=== PATIENT | female | born 1965 | race Caucasian/White ===

== ENCOUNTER 2021-10-29 18:00 | Emergency (ER) | payer MEDICARE, MEDICAID, SELFPAY ==
--- NOTE | ~2021-10-29 | US_ITS ---
EXAMINATION: US VENOUS ULTRASOUND WITH DOPPLER LOWER EXTREMITY, RIGHT CLINICAL INFORMATION: Right leg swelling and pain COMPARISON: None TECHNIQUE: Ultrasound of the deep veins is performed from the hip to the calf with compression sonography and color and pulse Doppler assessment. Spectral analysis with color-flow imaging is performed. FINDINGS: There is normal venous compression and respiratory variation and augmented flow. The visualized common femoral vein, superficial femoral vein, profunda femoral vein, popliteal vein, and the trifurcation region shows no evidence of deep venous thrombosis. There is no significant popliteal fossa cyst. If the patient's symptoms persist, followup ultrasound in 5 days 7 days might be of value to exclude proximal propagation from a non-visualized calf vein. US/US venous duplex LE RT IMPRESSION: No DVT demonstrated in the right lower extremity.
--- NOTE | ~2021-10-29 | XR_ITS ---
EXAMINATION: RIGHT FOOT AND RIGHT ANKLE. CLINICAL INFORMATION: Pain. COMPARISON: None TECHNIQUE: 3 views right foot and 2 views right ankle. FINDINGS: RIGHT ANKLE: The ankle mortise and subtalar joints are normal. The soft tissues are normal. RIGHT FOOT: There is no visible acute fracture, dislocation or subluxation seen. The soft tissues are normal. XR/XR ankle RT 2V IMPRESSION: Unremarkable right ankle exam. Unremarkable right foot exam.
--- NOTE | ~2021-10-29 | XR_ITS ---
EXAMINATION: RIGHT FOOT AND RIGHT ANKLE. CLINICAL INFORMATION: Pain. COMPARISON: None TECHNIQUE: 3 views right foot and 2 views right ankle. FINDINGS: RIGHT ANKLE: The ankle mortise and subtalar joints are normal. The soft tissues are normal. RIGHT FOOT: There is no visible acute fracture, dislocation or subluxation seen. The soft tissues are normal. XR/XR foot RT 2V IMPRESSION: Unremarkable right ankle exam. Unremarkable right foot exam.
[2021-10-29 19:24] VITALS: BP 141/76; PULSE 92; RESP 15; TEMP 37.1; O2SAT 97; BMI 25.6
[2021-10-29] MEDS: Acetaminophen 325 MG TABLET 975 MG PO (20:22)
--- NOTE | 2021-10-29 22:19 | ED.LOWEXIN ---
HPI - Extremity Injury (Lower) General Chief Complaint: Extremity Injury, Lower Stated Complaint: ladder fell on foot Time Seen by Provider: 10/29/21 20:30 History of Present Illness HPI Narrative: Patient complains of right foot pain when a ladder fell onto her right foot a few hours ago, no other injury She also mentioned that she has had some pain in the back of her right leg for the last week not related to this injury or any other injury, no shortness of breath no chest pain Related Data Previous Rx's Medication Instructions Recorded oxycodone 5 mg tablet 5 mg PO Q6H PRN pain #7 tabs 10/29/21 Allergies Allergy/AdvReac Type Severity Reaction Status Date / Time tramadol [Tramadol] Allergy Mild HEADACHE Unverified 01/19/20 16:16 bee pollen [BEE STINGS] Allergy Unknown UNKNOWN Unverified 01/19/20 16:16 tapentadol [TAPENTADOL] Allergy Unknown UNKNOWN Unverified 01/19/20 16:16 adhesive tape [ADHESIVE TAPE] AdvReac Unknown MY SKIN Unverified 01/19/20 16:16 RIPS OFF ADHESIVE BANDAGE AdvReac Unknown MY SKIN Uncoded 01/19/20 16:16 RIPS OFF Review of Systems Review of Systems: Positive for right foot pain and right posterior leg pain Negatives are no fever no chills no dizziness no weakness no headache no neck pain no chest pain no back pain no numbness weakness or tingling no chest pain no shortness of breath Yes all other systems are reviewed and are negative PMFSH Past Medical History Source: nursing notes reviewed Social History Social History Advance Directives: No Advance Directives Information Provided: Yes Physical Exam Vital Signs: Vital Signs: Last Vital Signs Temp 98.7 F 10/29/21 19:24 Pulse 92 10/29/21 19:24 Resp 15 10/29/21 19:24 BP 141/76 H 10/29/21 19:24 Pulse Ox 97 10/29/21 19:24 O2 Del Method 10/29/21 19:24 BMI result Body Mass Index 25.6 General appearance no acute distress Head is normocephalic atraumatic Neck is supple nontender Chest is clear to auscultation bilateral, no pleuritic pain with deep breath, no chest wall tenderness Heart no murmur Abdomen soft nontender Extremities the right dorsal medial foot is tender with some mild ecchymosis and very mild swelling, skin is intact and neurovascular intact distal The right calf had some tenderness, no obvious swelling, there is mild edema in both left and right legs, no redness or warmth no evidence of skin infection no wounds, neurovascular intact distal Skin no rashes Neuro no gross focal deficits Course Course Course Narrative: X-ray of right foot and ankle was negative, skin was intact, so injury to foot is likely a contusion Because she has had some calf pain in the back of her right leg for over a week not related to any injury up ultrasound was done and was negative for DVT or any other acute finding Discharge Plan Discharge Clinical Impression: Contusion of foot, right, Leg pain, right Patient Disposition: Home, Self-Care Additional Instructions: X-ray did not show any broken bones in her right foot or ankle Ultrasound did not show any blood clot in the right leg, there was no sign of infection in the right leg Follow with orthopedist if needed for the foot, and if right leg pain continues or swelling develops and worsens follow with your doctor as you may need a repeat ultrasound Return to the ER any time any worse condition or any concerns Prescriptions: New oxycodone 5 mg tablet 5 mg PO Q6H PRN (Reason: pain) Qty: 7 0RF Rx Instructions: Partial Fill upon patient request. Referrals: Benjy Desai MD [Physician] - (Right foot injury) Interventions: ED Discharge Assessment Last Done: 10/29/21 22:55 Discharge Date/Time: 10/29/21 22:57
[2021-10-29] MEDS: oxyCODONE HCl Immed Release 5 MG TABLET PO (22:22)
== END 2021-10-29 22:57 | disposition home or self-care (01) ==
PROVIDERS: Emergency Provider Emergency Medicine; PCP Internal Medicine
DX: S90.31XA Contusion of right foot, initial encounter (principal); R60.0 Localized edema; M79.604 Pain in right leg; M54.50 Low back pain, unspecified; W11.XXXA Fall on and from ladder, initial encounter; Y93.9 Activity, unspecified; Y92.9 Unspecified place or not applicable; Y99.9 Unspecified external cause status; Z79.899 Other long term (current) drug therapy
CPT/HCPCS: 73600; 73620; 93971; 99283; 99284

== ENCOUNTER 2022-01-09 11:07 | Emergency (ER) | payer MEDICARE, MEDICAID, SELFPAY ==
--- NOTE | ~2022-01-09 | XR_ITS ---
EXAMINATION: XR LUMBOSACRAL SPINE CLINICAL INFORMATION: Acute on chronic pain post heavy lifting COMPARISON: CT abdomen and pelvis 12/20/2017 TECHNIQUE: Three views of the lumbosacral spine. FINDINGS: The vertebral bodies and posterior elements are intact. There is some degree of facet arthropathy at L5-S1. Mild endplate remodeling at several levels. There is possible mild disc space loss at L5-S1 which is similar to prior CT, otherwise the disc spaces are preserved and the vertebral alignment is normal. There are atherosclerotic calcifications of the aorta anterior to the lumbar spine. The paraspinal soft tissues are normal. XR/XR lumbar spine 2-3V IMPRESSION: Minimal degenerative changes of the lumbar spine without acute abnormality
[2022-01-09 11:10] VITALS: BP 145/95; PULSE 100; RESP 16; TEMP 37.1; O2SAT 97; BMI 23.3
[2022-01-09] MEDS: oxyCODONE HCl Immed Release 5 MG TABLET PO (13:29)
[2022-01-09] MEDS: Cyclobenzaprine HCl 10 MG TABLET PO (13:29)
[2022-01-09] MEDS: Ibuprofen 800 MG TABLET PO (13:29)
--- NOTE | 2022-01-09 13:57 | ED.BACK ---
HPI - Back Pain/Injury General Chief Complaint: Back Pain/Injury Stated Complaint: back pain Time Seen by Provider: 01/09/22 12:05 Source: patient Mode of arrival: ambulatory Limitations: no limitations History of Present Illness HPI Narrative: 56-year-old female with a past medical history of ulcers and intestines, gastritis, migraine headaches, chronic back pain, fibromyalgia, anxiety disorder and depression presenting to the ER with complaints of acute on chronic back pain since Thursday worse today. She reports that she tried to help her friend move a picnic table and she started having pain right after. Then her dog has been sick so she has been having to carry him around up and down the stairs and he is very heavy per the patient. She reports she has been taking Motrin and Tylenol without any symptomatic relief. She was followed by pain management and usually gets steroid injections although has not had an injection over 3-4 months. She reports it feels similar to her prior back pains. Although she heard a pop yesterday when she was caring her dog up the stairs. Otherwise she denies any fevers, dizziness, neck pain/ stiffness, trouble swallowing breathing, chest pain or shortness of breath, dyspnea on exertion, orthopnea, palpitations, paresthesias, abdominal pain, flank pain, dysuria, hematuria, abnormal vaginal discharge, rashes, recent falls or trauma, urinary bowel incontinence, saddle anesthesia, IV drug use or any other symptoms complaints or concerns at this time. MD elicited complaint: back pain and back injury Pertinent past history: prior back pain Onset (ago): day(s) ( Worse since Thursday) Timing: constant and progressively worsening Severity: similar to previous episodes Similar Symptoms Previously: Yes Quality: aching, spasming and throbbing Location: lumbar spine Radiation: none Exacerbating factors: immobilization, movement, sitting upright and lifting Relieving factors: none Context: while lifting, turning/twisting and bending Associated symptoms: denies other symptoms Treatments prior to arrival: cold therapy, heat therapy, NSAIDS and acetaminophen Work related injury: No Related Data Previous Rx's Medication Instructions Recorded oxycodone 5 mg tablet 5 mg PO Q6H PRN pain #7 tabs 10/29/21 cyclobenzaprine 10 mg tablet 10 mg PO Q8H #14 tabs 01/09/22 ibuprofen 600 mg tablet 600 mg PO Q6H PRN fever #14 tabs 01/09/22 oxycodone 5 mg tablet 5 mg PO Q6H PRN pain #10 tabs 01/09/22 Allergies Allergy/AdvReac Type Severity Reaction Status Date / Time tramadol [Tramadol] Allergy Mild HEADACHE Unverified 01/19/20 16:16 bee pollen [BEE STINGS] Allergy Unknown UNKNOWN Unverified 01/19/20 16:16 tapentadol [TAPENTADOL] Allergy Unknown UNKNOWN Unverified 01/19/20 16:16 adhesive tape [ADHESIVE TAPE] AdvReac Unknown MY SKIN Unverified 01/19/20 16:16 RIPS OFF ADHESIVE BANDAGE AdvReac Unknown MY SKIN Uncoded 01/19/20 16:16 RIPS OFF Review of Systems Review of Systems: Constitutional : No trauma, No Weight loss, No Fever, No Chills, ENT/Mouth : No Hearing loss, No Ear Pain, No Nasal Congestion, No Sinus Pain, No Hoarseness, No sore throat, No Rhinorrhea, No Swallowing Difficulty Cardiovascular : No Chest Pain, No SOB Respiratory : No Cough, No Dyspnea Gastrointestinal : No Nausea, No Vomiting, No Diarrhea, No abdominal Pain, No Hematochezia, No Melena Genitourinary : No Dysuria, No Urinary Frequency, No Hematuria, No Urinary or Bowel Incontinence/retention Musculoskeletal : + Back pain, No neck pain, No joint stiffness, No joint swelling Skin : No Skin Lesions, No rash or signs of infection Neuro : No Weakness, No radiation, No Numbness, No Paresthesias, No headache, no loss of bowel or bladder incontinence, no saddle anesthesia, Focal weakness, No radiation Denies history of IV drug usage. Yes all other systems are reviewed and are negative [facility] Past Medical History Attestation statement: The following information was validated with the patient. Source: old records reviewed and nursing notes reviewed Social History Social History Advance Directives: No Advance Directives Information Provided: No Physical Exam Vital Signs: Vital Signs: Last Vital Signs Temp 98.8 F 01/09/22 11:10 Pulse 100 01/09/22 11:10 Resp 16 01/09/22 11:10 BP 145/95 H 01/09/22 11:10 Pulse Ox 97 01/09/22 11:10 O2 Del Method 01/09/22 11:10 BMI result Body Mass Index 23.3 vital signs have been reviewed as normal and appeared to be correct. Blood pressure normal. Heart rate normal. Respiration rate normal. Temperature normal. Oxygen saturation normal. Appearance: Alert. Oriented X3. No acute distress. Head: Normal external exam. Normocephalic. Atraumatic. No Lamar signs noted. No raccoon eyes noted Eyes: PERRLA. EOMI. Conjunctiva and sclera normal. Eyelids normal. ENT: EAC normal. TM's Normal. Pharynx normal. Uvula midline. Moist mucous membranes. No trismus noted. No drooling noted. No muffled voice noted. Neck: Normal inspection. Neck supple. FROM. No adenopathy. Thyroid Normal. No meningeal signs. No neck mass noted. CVS: Normal heart rate and rhythm. Heart sound normal. No murmurs noted. Pulses normal throughout. Respiratory: No respiratory distress. Painless inspiration. Breath sounds normal. No wheezes/rales/rhonchi noted. Chest nontender. No accessory muscle usage noted or decreased air movement noted. Abdomen: Soft and nontender. Bowel sounds normal in all 4 quadrants. No distention noted. No organomegaly noted. No visible injury noted. Back: No CVA tenderness. Full range of motion noted. No obvious deformities, or edema. Mild para-spinal muscular tenderness from lumbar region to coccyx. Full ROM in back and lower extremities. 5/5 strength hip extension/flexion, abduction, adduction. Mild Lumbar pain with hip flexion against resistance. Straight leg raise test negative on right; Straight leg raise test negative on left; Reflexes normal ankle and knee bilaterally; EHL motor strength normal bilaterally. No rashes/lesion/induration/fluctuance or signs infection noted. Skin: Skin warm and dry. Normal skin color. Normal skin turgor. No rashes/lesions/lacerations noted. Extremities: No lower extremity edema. Extremities exhibit normal range of motion. Extremities nontender. Neuro: Oriented X 3. No motor deficit. No sensory deficit. Reflexes normal. Patient has a normal steady gait. Course Course Course Narrative: Pt c likely muscular pain, but could be herniated disc. Neuro exam shows no deficits. Not c/w AAA/epidural abscess/dissection.No high risk Hx (Incont, fever, immunosupp, recent surgery/LP, coag, signif trauma, wt loss, puls mass, hx/o Ca, TB, or IVDU) to warrant MRI/CT today. Not c/w Pyelo/UTI/kidney stone/spinal fx. Not cauda equina syndrome. X-ray revealed chronic changes no acute processes. Will DC home with symptomatic treatment instructions to call pain management to return if any new or worsening symptoms. Patient understands agrees with this plan. MDM - Back Pain/Injury Medical Records Attestation: I reviewed the patient's medical records. Imaging Data Lumbar spine x-ray: Attestation: I personally reviewed and interpreted this imaging study as follows: Radiologist's impression: FINDINGS: The vertebral bodies and posterior elements are intact. There is some degree of facet arthropathy at L5-S1. Mild endplate remodeling at several levels. There is possible mild disc space loss at L5-S1 which is similar to prior CT, otherwise the disc spaces are preserved and the vertebral alignment is normal. There are atherosclerotic calcifications of the aorta anterior to the lumbar spine. The paraspinal soft tissues are normal. XR/XR lumbar spine 2-3V IMPRESSION: Minimal degenerative changes of the lumbar spine without acute abnormality Discharge Plan Discharge Clinical Impression: Strain of lumbar region, Degenerative disc disease, lumbar Patient Disposition: Home, Self-Care Instructions: Low Back Strain (ED), Degenerative Disc Disease (ED) Prescriptions: New ibuprofen 600 mg tablet 600 mg PO Q6H PRN (Reason: fever) Qty: 14 0RF oxycodone 5 mg tablet 5 mg PO Q6H PRN (Reason: pain) Qty: 10 0RF Rx Instructions: Partial Fill upon patient request. cyclobenzaprine 10 mg tablet 10 mg PO Q8H Qty: 14 0RF No Action oxycodone 5 mg tablet 5 mg PO Q6H PRN (Reason: pain) Qty: 7 0RF Rx Instructions: Partial Fill upon patient request. Referrals: Demetris Cast III, MD [Primary Care Provider] - 2 days
== END 2022-01-09 15:02 | disposition home or self-care (01) ==
PROVIDERS: Emergency Provider Emergency Medicine Emergency Medical Services; PCP Internal Medicine
DX: M47.816 Spondylosis without myelopathy or radiculopathy, lumbar region (principal); M54.50 Low back pain, unspecified; Z79.899 Other long term (current) drug therapy
CPT/HCPCS: 72100; 99283

== ENCOUNTER 2022-03-30 14:47 | Emergency (ER) | payer MEDICARE, MEDICAID, SELFPAY ==
--- NOTE | ~2022-03-30 | CT_ITS ---
EXAMINATION: CT ABDOMEN AND PELVIS WITHOUT CONTRAST CLINICAL INFORMATION: Abdominal pain COMPARISON: Abdominal ultrasound 07/17/2021, CT chest 09/19/2021, CT abdomen pelvis 12/19/2017 TECHNIQUE: Multidetector volumetric imaging was performed from the superior aspect of the liver through the pubic symphysis. Sagittal and coronal reformatted images were obtained on the technologist's workstation. This CT examination was performed using dose optimization techniques as appropriate, variously including the following: *Automated exposure control *Adjustment of mA and/or kV according to patient size (this includes techniques or standardized protocols for targeted exams where dose is matched to indication/reason for exam; i.e. extremities or head) *Use of iterative reconstruction technique DLP: 460 mGy-cm FINDINGS: LUNG BASES: Bibasilar scarring/atelectasis is present minimal increased when compared with 09/19/2021. No infiltrates, effusions or suspicious lung masses are seen. Small lingular nodular density measuring 4 mm unchanged (4:44). LIVER, GALLBLADDER, AND BILIARY TREE: The liver is mildly enlarged measuring 18.5 cm in cephalocaudad dimension with normal shape and attenuation. No focal hepatic lesion or biliary ductal dilatation is present. The gallbladder is not seen. PANCREAS: Unremarkable. SPLEEN: Unremarkable aside from the presence of a calcified granuloma. ADRENAL GLANDS: Unremarkable. KIDNEYS AND URETERS: The kidneys are normal in size, shape, and attenuation. No hydronephrosis, hydroureter, or calculi seen. No perinephric stranding. BLADDER: Unremarkable. GASTROINTESTINAL TRACT: Again seen is a nonobstructing surgical anastomosis in the rectosigmoid The remainder of the large and small bowel are unremarkable. The appendix is none identified. ABDOMINAL WALL: No significant hernia is appreciated. LYMPH NODES: No retroperitoneal lymphadenopathy. VASCULAR: Calcific aorta iliofemoral plaque without aneurysm. PELVIC VISCERA: Surgically removed. An abnormal adnexal mass or free fluid is not seen. OSSEOUS STRUCTURES: Degenerative changes are again seen at L5-S1, slightly worse than 12/20/2017 with vacuum phenomena now present. No bony destructive lesions are present. CT/CT abdomen pelvis wo IV con IMPRESSION: 1. A cause for the patient's abdominal pain has not been found. 2. Incidental note made of mild hepatomegaly, cholecystectomy, hysterectomy, nonobstructing rectosigmoid surgical anastomosis and degenerative changes L5-S1. 3. Other incidental findings as described above including stable 4 mm lingular nodule. Fleischner guidelines were followed.
--- NOTE | ~2022-03-30 | XR_ITS ---
EXAMINATION: XR CHEST, 2 VIEWS CLINICAL INFORMATION: Cough COMPARISON: 09/15/2017 TECHNIQUE: PA and lateral views of the chest were obtained. FINDINGS: Lungs are clear. Architectural distortion is noted in the apices, consistent with pulmonary emphysema. No consolidation, pneumothorax, or pleural effusion. Cardiac and mediastinal contours are normal. Pulmonary vasculature is unremarkable. Trachea is midline. Mild degenerative disc disease is evident in the thoracic spine. Bilateral breast implants are noted. XR/XR chest 2V IMPRESSION: No acute pulmonary findings.
--- NOTE | 2022-03-30 16:07 | ED.GENADULT ---
HPI - General Adult General Chief complaint: Weakness <VIRGIL Mazariegos - Last Filed: 03/30/22 16:10> Stated complaint: ? bronchitis <VIRGIL Mazariegos - Last Filed: 03/30/22 16:10> Time Seen by Provider: 03/30/22 18:20 <VIRGIL Mazariegos - Last Filed: 03/30/22 16:10> Source: patient <VIRGIL Mazariegos - Last Filed: 03/30/22 16:10> Mode of arrival: ambulatory <VIRGIL Mazariegos - Last Filed: 03/30/22 16:10> Limitations: no limitations <VIRGIL Mazariegos - Last Filed: 03/30/22 16:10> History of Present Illness HPI narrative: 57-year-old female with past medical history of HIV, gastritis, migraines, chronic back pain, fibromyalgia, anxiety, depression, presenting to the ED complaining URI symptoms x2 weeks with productive cough, nasal congestion, generalized fatigue/weakness, mild SOB, chest discomfort when coughing, headaches, and abdominal pain. Also reports decreased p.o. intake. Denies fever, chills, recent travel, sick contacts, dysuria/hematuria <VIRGIL Frye - Last Filed: 03/30/22 19:14> Onset (ago): week(s) <VIRGIL Frye - Last Filed: 03/30/22 19:14> Related Data Home medications: Previous Rx's Medication Instructions Recorded oxycodone 5 mg tablet 5 mg PO Q6H PRN pain #7 tabs 10/29/21 cyclobenzaprine 10 mg tablet 10 mg PO Q8H #14 tabs 01/09/22 ibuprofen 600 mg tablet 600 mg PO Q6H PRN fever #14 tabs 01/09/22 oxycodone 5 mg tablet 5 mg PO Q6H PRN pain #10 tabs 01/09/22 cefuroxime axetil 500 mg tablet 500 mg PO BID 7 days #14 tabs 03/30/22 fluconazole 150 mg tablet 150 mg PO Q3D 2 doses #2 tabs 03/30/22 (Diflucan) fluticasone propionate 50 2 spray intranasal DAILY #16 grams 03/30/22 mcg/actuation nasal spray,suspension (Flonase Allergy Relief) <VIRGIL Mazariegos Last Filed: 03/30/22 16:10> Allergies/adverse reactions: Allergies Allergy/AdvReac Type Severity Reaction Status Date / Time tramadol [Tramadol] Allergy Mild HEADACHE Unverified 01/19/20 16:16 bee pollen [BEE STINGS] Allergy Unknown UNKNOWN Unverified 01/19/20 16:16 tapentadol [TAPENTADOL] Allergy Unknown UNKNOWN Unverified 01/19/20 16:16 adhesive tape [ADHESIVE TAPE] AdvReac Unknown MY SKIN Unverified 01/19/20 16:16 RIPS OFF ADHESIVE BANDAGE AdvReac Unknown MY SKIN Uncoded 01/19/20 16:16 RIPS OFF <VIRGIL Mazariegos Last Filed: 03/30/22 16:10> Review of Systems Review of Systems: Constitutional: No Fever, No Chills, +fatigue ENT/Mouth: No Ear Pain, + Nasal Congestion, No Sinus Pain, No Hoarseness, No sore throat, + Rhinorrhea, No Swallowing Difficulty Cardiovascular: + Chest Pain when coughing, + SOB Respiratory: + Cough, No Sputum, No Wheezing Gastrointestinal: No Nausea, No Vomiting, No Diarrhea, No Constipation, + Abdominal pain Genitourinary: No Dysuria, No Urinary Frequency, No Hematuria, No Urinary Incontinence/retention, No Urgency, No Flank Pain Musculoskeletal: No joint pain, + Myalgias, No Joint Swelling Skin: No Skin Lesions, No rash Neuro: No Weakness, No Numbness <VIRGIL Frye Last Filed: 03/30/22 19:14> Yes all other systems are reviewed and are negative <VIRGIL Frye Last Filed: 03/30/22 19:14> Constitutional: Constitutional: Reports as per HPI <VIRGIL Frye Last Filed: 03/30/22 19:14> [facility] Past Medical History Attestation statement: The following information was validated with the patient. <VIRGIL Frye Last Filed: 03/30/22 19:14> Social History Social History: Social History Advance Directives: No Advance Directives Information Provided: No <VIRGIL Mazariegos Last Filed: 03/30/22 16:10> Physical Exam ED Vital Signs: Vital Signs - 24 hr 03/30/22 16:08 Temperature 98.0 F Pulse Rate 86 Respiratory Rate 18 Blood Pressure 134/89 Pulse Oximetry 96 Oxygen Delivery Method Room Air BMI result Body Mass Index 27.4 <VIRGIL Mazariegos - Last Filed: 03/30/22 16:10> Vital Signs - 24 hr 03/30/22 16:08 Temperature 98.0 F Pulse Rate 86 Respiratory Rate 18 Blood Pressure 134/89 Pulse Oximetry 96 Oxygen Delivery Method Room Air BMI result Body Mass Index 27.4 <VIRGIL Frye - Last Filed: 03/30/22 19:14> Const General: cooperative, healthy appearing, comfortable and no acute distress <VIRGIL Frye - Last Filed: 03/30/22 19:14> Orientation/consciousness: patient oriented x3 <VIRGIL Frye - Last Filed: 03/30/22 19:14> Limitations: no limitations <VIRGIL Frye - Last Filed: 03/30/22 19:14> HENMT Head: Yes normal to inspection and Yes atraumatic <VIRGIL Frye - Last Filed: 03/30/22 19:14> Ears: hearing grossly normal bilaterally, external ears normal and mastoids normal <VIRGIL Frye - Last Filed: 03/30/22 19:14> General nose exam: Normal external nose present <VIRGIL Frye - Last Filed: 03/30/22 19:14> Face and sinus: Yes normal facial exam <VIRGIL Frye - Last Filed: 03/30/22 19:14> Mouth: Normal oral and palatal mucosa present <VIRGIL Frye - Last Filed: 03/30/22 19:14> Throat: Yes posterior oropharynx normal, Yes tonsils normal, Yes uvula midline, No uvula laterally displaced and No uvular edema <VIRGIL Frye - Last Filed: 03/30/22 19:14> Eyes General: appearance normal, both eyes and all related structures <VIRGIL Frye - Last Filed: 03/30/22 19:14> EOM: EOMs intact bilaterally <Beba Pouliot, PA - Last Filed: 03/30/22 19:14> Neck Neck: Yes normal visual inspection and Yes no meningeal signs <Beba Poullesleet PA - Last Filed: 03/30/22 19:14> Resp Effort & Inspection: normal respiratory effort and no respiratory distress <Beba Poullesleet, PA - Last Filed: 03/30/22 19:14> Auscultation: clear to auscultation bilaterally, no crackles, no rales, no rhonchi and no wheezes <Beba Poullesleet, PA - Last Filed: 03/30/22 19:14> Cardio Rate: regular rate <Beba Poullesleet, PA - Last Filed: 03/30/22 19:14> Heart sounds: S1 normal heart sound present and S2 normal heart sound present <Beba Pouldavy PA - Last Filed: 03/30/22 19:14> GI Inspection: Yes normal to inspection <Beba Nicole PA - Last Filed: 03/30/22 19:14> Palpation (GI): Soft to palpation, nontender, no guarding and not rigid <Beba Pouldavy, PA - Last Filed: 03/30/22 19:14> General: Yes no CVA tenderness <Beba Pouldavy PA - Last Filed: 03/30/22 19:14> Back/Spine/Pelvis Back: no CVA tenderness <Beba Poullesleet PA - Last Filed: 03/30/22 19:14> Skin Rashes: no rashes <Beba Nicole PA - Last Filed: 03/30/22 19:14> Wounds: no wounds <Beba Pouldavy, PA - Last Filed: 03/30/22 19:14> Neuro General: patient oriented x3, tone normal and no meningeal signs <Beba Nicole PA - Last Filed: 03/30/22 19:14> Gait exam (Neuro): Normal gait present <Beba Pouldavy PA - Last Filed: 03/30/22 19:14> Extrem General: Yes normal to inspection, Yes no pedal edema and Yes no calf tenderness <Beba Nicole PA - Last Filed: 03/30/22 19:14> Course Course Course Narrative: RME performed by Anna Emanuel PA-C. Patient is a 57 year old female with a history of HIV. Patient states that she has been sick over the last 2 weeks with a cough and has been having right sided lower abdominal pain with a recent weight gain of 10+ lbs. CBC, CMP, COVID/Influenza/RSV swab, and CT abd / pelvis. <VIRGIL Mazariegos - Last Filed: 03/30/22 16:10> RME performed by Anna Emanuel PA-C. Patient is a 57 year old female with a history of HIV. Patient states that she has been sick over the last 2 weeks with a cough and has been having right sided lower abdominal pain with a recent weight gain of 10+ lbs. CBC, CMP, COVID/Influenza/RSV swab, and CT abd / pelvis. -1837--no leukocytosis. Labs otherwise reassuring -UA infected with 21-50 wbc's, large leuk esterase and RBC/blood -COVID-19/influenza/RSV negative XR chest 2V IMPRESSION: No acute pulmonary findings. CT abdomen pelvis wo IV con IMPRESSION: 1.? A cause for the patient's abdominal pain has not been found. 2.? Incidental note made of mild hepatomegaly, cholecystectomy, hysterectomy, nonobstructing rectosigmoid surgical anastomosis and degenerative changes L5-S1. 3.? Other incidental findings as described above including stable 4 mm lingular nodule. ? Fleischner guidelines were followed. > Results discussed with patient including worrisome signs and symptoms and strict return precautions, and when to return to the emergency department. They verbalized understanding and feel safe for discharge at this time. <VIRGIL Frye - Last Filed: 03/30/22 19:14> Medical Decision Making MDM Narrative Medical decision making narrative: 57-year-old female with past medical history of HIV, gastritis, migraines, chronic back pain, fibromyalgia, anxiety, depression, presenting to the ED complaining URI symptoms x2 weeks with productive cough, nasal congestion, generalized fatigue/weakness, mild SOB, chest discomfort when coughing, headaches, and abdominal pain. On exam vital signs stable, NAD, nontoxic appearing, lungs CTA, abdomen soft/nontender. Concern for viral illness vs bronchitis vs pneumonia. Lower suspicion for ACS/PE, ICH or intra-abdominal pathology without tenderness on exam Labs, CXR, CT abdomen/pelvis ordered in triage <VIRGIL Frye - Last Filed: 03/30/22 19:14> Medical Records Medical records reviewed: Yes I reviewed the patient's medical records. <VIRGIL Frye - Last Filed: 03/30/22 19:14> Lab Data Lab results reviewed: Yes I reviewed the patient's lab results. <VIRGIL Frye - Last Filed: 03/30/22 19:14> Result diagrams: : 03/30/22 16:23 03/30/22 16:23 <VIRGIL Mazariegos - Last Filed: 03/30/22 16:10> Labs: Lab Results 03/30/22 03/30/22 03/30/22 Range/Units 16:23 16:23 16:23 WBC 7.7 (4.8-10.8) X10*3/uL RBC 4.39 (4.20-5.50) X10*6/uL Hgb 13.8 (12.0-16.0) g/dl Hct 41.6 (37.0-47.0) % MCV 94.8 (80.0-98.0) fL MCH 31.4 (27.0-33.0) pg MCHC 33.2 (31.0-35.0) g/dl RDW 12.6 (11.0-16.0) % Plt Count 277 (160-400) X10*3/uL MPV 9.6 (9.4-12.3) fL Immature Gran % (Auto) 0.5 H (0.0-0.4) % Neut % (Auto) 59.4 (45-73) % Lymph % (Auto) 30.8 (20-40) % [place] % (Auto) 7.2 (2-11) % Eos % (Auto) 1.4 (0-4) % Baso % (Auto) 0.7 (0-2) % Lymph # (Auto) 2.4 (1.2-4.9) X10*3/uL [place] # (Auto) 0.6 (0.1-1.2) X10*3/uL Eos # (Auto) 0.1 (0.0-0.4) X10*3/uL Baso # (Auto) 0.1 (0.0-0.2) X10*3/uL Abs Immat Gran (auto) 0.04 H (0.00-0.03) X10*3/uL Absolute Neuts (auto) 4.6 (2.0-8.3) x10*3/uL Absolute Nucleated RBC 0.000 (0.0-0.012) X10*3/uL Nucleated RBC % (auto) 0.0 (0.0-0.2) /100WBC Smear Tech's Comments VERIFIED Sodium 138 (135-145) mmol/L Potassium 4.3 (3.3-5.1) mmol/L Chloride 104 (96-108) mmol/L Carbon Dioxide 25 (22-29) mmol/L Anion Gap 13 (12-20) BUN 9 (9-16) mg/dL Creatinine 0.71 (0.5-1.4) mg/dL Estim Creat Clear Calc 79.0 Estimated GFR > 60 Random Glucose 91 (60-115) mg/dL Calcium 9.1 (8.4-10.2) mg/dL Total Bilirubin 0.3 (0.0-1.0) mg/dL AST 19 (5-31) U/L ALT 12 (0-31) U/L Alkaline Phosphatase 71 (39-117) U/L Total Protein 7.1 (6.5-8.0) g/dL Albumin 3.9 (3.5-5.0) g/dL Urine Color Urine Appearance Urine pH (5.0-9.0) Ur Specific [place] (1.005-1.025) Urine Protein (Neg-Trace) mg/dL Urine Glucose (UA) (Negative) mg/dL Urine Ketones (Negative) mg/dL Urine Blood (Negative) Urine Nitrite (Negative) Ur Leukocyte Esterase (Negative) Urine RBC (0-2) /HPF Urine WBC (0-5) /HPF Ur Squamous Epith Cells (0-2) /HPF Urine Bacteria (None Seen) Hyaline Casts (0-2) /LPF Influenza Type A (PCR) NEGATIVE (Negative) Influenza Type B (PCR) NEGATIVE (Negative) RSV RNA Qual (PCR) NEGATIVE (Negative) SARS-CoV-2 RNA (RT-PCR) NEGATIVE (Negative) 03/30/22 Range/Units 17:04 WBC (4.8-10.8) X10*3/uL RBC (4.20-5.50) X10*6/uL Hgb (12.0-16.0) g/dl Hct (37.0-47.0) % MCV (80.0-98.0) fL MCH (27.0-33.0) pg MCHC (31.0-35.0) g/dl RDW (11.0-16.0) % Plt Count (160-400) X10*3/uL MPV (9.4-12.3) fL Immature Gran % (Auto) (0.0-0.4) % Neut % (Auto) (45-73) % Lymph % (Auto) (20-40) % [place] % (Auto) (2-11) % Eos % (Auto) (0-4) % Baso % (Auto) (0-2) % Lymph # (Auto) (1.2-4.9) X10*3/uL [place] # (Auto) (0.1-1.2) X10*3/uL Eos # (Auto) (0.0-0.4) X10*3/uL Baso # (Auto) (0.0-0.2) X10*3/uL Abs Immat Gran (auto) (0.00-0.03) X10*3/uL Absolute Neuts (auto) (2.0-8.3) x10*3/uL Absolute Nucleated RBC (0.0-0.012) X10*3/uL Nucleated RBC % (auto) (0.0-0.2) /100WBC Smear Tech's Comments Sodium (135-145) mmol/L Potassium (3.3-5.1) mmol/L Chloride (96-108) mmol/L Carbon Dioxide (22-29) mmol/L Anion Gap (12-20) BUN (9-16) mg/dL Creatinine (0.5-1.4) mg/dL Estim Creat Clear Calc Estimated GFR Random Glucose (60-115) mg/dL Calcium (8.4-10.2) mg/dL Total Bilirubin (0.0-1.0) mg/dL AST (5-31) U/L ALT (0-31) U/L Alkaline Phosphatase (39-117) U/L Total Protein (6.5-8.0) g/dL Albumin (3.5-5.0) g/dL Urine Color Yellow Urine Appearance Cloudy Urine pH 7.5 (5.0-9.0) Ur Specific [place] 1.010 (1.005-1.025) Urine Protein Negative (Neg-Trace) mg/dL Urine Glucose (UA) Negative (Negative) mg/dL Urine Ketones Negative (Negative) mg/dL Urine Blood Trace H (Negative) Urine Nitrite Negative (Negative) Ur Leukocyte Esterase Large (3+) H (Negative) Urine RBC 3-5 H (0-2) /HPF Urine WBC 21-50 (0-5) /HPF Ur Squamous Epith Cells 0-2 (0-2) /HPF Urine Bacteria None Seen (None Seen) Hyaline Casts 0-2 (0-2) /LPF Influenza Type A (PCR) (Negative) Influenza Type B (PCR) (Negative) RSV RNA Qual (PCR) (Negative) SARS-CoV-2 RNA (RT-PCR) (Negative) <VIRGIL Mazariegos - Last Filed: 03/30/22 16:10> Lab Results 03/30/22 03/30/22 03/30/22 Range/Units 16:23 16:23 16:23 WBC 7.7 (4.8-10.8) X10*3/uL RBC 4.39 (4.20-5.50) X10*6/uL Hgb 13.8 (12.0-16.0) g/dl Hct 41.6 (37.0-47.0) % MCV 94.8 (80.0-98.0) fL MCH 31.4 (27.0-33.0) pg MCHC 33.2 (31.0-35.0) g/dl RDW 12.6 (11.0-16.0) % Plt Count 277 (160-400) X10*3/uL MPV 9.6 (9.4-12.3) fL Immature Gran % (Auto) 0.5 H (0.0-0.4) % Neut % (Auto) 59.4 (45-73) % Lymph % (Auto) 30.8 (20-40) % [place] % (Auto) 7.2 (2-11) % Eos % (Auto) 1.4 (0-4) % Baso % (Auto) 0.7 (0-2) % Lymph # (Auto) 2.4 (1.2-4.9) X10*3/uL [place] # (Auto) 0.6 (0.1-1.2) X10*3/uL Eos # (Auto) 0.1 (0.0-0.4) X10*3/uL Baso # (Auto) 0.1 (0.0-0.2) X10*3/uL Abs Immat Gran (auto) 0.04 H (0.00-0.03) X10*3/uL Absolute Neuts (auto) 4.6 (2.0-8.3) x10*3/uL Absolute Nucleated RBC 0.000 (0.0-0.012) X10*3/uL Nucleated RBC % (auto) 0.0 (0.0-0.2) /100WBC Smear Tech's Comments VERIFIED Sodium 138 (135-145) mmol/L Potassium 4.3 (3.3-5.1) mmol/L Chloride 104 (96-108) mmol/L Carbon Dioxide 25 (22-29) mmol/L Anion Gap 13 (12-20) BUN 9 (9-16) mg/dL Creatinine 0.71 (0.5-1.4) mg/dL Estim Creat Clear Calc 79.0 Estimated GFR > 60 Random Glucose 91 (60-115) mg/dL Calcium 9.1 (8.4-10.2) mg/dL Total Bilirubin 0.3 (0.0-1.0) mg/dL AST 19 (5-31) U/L ALT 12 (0-31) U/L Alkaline Phosphatase 71 (39-117) U/L Total Protein 7.1 (6.5-8.0) g/dL Albumin 3.9 (3.5-5.0) g/dL Urine Color Urine Appearance Urine pH (5.0-9.0) Ur Specific [place] (1.005-1.025) Urine Protein (Neg-Trace) mg/dL Urine Glucose (UA) (Negative) mg/dL Urine Ketones (Negative) mg/dL Urine Blood (Negative) Urine Nitrite (Negative) Ur Leukocyte Esterase (Negative) Urine RBC (0-2) /HPF Urine WBC (0-5) /HPF Ur Squamous Epith Cells (0-2) /HPF Urine Bacteria (None Seen) Hyaline Casts (0-2) /LPF Influenza Type A (PCR) NEGATIVE (Negative) Influenza Type B (PCR) NEGATIVE (Negative) RSV RNA Qual (PCR) NEGATIVE (Negative) SARS-CoV-2 RNA (RT-PCR) NEGATIVE (Negative) 03/30/22 Range/Units 17:04 WBC (4.8-10.8) X10*3/uL RBC (4.20-5.50) X10*6/uL Hgb (12.0-16.0) g/dl Hct (37.0-47.0) % MCV (80.0-98.0) fL MCH (27.0-33.0) pg MCHC (31.0-35.0) g/dl RDW (11.0-16.0) % Plt Count (160-400) X10*3/uL MPV (9.4-12.3) fL Immature Gran % (Auto) (0.0-0.4) % Neut % (Auto) (45-73) % Lymph % (Auto) (20-40) % [place] % (Auto) (2-11) % Eos % (Auto) (0-4) % Baso % (Auto) (0-2) % Lymph # (Auto) (1.2-4.9) X10*3/uL [place] # (Auto) (0.1-1.2) X10*3/uL Eos # (Auto) (0.0-0.4) X10*3/uL Baso # (Auto) (0.0-0.2) X10*3/uL Abs Immat Gran (auto) (0.00-0.03) X10*3/uL Absolute Neuts (auto) (2.0-8.3) x10*3/uL Absolute Nucleated RBC (0.0-0.012) X10*3/uL Nucleated RBC % (auto) (0.0-0.2) /100WBC Smear Tech's Comments Sodium (135-145) mmol/L Potassium (3.3-5.1) mmol/L Chloride (96-108) mmol/L Carbon Dioxide (22-29) mmol/L Anion Gap (12-20) BUN (9-16) mg/dL Creatinine (0.5-1.4) mg/dL Estim Creat Clear Calc Estimated GFR Random Glucose (60-115) mg/dL Calcium (8.4-10.2) mg/dL Total Bilirubin (0.0-1.0) mg/dL AST (5-31) U/L ALT (0-31) U/L Alkaline Phosphatase (39-117) U/L Total Protein (6.5-8.0) g/dL Albumin (3.5-5.0) g/dL Urine Color Yellow Urine Appearance Cloudy Urine pH 7.5 (5.0-9.0) Ur Specific [place] 1.010 (1.005-1.025) Urine Protein Negative (Neg-Trace) mg/dL Urine Glucose (UA) Negative (Negative) mg/dL Urine Ketones Negative (Negative) mg/dL Urine Blood Trace H (Negative) Urine Nitrite Negative (Negative) Ur Leukocyte Esterase Large (3+) H (Negative) Urine RBC 3-5 H (0-2) /HPF Urine WBC 21-50 (0-5) /HPF Ur Squamous Epith Cells 0-2 (0-2) /HPF Urine Bacteria None Seen (None Seen) Hyaline Casts 0-2 (0-2) /LPF Influenza Type A (PCR) (Negative) Influenza Type B (PCR) (Negative) RSV RNA Qual (PCR) (Negative) SARS-CoV-2 RNA (RT-PCR) (Negative) <VIRGIL Frye - Last Filed: 03/30/22 19:14> Discharge Plan Discharge Clinical Impression: Bronchitis, UTI (urinary tract infection) <VIRGIL Mazariegos - Last Filed: 03/30/22 16:10> Patient Disposition: Home, Self-Care <VIRGIL Mazariegos - Last Filed: 03/30/22 16:10> Instructions: Urinary Tract Infection in Women (ED), Acute Bronchitis (ED) <VIRGIL Mazariegos - Last Filed: 03/30/22 16:10> Additional Instructions: Your blood work and imaging studies did not show any acute findings today. You do have a urinary tract infection, we are treating with antibiotics for bronchitis Ceftin is antibiotic please take as prescribed Flonase as an angled E congestion Please have close follow-up with her doctor If symptoms persist or worsen, you have fever, persistent worsening chest pain/shortness of breath return to the emergency department <VIRGIL Mazariegos - Last Filed: 03/30/22 16:10> Prescriptions: New cefuroxime axetil 500 mg tablet 500 mg PO BID 7 Days Qty: 14 0RF fluticasone propionate [Flonase Allergy Relief] 50 mcg/actuation spray,suspension 2 spray intranasal DAILY Qty: 16 0RF Rx Instructions: administer into each nostril fluconazole [Diflucan] 150 mg tablet 150 mg PO Q3D Qty: 2 0RF No Action ibuprofen 600 mg tablet 600 mg PO Q6H PRN (Reason: fever) Qty: 14 0RF oxycodone 5 mg tablet 5 mg PO Q6H PRN (Reason: pain) Qty: 10 0RF Rx Instructions: Partial Fill upon patient request. cyclobenzaprine 10 mg tablet 10 mg PO Q8H Qty: 14 0RF oxycodone 5 mg tablet 5 mg PO Q6H PRN (Reason: pain) Qty: 7 0RF Rx Instructions: Partial Fill upon patient request. <VIRGIL Mazariegos - Last Filed: 03/30/22 16:10> Referrals: Demetris Cast III, MD [Primary Care Provider] - 3 days <VIRGIL Mazariegos - Last Filed: 03/30/22 16:10>
[2022-03-30 16:08] VITALS: BP 134/89; PULSE 86; RESP 18; TEMP 36.7; O2SAT 96; BMI 27.4
[2022-03-30 16:42] LABS: Basophils Absolute Auto 0.1 X10*3/uL (0.0-0.2); Basophils Percent Auto 0.7 % (0-2); Eosinophils Absolute Auto 0.1 X10*3/uL (0.0-0.4); Eosinophils Percent Auto 1.4 % (0-4); Hematocrit 41.6 % (37.0-47.0); Hemoglobin 13.8 g/dl (12.0-16.0); Imm Gran Abs Auto 0.04 X10*3/uL (0.00-0.03); Imm Gran Pct Auto 0.5 % (0.0-0.4); Lymphocytes Absolute Auto 2.4 X10*3/uL (1.2-4.9); Lymphocytes Percent Auto 30.8 % (20-40); MANUAL DIFF FLAG SCAN; Mean Corpuscular HGB Conc 33.2 g/dl (31.0-35.0); Mean Corpuscular Hemoglobin 31.4 pg (27.0-33.0); Mean Corpuscular Volume 94.8 fL (80.0-98.0); Mean Platelet Volume 9.6 fL (9.4-12.3); Monocytes Absolute Auto 0.6 X10*3/uL (0.1-1.2); Monocytes Percent Auto 7.2 % (2-11); Neutrophils Absolute Auto 4.6 x10*3/uL (2.0-8.3); Neutrophils Percent Auto 59.4 % (45-73); Platelet Count 277 X10*3/uL (160-400); Red Blood Count 4.39 X10*6/uL (4.20-5.50); Red Cell Distribution Width 12.6 % (11.0-16.0); SCAN SMEAR FLAG 1; White Blood Count 7.7 X10*3/uL (4.8-10.8)
[2022-03-30 16:45] LABS: Alanine Aminotransferase 12 U/L (0-31); Albumin Level 3.9 g/dL (3.5-5.0); Alkaline Phosphatase 71 U/L (39-117); Anion Gap 13 (12-20); Aspartate Amino Transferase 19 U/L (5-31); Bilirubin Total 0.3 mg/dL (0.0-1.0); Blood Urea Nitrogen 9 mg/dL (9-16); Calcium 9.1 mg/dL (8.4-10.2); Carbon Dioxide 25 mmol/L (22-29); Chloride 104 mmol/L (96-108); Estimated Glomerular Filt Rate > 60; Glucose Random 91 mg/dL (60-115); Potassium 4.3 mmol/L (3.3-5.1); SLIDE REVIEW VERIFIED; Sodium 138 mmol/L (135-145); Total Protein 7.1 g/dL (6.5-8.0)
[2022-03-30 17:06] LABS: Influenza A PCR NEGATIVE (Negative); Influenza B PCR NEGATIVE (Negative); Resp Syncy Virus RNA Qual PCR NEGATIVE (Negative); SARS COV2 PCR INHOUSE NEGATIVE (Negative)
[2022-03-30 17:20] LABS: Appearance Urine Cloudy; Color Urine Yellow; Glucose Urine UA Negative (Negative); Leukocyte Esterase Urine Large (3+) (Negative); Nitrite Urine Negative (Negative); PH 7.5 (5.0-9.0); UMIC TRIGGER UACC YES; Urine Blood Trace (Negative); Urine Ketones Negative (Negative); Urine Protein Negative (Neg-Trace)
[2022-03-30 17:28] LABS: Bacteria Urine None Seen (None Seen); Hyaline Casts Urine 0-2 /LPF (0-2); Squamous Epithelial Cell Urine 0-2 /HPF (0-2); UACC Culture Trigger YES; WBC Urine 21-50 /HPF (0-5)
--- OUTSIDE RECORDS SUMMARY | 2022-03-30 18:40 | XMS_ITS | Continuity of Care Document ---
:1965 Author Organization [facility] Address [address] [place] [address]- Care Team Providers Name Role Phone Demetris Cast III, MD Primary Care Physician Encounter [facility] Date(s): 06/04/21 - 07/04/21 [facility] [address] [place] [id number] Attending Physician: Huseyin Sellers Admitting Physician: AdmHuseyin heredia Referring Physician: AdmtrHuseyin Allergies, Adverse Reactions, Alerts Substance Reaction Severity Status Bee Stings Anaphylaxis Active Tape skin peels Active TraMADol Hydrochloride ER Active Duragesic skin peels from adhesive Active Immunizations Given and Recorded Vaccine Date Status Refusal Reason pneumococcal 13-valent vaccine 03/19/21 Recorded influenza virus vaccine, inactivated 02/26/21 Recorded influenza virus vaccine, inactivated 05/14/19 Given influenza virus vaccine, inactivated 01/15/16 Recorded influenza virus vaccine, inactivated 04/10/15 Given influenza virus vaccine, inactivated 01/14/12 Given influenza virus vaccine, inactivated 02/04/10 Given tetanus-diphtheria toxoids (Td) 12/27/20 Recorded tetanus-diphtheria toxoids (Td)1 10/11/08 Given tetanus-diphtheria toxoids (Td) 05/04/98 Given pneumococcal 23-valent vaccine 09/18/17 Recorded pneumococcal 23-valent vaccine 09/20/11 Given tetanus/diphtheria/pertussis, acel(Tdap)2 04/08/15 Given Influenza Virus Vaccine (oldterm)3 04/08/07 Given Pneumococcal Vaccine (oldterm) 05/04/04 Given Not Given Vaccine Date Status Refusal Reason influenza virus vaccine, inactivated 06/08/14 Not Given Patient Refuses 1Admin Note: [facility]2Early/Late Reason: Other : NOT GIVEN IN ER OR OR, PT TO PACU AT 1902, med up from pharmacy at 1940, given adfa2Dijwz Note: given in clinic Medications Biktarvy oral tablet 1 tablet, By Mouth, Daily, # 30 tablet, 5 Refills, Maintenance, 04/24/21 14:35:00 EST, Tablet, [facility] #[id number], Partial fill upon patient request if the prescription is for a schedule II opioid drug., 1 tablet By Mouth Daily,x30 days, 158, cm, 02/01... Start Date: 04/24/21 Stop Date: 10/21/21 Status: Orderedcetirizine 10 mg oral tablet 1 tablet = 10 mg, By Mouth, Daily, # 90 tablet, 0 Refills, Maintenance, 06/05/17 16:11:10, Tablet Start Date: 06/05/17 Status: OrderedcloNIDine 0.1 mg oral tablet 0.1 mg, 1, tablet, By Mouth, 2 times a day, Refills 0, Maintenance, 05/13/19 14:32:00 EST Start Date: 05/13/19 Status: OrderedCVS ANTI-DIARRHEAL 2 MG CAPLET TAKE 2 TABLETS BY MOUTH 4 TIMES A DAY 30 MINUTES BEFORE MEALS AND AT BEDTIME Start Date: 05/13/19 Status: Orderedepinephrine 0.3 mg injectable solution = 0.3 mg, Intramuscular, Once Start Date: 05/13/19 Status: OrderedFLUoxetine 20 mg oral capsule 40 mg, 2, capsule, By Mouth, Daily, # 60 capsule, Refills 0, Maintenance, 05/13/19 8:35:00 EST Start Date: 05/13/19 Status: Orderedfolic acid 1 mg oral tablet 1 mg, 1, tablet, By Mouth, Daily, Refills 0, Maintenance, 10/13/19 9:20:00 EDT Start Date: 10/13/19 Status: OrderedLidocaine 5% Topical 1 applicator, Topically, 3 times a day, 0 Refills, Maintenance, Ointment Start Date: 10/13/19 Status: Orderedloperamide 2 mg oral capsule See Instructions, TAKE 1 CAPSULE BY MOUTH 4 TIMES A DAY 30 MINUTES PRIOR TO MEALS AND BEDTIME, # 120capsule, Refills 5, Instructions Replace Required Details, Route to Pharmacy Electronically, [id number], 158, cm, 02/19/21 14:55:00 EDT, Height,... Start Date: 06/11/21 Status: Orderedmeclizine 12.5 mg oral tablet 2 tablet = 25 mg, By Mouth, 3 times a day, PRN as needed for dizziness, 0 Refills, Maintenance, 05/16/19 11:53:00 EST, Tablet Start Date: 05/16/19 Status: Orderedomeprazole 20 mg oral enteric coated capsule 2 capsule = 40 mg, By Mouth, Daily, # 30 capsule, 0 Refills, Maintenance, 01/05/13 1:39:16, EC Capsule Start Date: 01/05/13 Status: Orderedoxybutynin 10 mg/24 hr oral tablet, extended release 1 tablet = 10 mg, By Mouth, Daily, # 30 tablet, 0 Refills, Maintenance, 05/13/19 8:35:00 EST, ER Tablet Start Date: 05/13/19 Status: OrderedPyridoxine Tablet 50 mg, By Mouth, Daily, Refills 0, Maintenance, 10/13/19 9:20:00 EDT Start Date: 10/13/19 Status: OrderedtraZODone 50 mg oral tablet 100 mg, 2, tablet, By Mouth, Daily at bedtime, Refills 0, Maintenance, 05/13/19 14:33:00 EST Start Date: 05/13/19 Status: OrderedVentolin HFA 108 mcg/inh inhalation aerosol with adapter 2 puffs, Inhalation, Every 4 hours, PRN Wheezing/Shortness of Breath Start Date: 05/13/19 Status: OrderedWellbutrin XL 300 mg/24 hours oral tablet, extended release 1 tablet = 300 mg, By Mouth, Daily, # 30 tablet, 0 Refills, Maintenance, 06/05/17 16:09:19, ER Tablet Start Date: 06/05/17 Status: Orderedzolpidem 5 mg oral tablet 1 tablet = 5 mg, By Mouth, Daily at bedtime, PRN for sleep, 0 Refills, Maintenance, 06/05/17 16:10:14, Tablet Start Date: 06/05/17 Status: Ordered Problem List Condition Effective Dates Status Health Status Informant Constipation(Confirmed) Active Low back pain(Confirmed) Active Neck pain(Confirmed) Active LARA - Obstructive sleep Active apnea(Confirmed) Post traumatic stress disorder Active (PTSD)(Confirmed) Rhinitis(Confirmed) Active Major depressive disorder, single Active episode, severe with anxious distress(Confirmed) Social History Social History Type Response Smoking Status Current every day smoker entered on: 09/05/14 Sex
--- OUTSIDE RECORDS SUMMARY | 2022-03-30 18:40 | XMS_ITS | Continuity of Care Document ---
:1965 Author Organization [facility] Address [address] [place] [address]- Care Team Providers Name Role Phone Demetris Cast III, MD Primary Care Physician Encounter [facility] [place] Date(s): 02/21/21 - 04/17/21 [facility] [address] [place] [id number] Attending Physician: Erendira Marrufo DO Admitting Physician: Erendira Marrufo DO Referring Physician: Demetris Cast III, MD Allergies, Adverse Reactions, Alerts Substance Reaction Severity Status Duragesic skin peels from adhesive Active Bee Stings Anaphylaxis Active Tape skin peels Active TraMADol Hydrochloride ER Active Immunizations Given and Recorded Vaccine Date [...] 06/08/14 Not Given Patient Refuses 1Admin Note: [facility]2Early/Late Reason: Other : NOT GIVEN IN ER OR OR, PT TO PACU AT 1902, med up from pharmacy at 1940, given [id number] Note: given in clinic Medications cetirizine 10 mg oral tablet 1 tablet = [...] MEALS AND BEDTIME, # 120capsule, Refills 5, Acute, Instructions Replace Required Details, Route to Pharmacy Electronically, [id number], 158, cm, 08/09/20 2:35:00 EDT, He... Start Date: 11/06/20 Status: Orderedmeclizine 12.5 mg oral tablet 2 [...]
--- OUTSIDE RECORDS SUMMARY | 2022-03-30 18:40 | XMS_ITS | Continuity of Care Document ---
:1965 Author Organization [facility] Address [address] [place] [address]- Care Team Providers Name Role Phone Demetris Cast III, MD Primary Care Physician Encounter [facility] [place] Date(s): 04/23/21 - 05/23/21 [facility] [address] [place] [address] Allergies, Adverse Reactions, Alerts Substance Reaction Severity Status TraMADol Hydrochloride ER Active Duragesic skin peels from adhesive Active Bee Stings Anaphylaxis Active Tape skin peels Active Immunizations Given and Recorded Vaccine Date [...] 06/08/14 Not Given Patient Refuses 1Admin Note: [facility]2Early/Late Reason: Other : NOT GIVEN IN ER OR OR, PT TO PACU AT 1902, med up from pharmacy at 1940, given [id number] Note: given in clinic Medications Biktarvy oral tablet 1 tablet, By Mouth, Daily, # 30 tablet, 5 Refills, Maintenance, 04/24/21 14:35:00 EST, Tablet, [facility]/pharmacy #[id number], Partial fill upon patient request if [...] Replace Required Details, Route to Pharmacy Electronically, [facility] [id number], 158, cm, 08/09/20 2:35:00 EDT, He... Start [...]
--- OUTSIDE RECORDS SUMMARY | 2022-03-30 18:40 | XMS_ITS | Continuity of Care Document ---
:1965 Author Organization [facility] Address [address] [place] [address]- Care Team Providers Name Role Phone Segun HARRIS MD, Demetris Pierre Primary Care Physician Encounter [facility] [place] Date(s): 02/18/21 - 05/04/21 [facility] [address] [place] [id number] Attending Physician: Shahrzad Allen MD Admitting Physician: Shahrzad Allen MD Referring Physician: Demetris Cast III, MD Allergies, [...] 06/08/14 Not Given Patient Refuses 1Admin Note: [facility]2Early/Late Reason: Other : NOT GIVEN IN ER OR OR, PT TO PACU AT 1902, med up from pharmacy at 1940, given [id number] Note: given in clinic Medications Biktarvy oral tablet 1 tablet, By Mouth, Daily, # 30 tablet, 5 Refills, Maintenance, 04/24/21 14:35:00 EST, Tablet, [facility]/pharmacy #[id number], Partial fill upon patient request if [...] Replace Required Details, Route to Pharmacy Electronically, [facility] [id number], 158, cm, 08/09/20 2:35:00 EDT, He... Start [...]
--- OUTSIDE RECORDS SUMMARY | 2022-03-30 18:40 | XMS_ITS | Continuity of Care Document ---
:1965 Author Organization [facility] Address [address] [place] [address]- Care Team Providers Name Role Phone Demetris Cast III, MD Primary Care Physician Encounter [facility] [place] Date(s): 02/19/21 - 03/29/21 [facility] [address] [place] [id number] Attending Physician: Miki Yañez MD Admitting Physician: Miki Yañez MD Referring Physician: Demetris Cast III, MD [...] 06/08/14 Not Given Patient Refuses 1Admin Note: [facility]2Early/Late Reason: Other : NOT GIVEN IN ER OR OR, PT TO PACU AT 1902, med up from pharmacy at 1940, given [id number] Note: given in clinic Medications cetirizine 10 [...] Replace Required Details, Route to Pharmacy Electronically, [facility] [id number], 158, cm, 08/09/20 2:35:00 EDT, He... Start [...]
--- OUTSIDE RECORDS SUMMARY | 2022-03-30 18:40 | XMS_ITS | Continuity of Care Document ---
:1965 Author Organization [facility] Address [address] [place] [address]- Care Team Providers Name Role Phone Marsha MYERS, Ryan Primary Care Physician [place] [facility] [place] 09/20/19 - 10/20/[address] [address] [facility] Attending Physician: Not on Staff, Attending MD Admitting Physician: Not on Staff, Admitting MD Referring Physician: Not on Staff, Referring MD Allergies, Adverse Reactions, Alerts Substance Reaction Severity Status Duragesic skin peels from adhesive Active Bee Stings Anaphylaxis Active Tape skin peels Active TraMADol Hydrochloride ER Active Immunizations Given and Recorded Vaccine Date Status Refusal Reason influenza virus vaccine, inactivated 05/14/19 Given influenza virus vaccine, inactivated 04/10/15 Given influenza virus vaccine, inactivated 01/14/12 Given influenza virus vaccine, inactivated 02/04/10 Given tetanus/diphtheria/pertussis, acel(Tdap)1 04/08/15 Given pneumococcal 23-valent vaccine 09/20/11 Given tetanus-diphtheria toxoids (Td)2 10/11/08 Given tetanus-diphtheria toxoids (Td) 05/04/98 Given Influenza Virus Vaccine (oldterm)3 04/08/07 Given Pneumococcal Vaccine (oldterm) 05/04/04 Given Not Given Vaccine Date Status Refusal Reason influenza virus vaccine, inactivated 06/08/14 Not Given Patient Refuses 1Early/Late Reason: Other : NOT GIVEN IN ER OR OR, PT TO PACU AT 1902, med up from pharmacy at 1940, given [id number] Note: [facility]3Admin Note: given in clinic Medications cetirizine 10 [...] AND AT BEDTIME Start Date: 05/13/19 Status: Ordereddiazepam 5 mg oral tablet 5 mg, 1, tablet, By Mouth, 3 times a day, PRN, # 5 tablet, Refills 0, Tot. Refills 0, Acute 01/31/2023:00:00 EDT, as needed for anxiety, 10/13/19 9:18:00 EDT, Print Requisition Start Date: 10/13/19 Stop Date: 02/01/20 Status: Orderedepinephrine 0.3 mg injectable solution = [...] 10/13/19 Status: Orderedloperamide 2 mg oral capsule 2 mg, 1, capsule, By Mouth, Every 3 hours, PRN, Refills 0, Maintenance, Loose Stool, 05/16/19 11:52:00 EST Start Date: 05/16/19 Status: Orderedmeclizine 12.5 mg oral tablet 2 [...]
--- OUTSIDE RECORDS SUMMARY | 2022-03-30 18:40 | XMS_ITS | Continuity of Care Document ---
:1965 Author Organization [facility] Address [address] [place] [address]- Care Team Providers Name Role Phone Segun HARRIS MD, Demetris Pierre Primary Care Physician [place] [facility] [place] Date(s): 04/04/21 - 05/04/21 [facility] [address] [place] [address]- Attending Physician: Huseyin Sellers Admitting Physician: AdmHuseyin heredia Referring Physician: Admtr, Ar8 Allergies, Adverse Reactions, Alerts Substance Reaction Severity [...] 06/08/14 Not Given Patient Refuses 1Admin Note: [facility]2Early/Late Reason: Other : NOT GIVEN IN ER OR OR, PT TO PACU AT 1902, med up from pharmacy at 1940, given [id number] Note: given in clinic Medications Biktarvy oral tablet 1 tablet, By Mouth, Daily, # 30 tablet, 5 Refills, Maintenance, 04/24/21 14:35:00 EST, Tablet, [facility]/pharmacy #[id number], Partial fill upon patient request if [...] Replace Required Details, Route to Pharmacy Electronically, [facility] [id number], 158, cm, 08/09/20 2:35:00 EDT, He... Start [...]
--- OUTSIDE RECORDS SUMMARY | 2022-03-30 18:40 | XMS_ITS | Continuity of Care Document ---
:1965 Author Organization [facility] Address [address] [place] [address]- Care Team Providers Name Role Phone Ryan Larson MD Primary Care Physician Encounter [facility] [place] Date(s): 05/16/19 - 05/16/[address] [address]- [facility] Encounter Diagnosis Chest pain (Final) - 05/13/19 Discharge Disposition: A-D/C Home Attending Physician: Heather Whiteside MD Admitting Physician: Dejuan Lock MD Referring Physician: Not on Staff, Referring [...] med up from pharmacy at 1940, given [id number] Note: [facility]3Admin Note: given in clinic Medications cetirizine [...] tablet, By Mouth, 3 times a day, Refills 0, Maintenance, 05/13/19 8:35:00 EST Start Date: 05/13/19 Status: Orderedepinephrine 0.3 mg injectable solution = 0.3 mg, Intramuscular, Once Start Date: 05/13/19 Status: OrderedFLUoxetine 20 mg oral capsule 40 mg, 2, capsule, By Mouth, Daily, # 60 capsule, Refills 0, Maintenance, 05/13/19 8:35:00 EST Start Date: 05/13/19 Status: Orderedloperamide 2 mg oral capsule 2 [...] EST, ER Tablet Start Date: 05/13/19 Status: OrderedtraZODone 50 mg oral tablet 100 [...] single Active episode, severe with anxious distress(Confirmed) Results Radiology Reports Exam Date Time Procedure Performing Provider Status 05/12/19 11:50 PM Chest 2 Views Frontal and Lat Humaira Hernandez; Auth (Verified) Notes:(Chest 2 Views Frontal and Lat) Reason For Exam: Shortness of Breath RESULT: Chest 2 Views Frontal and Lat Chest 2 Views Frontal and Lat Reason: Shortness of Breath; Clinical Question(s): CHF; Hx of Present Illness: CP COMPARISON: 06/05/2017. FINDINGS: LINES AND TUBES: None. LUNGS AND PLEURA: Clear lungs. Normal pulmonary vascularity. No pleural effusion. No pneumothorax. HEART, MEDIASTINUM AND SOFIA: Heart is normal in size. Normal mediastinal and hilar contour. BONES AND SOFT TISSUES: No acute abnormality. IMPRESSION: No acute abnormality. WSN: [id number] Dictated By: Bhanu Olivarez MD Dictated Date/Time: 05/12/19 11:53 p Reviewed By: Bhanu Olivarez MD Signed By: Bhanu Olivarez MD Signed Date/Time: 05/12/19 11:53 pm Transcribed By: CECILLE Transcribed Date/Time: 05/12/19 11:51 pm Vital Signs Most recent to oldest 1 2 3 [Reference Range]: Height 158 cm 158 cm 158 cm (05/16/19 11:28 AM) (05/16/19 7:46 AM) (05/16/19 7: 38 AM) Weight 60 kg (05/13/19 3:58 PM) Oxygen Saturation [94-100 97 % 98 % 98 % %] (05/16/19 11:28 AM) (05/16/19 7:38 AM) (05/16/19 4: 30 AM) Pulse Rate [55-90 bpm] 52 bpm 48 bpm 52 bpm *L* *L* *L* (05/16/19 11:28 AM) (05/16/19 7:46 AM) (05/16/19 7: 38 AM) Body Mass Index 24.03 [18.5-24.99] (05/13/19 3:58 PM) Blood Pressure 144/74 mm Hg 142/74 mm Hg 146/78 mm Hg [90-138/55-84 mm Hg] *H* *H* *H* (05/16/19 11:28 AM) (05/16/19 7:46 AM) (05/16/19 7: 38 AM) Respiratory Rate [16-30 20 br/min 20 br/min 20 br/mi n br/min] (05/16/19 11:28 AM) (05/16/19 7:55 AM) (05/16/19 7: 38 AM) Temperature [96.8-100.4 97.6 DegF 97.5 DegF 98.4 Deg F DegF] (05/16/19 11:28 AM) (05/16/19 7:38 AM) (05/16/19 4: 30 AM) Liters per Minute 3 L/min (05/12/19 9:21 PM) Mode of Delivery (Oxygen) Room air Room air Room a ir (05/16/19 11:28 AM) (05/16/19 7:38 AM) (05/16/19 4: 30 AM) Blood pressure sites Arm, right Arm, right Arm, right (05/16/19 11:28 AM) (05/16/19 7:46 AM) (05/16/19 7: 38 AM) Temperature Route Oral Oral Oral (05/16/19 11:28 AM) (05/16/19 7:38 AM) (05/16/19 4: 30 AM) Dry Weight 60 kg (05/13/19 3:58 PM) Weight Obtained Via Patient/family stated (05/13/19 3:58 PM) Dry Weight Obtained Via Patient/family stated (05/13/19 3:58 PM) Social History Social History Type Response Smoking Status Current every day smoker entered on: 09/05/14 Sex
--- OUTSIDE RECORDS SUMMARY | 2022-03-30 18:40 | XMS_ITS | Continuity of Care Document ---
:1965 Author Organization [facility] Address [address] [place] [address]- Care Team Providers Name Role Phone Demetris Cast III, MD Primary Care Physician Encounter [facility] [place] Date(s): 04/29/21 - 07/04/21 [facility] [address] [place] [address] Attending Physician: Nael Bronson MD Admitting Physician: Nael Bronson MD Referring Physician: Demetris Cast III, MD Allergies, Adverse Reactions, Alerts Substance Reaction Severity Status Tape skin peels Active TraMADol Hydrochloride ER Active Duragesic skin peels from adhesive Active Bee Stings Anaphylaxis Active Immunizations Given and Recorded Vaccine Date [...] 06/08/14 Not Given Patient Refuses 1Admin Note: [facility]2Early/Late Reason: Other : NOT GIVEN IN ER OR OR, PT TO PACU AT 1902, med up from pharmacy at 1940, given [id number] Note: given in clinic Medications Biktarvy oral tablet 1 tablet, By Mouth, Daily, # 30 tablet, 5 Refills, Maintenance, 04/24/21 14:35:00 EST, Tablet, [facility]/pharmacy #[id number], Partial fill upon patient request [...] Replace Required Details, Route to Pharmacy Electronically, [facility] [id number], 158, cm, 02/19/21 14:55:00 EDT, Height,... Start [...]
--- OUTSIDE RECORDS SUMMARY | 2022-03-30 18:40 | XMS_ITS | Continuity of Care Document ---
:1965 Author Organization [facility] Address [address] [place] [address]- Care Team Providers Name Role Phone Ryan Larson MD Primary Care Physician Encounter 10/15/19 - 11/29/19 [facility] [place] [facility] [address] [place] [address]- [facility] Discharge Disposition: GOALS MET Allergies, Adverse Reactions, Alerts Substance Reaction Severity [...] med up from pharmacy at 1940, given [id number] Note: [facility]3Admin Note: given in clinic Medications cetirizine 10 [...]
--- OUTSIDE RECORDS SUMMARY | 2022-03-30 18:40 | XMS_ITS | Continuity of Care Document ---
:1965 Author Organization [facility] Address [address] [place] [address]- Care Team Providers Name Role Phone Segun HARRIS MD, Demetris Pierre Primary Care Physician Encounter [facility] [place] Date(s): 09/09/21 - 09/10/[address] [address] Encounter Diagnosis Altered behavior (Final) - 09/10/21 Discharge Disposition: A-D/C Home Attending Physician: Hannah Lopez DO Admitting Physician: Sangeeta Schilling MD Referring Physician: Not on Staff, Referring MD Allergies, Adverse Reactions, Alerts Substance Reaction Severity Status gabapentin Active Lyrica Active TraMADol Hydrochloride ER1 Activ e Duragesic skin peels from adhesive Active Bee Stings Anaphylaxis Active Tape skin peels Active 1tolerated morphine Immunizations Given and Recorded Vaccine Date Status [...] 06/08/14 Not Given Patient Refuses 1Admin Note: [facility]2Early/Late Reason: Other : NOT GIVEN IN ER OR OR, PT TO PACU AT 1902, med up from pharmacy at 1940, given [id number] Note: given in clinic Medications Anoro Ellipta 62.5 mcg-25 mcg/inh inhalation powder 1 puffs, Inhalation, Daily, # 30 each, 0 Refills, Maintenance, 08/31/21 14:34:00 EDT, Powder, Partial fill upon patient request if the prescription is for a schedule II opioid drug. Start Date: 08/31/21 Status: OrderedBiktarvy oral tablet 1 tablet, By Mouth, Daily, # 30 tablet, 5 Refills, Maintenance, 04/24/21 14:35:00 EST, Tablet, [facility]/pharmacy #[id number], Partial fill upon patient request if the prescription is for a schedule II opioid drug., 1 tablet By Mouth Daily,x30 days, 158, cm, 02/01... Start Date: 04/24/21 Stop Date: 10/21/21 Status: OrderedcloNIDine 0.1 mg oral tablet 0.1 mg, 1, tablet, By Mouth, Daily at bedtime, # 30 tablet, Refills 0, Maintenance, 08/31/21 14:33:00 EDT, Partial fill upon patient request if the prescription is for a schedule II opioid drug. Start Date: 08/31/21 Status: Ordereddiazepam 5 mg oral tablet 5 mg, 1, tablet, By Mouth, 3 times a day, PRN, Refills 0, Maintenance, as needed for anxiety, 08/31/21 14:34:00 EDT, Partial fill upon patient request if the prescription is for a schedule II opioid drug. Start Date: 08/31/21 Status: Orderedduloxetine 30 mg oral enteric coated capsule = 90 mg, By Mouth, Daily, 0 Refills, Maintenance, 08/31/21 14:32:00 EDT, Partial fill upon patient request if the prescription is for a schedule II opioid drug. Start Date: 08/31/21 Status: Orderedepinephrine 0.3 mg injectable solution = 0.3 mg, Intramuscular, Once Start Date: 05/13/19 Status: Orderedloperamide 2 mg oral capsule See Instructions, TAKE 1 CAPSULE BY MOUTH 4 TIMES A DAY 30 MINUTES PRIOR TO MEALS AND BEDTIME, # 120capsule, Refills 5, Instructions Replace Required Details, Route to Pharmacy Electronically, [facility] STORE [id number], 158, cm, 02/19/21 14:55:00 EDT, Height,... Start Date: 06/11/21 Status: Orderedmeclizine 12.5 mg oral tablet 2 tablet = 25 mg, By Mouth, 3 times a day, PRN as needed for dizziness, 0 Refills, Maintenance, 05/16/19 11:53:00 EST, Tablet Start Date: 05/16/19 Status: Orderedmetoclopramide 5 mg oral tablet 1 tablet = 5 mg, By Mouth, Daily, PRN Nausea, 0 Refills, Maintenance, 08/31/21 15:03:00 EDT, Partialfill upon patient request if the prescription is for a schedule II opioid drug. Start Date: 08/31/21 Status: OrderedNicoderm C-Q Clear 14 mg/24 hr transdermal film, extended release 1 patch, Topically, Daily, for 14 days, # 14 patch, 0 Refills, Acute 09/17/21 12:14:00 EDT, 09/04/2211:14:00 EDT, Patch, [facility]/pharmacy #[id number], Partial fill upon patient request if the prescription is for a schedule II opioid drug., 159, cm, 09/02/21 19... Start Date: 09/03/21 Stop Date: 09/17/21 Status: Orderednystatin 966240 u/ml oral suspension 5 mL = 500,000 units, Swish and Swallow, 2 times a day, 0 Refills, Maintenance, 09/02/21 12:02:00 EDT, Partial fill upon patient request if the prescription is for a schedule II opioid drug. Start Date: 09/02/21 Status: Orderedomeprazole 20 mg oral enteric coated capsule 1 capsule = 20 mg, By Mouth, Daily, # 30 capsule, 0 Refills, Maintenance, 01/05/13 1:39:16 EDT, EC Capsule Start Date: 01/05/13 Status: Orderedrizatriptan 10 mg oral tablet 1 tablet = 10 mg, By Mouth, Daily, PRN for migraine headache, may repeat dose every 2 hours up to a maximum of 3, # 6 tablet, 0 Refills, Maintenance, 08/31/21 14:34:00 EDT, Tablet, Partial fill upon patient request if the prescription is for a schedul... Start Date: 08/31/21 Status: OrderedtraZODone 100 mg oral tablet 200 mg, 2, tablet, By Mouth, Daily at bedtime, # 60 tablet, Refills 0, Maintenance, 08/31/21 14:31:00 EDT, Partial fill upon patient request if the prescription is for a schedule II opioid drug. Start Date: 08/31/21 Status: Orderedvalacyclovir 1 gm oral tablet TAKE 1 TABLET BY MOUTH EVERY DAY. Start Date: 08/31/21 Status: OrderedVentolin HFA 108 mcg/inh inhalation aerosol with adapter 2 puffs, Inhalation, Every 4 hours, PRN Wheezing/Shortness of Breath Start Date: 05/13/19 Status: Orderedvitamin E 1000 iu oral capsule 1 capsule = 1,000 International_Units, By Mouth, Daily, # 30 capsule, 0 Refills, Maintenance, 08/31/21 14:45:00 EDT, Capsule, Partial fill upon patient request if the prescription is for a schedule II opioid drug. Start Date: 08/31/21 Status: Orderedzolpidem 5 mg oral tablet 1 [...] single Active episode, severe with anxious distress(Confirmed) Vital Signs Most recent to oldest 1 2 3 [Reference Range]: Oxygen Saturation [94-100 %] 97 % 95 % 100 % (09/10/21 12:31 PM) (09/10/21 9:57 AM) (09/10/21 5: 59 AM) Pulse Rate [55-90 bpm] 91 bpm 75 bpm 65 bpm *H* (09/10/21 9:57 AM) (09/10/21 5:59 AM) (09/10/21 12:31 PM) Blood Pressure [90-138/55-84 112/97 mm Hg 115/70 mm Hg 141 /66 mm Hg mm Hg] (09/10/21 12:31 PM) (09/10/21 9:57 AM) *H* (09/10/21 5:59 AM ) Respiratory Rate [16-30 18 br/min 16 br/min 18 br/mi n br/min] (09/10/21 12:31 PM) (09/10/21 11:47 AM) (09/10/21 9 :57 AM) Temperature [96.8-100.4 DegF] 99.1 DegF 98.1 DegF 98 .3 DegF (09/10/21 12:31 PM) (09/10/21 9:57 AM) (09/09/21 5:2 0 PM) Mode of Delivery (Oxygen) Room air Room air Room a ir (09/10/21 12:31 PM) (09/10/21 9:57 AM) (09/10/21 5: 59 AM) Blood pressure sites Arm, right Arm, left Arm, right (09/10/21 12:31 PM) (09/10/21 9:57 AM) (09/10/21 5: 59 AM) Temperature Route Oral Oral Oral (09/10/21 12:31 PM) (09/10/21 9:57 AM) (09/09/21 5:2 0 PM) Social History Social History Type Response Smoking Status Cigars or pipes daily within last 30 days; Other: Has not smoked cigarettes since April smokes 1/2 cigar daily; entered on: 09/10/21 Sex
--- OUTSIDE RECORDS SUMMARY | 2022-03-30 18:40 | XMS_ITS | Continuity of Care Document ---
:1965 Author Organization [facility] Address [address] [place] [address]- Care Team Providers Name Role Phone Not on Staff, PCP Primary Care Physician Unavailable Encounter [facility] Date(s): 08/08/20 - 08/09/[address] [address]- Discharge Disposition: A-D/C Home Attending Physician: Christina Rodríguez MD Admitting Physician: Christina Rodríguez MD Referring Physician: Not on Staff, Referring [...] med up from pharmacy at 1940, given [id number] Note: [facility]3Admin Note: given in clinic Medications cetirizine 10 mg oral tablet 1 tablet = 10 mg, By Mouth, Daily, # 90 tablet, 0 Refills, Maintenance, 06/05/17 16:11:10, Tablet Start Date: 06/05/17 Status: OrderedcloNIDine 0.1 mg oral tablet 0.1 mg, 1, tablet, By Mouth, 2 times a day, Refills 0, Maintenance, 05/13/19 14:32:00 EST Start Date: 05/13/19 Status: Orderedclotrimazole 1% topical cream 1 application, Topically, 2 times a day, for 7 days, apply to corner of lips, # 12 Gm, 0 Refills, Acute 08/16/20 7:30:00 EDT, 08/09/20 7:30:00 EDT, Cream, [facility]/pharmacy #[id number], Partial fill upon patient request if the prescription is for a schedule II o... Start Date: 08/09/20 Stop Date: 08/16/20 Status: OrderedCVS ANTI-DIARRHEAL 2 MG CAPLET TAKE [...] 10/13/19 9:20:00 EDT Start Date: 10/13/19 Status: OrderedlevoFLOXacin 750 mg oral tablet 1 tablet = 750 mg, By Mouth, Every 24 hours, for 5 days, # 5 tablet, 0 Refills, Acute 08/14/20 6:50:00 EDT, 08/09/20 6:50:00 EDT, Tablet, [facility]/pharmacy #[id number], Partial fill upon patient request if the prescription is for a schedule II opioid drug., 158,... Start Date: 08/09/20 Stop Date: 08/14/20 Status: OrderedLidocaine 5% Topical 1 applicator, Topically, 3 times a day, 0 Refills, Maintenance, Ointment Start Date: 10/13/19 Status: Orderedloperamide 2 mg oral capsule 2 mg, 1, capsule, By Mouth, Every 3 hours, PRN, Refills 0, Maintenance, Loose Stool, 05/16/19 11:52:00 EST Start Date: 05/16/19 Status: Orderedloperamide 2 mg oral capsule 2 mg, 1, capsule, By Mouth, 4 times a day, for 30 days, take 1/2 hour before meals and at bed time, # 120 capsule, Refills 5, Tot. Refills 5, Acute 10/17/20 15:11:00 EDT, 04/20/20 15:11:00 EST, Route to Pharmacy Electronically, [facility]/pharmacy #[id number], Par... Start Date: 04/20/20 Stop Date: 10/17/20 Status: Orderedmeclizine 12.5 mg oral tablet 2 tablet = 25 mg, By Mouth, 3 times a day, PRN as needed for dizziness, 0 Refills, Maintenance, 05/16/19 11:53:00 EST, Tablet Start Date: 05/16/19 Status: OrderedMorPHINE Inj 4 mg, Injection, IV Push Slowly, Every 5 minutes for 3 doses/times, PRN for Pain , Moderate, and SBPgreater than 100, Routine, 08/09/20 2:10:00 EDT, Stop date Limited # of times Start Date: 08/09/20 Stop Date: 08/09/20 Status: Discontinuedomeprazole 20 mg oral enteric coated capsule 2 [...] distress(Confirmed) Vital Signs Most recent to oldest [Reference 1 2 3 Range]: Height 158 cm 158 cm 158 cm (08/09/20 2:35 AM) (08/09/20 2:32 AM) (08/09/20 1:24 A M) Weight 70.5 kg 70.5 kg 70.5 kg (08/09/20 2:35 AM) (08/09/20 2:32 AM) (08/09/20 1:24 A M) Oxygen Saturation [94-100 %] 95 % 96 % 96 % (08/09/20 7:28 AM) (08/09/20 4:00 AM) (08/09/20 2:32 A M) Pulse Rate [55-90 bpm] 81 bpm 76 bpm 73 bpm (08/09/20 7:28 AM) (08/09/20 4:00 AM) (08/09/20 2:32 A M) Body Mass Index [18.5-24.99] 28.24 28.24 *H* *H* (08/09/20 2:35 AM) (08/09/20 2:32 AM) Blood Pressure [90-138/55-84 mm 136/79 mm Hg 138/88 mm Hg 153/68 mm Hg Hg] (08/09/20 7:28 AM) (08/09/20 4:00 AM) *H* (08/09/20 2:35 AM) Respiratory Rate [16-30 br/min] 15 br/min 15 br/min 16 br/min *L* *L* (08/09/20 2:55 AM) (08/09/20 7:28 AM) (08/09/20 4:00 AM) Temperature [96.8-100.4 DegF] 98.3 DegF 98.9 DegF 97 .8 DegF (08/09/20 7:28 AM) (08/09/20 2:32 AM) (08/09/20 1:24 A M) Mode of Delivery (Oxygen) Room air Room air Room a ir (08/09/20 7:28 AM) (08/09/20 4:00 AM) (08/09/20 2:32 A M) Blood pressure sites Arm, right Arm, right Arm, right (08/09/20 7:28 AM) (08/09/20 4:00 AM) (08/09/20 2:35 A M) Temperature Route Oral Oral Oral (08/09/20 7:28 AM) (08/09/20 2:32 AM) (08/09/20 1:24 A M) Dry Weight 70.5 kg 70.5 kg 70.5 kg (08/09/20 2:35 AM) (08/09/20 2:32 AM) (08/09/20 1:24 A M) Social History Social History Type Response Smoking Status Current every day smoker entered on: 09/05/14 Sex
--- OUTSIDE RECORDS SUMMARY | 2022-03-30 18:40 | XMS_ITS | Continuity of Care Document ---
:1965 Author Organization [facility] Address [address] [place] [address]- Care Team Providers Name Role Phone Segun HARRIS MD, Demetris Pierre Primary Care Physician Encounter [facility] Date(s): 03/26/21 - 04/25/21 [facility] [address] [place] [id number] Attending Physician: Huseyin Sellers Admitting Physician: Huseyin Sellers Referring Physician: AdmtrHuseyin Allergies, Adverse Reactions, Alerts Substance Reaction Severity Status Bee Stings Anaphylaxis Active Duragesic skin peels from adhesive Active TraMADol Hydrochloride ER Active Tape skin peels Active Immunizations Given [...] Not Given Patient Refuses 1Admin Note: [facility]2Early/Late Reason: Other : NOT GIVEN IN ER OR OR, PT TO PACU AT 1902, med up from pharmacy at 1940, given [id number] Note: given in clinic Medications Biktarvy oral tablet 1 tablet, By Mouth, Daily, # 30 tablet, 5 Refills, Maintenance, 04/24/21 14:35:00 EST, Tablet, [facility]/pharmacy #[id number], Partial fill upon patient request if the [...] Replace Required Details, Route to Pharmacy Electronically, [facility] STORE [id number], 158, cm, 08/09/20 2:35:00 EDT, He... Start [...]
--- OUTSIDE RECORDS SUMMARY | 2022-03-30 18:40 | XMS_ITS | Continuity of Care Document ---
:1965 Author Organization [facility] Address [address] [place] [address]- Care Team Providers Name Role Phone Segun HARRIS MD, Demetris Pierre Primary Care Physician [place] [facility] [place]s): 02/21/21 - 04/25/21 [facility] [address] [place] [id number] Attending Physician: Nael Bronson MD Admitting [...] 06/08/14 Not Given Patient Refuses 1Admin Note: [facility]2Early/Late Reason: Other : NOT GIVEN IN ER OR OR, PT TO PACU AT 1902, med up from pharmacy at 1940, given [id number] Note: given in clinic Medications Biktarvy oral tablet 1 tablet, By Mouth, Daily, # 30 tablet, 5 Refills, Maintenance, 04/24/21 14:35:00 EST, Tablet, [facility]/pharmacy #[id number], Partial fill upon patient request if [...] Replace Required Details, Route to Pharmacy Electronically, [facility] STORE [id number], 158, cm, 08/09/20 2:35:00 EDT, He... Start [...]
--- OUTSIDE RECORDS SUMMARY | 2022-03-30 18:40 | XMS_ITS | Continuity of Care Document ---
:1965 Author Organization [facility] Address [address] [place] [address]- Care Team Providers Name Role Phone Ryan Larson MD Primary Care Physician [place] [facility] Date(s): 06/10/19 - 06/20/19 [facility] [address] [place] [address] [facility] Attending Physician: Huseyin Sellers Admitting Physician: AdmtrHuseyin Referring Physician: Admtr, Ar8 Allergies, Adverse Reactions, [...] med up from pharmacy at 1940, given [id number] Note: [facility]3Admin Note: given in clinic Medications cetirizine 10 mg oral tablet 1 tablet = 10 mg, By Mouth, Daily, # 90 tablet, 0 Refills, Maintenance, 02/02/18 16:11:10, Tablet Start Date: 06/05/17 Status: OrderedcloNIDine [...]
--- OUTSIDE RECORDS SUMMARY | 2022-03-30 18:40 | XMS_ITS | Continuity of Care Document ---
:1965 Author Organization [facility] Address [address] [place] [address]- Care Team Providers Name Role Phone Not on Staff, PCP Primary Care Physician Unavailable Encounter [facility] Date(s): 12/08/20 - 12/08/[address] [address]- Discharge Disposition: A-D/C Home Attending Physician: Rajendra oCnte DO Admitting Physician: Rajendra Conte DO Referring Physician: Not on Staff, Referring MD [...] med up from pharmacy at 1940, given [id number] Note: [facility]3Admin Note: given in clinic Medications cephalexin monohydrate 500 mg oral capsule 1 capsule = 500 mg, By Mouth, 4 times a day, for 5 days, # 20 capsule, 0 Refills, Acute 12/13/20 22:09:00 EDT, 12/08/20 22:09:00 EDT, Capsule, [facility]/pharmacy #[id number], Partial fill upon patient request if the prescription is for a schedule II opioid drug.,... Start Date: 12/08/20 Stop Date: 12/13/20 Status: Orderedcetirizine 10 mg oral tablet 1 [...] Required Details, Route to Pharmacy Electronically, [facility] STORE [id number], 158, cm, 08/09/20 2:35:00 EDT, He... Start [...] to oldest [Reference 1 2 3 Range]: Oxygen Saturation [94-100 %] 98 % 97 % 99 % (12/08/20 10:08 PM) (12/08/20 7:03 PM) (12/08/20 5:00 PM) Pulse Rate [55-90 bpm] 73 bpm 77 bpm 88 bpm (12/08/20 10:08 PM) (12/08/20 7:03 PM) (12/08/20 5:00 PM) Blood Pressure [90-138/55-84 mm 126/65 mm Hg 134/67 mm Hg 142/72 mm Hg Hg] (12/08/20 10:08 PM) (12/08/20 7:03 PM) *H* (12/08/20 5:00 PM) Respiratory Rate [16-30 br/min] 16 br/min 19 br/min 16 br/min (12/08/20 10:08 PM) (12/08/20 7:03 PM) (12/08/20 5:00 PM) Temperature [96.8-100.4 DegF] 98 DegF 99 DegF (12/08/20 10:08 PM) (12/08/20 3:47 PM) Mode of Delivery (Oxygen) Room air Room air Room a ir (12/08/20 10:08 PM) (12/08/20 7:03 PM) (12/08/20 5:00 PM) Temperature Route Oral Oral (12/08/20 10:08 PM) (12/08/20 3:47 PM) Social History Social History Type Response Smoking Status Current every day smoker entered on: 09/05/14 Sex
--- OUTSIDE RECORDS SUMMARY | 2022-03-30 18:40 | XMS_ITS | Continuity of Care Document ---
:1965 Author Organization [facility] Address [address] [place] [address]- Care Team Providers Name Role Phone Ryan Larson MD Primary Care Physician [place] [facility] [place] 07/27[place] - 07/27/[address] [address]- [facility] Encounter Diagnosis COPD exacerbation (Final) - 07/27/19 Discharge Disposition: A-D/C Home Attending Physician: Cyndy Aguilar MD Admitting Physician: Cyndy Aguilar MD Referring Physician: Not on Staff, Referring [...] med up from pharmacy at 1940, given [id number] Note: [facility]3Admin Note: given in clinic Medications Augmentin 500 mg-125 mg oral tablet 1 tablet, By Mouth, Every 12 hours, for 10 days, # 20 tablet, 0 Refills, Acute 08/06/19 20:54:00 EDT, 07/27/19 20:54:00 EDT, Tablet, [facility]/pharmacy #[id number], 165, cm, 07/27/19 18:18:00 EDT, Height, 70, kg, 07/27/19 18:18:00 EDT, Dry Weight Start Date: 07/27/19 Stop Date: 08/06/19 Status: Orderedcetirizine 10 mg oral tablet 1 [...] EST, ER Tablet Start Date: 05/13/19 Status: OrderedpredniSONE 20 mg oral tablet 2 tablet = 40 mg, By Mouth, Daily, for 4 days, # 8 tablet, 0 Refills, Acute 07/31/19 20:51:00 EDT, 07/27/19 20:51:00 EDT, Tablet, [facility]/pharmacy #[id number], 165, cm, 07/27/19 18:18:00 EDT, Height, 70, kg, 07/27/19 18:18:00 EDT, Dry Weight Start Date: 07/27/19 Stop Date: 07/31/19 Status: OrderedtraZODone 50 mg oral tablet 100 [...] Exam Date Time Procedure Performing Provider Status 07/27/19 8:00 PM Chest Single Frontal View More Fonseca; Edmar (Verified) Notes:(Chest Single Frontal View) Reason For Exam: COPDRESULT: Chest Single Frontal View Chest Single Frontal View Refer to EMR; cough, productive yellow phlegm, SOB, chills, hx COPD. Reports upper back pain, diffuse anterior chest discomfort with coughing. Reports generalized fatigue; Other Objective Findings: CA Ox4. speech clear and appropriate, resps reg even non labored, no increased WOB, in no apparent respir atory distress. LSCTA. COMPARISON: 05/12/2019. FINDINGS: LINES AND TUBES: None. LUNGS AND PLEURA: Clear lungs. Normal pulmonary vascularity. No pleural effusion. No pneumothorax. HEART, MEDIASTINUM AND SOFIA: Heart is normal in size. Normal mediastinal and hilar contour. BONES AND SOFT TISSUES: No acute abnormality. IMPRESSION: No acute cardiopulmonary pathology. WSN: [id number] Ordering Physician: Cyndy Aguilar Dictated By: Darryn Panchal MD Dictated Date/Time: 07/27/19 8:06 pm Reviewed By: Darryn Panchal MD Signed By: Darryn Panchal MD Signed Date/Time: 07/27/19 8:06 pm Transcribed By: CECILLE Transcribed Date/Time: 07/27/19 8:06 pm Vital Signs Most recent to oldest [Reference Range]: 1 2 Height 165 cm (07/27/19 6:18 PM) Weight 70 kg (07/27/19 6:18 PM) Oxygen Saturation [94-100 %] 98 % 98 % (07/27/19 6:18 PM) (07/27/19 5:50 PM) Pulse Rate [55-90 bpm] 88 bpm 114 bpm (07/27/19 6:18 PM) *H* (07/27/19 5:50 PM) Blood Pressure [90-138/55-84 mm Hg] 100/80 mm Hg (07/27/19 6:18 PM) Respiratory Rate [16-30 br/min] 19 br/min (07/27/19 6:18 PM) Temperature [96.8-100.4 DegF] 98.2 DegF (07/27/19 6:18 PM) Mode of Delivery (Oxygen) Room air Room air (07/27/19 6:18 PM) (07/27/19 5:50 PM) Blood pressure sites Arm, right (07/27/19 6:18 PM) Temperature Route Oral (07/27/19 6:18 PM) Dry Weight 70 kg (07/27/19 6:18 PM) Social History Social History Type Response Smoking Status Current every day smoker entered on: 09/05/14 Sex
--- OUTSIDE RECORDS SUMMARY | 2022-03-30 18:40 | XMS_ITS | Continuity of Care Document ---
:1965 Author Organization [facility] Address [address] [place] [address]- Care Team Providers Name Role Phone Segun HARRIS MD, Demetris Pierre Primary Care Physician [place] [facility] - 06[place]12/21 [facility] [address] [place] [id number] Allergies, Adverse Reactions, Alerts Substance Reaction Severity [...] 06/08/14 Not Given Patient Refuses 1Admin Note: [facility]2Early/Late Reason: Other : NOT GIVEN IN ER OR OR, PT TO PACU AT 1902, med up from pharmacy at 1940, given [id number] Note: given in clinic Medications Biktarvy oral tablet 1 tablet, By Mouth, Daily, # 30 tablet, 5 Refills, Maintenance, 04/24/21 14:35:00 EST, Tablet, [facility]/pharmacy #[id number], Partial fill upon patient request if [...] Replace Required Details, Route to Pharmacy Electronically, [facility] STORE [id number], 158, cm, 02/19/21 14:55:00 EDT, Height,... Start [...]
--- OUTSIDE RECORDS SUMMARY | 2022-03-30 18:41 | XMS_ITS | Continuity of Care Document ---
:1965 Author Organization [facility] Address [address] [place] [address]- Care Team Providers Name Role Phone Ryan Larson MD Primary Care Physician [place] [facility] [place] 10/09/19 - 10/10/[address] [address]- [facility] Encounter Diagnosis Closed head injury (Final) - 10/09/19 Discharge Disposition: A-D/C Home Attending Physician: Cole Hartmann MD Admitting Physician: Cole Hartmann MD Referring Physician: Not on Staff, Referring MD Allergies, Adverse Reactions, Alerts No Known Medication Allergies Medications acetaminophen 325 mg oral tablet 650 mg, By Mouth, Every 4 hours, for 5 days, # 60 tablet, Refills 0, Tot. Refills 0, Acute 10/15/19 12:23:00 EDT, 10/10/19 12:23:00 EDT, Route to Pharmacy Electronically, [facility] 3 Start Date: 10/10/19 Stop Date: 10/15/19 Status: Orderedibuprofen 600 mg oral tablet 600 mg, 1, tablet, By Mouth, 3 times a day, PRN, for 5 days, # 15 tablet, Refills 0, Tot. Refills 0,Acute 10/15/19 12:23:00 EDT, Pain , Mild, 10/10/19 12:23:00 EDT, Route to Pharmacy Electronically, [facility] 3 Start Date: 10/10/19 Stop Date: 10/15/19 Status: OrderedoxyCODONE 5 mg oral tablet 5 mg, 1, tablet, By Mouth, Every 6 hours, PRN, for 3 days, # 15 tablet, Refills 0, Tot. Refills 0, Acute 10/13/19 12:26:00 EDT, Pain , Severe, 10/10/19 12:26:00 EDT, Route to Pharmacy Electronically, [facility], Partial fill upon patient... Start Date: 10/10/19 Stop Date: 10/13/19 Status: Ordered Results Radiology Reports Exam Date Time Procedure Performing Provider Status 10/10/19 10:41 AM Cervical Spine 3 Views or Less Candice Carr; [place] (Verified) Notes:(Cervical Spine 3 Views or Less) Reason For Exam: eval alignment;Pain RESULT: Cervical Spine 3 Views or Less Cervical Spine 3 Views or Less INDICATION: Pain and stiffness status post fall. COMPARISON: CT cervical spine 10/09/2019. FINDINGS: Neutral flexion and extension lateral views. Anatomic alignment is preserved limited range of motion. No evidence of fractures. Postsurgical changes C3/4 again noted. IMPRESSION: Decreased range of motion, no evidence of an acute osseous injury. WSN: [id number] Ordering Physician: Evan Dill Dictated By: Johny Rangel MD Dictated Date/Time: 10/10/19 10:55 a Reviewed By: Johny Rangel MD Signed By: Johny Rangel MD Signed Date/Time: 10/10/19 10:55 am Transcribed By: CECILLE Transcribed Date/Time: 10/10/19 10:50 am Exam Date Time Procedure Performing Provider Status 10/09/19 8:19 PM Elbow Min 3 Views Right Isamar Murray; [place] (Ve rified) Notes:(Elbow Min 3 Views Right) Reason For Exam: with Pain;TraumaRESULT: Elbow Min 3 Views Right Elbow Min 3 Views Right, 3 views Reason: Trauma; with Pain; Clinical Question(s): Fracture; Hx of Present Illness: please see trauma sheet for further details COMPARISON: None. FINDINGS: No fracture or dislocation. No arthritic changes. No joint effusion. IMPRESSION: No acute osseous injury identified. WSN: [id number] Ordering Physician: Abby Walker Dictated By: Shubham Davis MD Dictated Date/Time: 10/09/19 8:27 pm Reviewed By: Shubham Davis MD Signed By: Shubham Davis MD Signed Date/Time: 10/09/19 8:27 pm Transcribed By: CECILLE Transcribed Date/Time: 10/09/19 8:26 pm Exam Date Time Procedure Performing Provider Status 10/09/19 6:21 PM Chest Portable EstevezBairon; Auth (Verified) Notes:(Chest Portable) Reason For Exam: Pain;Other:RESULT: Chest Portable Chest Portable Reason: Other:; Pain; Clinical Question(s): Other:; Fracture, pneumothorax, pulmonary contusion COMPARISON: None. FINDINGS: LINES AND TUBES: None. LUNGS AND PLEURA: Clear lungs. Normal pulmonary vascularity. No pleural effusion. No pneumothorax. HEART, MEDIASTINUM AND SOFIA: Heart is normal in size. Normal mediastinal and hilar contour. BONES AND SOFT TISSUES: No acute abnormality. IMPRESSION: No acute abnormality. WSN: [id number] Ordering Physician: Sarbjit Enciso Dictated By: Duy Valladares MD Dictated Date/Time: 10/09/19 6:24 pm Reviewed By: Duy Valladares MD Signed By: Duy Valladares MD Signed Date/Time: 10/09/19 6:24 pm Transcribed By: CECILLE Transcribed Date/Time: 10/09/19 6:23 pm Vital Signs Most recent to oldest [Reference 1 2 3 Range]: Oxygen Saturation [94-100 %] 95 % 100 % 100 % (10/10/19 8:09 AM) (10/10/19 3:24 AM) (10/09/19 11:09 PM) Pulse Rate [55-90 bpm] 70 bpm 77 bpm 87 bpm (10/10/19 8:09 AM) (10/10/19 3:24 AM) (10/10/19 1:30 A M) Blood Pressure [90-138/55-84 mm 134/72 mm Hg 105/68 mm Hg 106/59 mm Hg Hg] (10/10/19 8:09 AM) (10/10/19 3:24 AM) (10/10/19 1:30 A M) Respiratory Rate [16-30 br/min] 18 br/min 18 br/min 18 br/min (10/10/19 12:09 PM) (10/10/19 8:13 AM) (10/10/19 8:09 AM) Temperature [96.8-100.4 DegF] 98.0 DegF 98 DegF (10/10/19 8:09 AM) (10/10/19 3:24 AM) Liters per Minute 2 L/min (10/09/19 6:41 PM) Mode of Delivery (Oxygen) Room air Room air Room a ir (10/10/19 8:09 AM) (10/10/19 3:24 AM) (10/09/19 11:09 PM) Blood pressure sites Arm, right Arm, right (10/10/19 8:09 AM) (10/09/19 6:41 PM) Temperature Route Oral Oral (10/10/19 8:09 AM) (10/10/19 3:24 AM)
--- OUTSIDE RECORDS SUMMARY | 2022-03-30 18:41 | XMS_ITS | Continuity of Care Document ---
:1965 Author Organization [facility] Address [address] [place] [address] Drive [address] [place] [address]- Care Team Providers Name Role Phone Ryan Larson MD Primary Care Physician Unavailable Encounter [facility] Date(s): 04/18/20 - 05/18/[address] [place], [place] [address] Attending Physician: Huseyin Sellers Admitting Physician: Admtr, Abelino8 Referring Physician: Admtr, Ar8 Allergies, Adverse Reactions, [...] med up from pharmacy at 1940, given [id number] Note: [facility]3Admin Note: given in clinic Medications cetirizine [...] 04/20/20 15:11:00 EST, Route to Pharmacy Electronically, [facility]/pharmacy #[id number], Par... Start Date: 04/20/20 Stop Date: 10/17/20 [...]
--- OUTSIDE RECORDS SUMMARY | 2022-03-30 18:41 | XMS_ITS | Continuity of Care Document ---
:1965 Author Organization [address] [place] [address]- Care Team Providers Name Role Phone Ryan Larson MD Primary Care Physician [place] [facility] [place] 04/19/19 - 04/26/[address] [place] [address]- [facility] Attending Physician: Isamar Condon MD Referring Physician: Ryan Larson MD Allergies, Adverse Reactions, Alerts Substance Reaction Severity Status Duragesic skin peels from adhesive Active Bee Stings Anaphylaxis Active Tape skin peels Active Immunizations Given and Recorded Vaccine Date Status Refusal Reason influenza virus vaccine, inactivated 04/10/15 Given influenza [...] med up from pharmacy at 1940, given [id number] Note: [facility]3Admin Note: given in clinic Medications cetirizine 10 mg oral tablet 1 tablet = 10 mg, By Mouth, Daily, # 90 tablet, 0 Refills, Maintenance, 06/05/17 16:11:10, Tablet Start Date: 06/05/17 Status: OrderedcloNIDine 0.2 mg oral tablet 0.2 mg, 1, tablet, By Mouth, Daily at bedtime, Refills 0, Maintenance, 06/05/17 16:09:44 Start Date: 06/05/17 Status: OrderedImodium A-D 2 mg oral tablet 4 mg, 2, tablet, By Mouth, 4 times a day, 30 minutes before meals and at bedtime, # 240 tablet, Refills 3, Tot. Refills 3, Maintenance, 04/19/19 11:44:51 EST, Route to Pharmacy Electronically, [facility]/pharmacy #[id number], 160.02, cm, 01/13/19 13:59:05 EDT, Hei... Start Date: 04/19/19 Status: Orderedomeprazole 20 mg oral enteric coated capsule 2 capsule = 40 mg, By Mouth, Daily, # 30 capsule, 0 Refills, Maintenance, 01/05/13 1:39:16, EC Capsule Start Date: 01/05/13 Status: OrderedWellbutrin XL 300 mg/24 hours oral [...]
--- OUTSIDE RECORDS SUMMARY | 2022-03-30 18:41 | XMS_ITS | Continuity of Care Document ---
:1965 Author Organization [facility] [employer] [facility] Address [address] [place] [id number]- Care Team Providers Name Role Phone Segun HARRIS MD, Demetris Pierre Primary Care Physician Encounter [facility] Date(s): 08/31/21 - 09/03/[address] [address]- Encounter Diagnosis Bronchitis (Final) - 08/31/21 Encephalitis (Final) - 08/31/21 Discharge Disposition: A-D/C Home Attending Physician: Darcy Mas MD Admitting Physician: Bill MYERS, Richard Dodge Referring Physician: Not on Staff, Referring MD Allergies, Adverse Reactions, Alerts Substance Reaction Severity Status gabapentin Active Bee Stings Anaphylaxis Active Lyrica Active TraMADol Hydrochloride ER1 Activ e Duragesic skin peels from adhesive Active Tape skin peels Active 1tolerated morphine [...] 06/08/14 Not Given Patient Refuses 1Admin Note: [facility]2Early/Late Reason: Other : NOT GIVEN IN ER OR OR, PT TO PACU AT 1902, med up from pharmacy at 1940, given [id number] Note: given in clinic Medications Anoro Ellipta [...] OrderedcloNIDine 0.1 mg oral tablet 0.1 mg, Tablet, By Mouth, 09/02/21 21:00:00 EDT Start Date: 09/02/21 Stop Date: 09/02/21 Status: CompletedcloNIDine 0.1 mg oral tablet 0.1 mg, 1, [...] mg, Intramuscular, Once Start Date: 05/13/19 Status: OrderedFioricet Tablet 2 tablet, Tablet, By Mouth, Every 4 hours, PRN for Headache, Routine, 09/03/21 15:46:00 EDT Notes: Butalbital 50mg, Not to exceed 4000mg of Acetaminophen per 24 hours. 325mg, Caffeine 40mg pertablet Start Date: 09/03/21 Stop Date: 10/03/21 Status: Orderedloperamide 2 mg oral capsule See Instructions, TAKE 1 CAPSULE BY MOUTH 4 TIMES A DAY 30 MINUTES PRIOR TO MEALS AND BEDTIME, # 120capsule, Refills 5, Instructions Replace Required Details, Route to Pharmacy Electronically, [id number], 158, cm, 02/19/21 14:55:00 EDT, Height,... Start [...] Acute 09/17/21 12:14:00 EDT, 09/04/2211:14:00 EDT, Patch, [facility]/pharmacy #[id number], Partial fill upon patient request if the prescription is for a schedule II opioid drug., 159, cm, 09/02/21 19... Start Date: 09/03/21 Stop Date: 09/17/21 Status: Orderednystatin 376643 u/ml oral suspension 5 mL = 500,000 [...] for a schedul... Start Date: 08/31/21 Status: OrderedToradol Inj 15 mg, Injection, IV Push Slowly, Every 6 hours, PRN for Pain , Moderate, Routine, 09/03/21 8:35:00 EDT Start Date: 09/03/21 Stop Date: 09/08/21 Status: OrderedtraZODone 100 mg oral tablet 200 [...] single Active episode, severe with anxious distress(Confirmed) Procedures Procedure Date Related Diagnosis Body Site Status Appendectomy Completed Cholecystectomy Completed Colectomy Completed Total hysterectomy Completed Results Orders for Microbiology Reports Name Date CSF Culture w/ Gram Smear (SPINAL FLUID CULTURE) Blood Culture 08/31/21 Blood Culture #2 08/31/21 Microbiology Reports TEST:Spinal Fluid Culture STATUS:Auth (Verified) BODY SITE: SOURCE:CEREBR COLLECTED DATE/TIME:08/31/21 11:01 AMSpinal Fluid Culture SPECIMEN DESCRIPTION : CEREBROSPINAL FLUID SPECIAL REQUESTS : NONE GRAM STAIN : NO CELLS OR ORGANISMS SEEN CULTURE : NO GROWTH 3 DAYS REPORT STATUS : FINAL 09/03/2021TEST:Blood Culture STATUS:Unauthenticated BODY SITE: SOURCE:Blood COLLECTED DATE/TIME:08/31/21 6:19 AMBlood Culture SPECIMEN DESCRIPTION : BLOOD RT SPECIAL REQUESTS : NONE CULTURE : NO GROWTH 3 DAYS REPORT STATUS : PRELIMINARY REPORT TEST:Blood Culture, Second Order STATUS:Unauthenticated BODY SITE: SOURCE:Blood COLLECTED DATE/TIME:08/31/21 6:19 AMBlood Culture, Second Order SPECIMEN DESCRIPTION : BLOOD LTAC SPECIAL REQUESTS : NONE CULTURE : NO GROWTH 3 DAYS REPORT STATUS : PRELIMINARY REPORT Radiology Reports Exam Date Time Procedure Performing Provider Status 08/30/21 7:11 PM Chest 2 Views Frontal and Lat Do , Pollo; Au th (Verified) Notes:(Chest 2 Views Frontal and Lat) Reason For Exam: COPDRESULT: Chest 2 Views Frontal and Lat Chest 2 Views Frontal and Lat Hx of Present Illness: Shortness of breath x 3 weeks, just finished prednisone, having pain in chestand into back worse with breathing; Reason: COPD; Clinical Question(s): Pneumonia COMPARISON: 10/09/2019 FINDINGS: LINES AND TUBES: None. LUNGS AND PLEURA: Clear lungs. Normal pulmonary vascularity. No pleural effusion. No pneumothorax. HEART, MEDIASTINUM AND SOFIA: Heart is normal in size. Normal upper mediastinal and hilar contour. BONES AND SOFT TISSUES: No acute abnormality. IMPRESSION: No acute abnormality. WSN: [id number] Ordering Physician: Tony Shafer Dictated By: Duy Valladares MD Dictated Date/Time: 08/30/21 7:23 pm Reviewed By: Duy Valladares MD Signed By: Duy Valladares MD Signed Date/Time: 08/30/21 7:23 pm Transcribed By: CECILLE Transcribed Date/Time: 08/30/21 7:16 pm Vital Signs Most recent to oldest [Reference 1 2 3 Range]: Height 159 cm 159 cm 159 cm (09/02/21 7:28 PM) (09/02/21 4:36 AM) (09/01/21 7:48 A M) Weight 68.4 kg (08/31/21 3:15 PM) Oxygen Saturation [94-100 %] 100 % 99 % 98 % (09/03/21 7:00 AM) (09/02/21 7:28 PM) (09/02/21 8:00 A M) Pulse Rate [55-90 bpm] 44 bpm 66 bpm 50 bpm *L* (09/02/21 7:28 PM) *L* (09/03/21 7:00 AM) (09/02/21 8:00 AM ) Body Mass Index [18.5-24.99] 27.06 *H* (08/31/21 3:15 PM) Blood Pressure [90-138/55-84 mm 101/52 mm Hg 106/56 mm Hg 109/70 mm Hg Hg] (09/03/21 7:00 AM) (09/02/21 8:53 PM) (09/02/21 7:28 P M) Respiratory Rate [16-30 br/min] 18 br/min 18 br/min 16 br/min (09/03/21 6:27 PM) (09/03/21 6:26 PM) (09/03/21 5:53 P M) Temperature [96.8-100.4 DegF] 98.0 DegF 97.9 DegF 98 .3 DegF (09/03/21 7:00 AM) (09/02/21 7:28 PM) (09/02/21 8:00 A M) Liters per Minute 2 L/min 2 L/min (09/01/21 7:48 AM) (08/31/21 3:15 PM) Mode of Delivery (Oxygen) Room air Room air Room a ir (09/03/21 7:00 AM) (09/02/21 7:28 PM) (09/02/21 8:00 A M) Blood pressure sites Arm, left Arm, right Arm, right (09/03/21 7:00 AM) (09/02/21 7:28 PM) (09/02/21 8:00 A M) Temperature Route Oral Oral Oral (09/03/21 7:00 AM) (09/02/21 7:28 PM) (09/02/21 8:00 A M) Dry Weight 68.4 kg 65.5 kg (08/31/21 3:15 PM) (08/30/21 5:37 PM) Weight Obtained Via Bed scale (08/31/21 3:15 PM) Dry Weight Obtained Via Bed scale (08/31/21 3:15 PM) Social History Social History Type Response Smoking Status Cigars or pipes daily within last 30 days; Interested in cessation: Yes; Other: 2 cigars a day about.; entered on: 08/31/21 Sex
--- OUTSIDE RECORDS SUMMARY | 2022-03-30 18:41 | XMS_ITS | Continuity of Care Document ---
:1965 Author Organization [facility] Address [address] [place] [address] Drive [address] [place] [address]- Care Team Providers Name Role Phone Ryan Larson MD Primary Care Physician Unavailable Encounter [facility] Date(s): 04/18/20 - 04/25/[address] [place] [address]- Attending Physician: Reese VÁZQUEZ, Kristie Pierre Referring Physician: Ryan Larson MD Allergies, Adverse Reactions, Alerts Substance Reaction Severity Status Duragesic skin peels from adhesive Active TraMADol Hydrochloride ER Active Bee Stings Anaphylaxis Active Tape skin [...] med up from pharmacy at 1940, given [id number] Note: [facility]3Admin Note: given in clinic Medications cetirizine [...] 04/20/20 15:11:00 EST, Route to Pharmacy Electronically, [facility]/pharmacy #[id number], Par... Start Date: 04/20/20 Stop Date: 10/17/20 [...]
--- OUTSIDE RECORDS SUMMARY | 2022-03-30 18:41 | XMS_ITS | Continuity of Care Document ---
:1965 Author Organization [facility] Address [address] [place] [address] Drive [address] [place] [address]- Care Team Providers Name Role Phone Marsha MYERS, Ryan Primary Care Physician Unavailable Encounter [facility] Date(s): 04/20/20 - 05/20/[address] [place], [place] [address] Allergies, Adverse Reactions, Alerts Substance Reaction [...] med up from pharmacy at 1940, given [id number] Note: [facility]3Admin Note: given in clinic Medications [...] 04/20/20 15:11:00 EST, Route to Pharmacy Electronically, [facility]/pharmacy #[id number], Par... Start Date: 04/20/20 Stop Date: 10/17/20 [...]
--- OUTSIDE RECORDS SUMMARY | 2022-03-30 18:41 | XMS_ITS | Continuity of Care Document ---
:1965 Author Organization [facility] Address [address] [place] [id number]- Care Team Providers Name Role Phone Ryan Larson MD Primary Care Physician Encounter [facility] Date(s): 10/12/19 - 10/13/[address] [address]- [facility] Encounter Diagnosis Cervical strain, acute (Final) - 10/11/19 Alcohol use disorder, moderate, dependence (Final) - 10/11/19 Discharge Disposition: A-D/C Home Attending Physician: Lesley Ambrocio MD Admitting Physician: Dileep MYERS, Tash Referring Physician: Not on Staff, Referring MD [...] med up from pharmacy at 1940, given [id number] Note: [id number] Note: given in clinic Medications acetaminophen 325 mg oral tablet 650 mg, By Mouth, Every 4 hours, for 5 days, # 60 tablet, Refills 0, Tot. Refills 0, Acute 10/15/19 12:23:00 EDT, 10/10/19 12:23:00 EDT, Route to Pharmacy Electronically, [facility] 3 Start Date: 10/10/19 Stop Date: 10/15/19 Status: Orderedcetirizine 10 mg oral tablet 1 [...] 10/13/19 9:20:00 EDT Start Date: 10/13/19 Status: Orderedibuprofen 600 mg oral tablet 600 mg, 1, tablet, By Mouth, 3 times a day, PRN, for 5 days, # 15 tablet, Refills 0, Tot. Refills 0,Acute 10/15/19 12:23:00 EDT, Pain , Mild, 10/10/19 12:23:00 EDT, Route to Pharmacy Electronically, [facility] 3 Start Date: 10/10/19 Stop Date: 10/15/19 Status: OrderedLidocaine 5% Topical 1 applicator, Topically, [...] EST, ER Tablet Start Date: 05/13/19 Status: OrderedoxyCODONE 5 mg oral tablet 5 mg, 1, tablet, By Mouth, Every 6 hours, PRN, for 3 days, # 15 tablet, Refills 0, Tot. Refills 0, Acute 10/16/19 9:20:00 EDT, Pain , Severe, 10/13/19 9:20:00 EDT, Print Requisition, Partial fill upon patient request Start Date: 10/13/19 Stop Date: 10/16/19 Status: OrderedPyridoxine Tablet 50 mg, By Mouth, [...] Height 158 cm 158 cm 158 cm (10/13/19 11:21 AM) (10/13/19 8:41 AM) (10/12/19 2: 54 PM) Weight 64 kg (10/12/19 9:25 AM) Oxygen Saturation [94-100 %] 95 % 95 % 96 % (10/13/19 11:21 AM) (10/13/19 8:41 AM) (10/13/19 4: 00 AM) Pulse Rate [55-90 bpm] 76 bpm 73 bpm 73 bpm (10/13/19 11:21 AM) (10/13/19 10:00 AM) (10/13/19 8 :41 AM) Body Mass Index [18.5-24.99] 25.64 *H* (10/12/19 9:25 AM) Blood Pressure [90-138/55-84 113/57 mm Hg 136/63 mm Hg 136 /63 mm Hg mm Hg] (10/13/19 11:21 AM) (10/13/19 10:00 AM) (10/13/19 8 :41 AM) Respiratory Rate [16-30 16 br/min 18 br/min 18 br/mi n br/min] (10/13/19 11:37 AM) (10/13/19 11:21 AM) (10/13/19 1 0:00 AM) Temperature [96.8-100.4 99.3 DegF 98.3 DegF 98.3 Deg F DegF] (10/13/19 11:21 AM) (10/13/19 10:00 AM) (10/13/19 8 :41 AM) Mode of Delivery (Oxygen) Room air Room air Room a ir (10/13/19 11:21 AM) (10/13/19 8:41 AM) (10/13/19 4: 00 AM) Blood pressure sites Arm, right Arm, right Arm, right (10/13/19 11:21 AM) (10/13/19 8:41 AM) (10/13/19 4: 00 AM) Temperature Route Oral Oral Oral (10/13/19 11:21 AM) (10/13/19 10:00 AM) (10/13/19 8 :41 AM) Dry Weight 64 kg (10/12/19 9:25 AM) Social History Social History Type Response Smoking Status Current every day smoker entered on: 09/05/14 Sex
--- NOTE | 2022-03-30 19:07 | PC.NURSE ---
Assumed care of pt at discharge.
== END 2022-03-30 19:25 | disposition home or self-care (01) ==
PROVIDERS: Physician Assistant Medical; Emergency Provider Internal Medicine; PCP Internal Medicine
DX: J40 Bronchitis, not specified as acute or chronic (principal); N39.0 Urinary tract infection, site not specified; R10.9 Unspecified abdominal pain; Z20.822 Contact with and (suspected) exposure to COVID-19; Z79.899 Other long term (current) drug therapy
CPT/HCPCS: 0241U; 36415; 71046; 74176; 80053; 81001; 85025; 87086; 87147; 99282; 99284

== ENCOUNTER 2022-04-18 14:29 | Emergency (ER) | payer MEDICARE, MEDICAID, SELFPAY ==
--- NOTE | ~2022-04-18 | CT_ITS ---
EXAMINATION: CT ABDOMEN AND PELVIS WITHOUT CONTRAST CLINICAL INFORMATION: Urinary symptoms and flank pain COMPARISON: CT abdomen and pelvis 03/30/2022 TECHNIQUE: Multidetector volumetric imaging was performed from the superior aspect of the liver through the pubic symphysis. Sagittal and coronal reformatted images were obtained on the technologist's workstation. This CT examination was performed using dose optimization techniques as appropriate, variously including the following: *Automated exposure control *Adjustment of mA and/or kV according to patient size (this includes techniques or standardized protocols for targeted exams where dose is matched to indication/reason for exam; i.e. extremities or head) *Use of iterative reconstruction technique DLP: 471 mGy-cm FINDINGS: LUNG BASES: Mild bibasilar subsegmental atelectasis or scarring in mild right basilar pleural thickening. LIVER, GALLBLADDER, AND BILIARY TREE: Liver is mildly enlarged with the right lobe measuring 17.4 cm in craniocaudal extent. Normal hepatic attenuation. No liver lesion. No biliary ductal dilation. Status post cholecystectomy. PANCREAS: Unremarkable. SPLEEN: Normal size. Small calcified splenic granuloma noted. ADRENAL GLANDS: Unremarkable. KIDNEYS AND URETERS: The kidneys are normal in size, shape, and attenuation. No hydronephrosis, hydroureter, or calculi seen. No perinephric stranding. BLADDER: Limited distention. Slightly thick-walled appearance, at least partially secondary to incomplete distention. No focal bladder wall thickening or bladder calculi. GASTROINTESTINAL TRACT: Status post subtotal colectomy. Moderate amount of formed stool in the rectum/distal colon. No dilated bowel loops. No bowel wall thickening. No ascites or free air. ABDOMINAL WALL: No significant hernia is appreciated. LYMPH NODES: No lymphadenopathy. VASCULAR: Normal caliber abdominal aorta. Mild to moderate vascular calcifications. PELVIC VISCERA: Status post hysterectomy. No free pelvic fluid. OSSEOUS STRUCTURES: No acute fracture or suspicious osseous lesion. Mild degenerative disc disease at L5-S1. CT/CT abdomen pelvis wo IV con IMPRESSION: 1. No acute intra-abdominal process identified. 2. No evidence of urolithiasis or hydronephrosis. If clinical concern for urinary tract infection, suggest correlation with urinalysis. 3. Status post subtotal colectomy. 4. Mild hepatomegaly. 5. Additional findings, as described.
[2022-04-18 14:42] VITALS: BP 134/90; PULSE 74; RESP 18; TEMP 36.7; O2SAT 97; BMI 26.6
--- NOTE | 2022-04-18 14:43 | ED_ITS ---
HPI - Female Genitourinary General Chief complaint: Urogenital-Female Stated complaint: UTI Pain Time Seen by Provider: 04/18/22 16:39 Source: patient Mode of arrival: ambulatory Limitations: no limitations History of Present Illness HPI Narrative: 57yoF presenting to the ER with complaints of suprapubic abdominal pain, dysuria, hematuria, urinary frequency/urgency and not having back pain. Reports that she was seen here on 03/30/2022 and sent home with antibiotics for UTI/bronchitis and took as prescribed although no symptomatic relief now her symptoms are worsened. Now she has bilateral flank pain. Denies any fevers. MD elicited complaint: dysuria, UTI , back pain and flank pain Pertinent past history: recurrent UTIs Onset (ago): day(s) (For the past few weeks worse today) Location of symptoms: suprapubic and low back Severity: moderate Female Urogenital Radiation: Suprapubic, L Flank and R Flank Quality of pain: cramping and aching Consistency: constant Vaginal discharge: none Vaginal bleeding: none Urinary symptoms: Dysuria, Urgency, Frequency and Flank Pain Exacerbating factors: urination Relieving factors: none Associated symptoms: abdominal pain and back pain Treatment prior to arrival: other (See above) Sexual activity: No Patient : No Related Data Previous Rx's Medication Instructions Recorded oxycodone 5 mg tablet 5 mg PO Q6H PRN pain #7 tabs 10/29/21 cyclobenzaprine 10 mg tablet 10 mg PO Q8H #14 tabs 01/09/22 ibuprofen 600 mg tablet 600 mg PO Q6H PRN fever #14 tabs 01/09/22 oxycodone 5 mg tablet 5 mg PO Q6H PRN pain #10 tabs 01/09/22 cefuroxime axetil 500 mg tablet 500 mg PO BID 7 days #14 tabs 03/30/22 fluconazole 150 mg tablet 150 mg PO Q3D 2 doses #2 tabs 03/30/22 (Diflucan) fluticasone propionate 50 2 spray intranasal DAILY #16 grams 03/30/22 mcg/actuation nasal spray,suspension (Flonase Allergy Relief) levofloxacin 750 mg tablet 750 mg PO DAILY uti 5 days #5 tabs 04/18/22 phenazopyridine 100 mg tablet 100 mg PO TID PRN pain 6 doses #6 04/18/22 (Pyridium) tabs Allergies Allergy/AdvReac Type Severity Reaction Status Date / Time tramadol [Tramadol] Allergy Mild HEADACHE Unverified 01/19/20 16:16 bee pollen [BEE STINGS] Allergy Unknown UNKNOWN Unverified 01/19/20 16:16 tapentadol [TAPENTADOL] Allergy Unknown UNKNOWN Unverified 01/19/20 16:16 adhesive tape [ADHESIVE TAPE] AdvReac Unknown MY SKIN Unverified 01/19/20 16:16 RIPS OFF ADHESIVE BANDAGE AdvReac Unknown MY SKIN Uncoded 01/19/20 16:16 RIPS OFF Review of Systems Review of Systems: Constitutional : No Fever, No Chills, No Night Sweats, No Fatigue, No Malaise Cardiovascular : No Chest Pain, No SOB Respiratory : No Cough, No Sputum, No Wheezing, No Dyspnea Gastrointestinal : No Nausea, No Vomiting, No Diarrhea, + abdominal Pain, No Hematochezia, No Melena Genitourinary : No irregular bleeding, + Dysuria, + Urinary Frequency, No Hematuria,No Urinary Incontinence, + Urgency, + Flank Pain Musculoskeletal : No joint pain, No Myalgias, No Joint Swelling Skin : No Skin Lesions, No rash Neuro : No Weakness, No Numbness, No Paresthesias, No Loss of Consciousness, No Dizziness, No Headache Heme/Lymph: No Lymphadenopathy Endocrine : No Temperature Intolerance Yes all other systems are reviewed and are negative [facility] Past Medical History Attestation statement: The following information was validated with the patient. Source: old records reviewed and nursing notes reviewed Social History Social History Advance Directives: No Advance Directives Information Provided: No Physical Exam Vital Signs: Vital Signs: Last Vital Signs Temp 98.1 F 04/18/22 14:42 Pulse 74 04/18/22 14:42 Resp 18 04/18/22 14:42 BP 134/90 H 04/18/22 14:42 Pulse Ox 97 04/18/22 14:42 O2 Del Method 04/18/22 14:42 BMI result Body Mass Index 26.6 vital signs have been reviewed as normal and appeared to be correct. Blood pressure normal. Heart rate normal. Respiration rate normal. Temperature normal. Oxygen saturation normal. Appearance: Alert. Oriented X3. No acute distress. Head: Normal external exam. Normocephalic. Eyes: PERRLA. EOMI. Conjunctiva and sclera normal. Eyelids normal. ENT: Pharynx normal. Uvula midline. Moist mucous membranes. No trismus noted. No drooling noted. No muffled voice noted. Neck: Normal inspection. Neck supple. FROM. No adenopathy. No meningeal signs. CVS: Normal heart rate and rhythm. Heart sound normal. No murmurs noted. Pulses normal throughout. Respiratory: No respiratory distress. Painless inspiration. Breath sounds normal. No wheezes/rales/rhonchi noted. Chest nontender. No accessory muscle usage noted or decreased air movement noted. Abdomen: Soft and mild tenderness to suprapubic area. Nondistended. No guarding. No rigidity. Bowel sounds normal in all 4 quadrants. No distention noted. No organomegaly noted. No visible injury noted. No rebound tenderness. Negative Rovsing sign. Negative obturator's sign. Negative psoas sign. Negative Wagner sign. Back: + CVA tenderness. Full range of motion noted. Skin: Skin warm and dry. Normal skin color. Normal skin turgor. No rashes/lesions/lacerations noted. Extremities: Extremities exhibit normal range of motion. Extremities nontender. Neuro: Oriented X 3. No motor deficit. No sensory deficit. Reflexes normal. Normal steady gait. CN's II-XII intact bilaterally? Course Course Course Narrative: LUIS CARLOSE-14:45PM - 57yoF presenting to the ER with complaints of suprapubic abdominal pain, dysuria, hematuria, urinary frequency/urgency and not having back pain. Reports that she was seen here on 03/30/2022 and sent home with antibiotics for UTI/bronchitis and took as prescribed although no symptomatic relief now her symptoms are worsened. Now she has bilateral flank pain. Denies any fevers. Plan: Labs, UA, CT scan abdomen pelvis without IV contrast. Patient is stable she will be sent back to the waiting room to be evaluated in the ED. Reevaluation(s) Reevaluation #1: Labs obtained and all labs within normal limits. UA positive for UTI. CT scan abdomen pelvis negative for any acute processes. Patient most likely UTI/pyelonephritis. Therefore at this time due to patient already trying azithromycin, Augmentin and cephalosporin will place on Levaquin. And instructed follow-up with primary care provider and to return if any new or worsening symptoms. Patient understands agrees with this plan. Time: 16:43 Medical Decision Making Lab Data MDM Lab Attestation statement: I reviewed the patient's lab results. Result Diagrams: 04/18/22 14:53 04/18/22 14:53 Labs: Lab Results 04/18/22 04/18/22 04/18/22 Range/Units 14:53 14:53 14:53 WBC 7.4 (4.8-10.8) X10*3/uL RBC 4.34 (4.20-5.50) X10*6/uL Hgb 13.7 (12.0-16.0) g/dl Hct 40.3 (37.0-47.0) % MCV 92.9 (80.0-98.0) fL MCH 31.6 (27.0-33.0) pg MCHC 34.0 (31.0-35.0) g/dl RDW 12.8 (11.0-16.0) % Plt Count 228 (160-400) X10*3/uL MPV 9.5 (9.4-12.3) fL Immature Gran % (Auto) 0.1 (0.0-0.4) % Neut % (Auto) 62.9 (45-73) % Lymph % (Auto) 27.2 (20-40) % Cole % (Auto) 6.5 (2-11) % Eos % (Auto) 2.6 (0-4) % Baso % (Auto) 0.7 (0-2) % Lymph # (Auto) 2.0 (1.2-4.9) X10*3/uL Cole # (Auto) 0.5 (0.1-1.2) X10*3/uL Eos # (Auto) 0.2 (0.0-0.4) X10*3/uL Baso # (Auto) 0.1 (0.0-0.2) X10*3/uL Abs Immat Gran (auto) 0.01 (0.00-0.03) X10*3/uL Absolute Neuts (auto) 4.6 (2.0-8.3) x10*3/uL Absolute Nucleated RBC 0.000 (0.0-0.012) X10*3/uL Nucleated RBC % (auto) 0.0 (0.0-0.2) /100WBC PT 11.3 (10.0-13.1) SEC INR 1.0 (0.9-1.1) Sodium 138 (135-145) mmol/L Potassium 4.3 (3.3-5.1) mmol/L Chloride 108 (96-108) mmol/L Carbon Dioxide 21 L (22-29) mmol/L Anion Gap 13 (12-20) BUN 14 (9-16) mg/dL Creatinine 0.74 (0.5-1.4) mg/dL Estim Creat Clear Calc 74.8 Estimated GFR > 60 Random Glucose 88 (60-115) mg/dL Calcium 8.9 (8.4-10.2) mg/dL Magnesium 2.0 (1.6-2.6) mg/dL Total Bilirubin 0.3 (0.0-1.0) mg/dL AST 15 (5-31) U/L ALT 14 (0-31) U/L Alkaline Phosphatase 68 (39-117) U/L Total Protein 6.6 (6.5-8.0) g/dL Albumin 3.9 (3.5-5.0) g/dL Urine Color Urine Appearance Urine pH (5.0-9.0) Ur Specific Maxwell (1.005-1.025) Urine Protein (Neg-Trace) mg/dL Urine Glucose (UA) (Negative) mg/dL Urine Ketones (Negative) mg/dL Urine Blood (Negative) Urine Nitrite (Negative) Ur Leukocyte Esterase (Negative) Urine RBC (0-2) /HPF Urine WBC (0-5) /HPF Ur Squamous Epith Cells (0-2) /HPF Urine Bacteria (None Seen) Hyaline Casts (0-2) /LPF 04/18/22 Range/Units 14:57 WBC (4.8-10.8) X10*3/uL RBC (4.20-5.50) X10*6/uL Hgb (12.0-16.0) g/dl Hct (37.0-47.0) % MCV (80.0-98.0) fL MCH (27.0-33.0) pg MCHC (31.0-35.0) g/dl RDW (11.0-16.0) % Plt Count (160-400) X10*3/uL MPV (9.4-12.3) fL Immature Gran % (Auto) (0.0-0.4) % Neut % (Auto) (45-73) % Lymph % (Auto) (20-40) % Cole % (Auto) (2-11) % Eos % (Auto) (0-4) % Baso % (Auto) (0-2) % Lymph # (Auto) (1.2-4.9) X10*3/uL Cole # (Auto) (0.1-1.2) X10*3/uL Eos # (Auto) (0.0-0.4) X10*3/uL Baso # (Auto) (0.0-0.2) X10*3/uL Abs Immat Gran (auto) (0.00-0.03) X10*3/uL Absolute Neuts (auto) (2.0-8.3) x10*3/uL Absolute Nucleated RBC (0.0-0.012) X10*3/uL Nucleated RBC % (auto) (0.0-0.2) /100WBC PT (10.0-13.1) SEC INR (0.9-1.1) Sodium (135-145) mmol/L Potassium (3.3-5.1) mmol/L Chloride (96-108) mmol/L Carbon Dioxide (22-29) mmol/L Anion Gap (12-20) BUN (9-16) mg/dL Creatinine (0.5-1.4) mg/dL Estim Creat Clear Calc Estimated GFR Random Glucose (60-115) mg/dL Calcium (8.4-10.2) mg/dL Magnesium (1.6-2.6) mg/dL Total Bilirubin (0.0-1.0) mg/dL AST (5-31) U/L ALT (0-31) U/L Alkaline Phosphatase (39-117) U/L Total Protein (6.5-8.0) g/dL Albumin (3.5-5.0) g/dL Urine Color Yellow Urine Appearance Cloudy Urine pH 5.5 (5.0-9.0) Ur Specific Maxwell 1.020 (1.005-1.025) Urine Protein Trace (Neg-Trace) mg/dL Urine Glucose (UA) Negative (Negative) mg/dL Urine Ketones Negative (Negative) mg/dL Urine Blood Small (1+) H (Negative) Urine Nitrite Negative (Negative) Ur Leukocyte Esterase Large (3+) H (Negative) Urine RBC 6-10 H (0-2) /HPF Urine WBC >50 H (0-5) /HPF Ur Squamous Epith Cells 0-2 (0-2) /HPF Urine Bacteria 2+ (None Seen) Hyaline Casts 0-2 (0-2) /LPF Radiology Impression Discussion of test interpretation with radiology: I have reviewed the radiologist's reading. Radiologist Impression: CT scan abdomen pelvis without IV contrast FINDINGS: LUNG BASES: Mild bibasilar subsegmental atelectasis or scarring in mild right basilar pleural thickening.? LIVER, GALLBLADDER, AND BILIARY TREE: Liver is mildly enlarged with the right lobe measuring 17.4 cm in craniocaudal extent. Normal hepatic attenuation. No liver lesion. No biliary ductal dilation. Status post cholecystectomy.? PANCREAS: Unremarkable.? SPLEEN: Normal size. Small calcified splenic granuloma noted.? ADRENAL GLANDS: Unremarkable.? KIDNEYS AND URETERS: The kidneys are normal in size, shape, and attenuation. No hydronephrosis, hydroureter, or calculi seen. No perinephric stranding. ? BLADDER: Limited distention. Slightly thick-walled appearance, at least partially secondary to incomplete distention. No focal bladder wall thickening or bladder calculi.? GASTROINTESTINAL TRACT: Status post subtotal colectomy. Moderate amount of formed stool in the rectum/distal colon. No dilated bowel loops. No bowel wall thickening. No ascites or free air. ABDOMINAL WALL: No significant hernia is appreciated.? LYMPH NODES: No lymphadenopathy. VASCULAR: Normal caliber abdominal aorta. Mild to moderate vascular calcifications. PELVIC VISCERA: Status post hysterectomy. No free pelvic fluid.? OSSEOUS STRUCTURES: No acute fracture or suspicious osseous lesion. Mild degenerative disc disease at L5-S1.? CT/CT abdomen pelvis wo IV con IMPRESSION: 1.? No acute intra-abdominal process identified. 2.? No evidence of urolithiasis or hydronephrosis. If clinical concern for urinary tract infection, suggest correlation with urinalysis. 3.? Status post subtotal colectomy. 4.? Mild hepatomegaly. 5.? Additional findings, as described. ? ? Discharge Plan Discharge Clinical Impression: Pyelonephritis Patient Disposition: Home, Self-Care Instructions: Kidney Infection (ED) Prescriptions: New levofloxacin 750 mg tablet 750 mg PO DAILY 5 Days Qty: 5 0RF phenazopyridine [Pyridium] 100 mg tablet 100 mg PO TID PRN (Reason: pain) Qty: 6 0RF No Action ibuprofen 600 mg tablet 600 mg PO Q6H PRN (Reason: fever) Qty: 14 0RF oxycodone 5 mg tablet 5 mg PO Q6H PRN (Reason: pain) Qty: 10 0RF Rx Instructions: Partial Fill upon patient request. cyclobenzaprine 10 mg tablet 10 mg PO Q8H Qty: 14 0RF oxycodone 5 mg tablet 5 mg PO Q6H PRN (Reason: pain) Qty: 7 0RF Rx Instructions: Partial Fill upon patient request. cefuroxime axetil 500 mg tablet 500 mg PO BID 7 Days Qty: 14 0RF fluticasone propionate [Flonase Allergy Relief] 50 mcg/actuation spray,suspension 2 spray intranasal DAILY Qty: 16 0RF Rx Instructions: administer into each nostril fluconazole [Diflucan] 150 mg tablet 150 mg PO Q3D Qty: 2 0RF Referrals: Demetris Cast III, MD [Primary Care Provider] - 2 days Print Language: Telugu
[2022-04-18 15:02] LABS: MANUAL DIFF FLAG NO
[2022-04-18 15:06] LABS: Appearance Urine Cloudy; Color Urine Yellow; Glucose Urine UA Negative (Negative); Leukocyte Esterase Urine Large (3+) (Negative); Nitrite Urine Negative (Negative); PH 5.5 (5.0-9.0); UMIC TRIGGER UACC YES; Urine Blood Small (1+) (Negative); Urine Ketones Negative (Negative); Urine Protein Trace mg/dL (Neg-Trace)
[2022-04-18 15:10] LABS: Basophils Absolute Auto 0.1 X10*3/uL (0.0-0.2); Basophils Percent Auto 0.7 % (0-2); Eosinophils Absolute Auto 0.2 X10*3/uL (0.0-0.4); Eosinophils Percent Auto 2.6 % (0-4); Hematocrit 40.3 % (37.0-47.0); Hemoglobin 13.7 g/dl (12.0-16.0); Imm Gran Abs Auto 0.01 X10*3/uL (0.00-0.03); Imm Gran Pct Auto 0.1 % (0.0-0.4); Lymphocytes Percent Auto 27.2 % (20-40); Mean Corpuscular Hemoglobin 31.6 pg (27.0-33.0); Mean Corpuscular Volume 92.9 fL (80.0-98.0); Mean Platelet Volume 9.5 fL (9.4-12.3); Monocytes Absolute Auto 0.5 X10*3/uL (0.1-1.2); Monocytes Percent Auto 6.5 % (2-11); Neutrophils Absolute Auto 4.6 x10*3/uL (2.0-8.3); Neutrophils Percent Auto 62.9 % (45-73); Platelet Count 228 X10*3/uL (160-400); Red Blood Count 4.34 X10*6/uL (4.20-5.50); Red Cell Distribution Width 12.8 % (11.0-16.0); White Blood Count 7.4 X10*3/uL (4.8-10.8)
[2022-04-18 15:11] LABS: Bacteria Urine 2+ (None Seen); Hyaline Casts Urine 0-2 /LPF (0-2); Squamous Epithelial Cell Urine 0-2 /HPF (0-2); UACC Culture Trigger YES; WBC Urine >50 /HPF (0-5)
[2022-04-18 15:23] LABS: Prothrombin Time 11.3 SEC (10.0-13.1)
[2022-04-18 15:52] LABS: Alanine Aminotransferase 14 U/L (0-31); Albumin Level 3.9 g/dL (3.5-5.0); Alkaline Phosphatase 68 U/L (39-117); Anion Gap 13 (12-20); Aspartate Amino Transferase 15 U/L (5-31); Bilirubin Total 0.3 mg/dL (0.0-1.0); Blood Urea Nitrogen 14 mg/dL (9-16); Calcium 8.9 mg/dL (8.4-10.2); Carbon Dioxide 21 mmol/L (22-29); Chloride 108 mmol/L (96-108); Creatinine Clr Calc Pharmacy 74.8; Estimated Glomerular Filt Rate > 60; Glucose Random 88 mg/dL (60-115); Potassium 4.3 mmol/L (3.3-5.1); Sodium 138 mmol/L (135-145); Total Protein 6.6 g/dL (6.5-8.0)
--- OUTSIDE RECORDS SUMMARY | 2022-04-18 16:07 | XMS_ITS | Continuity of Care Document ---
:1965 Author Organization [facility] Address [address] [place] [address]- Care Team Providers Name Role Phone Segun HARRIS MD, Demetris Pierre Primary Care Physician Encounter [facility] Date(s): 03/07/22 - 04/06/22 [facility] [address] [place] [id number] Allergies, Adverse Reactions, Alerts Substance Reaction Severity Status gabapentin Active Duragesic skin peels from adhesive Active Bee Stings Anaphylaxis Active Tape skin peels Active Lyrica Active TraMADol Hydrochloride ER1 Activ e 1tolerated morphine Immunizations Given and Recorded Vaccine [...] 06/08/14 Not Given Patient Refuses 1Admin Note: [facility]2Early/Late Reason: Other : NOT GIVEN IN ER OR OR, PT TO PACU AT 1902, med up from pharmacy at 1940, given [id number] Note: given in clinic Medications Anoro Ellipta 62.5 mcg-25 mcg/inh inhalation powder 1 puffs, Inhalation, Daily, # 30 each, 0 Refills, Maintenance, 08/31/21 14:34:00 EDT, Powder, Partial fill upon patient request if the prescription is for a schedule II opioid drug. Start Date: 08/31/21 Status: OrderedcloNIDine 0.1 mg oral tablet 0.1 [...] MEALS AND BEDTIME, # 120capsule, Refills 5, Tot. Refills 5, Maintenance, 01/02/22 11:46:00 EDT, Instructions Replace Required Details, Route to [facility]acy Electronically[facility] Start Date: 01/02/22 Status: Orderedmeclizine 12.5 mg oral tablet 2 [...] II opioid drug. Start Date: 08/31/21 Status: Orderednystatin 576529 u/ml oral suspension 5 mL = 500,000 [...] Date: 06/05/17 Status: Ordered Problem List Condition Confirmation Course Effective Dates Status Health Stat us Informant Constipation Confirmed Active Low back pain Confirmed Active Neck pain Confirmed Active LARA - Obstructive Confirmed Active sleep apnea Post traumatic Confirmed Active stress disorder (PTSD) Rhinitis Confirmed Active Major depressive Confirmed Active disorder, single episode, severe with anxious distress Social History Social History Type Response Smoking Status Cigars or pipes daily within last 30 days; Other: Has not smoked cigarettes since April smokes 1/2 cigar daily; entered on: 09/10/21 Sex Patient Care team information Care Team PersonnelName: Gabbie Sepulveda RN Position: [facility] RN Member Role: Primary Care Nurse Name: Jenifer Truong RN Position: [facility] RN Member Role: Primary Care Nurse Name: Demetris Cast III, MD Position: [facility] Ambulatory (view) Member Role: PCP Address: Address: [address] [place] [address] Name: Indu Canela Position: [facility] Outreach Member Role: [employer] Consulting Physician Name: Kathleen Zaidi RN Position: [facility] RN Member Role: Primary Care Nurse Name: Kathleen Ochoa RN Position: [facility] RN Member Role: Primary Care Nurse Name: Min Garzon RN Position: [facility] RN Member Role: Primary Care Nurse Name: Gisela Osorio RN Position: [facility] Hospital Care Navigator Member Role: Primary Care Nurse Name: Rosalinda Mitchell RN Position: [facility] RN Member Role: Primary Care Nurse Name: Lucrecia Celeste RN Position: [facility] AMB Nurse Member Role: Primary Care Nurse Name: Jojo Rouse RN Position: [facility] RN Member Role: Primary Care Nurse Name: Sandy Witt RN Position: [facility] Care Navigator Member Role: Primary Care Nurse Name: Bry Arita RN Position: [facility] Care Navigator Member Role: Primary Care Nurse Care Team Related PersonsName: DREW NICHOLS Address: [address] [place] [address] Name: DIANA HENDERSON Address: home [address] [place], [place] Name: EVELINA TADEO Address: [address] [place] [address] Name: SURJIT TRAN Address: [place] [address]
== END 2022-04-18 16:50 | disposition home or self-care (01) ==
PROVIDERS: Physician Assistant Medical; Emergency Provider Student in an Organized Health Care Education/Training Program; PCP Internal Medicine
DX: N39.0 Urinary tract infection, site not specified (principal); B96.1 Klebsiella pneumoniae [K. pneumoniae] as the cause of diseases classified elsewhere; Z16.12 Extended spectrum beta lactamase (ESBL) resistance
CPT/HCPCS: 36415; 74176; 80053; 81001; 83735; 85025; 85610; 87086; 87088; 87186; 99282; 99284

== ENCOUNTER 2022-04-23 15:49 | Inpatient (IN) | payer MEDICARE, MEDICAID, SELFPAY ==
--- NOTE | ~2022-04-23 | CT_ITS ---
EXAMINATION: CT abdomen pelvis w IV con CLINICAL INFORMATION: Reason for Exam diffuse abd pain COMPARISON: No prior CT available for comparison. TECHNIQUE: Multidetector volumetric imaging was performed from the superior aspect of the liver through the pubic symphysis approximately 85 mL Omnipaque 350 injected Sagittal and coronal reformatted images were obtained on the technologist's workstation. This CT examination was performed using dose optimization techniques as appropriate, variously including the following: *Automated exposure control *Adjustment of mA and/or kV according to patient size (this includes techniques or standardized protocols for targeted exams where dose is matched to indication/reason for exam; i.e. extremities or head) *Use of iterative reconstruction technique DLP: 448 mGy-cm FINDINGS: LOWER THORAX: There is triangular opacity with adjacent platelike atelectasis right lower lobe unchanged from prior exam. HEPATOBILIARY: There are borderline enlarged. No focal hepatic lesions. No biliary ductal dilatation. GALLBLADDER: Gallbladder unremarkable. SPLEEN: Spleen is normal in size. PANCREAS: No focal mass or ductal dilatation. STOMACH AND GASTROINTESTINAL TRACT: Stomach is grossly unremarkable. There is no bowel distention or thickening. Postsurgical changes from prior colonic resection, ileorectal anastomosis. No CT evidence of tumor recurrence at anastomosis site, no dehiscence., ADRENALS: No adrenal nodules. KIDNEYS/URETERS: No hydronephrosis, stones or solid mass lesions. URINARY BLADDER: Partially decompressed. PELVIC VISCERA: Unremarkable PERITONEUM: No free air or fluid. LYMPH NODES: No lymphadenopathy. VASCULAR:Abdominal aorta normal in size, no aneurysm found. BONES, ABDOMINAL WALL AND SOFT TISSUES: Age-appropriate changes of the spine and skeletal system, no destructive osteolytic or osteosclerotic bone lesion found CT/CT abdomen pelvis w IV con IMPRESSION: * No CT evidence of acute intra-abdominal process to explain patient's pain symptoms. * Postsurgical changes from prior colonic resection, ileorectal anastomosis. No CT evidence of tumor recurrence at anastomosis site, no dehiscence. * No adenopathy. No free air or fluid. * Triangular opacity with adjacent platelike atelectasis right lower lobe unchanged. * Borderline hepatomegaly.
--- NOTE | ~2022-04-23 | US_ITS ---
EXAMINATION: US ABDOMEN LIMITED CLINICAL INFORMATION: Right upper quadrant pain. COMPARISON: CT 04/23/2022 TECHNIQUE: Real-time imaging of the right upper quadrant abdominal viscera. FINDINGS: PANCREAS: Normal. LIVER: The liver is normal in size. The liver contour is normal. There is diffuse increased liver parenchymal echogenicity, consistent with hepatic steatosis. No focal hepatic lesion. There is no intrahepatic biliary duct dilatation seen. GALLBLADDER: Surgically absent. COMMON BILE DUCT: Normal in caliber measuring 0.3 cm in diameter. RIGHT KIDNEY: Normal. No hydronephrosis. No renal calculi or focal parenchymal lesions. The kidney measures 10.6 cm in maximum dimension. FREE FLUID: None. US/US abdomen limited IMPRESSION: Hepatic steatosis. Otherwise unremarkable right upper quadrant ultrasound. Cholecystectomy.
--- NOTE | ~2022-04-23 | XR_ITS ---
EXAMINATION: XR CHEST CLINICAL INFORMATION: Shortness of breath. COMPARISON: 03/30/2022 chest radiographs. TECHNIQUE: Frontal view of the chest was obtained. FINDINGS: No significant abnormality is noted involving the heart, lungs, mediastinum, bony thorax or soft tissues. XR/XR chest 1V IMPRESSION: No acute cardiopulmonary process.
[2022-04-23 15:52] VITALS: BP 147/72; PULSE 80; RESP 18; TEMP 36.7; O2SAT 96; BMI 26.8
--- NOTE | 2022-04-23 16:01 | ED.FEMALEGU ---
HPI - Female Genitourinary General Chief complaint: Urogenital-Female Stated complaint: needs an IV? Time Seen by Provider: 04/23/22 16:09 Related Data Home Medications Medication Instructions Recorded Confirmed albuterol sulfate 90 mcg/actuation 2 puff inhalation Q4-6H PRN 04/23/22 04/23/22 aerosol inhaler (Ventolin HFA) Wheezing bictegravir 50 mg-emtricitabine 1 tab PO DAILY 04/23/22 04/23/22 200 mg-tenofovir alafenam 25 mg tablet (Biktarvy) clonidine HCl 0.1 mg tablet 1 tab PO BEDTIME 04/23/22 04/23/22 diazepam 5 mg tablet 1 tab PO TID PRN Anxiety 04/23/22 04/23/22 fluoxetine 20 mg capsule 2 cap PO DAILY 04/23/22 04/23/22 fluticasone propionate 50 2 spray intranasal DAILY PRN 04/23/22 04/23/22 mcg/actuation nasal Allergic Symptoms spray,suspension (Flonase Allergy Relief) galcanezumab-gnlm 120 mg/mL 120 mg subcut Q28D 04/23/22 04/23/22 subcutaneous syringe (Emgality) hydroxyzine HCl 50 mg tablet 1 tab PO BID 04/23/22 04/23/22 mirabegron 50 mg tablet,extended 1 tab PO DAILY 04/23/22 04/23/22 release 24 hr (Myrbetriq) multivitamin 1 tab PO DAILY 04/23/22 04/23/22 omeprazole 20 mg capsule,delayed 1 cap PO DAILY@0630 04/23/22 04/23/22 release tiotropium 2.5 mcg-olodaterol 2.5 1 puff inhalation DAILY 04/23/22 04/23/22 mcg/actuation mist for inhalation (Stiolto Respimat) trazodone 100 mg tablet 2 tab PO BEDTIME PRN Sleep 04/23/22 04/23/22 valacyclovir 1 gram tablet 1 tab PO DAILY 04/23/22 04/23/22 vitamin E 268 mg (400 unit) capsule 268 mg PO DAILY 04/23/22 04/23/22 zolpidem 5 mg tablet 1 tab PO BEDTIME PRN Sleep 04/23/22 04/23/22 Previous Rx's Medication Instructions Recorded ibuprofen 600 mg tablet 600 mg PO Q6H PRN fever #14 tabs 01/09/22 Allergies Allergy/AdvReac Type Severity Reaction Status Date / Time tramadol [Tramadol] Allergy Mild HEADACHE Verified 04/23/22 19:26 bee pollen [BEE STINGS] Allergy Unknown UNKNOWN Verified 04/23/22 19:26 tapentadol [TAPENTADOL] Allergy Unknown UNKNOWN Verified 04/23/22 19:26 gabapentin Allergy Hallucinati Verified 04/23/22 19:26 ons adhesive tape [ADHESIVE TAPE] AdvReac Unknown MY SKIN Verified 04/23/22 19:26 RIPS OFF ADHESIVE BANDAGE AdvReac Unknown MY SKIN Uncoded 01/19/20 16:16 RIPS OFF PMFSH Past Medical History Medical History (Updated 04/23/22 @ 20:08 by Phil Montiel MD) Anxiety Asthma HIV (human immunodeficiency virus infection) Social History Social History Advance Directives: No Advance Directives Information Provided: Yes service: No Current occupational status: disabled Physical Exam Vital Signs: Vital Signs: Last Vital Signs Temp 98.0 F 04/23/22 15:52 Pulse 80 04/23/22 15:52 Resp 18 04/23/22 15:52 BP 147/72 H 04/23/22 15:52 Pulse Ox 96 04/23/22 15:52 O2 Del Method 04/23/22 15:52 BMI result Body Mass Index 26.8 Course Course Course Narrative: 57-year-old female who was asked to come back to the emergency department for a positive urine culture on 04/18/2022 where she grew ESBL Klebsiella pneumonia sensitive to gentamicin and her in a pattern and only. The patient states that she has had a urinary tract infection for approximately 4 weeks. She complains of bilateral flank pain and suprapubic pain. She states she has had frequency, urgency, dysuria, fever and chills. On 04/18/2022 she was diagnosed with pyelonephritis, she had negative CT scan, she was treated with levofloxacin. I ordered CBC, BMP, lactic acid, lipase, liver panel, lipase, urinalysis, blood cultures, COVID-19, flu, RSV. The patient will be brought back to a room in the emergency department for further management. Medications Administered Generic Name Dose Route Start Last Admin Trade Name Freq PRN Reason Stop Dose Admin Enoxaparin Sodium 40 mg 04/23/22 18:00 04/23/22 19:30 Enoxaparin Sodium 40 Mg/0.4 Ml Syringe SUBCUT 40 mg Q24H JODIE Administration Ketorolac Tromethamine 15 mg 04/23/22 18:44 04/23/22 19:30 Ketorolac Tromethamine 15 Mg/Ml Vial IVPUSH 15 mg Q6H PRN Administration Pain, Mild (Pain Scale 1-3) Ondansetron HCl 4 mg 04/23/22 17:55 04/23/22 19:31 Ondansetron Hcl 4 Mg/2 Ml Vial IVPUSH 4 mg Q8H PRN Administration Nausea and Vomiting Discontinued Medications Generic Name Dose Route Start Last Admin Trade Name Riccardo PRN Reason Stop Dose Admin Ertapenem 1 gm/ Sodium 50 mls @ 100 mls/hr 04/23/22 16:12 04/23/22 17:49 Chloride IV 04/23/22 16:41 100 mls/hr ONCE ONE Administration Sodium Chloride 1,000 mls @ 999 mls/hr 04/23/22 16:15 04/23/22 17:49 Ns IV 04/23/22 17:15 999 mls/hr .Q1H1M JODIE Administration Medical Decision Making Lab Data Result Diagrams: 04/23/22 16:37 04/23/22 16:37 Labs: Lab Results 04/23/22 04/23/22 04/23/22 Range/Units 16:37 16:37 16:37 WBC 8.0 (4.8-10.8) X10*3/uL RBC 4.22 (4.20-5.50) X10*6/uL Hgb 13.4 (12.0-16.0) g/dl Hct 39.4 (37.0-47.0) % MCV 93.4 (80.0-98.0) fL MCH 31.8 (27.0-33.0) pg MCHC 34.0 (31.0-35.0) g/dl RDW 12.9 (11.0-16.0) % Plt Count 208 (160-400) X10*3/uL MPV 9.5 (9.4-12.3) fL Immature Gran % (Auto) 0.4 (0.0-0.4) % Neut % (Auto) 69.2 (45-73) % Lymph % (Auto) 18.8 L (20-40) % [place] % (Auto) 8.3 (2-11) % Eos % (Auto) 2.9 (0-4) % Baso % (Auto) 0.4 (0-2) % Lymph # (Auto) 1.5 (1.2-4.9) X10*3/uL [place] # (Auto) 0.7 (0.1-1.2) X10*3/uL Eos # (Auto) 0.2 (0.0-0.4) X10*3/uL Baso # (Auto) 0.0 (0.0-0.2) X10*3/uL Abs Immat Gran (auto) 0.03 (0.00-0.03) X10*3/uL Absolute Neuts (auto) 5.5 (2.0-8.3) x10*3/uL Absolute Nucleated RBC 0.000 (0.0-0.012) X10*3/uL Nucleated RBC % (auto) 0.0 (0.0-0.2) /100WBC Sodium 142 (135-145) mmol/L Potassium 4.2 (3.3-5.1) mmol/L Chloride 107 (96-108) mmol/L Carbon Dioxide 28 (22-29) mmol/L Anion Gap 11 L (12-20) BUN 16 (9-16) mg/dL Creatinine 0.74 (0.5-1.4) mg/dL Estim Creat Clear Calc 75.0 Estimated GFR > 60 Random Glucose 89 (60-115) mg/dL Calcium 9.0 (8.4-10.2) mg/dL Total Bilirubin 0.3 (0.0-1.0) mg/dL Direct Bilirubin < 0.2 (0.0-0.5) mg/dL AST 14 (5-31) U/L ALT 11 (0-31) U/L Alkaline Phosphatase 65 (39-117) U/L Total Protein 6.4 L (6.5-8.0) g/dL Albumin 3.9 (3.5-5.0) g/dL Lipase 7 L (8-78) U/L Urine Color Urine Appearance Urine pH (5.0-9.0) Ur Specific [place] (1.005-1.025) Urine Protein (Neg-Trace) mg/dL Urine Glucose (UA) (Negative) mg/dL Urine Ketones (Negative) mg/dL Urine Blood (Negative) Urine Nitrite (Negative) Ur Leukocyte Esterase (Negative) Urine RBC (0-2) /HPF Urine WBC (0-5) /HPF Ur Squamous Epith Cells (0-2) /HPF Urine Bacteria (None Seen) Hyaline Casts (0-2) /LPF Influenza Type A (PCR) NEGATIVE (Negative) Influenza Type B (PCR) NEGATIVE (Negative) RSV RNA Qual (PCR) NEGATIVE (Negative) SARS-CoV-2 RNA (RT-PCR) NEGATIVE (Negative) 04/23/22 Range/Units 16:37 WBC (4.8-10.8) X10*3/uL RBC (4.20-5.50) X10*6/uL Hgb (12.0-16.0) g/dl Hct (37.0-47.0) % MCV (80.0-98.0) fL MCH (27.0-33.0) pg MCHC (31.0-35.0) g/dl RDW (11.0-16.0) % Plt Count (160-400) X10*3/uL MPV (9.4-12.3) fL Immature Gran % (Auto) (0.0-0.4) % Neut % (Auto) (45-73) % Lymph % (Auto) (20-40) % [place] % (Auto) (2-11) % Eos % (Auto) (0-4) % Baso % (Auto) (0-2) % Lymph # (Auto) (1.2-4.9) X10*3/uL [place] # (Auto) (0.1-1.2) X10*3/uL Eos # (Auto) (0.0-0.4) X10*3/uL Baso # (Auto) (0.0-0.2) X10*3/uL Abs Immat Gran (auto) (0.00-0.03) X10*3/uL Absolute Neuts (auto) (2.0-8.3) x10*3/uL Absolute Nucleated RBC (0.0-0.012) X10*3/uL Nucleated RBC % (auto) (0.0-0.2) /100WBC Sodium (135-145) mmol/L Potassium (3.3-5.1) mmol/L Chloride (96-108) mmol/L Carbon Dioxide (22-29) mmol/L Anion Gap (12-20) BUN (9-16) mg/dL Creatinine (0.5-1.4) mg/dL Estim Creat Clear Calc Estimated GFR Random Glucose (60-115) mg/dL Calcium (8.4-10.2) mg/dL Total Bilirubin (0.0-1.0) mg/dL Direct Bilirubin (0.0-0.5) mg/dL AST (5-31) U/L ALT (0-31) U/L Alkaline Phosphatase (39-117) U/L Total Protein (6.5-8.0) g/dL Albumin (3.5-5.0) g/dL Lipase (8-78) U/L Urine Color Dark Yellow Urine Appearance Clear Urine pH 5.5 (5.0-9.0) Ur Specific [place] 1.025 (1.005-1.025) Urine Protein Trace (Neg-Trace) mg/dL Urine Glucose (UA) Negative (Negative) mg/dL Urine Ketones Trace (Negative) mg/dL Urine Blood Trace H (Negative) Urine Nitrite Negative (Negative) Ur Leukocyte Esterase Small (1+) H (Negative) Urine RBC 3-5 H (0-2) /HPF Urine WBC 6-10 H (0-5) /HPF Ur Squamous Epith Cells 3-5 (0-2) /HPF Urine Bacteria None Seen (None Seen) Hyaline Casts 0-2 (0-2) /LPF Influenza Type A (PCR) (Negative) Influenza Type B (PCR) (Negative) RSV RNA Qual (PCR) (Negative) SARS-CoV-2 RNA (RT-PCR) (Negative) Discharge Plan Discharge Clinical Impression: Complicated UTI (urinary tract infection), Left flank pain, ESBL (extended spectrum beta-lactamase) producing bacteria infection, Klebsiella pneumoniae Patient Disposition: Admitted As Inpatient
--- NOTE | 2022-04-23 16:12 | ED.FEMALEGU ---
HPI - Female Genitourinary General Chief complaint: Urogenital-Female Stated complaint: needs an IV? Time Seen by Provider: 04/23/22 16:09 Source: patient Mode of arrival: ambulatory Limitations: no limitations History of Present Illness HPI Narrative: 57-year-old past medical history significant for HIV with an unknown since last CD4 count presenting to the emergency department with complaints urinary frequency, urgency, dysuria, left flank pain, abdominal pain x1 month not resolving. Patient reports that she got a phone call stating she needed to come in because she needed IV antibiotics. Patient reports she has had multiple antibiotics and symptoms still present. She tells me she has been on 4 of them. Patient denies fevers, chills, chest pain, shortness of breath, nausea, vomiting, headache, vision changes, dizziness and weakness. Related Data Home Medications Medication Instructions Recorded Confirmed albuterol sulfate 90 mcg/actuation 2 puff inhalation Q4-6H PRN 04/23/22 04/23/22 aerosol inhaler (Ventolin HFA) Wheezing bictegravir 50 mg-emtricitabine 1 tab PO DAILY 04/23/22 04/23/22 200 mg-tenofovir alafenam 25 mg tablet (Biktarvy) clonidine HCl 0.1 mg tablet 1 tab PO BEDTIME 04/23/22 04/23/22 diazepam 5 mg tablet 1 tab PO TID PRN Anxiety 04/23/22 04/23/22 fluoxetine 20 mg capsule 2 cap PO DAILY 04/23/22 04/23/22 fluticasone propionate 50 2 spray intranasal DAILY PRN 04/23/22 04/23/22 mcg/actuation nasal Allergic Symptoms spray,suspension (Flonase Allergy Relief) galcanezumab-gnlm 120 mg/mL 120 mg subcut Q28D 04/23/22 04/23/22 subcutaneous syringe (Emgality) hydroxyzine HCl 50 mg tablet 1 tab PO BID 04/23/22 04/23/22 mirabegron 50 mg tablet,extended 1 tab PO DAILY 04/23/22 04/23/22 release 24 hr (Myrbetriq) multivitamin 1 tab PO DAILY 04/23/22 04/23/22 omeprazole 20 mg capsule,delayed 1 cap PO DAILY@0630 04/23/22 04/23/22 release tiotropium 2.5 mcg-olodaterol 2.5 1 puff inhalation DAILY 04/23/22 04/23/22 mcg/actuation mist for inhalation (Stiolto Respimat) trazodone 100 mg tablet 2 tab PO BEDTIME PRN Sleep 04/23/22 04/23/22 valacyclovir 1 gram tablet 1 tab PO DAILY 04/23/22 04/23/22 vitamin E 268 mg (400 unit) capsule 268 mg PO DAILY 04/23/22 04/23/22 zolpidem 5 mg tablet 1 tab PO BEDTIME PRN Sleep 04/23/22 04/23/22 Previous Rx's Medication Instructions Recorded ibuprofen 600 mg tablet 600 mg PO Q6H PRN fever #14 tabs 01/09/22 Allergies Allergy/AdvReac Type Severity Reaction Status Date / Time tramadol [Tramadol] Allergy Mild HEADACHE Verified 04/23/22 19:26 bee pollen [BEE STINGS] Allergy Unknown UNKNOWN Verified 04/23/22 19:26 tapentadol [TAPENTADOL] Allergy Unknown UNKNOWN Verified 04/23/22 19:26 gabapentin Allergy Hallucinati Verified 04/23/22 19:26 ons adhesive tape [ADHESIVE TAPE] AdvReac Unknown MY SKIN Verified 04/23/22 19:26 RIPS OFF ADHESIVE BANDAGE AdvReac Unknown MY SKIN Uncoded 01/19/20 16:16 RIPS OFF Review of Systems Review of Systems: Constitutional : No Weight loss, No Fever, No Chills, No Fatigue, No Malaise ENT/Mouth : No sore throat, No Rhinorrhea Eyes: No Eye Pain, No Swelling, No Redness Cardiovascular : No Chest Pain, No SOB, No Dyspnea on Exertion, No Orthopnea, No Edema, No Palpitations Respiratory : No Cough, No Sputum, No Wheezing Gastrointestinal : No Nausea, No Vomiting, No Diarrhea, No Constipation, No abdominal Pain, No Hematochezia, No Melena Genitourinary : + Dysuria, + Urinary Frequency, + Urinary Urgency, No Hematuria, Musculoskeletal : No joint pain, No Myalgias, No Joint Swelling Skin : No Skin Lesions, No rash Neuro : No Weakness, No Numbness, No Dizziness, No Headache Psych : No Anxiety/Panic, No Depression All other systems reviewed and are negative Yes all other systems are reviewed and are negative PMFSH Past Medical History Attestation statement: The following information was validated with the patient. Source: old records reviewed and nursing notes reviewed Medical History (Updated 04/23/22 @ 18:26 by Tessa Carl NP) Anxiety Asthma HIV (human immunodeficiency virus infection) Social History Social History Advance Directives: No Advance Directives Information Provided: Yes service: No Current occupational status: disabled Physical Exam Vital Signs: Vital Signs: Last Vital Signs Temp 98.0 F 04/23/22 15:52 Pulse 80 04/23/22 15:52 Resp 18 04/23/22 15:52 BP 147/72 H 04/23/22 15:52 Pulse Ox 96 04/23/22 15:52 O2 Del Method 04/23/22 15:52 BMI result Body Mass Index 26.8 vss Appearance: Alert.? Oriented X3.? No acute distress.? Head: Normocephalic, atraumatic, no step-offs or deformities Eyes: Pupils equal, round and reactive to light.? Neck: Normal inspection.? Neck supple.? CVS: Normal heart rate and rhythm.? Pulses normal.? Respiratory: No respiratory distress.? Breath sounds normal.? Abdomen: Soft and diffusely tender .? Skin: Skin warm and dry.? Normal skin color.? Normal skin turgor.? Extremities: No lower extremity edema.? No calf ttp. 5/5 strength to bilateral upper and lower extremities Back: left sided CVA tenderness Neuro: Oriented X 3.? No motor deficit.? No sensory deficit. CN 2-12 intact Course Reevaluation(s) Reevaluation #1: CBC appears to be within normal limits. Chemistry no acute findings. UA with white blood cells, patient is still symptomatic with UTI symptoms will treat with ertapenem. Flu/COVID/RSV negative. CT of the abdomen pelvis pending. Time: 17:55 Reevaluation #2: Patient will be admitted to further intervention and treatment . CT of the abdomen and pelvis with no acute findings. Time: 19:41 Medications Administered Generic Name Dose Route Start Last Admin Trade Name Freq PRN Reason Stop Dose Admin Enoxaparin Sodium 40 mg 04/23/22 18:00 04/23/22 19:30 Enoxaparin Sodium 40 Mg/0.4 Ml Syringe SUBCUT 40 mg Q24H JODIE Administration Ketorolac Tromethamine 15 mg 04/23/22 18:44 04/23/22 19:30 Ketorolac Tromethamine 15 Mg/Ml Vial IVPUSH 15 mg Q6H PRN Administration Pain, Mild (Pain Scale 1-3) Ondansetron HCl 4 mg 04/23/22 17:55 04/23/22 19:31 Ondansetron Hcl 4 Mg/2 Ml Vial IVPUSH 4 mg Q8H PRN Administration Nausea and Vomiting Discontinued Medications Generic Name Dose Route Start Last Admin Trade Name Freq PRN Reason Stop Dose Admin Ertapenem 1 gm/ Sodium 50 mls @ 100 mls/hr 04/23/22 16:12 04/23/22 17:49 Chloride IV 04/23/22 16:41 100 mls/hr ONCE ONE Administration Sodium Chloride 1,000 mls @ 999 mls/hr 04/23/22 16:15 04/23/22 17:49 Ns IV 04/23/22 17:15 999 mls/hr .Q1H1M JODIE Administration Medical Decision Making Medical Decision Making [facility] Narrative: 1633 57-year-old female presents with urinary frequency, urgency, dysuria, abdominal pain and left-sided flank pain x1 month on resolving. Was called with positive blood cultures and advised to come in to be re-evaluated today. Physical exam a diffusely tender abdomen and left-sided CVA tenderness. Vital signs stable. Regular rate and rhythm. Lungs clear. Neuro nonfocal Concerns for complicated UTI versus pyelo. Will obtain blood cultures, lactic acid, basic labs. Will also obtain CT of the abdomen and pelvis to reassess intra-abdominal etiologies and look at the kidneys for potential pyelo or obstructing uropathy. Based off culture and sensitivity patient susceptible to her to [place] and gentamicin, will give a g of ertapenem. Will also put in infectious disease consult with Dr. Page. Plan at this time labs, imaging, urine. Differential Diagnosis Differential Diagnoses: The differential diagnosis associated with the presentation includes Admission/Observation Consideration of admission/observation: Escalation of care including admission/observation considered Lab Data Result Diagrams: 04/23/22 16:37 04/23/22 16:37 Labs: Lab Results 04/23/22 04/23/22 04/23/22 Range/Units 16:37 16:37 16:37 WBC 8.0 (4.8-10.8) X10*3/uL RBC 4.22 (4.20-5.50) X10*6/uL Hgb 13.4 (12.0-16.0) g/dl Hct 39.4 (37.0-47.0) % MCV 93.4 (80.0-98.0) fL MCH 31.8 (27.0-33.0) pg MCHC 34.0 (31.0-35.0) g/dl RDW 12.9 (11.0-16.0) % Plt Count 208 (160-400) X10*3/uL MPV 9.5 (9.4-12.3) fL Immature Gran % (Auto) 0.4 (0.0-0.4) % Neut % (Auto) 69.2 (45-73) % Lymph % (Auto) 18.8 L (20-40) % [place] % (Auto) 8.3 (2-11) % Eos % (Auto) 2.9 (0-4) % Baso % (Auto) 0.4 (0-2) % Lymph # (Auto) 1.5 (1.2-4.9) X10*3/uL [place] # (Auto) 0.7 (0.1-1.2) X10*3/uL Eos # (Auto) 0.2 (0.0-0.4) X10*3/uL Baso # (Auto) 0.0 (0.0-0.2) X10*3/uL Abs Immat Gran (auto) 0.03 (0.00-0.03) X10*3/uL Absolute Neuts (auto) 5.5 (2.0-8.3) x10*3/uL Absolute Nucleated RBC 0.000 (0.0-0.012) X10*3/uL Nucleated RBC % (auto) 0.0 (0.0-0.2) /100WBC Sodium 142 (135-145) mmol/L Potassium 4.2 (3.3-5.1) mmol/L Chloride 107 (96-108) mmol/L Carbon Dioxide 28 (22-29) mmol/L Anion Gap 11 L (12-20) BUN 16 (9-16) mg/dL Creatinine 0.74 (0.5-1.4) mg/dL Estim Creat Clear Calc 75.0 Estimated GFR > 60 Random Glucose 89 (60-115) mg/dL Calcium 9.0 (8.4-10.2) mg/dL Total Bilirubin 0.3 (0.0-1.0) mg/dL Direct Bilirubin < 0.2 (0.0-0.5) mg/dL AST 14 (5-31) U/L ALT 11 (0-31) U/L Alkaline Phosphatase 65 (39-117) U/L Total Protein 6.4 L (6.5-8.0) g/dL Albumin 3.9 (3.5-5.0) g/dL Lipase 7 L (8-78) U/L Urine Color Urine Appearance Urine pH (5.0-9.0) Ur Specific [place] (1.005-1.025) Urine Protein (Neg-Trace) mg/dL Urine Glucose (UA) (Negative) mg/dL Urine Ketones (Negative) mg/dL Urine Blood (Negative) Urine Nitrite (Negative) Ur Leukocyte Esterase (Negative) Urine RBC (0-2) /HPF Urine WBC (0-5) /HPF Ur Squamous Epith Cells (0-2) /HPF Urine Bacteria (None Seen) Hyaline Casts (0-2) /LPF Influenza Type A (PCR) NEGATIVE (Negative) Influenza Type B (PCR) NEGATIVE (Negative) RSV RNA Qual (PCR) NEGATIVE (Negative) SARS-CoV-2 RNA (RT-PCR) NEGATIVE (Negative) 04/23/22 Range/Units 16:37 WBC (4.8-10.8) X10*3/uL RBC (4.20-5.50) X10*6/uL Hgb (12.0-16.0) g/dl Hct (37.0-47.0) % MCV (80.0-98.0) fL MCH (27.0-33.0) pg MCHC (31.0-35.0) g/dl RDW (11.0-16.0) % Plt Count (160-400) X10*3/uL MPV (9.4-12.3) fL Immature Gran % (Auto) (0.0-0.4) % Neut % (Auto) (45-73) % Lymph % (Auto) (20-40) % [place] % (Auto) (2-11) % Eos % (Auto) (0-4) % Baso % (Auto) (0-2) % Lymph # (Auto) (1.2-4.9) X10*3/uL [place] # (Auto) (0.1-1.2) X10*3/uL Eos # (Auto) (0.0-0.4) X10*3/uL Baso # (Auto) (0.0-0.2) X10*3/uL Abs Immat Gran (auto) (0.00-0.03) X10*3/uL Absolute Neuts (auto) (2.0-8.3) x10*3/uL Absolute Nucleated RBC (0.0-0.012) X10*3/uL Nucleated RBC % (auto) (0.0-0.2) /100WBC Sodium (135-145) mmol/L Potassium (3.3-5.1) mmol/L Chloride (96-108) mmol/L Carbon Dioxide (22-29) mmol/L Anion Gap (12-20) BUN (9-16) mg/dL Creatinine (0.5-1.4) mg/dL Estim Creat Clear Calc Estimated GFR Random Glucose (60-115) mg/dL Calcium (8.4-10.2) mg/dL Total Bilirubin (0.0-1.0) mg/dL Direct Bilirubin (0.0-0.5) mg/dL AST (5-31) U/L ALT (0-31) U/L Alkaline Phosphatase (39-117) U/L Total Protein (6.5-8.0) g/dL Albumin (3.5-5.0) g/dL Lipase (8-78) U/L Urine Color Dark Yellow Urine Appearance Clear Urine pH 5.5 (5.0-9.0) Ur Specific [place] 1.025 (1.005-1.025) Urine Protein Trace (Neg-Trace) mg/dL Urine Glucose (UA) Negative (Negative) mg/dL Urine Ketones Trace (Negative) mg/dL Urine Blood Trace H (Negative) Urine Nitrite Negative (Negative) Ur Leukocyte Esterase Small (1+) H (Negative) Urine RBC 3-5 H (0-2) /HPF Urine WBC 6-10 H (0-5) /HPF Ur Squamous Epith Cells 3-5 (0-2) /HPF Urine Bacteria None Seen (None Seen) Hyaline Casts 0-2 (0-2) /LPF Influenza Type A (PCR) (Negative) Influenza Type B (PCR) (Negative) RSV RNA Qual (PCR) (Negative) SARS-CoV-2 RNA (RT-PCR) (Negative) Critical Care Time Critical Care Time Critical Care Time: No Discharge Plan Discharge Clinical Impression: Complicated UTI (urinary tract infection), Left flank pain Patient Disposition: Admitted As Inpatient
[2022-04-23 16:54] LABS: MANUAL DIFF FLAG NO
[2022-04-23 16:56] LABS: Appearance Urine Clear; Basophils Percent Auto 0.4 % (0-2); Color Urine Dark Yellow; Eosinophils Absolute Auto 0.2 X10*3/uL (0.0-0.4); Eosinophils Percent Auto 2.9 % (0-4); Glucose Urine UA Negative (Negative); Hematocrit 39.4 % (37.0-47.0); Hemoglobin 13.4 g/dl (12.0-16.0); Imm Gran Abs Auto 0.03 X10*3/uL (0.00-0.03); Imm Gran Pct Auto 0.4 % (0.0-0.4); Leukocyte Esterase Urine Small (1+) (Negative); Lymphocytes Absolute Auto 1.5 X10*3/uL (1.2-4.9); Lymphocytes Percent Auto 18.8 % (20-40); Mean Corpuscular Hemoglobin 31.8 pg (27.0-33.0); Mean Corpuscular Volume 93.4 fL (80.0-98.0); Mean Platelet Volume 9.5 fL (9.4-12.3); Monocytes Absolute Auto 0.7 X10*3/uL (0.1-1.2); Monocytes Percent Auto 8.3 % (2-11); Neutrophils Absolute Auto 5.5 x10*3/uL (2.0-8.3); Neutrophils Percent Auto 69.2 % (45-73); Nitrite Urine Negative (Negative); PH 5.5 (5.0-9.0); Platelet Count 208 X10*3/uL (160-400); Red Blood Count 4.22 X10*6/uL (4.20-5.50); Red Cell Distribution Width 12.9 % (11.0-16.0); Specific Gravity - Urine 1.025 (1.005-1.025); UMIC TRIGGER UACC YES; Urine Blood Trace (Negative); Urine Ketones Trace mg/dL (Negative); Urine Protein Trace mg/dL (Neg-Trace)
[2022-04-23 17:01] LABS: Bacteria Urine None Seen (None Seen); Hyaline Casts Urine 0-2 /LPF (0-2); UACC Culture Trigger YES
[2022-04-23 17:12] LABS: Alanine Aminotransferase 11 U/L (0-31); Albumin Level 3.9 g/dL (3.5-5.0); Alkaline Phosphatase 65 U/L (39-117); Anion Gap 11 (12-20); Aspartate Amino Transferase 14 U/L (5-31); Bilirubin Direct < 0.2 mg/dL (0.0-0.5); Bilirubin Total 0.3 mg/dL (0.0-1.0); Blood Urea Nitrogen 16 mg/dL (9-16); Carbon Dioxide 28 mmol/L (22-29); Chloride 107 mmol/L (96-108); Estimated Glomerular Filt Rate > 60; Glucose Random 89 mg/dL (60-115); Lipase 7 U/L (8-78); Potassium 4.2 mmol/L (3.3-5.1); Sodium 142 mmol/L (135-145); Total Protein 6.4 g/dL (6.5-8.0)
--- NOTE | 2022-04-23 17:31 | PHA.MEDREC ---
Pharmacy Consult ? Medication Reconciliation Pharmacy has completed the medication reconciliation. Pt with list at bedside
[2022-04-23 17:32] LABS: Influenza A PCR NEGATIVE (Negative); Influenza B PCR NEGATIVE (Negative); Resp Syncy Virus RNA Qual PCR NEGATIVE (Negative); SARS COV2 PCR INHOUSE NEGATIVE (Negative)
[2022-04-23] MEDS: 0.9 % Sodium Chloride 1,000 ML 999 ML IV (17:49)
[2022-04-23] MEDS: Ertapenem Sodium 1 GM in 0.9 % Sodium Chloride 50 ML IV (17:49)
--- NOTE | 2022-04-23 18:09 | PM.IMHP ---
History of Present Illness Date of Service: 04/23/22 Chief Complaint: UTI, failed outpatient treatment 57-year-old woman presenting with continued symptoms of UTI. She presented to the ER and had a urinalysis and urine culture drawn on 04/18/2022. She was treated with Levaquin as well as 3 other antibiotics at home and was called and told that she had an ESBL UTI, Klebsiella. At that time she reported that she was going to return and subsequently she did today. She denied chest pain, shortness breath, nausea, vomiting, diarrhea. No fever leukocytosis, stable vitals, labs all within acceptable limits. In the ER she was given a dose of ertapenem, 1 L of IV fluid. She will be admitted for further management and treatment of ESBL UTI. Review of Systems Review of Systems: Denies any recent fever chills or decrease in appetite respiratory denies any shortness of breath coverage production cardiovascular Denies chest pain gastrointestinal denies any dysphagia abdominal pain nausea vomiting or diarrhea genitourinary denies any dysuria frequency or hematuria musculoskeletal denies any joint pain or swelling neuropsych denies any weakness or seizures all other systems reviewed are negative [facility] Medical History (Updated 04/23/22 @ 18:26 by Tessa Carl NP) Anxiety Asthma HIV (human immunodeficiency virus infection) Pertinent family history: Denies cardiac disease Social History Advance Directives: No Advance Directives Information Provided: Yes Meds Allergies Allergy/AdvReac Type Severity Reaction Status Date / Time tramadol [Tramadol] Allergy Mild HEADACHE Unverified 01/19/20 16:16 bee pollen [BEE STINGS] Allergy Unknown UNKNOWN Unverified 01/19/20 16:16 tapentadol [TAPENTADOL] Allergy Unknown UNKNOWN Unverified 01/19/20 16:16 adhesive tape [ADHESIVE TAPE] AdvReac Unknown MY SKIN Unverified 01/19/20 16:16 RIPS OFF ADHESIVE BANDAGE AdvReac Unknown MY SKIN Uncoded 01/19/20 16:16 RIPS OFF Active Medications: Current Medications Acetaminophen (Acetaminophen 325 Mg Tablet) 650 mg PO Q6H PRN PRN Reason: Pain, Mild (Pain Scale 1-3) Enoxaparin Sodium (Enoxaparin Sodium 40 Mg/0.4 Ml Syringe) 40 mg SUBCUT Q24H JODIE Meropenem 1 gm/ Sodium (Chloride) 100 mls @ 200 mls/hr IV Q8H JODIE Ondansetron HCl (Ondansetron Hcl 4 Mg/2 Ml Vial) 4 mg IVPUSH Q8H PRN PRN Reason: Nausea and Vomiting Pharmacy Consult (Consult Rx Perform Med Rec) 1 each MISCELLANE ONCE PRN PRN Reason: Consult order Sodium Chloride (0.9 % Sodium Chloride Flush 3 Ml Syringe) 3 ml IVFLUSH QSHIFT [facility] Home Medications Medication Instructions Recorded Confirmed Last Taken Type albuterol sulfate 90 mcg/actuation 2 puff inhalation Q4-6H PRN 04/23/22 04/23/22 Unknown History aerosol inhaler (Ventolin HFA) Wheezing bictegravir 50 mg-emtricitabine 1 tab PO DAILY 04/23/22 04/23/22 04/22/22 History 200 mg-tenofovir alafenam 25 mg tablet (Biktarvy) clonidine HCl 0.1 mg tablet 1 tab PO BEDTIME 04/23/22 04/23/22 04/22/22 History diazepam 5 mg tablet 1 tab PO TID PRN Anxiety 04/23/22 04/23/22 04/22/22 History fluoxetine 20 mg capsule 2 cap PO DAILY 04/23/22 04/23/22 04/22/22 History fluticasone propionate 50 2 spray intranasal DAILY PRN 04/23/22 04/23/22 Unknown History mcg/actuation nasal Allergic Symptoms spray,suspension (Flonase Allergy Relief) galcanezumab-gnlm 120 mg/mL 120 mg subcut Q28D 04/23/22 04/23/22 03/20/22 History subcutaneous syringe (Emgality) hydroxyzine HCl 50 mg tablet 1 tab PO BID 04/23/22 04/23/22 04/22/22 History mirabegron 50 mg tablet,extended 1 tab PO DAILY 04/23/22 04/23/22 04/22/22 History release 24 hr (Myrbetriq) multivitamin 1 tab PO DAILY 04/23/22 04/23/22 04/22/22 History omeprazole 20 mg capsule,delayed 1 cap PO DAILY@0630 04/23/22 04/23/22 04/22/22 History release tiotropium 2.5 mcg-olodaterol 2.5 1 puff inhalation DAILY 04/23/22 04/23/22 04/22/22 History mcg/actuation mist for inhalation (Stiolto Respimat) trazodone 100 mg tablet 2 tab PO BEDTIME PRN Sleep 04/23/22 04/22/22 History valacyclovir 1 gram tablet 1 tab PO DAILY 04/23/22 04/23/22 04/22/22 History vitamin E 268 mg (400 unit) capsule 268 mg PO DAILY 04/23/22 04/23/22 04/22/22 History zolpidem 5 mg tablet 1 tab PO BEDTIME PRN Sleep 04/23/22 04/23/22 04/22/22 History Physical Exam Vital Signs and Narrative: Vital Signs: Last Vital Signs Temp 98.0 F 04/23/22 15:52 Pulse 80 04/23/22 15:52 Resp 18 04/23/22 15:52 BP 147/72 H 04/23/22 15:52 Pulse Ox 96 04/23/22 15:52 O2 Del Method 04/23/22 15:52 BMI result Body Mass Index 26.8 Results Labs CBC and Chem 7: 04/23/22 16:37 04/23/22 16:37 Labs: Laboratory Results - last 24 hr 04/23/22 04/23/22 04/23/22 16:37 16:37 16:37 MCV 93.4 MCH 31.8 MCHC 34.0 RDW 12.9 Plt Count 208 MPV 9.5 Immature Gran % (Auto) 0.4 Neut % (Auto) 69.2 Lymph % (Auto) 18.8 L [place] % (Auto) 8.3 Eos % (Auto) 2.9 Baso % (Auto) 0.4 Lymph # (Auto) 1.5 [place] # (Auto) 0.7 Eos # (Auto) 0.2 Baso # (Auto) 0.0 Abs Immat Gran (auto) 0.03 Absolute Neuts (auto) 5.5 Absolute Nucleated RBC 0.000 Nucleated RBC % (auto) 0.0 Anion Gap 11 L Estim Creat Clear Calc 75.0 Estimated GFR > 60 Random Glucose 89 Calcium 9.0 Total Bilirubin 0.3 Direct Bilirubin < 0.2 AST 14 ALT 11 Alkaline Phosphatase 65 Total Protein 6.4 L Albumin 3.9 Lipase 7 L Urine Color Urine Appearance Urine pH Ur Specific [place] Urine Protein Urine Glucose (UA) Urine Ketones Urine Blood Urine Nitrite Ur Leukocyte Esterase Urine RBC Urine WBC Ur Squamous Epith Cells Urine Bacteria Hyaline Casts Influenza Type A (PCR) NEGATIVE Influenza Type B (PCR) NEGATIVE RSV RNA Qual (PCR) NEGATIVE SARS-CoV-2 RNA (RT-PCR) NEGATIVE 04/23/22 16:37 MCV MCH MCHC RDW Plt Count MPV Immature Gran % (Auto) Neut % (Auto) Lymph % (Auto) [place] % (Auto) Eos % (Auto) Baso % (Auto) Lymph # (Auto) [place] # (Auto) Eos # (Auto) Baso # (Auto) Abs Immat Gran (auto) Absolute Neuts (auto) Absolute Nucleated RBC Nucleated RBC % (auto) Anion Gap Estim Creat Clear Calc Estimated GFR Random Glucose Calcium Total Bilirubin Direct Bilirubin AST ALT Alkaline Phosphatase Total Protein Albumin Lipase Urine Color Dark Yellow Urine Appearance Clear Urine pH 5.5 Ur Specific [place] 1.025 Urine Protein Trace Urine Glucose (UA) Negative Urine Ketones Trace Urine Blood Trace H Urine Nitrite Negative Ur Leukocyte Esterase Small (1+) H Urine RBC 3-5 H Urine WBC 6-10 H Ur Squamous Epith Cells 3-5 Urine Bacteria None Seen Hyaline Casts 0-2 Influenza Type A (PCR) Influenza Type B (PCR) RSV RNA Qual (PCR) SARS-CoV-2 RNA (RT-PCR) Assessment and Plan (1) Complicated UTI (urinary tract infection): Status: Acute (2) ESBL (extended spectrum beta-lactamase) producing bacteria infection: Status: Acute (3) Klebsiella cystitis: Status: Acute Plan 57-year-old woman admitted to the ER with ESBL UTI, failed outpatient treatment ESBL UTI, Klebsiella pneumoniae Urine culture from 04/18/2022 Had been on Levaquin at home but continued to have symptoms Meropenem 1 g every 8 hours Id consult Asthma. No exacerbation Continue medications Mental health Continue home medications HIV Continue Biktarvy GERD Continue PPI DVT prophylaxis with Lovenox Attending Dr. Singh Full code Patient requires 2 inpatient midnights for treatment of ESBL UTI requiring IV antibiotics Time Spent With Patient Time: Total time managing care of this patient today ____ minutes. Quality Stroke Does the patient have a stroke diagnosis?: No VTE Prior VTE?: No VTE Risk Level:: Medical - moderate - high VTE Device Contraindication: Treatment Not Indicated VTE Drug Contraindication: N/A - Med Ordered
[2022-04-23] MEDS: Enoxaparin Sodium 40 MG/0.4 ML SYRINGE SUBCUT (19:30)
[2022-04-23] MEDS: Ketorolac Tromethamine 15 MG/ML VIAL IVPUSH (19:30)
[2022-04-23 19:31] LABS: Lactic Acid 0.7 mmol/L (0.5-2.0)
[2022-04-23] MEDS: ondansetron HCL 4 MG/2 ML VIAL IVPUSH (19:31)
--- NOTE | 2022-04-23 19:42 | MHC.CM.PN ---
IMM 04/23. Lives w S.O./HCP#2 Baljeet Valenzuela([phone]). HCP on file. HCP#1/father Tha Chawla ([phone]). Pt uses no DME/services. Pt is unvaccinated for Covid 19. D/C plan: Home without services. Pt to arrange transport home. CM to follow for discharge needs.
[2022-04-23 21:10] VITALS: BP 109/60; PULSE 64; RESP 17; TEMP 36.6; O2SAT 94
[2022-04-23] MEDS: hydrOXYzine HCL 50 MG TABLET PO (21:27)
[2022-04-23] MEDS: Acetaminophen 325 MG TABLET 650 MG PO (21:27)
[2022-04-23] MEDS: cloNIDine HCL 0.1 MG TABLET PO (21:27)
[2022-04-23] MEDS: Zolpidem Tartrate 5 MG TABLET PO (21:27)
[2022-04-23] MEDS: diazePAM 5 MG TABLET 1 MG PO (21:27)
[2022-04-23] MEDS: traZODone HCL 100 MG TABLET 200 MG PO (22:19)
[2022-04-23] MEDS: iohexoL 350 MG/ML 100 ML INFUS..BTL IV (22:49)
--- NOTE | 2022-04-24 | ECG_ITS ---
Test Reason : CHEST PAIN Blood Pressure : / mmHG Vent. Rate : 060 BPM Atrial Rate : 060 BPM P-R Int : 156 ms QRS Dur : 082 ms QT Int : 440 ms P-R-T Axes : 067 049 041 degrees QTc Int : 440 ms Normal sinus rhythm Normal ECG When compared with ECG of 19-SEP-2017 10:22, No significant change was found Referred By: Kathleen Dye Electronically Signed By:Rafa Olivo
[2022-04-24 05:29] VITALS: BP 75/41; PULSE 64; RESP 16; TEMP 36.4; O2SAT 92
[2022-04-24] MEDS: SODIUM CHLORIDE 1995 ML IV (05:53)
[2022-04-24] MEDS: Omeprazole 20 MG CAPSULE.DR PO (05:54)
[2022-04-24 06:11] LABS: MANUAL DIFF FLAG NO
[2022-04-24 06:15] LABS: Basophils Absolute Auto 0.1 X10*3/uL (0.0-0.2); Basophils Percent Auto 1.2 % (0-2); Eosinophils Absolute Auto 0.3 X10*3/uL (0.0-0.4); Eosinophils Percent Auto 5.8 % (0-4); Hematocrit 36.7 % (37.0-47.0); Hemoglobin 12.4 g/dl (12.0-16.0); Imm Gran Abs Auto 0.02 X10*3/uL (0.00-0.03); Imm Gran Pct Auto 0.4 % (0.0-0.4); Lymphocytes Absolute Auto 1.7 X10*3/uL (1.2-4.9); Lymphocytes Percent Auto 33.5 % (20-40); Mean Corpuscular HGB Conc 33.8 g/dl (31.0-35.0); Mean Corpuscular Hemoglobin 31.7 pg (27.0-33.0); Mean Corpuscular Volume 93.9 fL (80.0-98.0); Mean Platelet Volume 9.5 fL (9.4-12.3); Monocytes Absolute Auto 0.6 X10*3/uL (0.1-1.2); Monocytes Percent Auto 10.8 % (2-11); Neutrophils Absolute Auto 2.5 x10*3/uL (2.0-8.3); Neutrophils Percent Auto 48.3 % (45-73); Platelet Count 183 X10*3/uL (160-400); Red Blood Count 3.91 X10*6/uL (4.20-5.50); White Blood Count 5.2 X10*3/uL (4.8-10.8)
--- NOTE | 2022-04-24 06:19 | PM.EVENT ---
Event Note Date of Service: 04/24/22 Event Note: pt hypotensive. Will give spesis fluids and LA obtianed Time Spent With Patient Time: Total time managing care of this patient today ____ minutes.
[2022-04-24 06:27] LABS: Lactic Acid 0.6 mmol/L (0.5-2.0)
[2022-04-24 06:30] LABS: Anion Gap 9 (12-20); Blood Urea Nitrogen 19 mg/dL (9-16); Calcium 8.2 mg/dL (8.4-10.2); Carbon Dioxide 26 mmol/L (22-29); Chloride 113 mmol/L (96-108); Estimated Glomerular Filt Rate > 60; Glucose Random 85 mg/dL (60-115); Potassium 3.9 mmol/L (3.3-5.1); Sodium 144 mmol/L (135-145)
[2022-04-24] MEDS: Ketorolac Tromethamine 15 MG/ML VIAL IVPUSH (08:47)
[2022-04-24] MEDS: Acetaminophen 325 MG TABLET 650 MG PO (08:48)
[2022-04-24] MEDS: FLUoxetine HCl 20 MG CAPSULE 40 MG PO (08:49)
[2022-04-24] MEDS: diazePAM 5 MG TABLET 1 MG PO ×2 (08:49→21:24)
[2022-04-24] MEDS: Multivitamin TABLET 1 TAB PO (08:59)
[2022-04-24] MEDS: 0.9 % Sodium Chloride Flush 3 ML SYRINGE IVFLUSH ×3 (09:02→21:25)
[2022-04-24] MEDS: valACYclovir HCL 1,000 MG TABLET 1000 MG PO (09:19)
[2022-04-24] MEDS: hydrOXYzine HCL 50 MG TABLET PO ×2 (09:19→21:25)
[2022-04-24] MEDS: Mirabegron 50 MG TAB.ER.24H PO (09:19)
[2022-04-24] MEDS: Bictegrav/Emtricit/Tenofov Ala TABLET 1 TAB PO (09:20)
[2022-04-24] MEDS: Vitamin E (Dl,Tocopheryl Acet) 180 MG (400 UNIT) CAPSULE PO (09:20)
--- NOTE | 2022-04-24 09:40 | PM.GYNCN ---
STAFFING MANAGER - CN: HPI Data of Consult Consult date: 04/24/22 Requesting Physician: VIRGIL Koch Primary Care Provider: Demetris Cast III, MD Consult Narrative Narrative: I was consulted on Deena Calle , 57 year old female complaining of vulvar and periclitoral pain. The patient gives a history of ? Severe cervical dysplasia status post hysterectomy few years ago cc:: CC: VIRGIL Koch PET CARE ASSISTANT - Review of Systems Review of Systems ROS Unobtainable: All systems reviewed & are unremarkable except as noted in HPI and below Cardiovascular: Denies Palpatations, Loss of consciousness or Chest pain Respiratory: Denies Cough, Wheezing or Shortness of breath Musculoskeletal: Denies Low back pain Gastrointestinal: Denies Heartburn, Constipation, Diarrhea, Nausea or Vomiting Genitourinary: Denies Pain with urination, Burning with urination or Urinary frequency Neurological: Denies Migranes Psychological: Denies Depression OB PMFSH Past Medical History Medical History (Updated 04/24/22 @ 09:44 by Bay Goodman MD) Anxiety Asthma HIV (human immunodeficiency virus infection) Social History Social History Advance Directives: No Advance Directives Information Provided: Yes service: No Current occupational status: disabled Meds Allergies Allergy/AdvReac Type Severity Reaction Status Date / Time tramadol [Tramadol] Allergy Mild HEADACHE Verified 04/23/22 19:26 bee pollen [BEE STINGS] Allergy Unknown UNKNOWN Verified 04/23/22 19:26 tapentadol [TAPENTADOL] Allergy Unknown UNKNOWN Verified 04/23/22 19:26 gabapentin Allergy Hallucinati Verified 04/23/22 19:26 ons adhesive tape [ADHESIVE TAPE] AdvReac Unknown MY SKIN Verified 04/23/22 19:26 RIPS OFF ADHESIVE BANDAGE AdvReac Unknown MY SKIN Uncoded 01/19/20 16:16 RIPS OFF Active Medications: Current Medications Acetaminophen (Acetaminophen 325 Mg Tablet) 650 mg PO Q6H PRN PRN Reason: Pain, Mild (Pain Scale 1-3) Last Admin: 04/24/22 08:48 Dose: 650 mg Albuterol Sulfate (Albuterol Sulfate 90 Mcg 8 Gm Inhaler) 2 puff INHALE Q4H PRN PRN Reason: Wheezing Bictegravir/Emtricitabine/Tenofovir (Bictegrav/Emtricit/Tenofov Ala Tablet) 1 tab PO DAILY [facility] Last Admin: 04/24/22 09:20 Dose: 1 tab Clonidine HCl (Clonidine Hcl 0.1 Mg Tablet) 0.1 mg PO BEDTIME [facility]; Protocol Last Admin: 04/23/22 21:27 Dose: 0.1 mg Diazepam (Diazepam 5 Mg Tablet) 1 mg PO TID PRN PRN Reason: Anxiety Last Admin: 04/24/22 08:49 Dose: 1 mg Enoxaparin Sodium (Enoxaparin Sodium 40 Mg/0.4 Ml Syringe) 40 mg SUBCUT Q24H [facility] Last Admin: 04/23/22 19:30 Dose: 40 mg Fluoxetine HCl (Fluoxetine Hcl 20 Mg Capsule) 40 mg PO DAILY [facility] Last Admin: 04/24/22 08:49 Dose: 40 mg Fluticasone Propionate (Fluticasone Propionate Nasal 16 Gm [place]) 2 spray NOSTRIL-B DAILY PRN PRN Reason: Allergic Symptoms Hydroxyzine HCl (Hydroxyzine Hcl 50 Mg Tablet) 50 mg PO BID [facility] Last Admin: 04/24/22 09:19 Dose: 50 mg Meropenem 1 gm/ Sodium (Chloride) 100 mls @ 200 mls/hr IV Q8H [facility] Last Infusion: 04/24/22 03:27 Dose: Infused Ketorolac Tromethamine (Ketorolac Tromethamine 15 Mg/Ml Vial) 15 mg IVPUSH Q6H PRN PRN Reason: Pain, Mild (Pain Scale 1-3) Last Admin: 04/24/22 08:47 Dose: 15 mg Mirabegron (Mirabegron 50 Mg Tab.Er.24h) 50 mg PO DAILY [facility] Last Admin: 04/24/22 09:19 Dose: 50 mg Multivitamins/Vitamin C (Multivitamin Tablet) 1 tab PO DAILY [facility] Last Admin: 04/24/22 08:59 Dose: 1 tab Non-Formulary Medication (Galcanezumab-Gnlm [Emgality Syringe]) 120 mg SUBCUT Q28D [facility] Non-Formulary Medication (Tiotropium-Olodaterol [Stiolto Respimat]) 1 puff INHALE DAILY [facility] Omeprazole (Omeprazole 20 Mg Capsule.Dr) 20 mg PO DAILY@0630 [facility] Last Admin: 04/24/22 05:54 Dose: 20 mg Ondansetron HCl (Ondansetron Hcl 4 Mg/2 Ml Vial) 4 mg IVPUSH Q8H PRN PRN Reason: Nausea and Vomiting Last Admin: 04/23/22 19:31 Dose: 4 mg Pharmacy Consult (Consult Rx Perform Med Rec) 1 each MISCELLANE ONCE PRN PRN Reason: Consult order Sodium Chloride (0.9 % Sodium Chloride Flush 3 Ml Syringe) 3 ml IVFLUSH QSHIFT [facility] Last Admin: 04/24/22 09:02 Dose: 3 ml Trazodone HCl (Trazodone Hcl 100 Mg Tablet) 200 mg PO BEDTIME PRN PRN Reason: Sleep Last Admin: 04/23/22 22:19 Dose: 200 mg Valacyclovir HCl (Valacyclovir Hcl 1,000 Mg Tablet) 1,000 mg PO DAILY [facility] Last Admin: 04/24/22 09:19 Dose: 1,000 mg Vitamin E (Vitamin E (Dl,Tocopheryl Acet) 180 Mg (400 Unit) Capsule) 180 mg PO DAILY [facility] Last Admin: 04/24/22 09:20 Dose: 180 mg Zolpidem Tartrate (Zolpidem Tartrate 5 Mg Tablet) 5 mg PO BEDTIME PRN PRN Reason: Sleep Last Admin: 04/23/22 21:27 Dose: 5 mg Home Medications Medication Instructions Recorded Confirmed Last Taken Type albuterol sulfate 90 mcg/actuation 2 puff inhalation Q4-6H PRN 04/23/22 04/23/22 Unknown History aerosol inhaler (Ventolin HFA) Wheezing bictegravir 50 mg-emtricitabine 1 tab PO DAILY 04/23/22 04/23/22 04/22/22 History 200 mg-tenofovir alafenam 25 mg tablet (Biktarvy) clonidine HCl 0.1 mg tablet 1 tab PO BEDTIME 04/23/22 04/23/22 04/22/22 History diazepam 5 mg tablet 1 tab PO TID PRN Anxiety 04/23/22 04/23/22 04/22/22 History fluoxetine 20 mg capsule 2 cap PO DAILY 04/23/22 04/23/22 04/22/22 History fluticasone propionate 50 2 spray intranasal DAILY PRN 04/23/22 04/23/22 Unknown History mcg/actuation nasal Allergic Symptoms spray,suspension (Flonase Allergy Relief) galcanezumab-gnlm 120 mg/mL 120 mg subcut Q28D 04/23/22 04/23/22 03/20/22 History subcutaneous syringe (Emgality) hydroxyzine HCl 50 mg tablet 1 tab PO BID 04/23/22 04/23/22 04/22/22 History mirabegron 50 mg tablet,extended 1 tab PO DAILY 04/23/22 04/23/22 04/22/22 History release 24 hr (Myrbetriq) multivitamin 1 tab PO DAILY 04/23/22 04/23/22 04/22/22 History omeprazole 20 mg capsule,delayed 1 cap PO DAILY@0630 04/23/22 04/23/22 04/22/22 History release tiotropium 2.5 mcg-olodaterol 2.5 1 puff inhalation DAILY 04/23/22 04/23/22 04/22/22 History mcg/actuation mist for inhalation (Stiolto Respimat) trazodone 100 mg tablet 2 tab PO BEDTIME PRN Sleep 04/23/22 04/23/22 1 Day Ago History ~04/22/22 2 tab valacyclovir 1 gram tablet 1 tab PO DAILY 04/23/22 04/23/22 04/22/22 History vitamin E 268 mg (400 unit) capsule 268 mg PO DAILY 04/23/22 04/23/22 04/22/22 History zolpidem 5 mg tablet 1 tab PO BEDTIME PRN Sleep 04/23/22 04/23/22 04/22/22 History STAFFING MANAGER Physical Exam Vitals Vital signs: Temp Pulse Resp BP Pulse Ox O2 Del Method 97.6 F 64 16 75/41 L 92 04/24/22 05:29 04/24/22 05:29 04/24/22 05:29 04/24/22 05:29 04/24/22 05:29 04/24/22 05:29 BMI result Body Mass Index 26.8 Constitutional General Appearance: Healthy appearing, Well-nourished and Well-developed Psychiatric Mood and Affect: active and alert, normal mood and normal affect Skin Appearance: No rashes and No lesions Lungs Respiratory Effort: No intercostal retractions Auscultation: Clear to auscultation Cardiovascular Auscultation: RRR Abdomen Auscultation/Inspection/Palpation: Normal bowel sounds, Soft, Non-distended and No tenderness Female Genitalia (Pelvic) Bladder/Urethra: Normal meatus Vagina: Nontender and No lesions Cervix: Cervix Surgically Absent Uterus: Uterus surgically absent Additional Comments: Left periclitoral ir and posterior fourchette areas with raised leukoplakias STAFFING MANAGER - Results Labs CBC & Chem 7: 04/24/22 05:43 04/24/22 05:43 Labs: Short CBC 04/23/22 04/24/22 Range/Units 16:37 05:43 WBC 8.0 5.2 (4.8-10.8) X10*3/uL Hgb 13.4 12.4 (12.0-16.0) g/dl Hct 39.4 36.7 L (37.0-47.0) % Plt Count 208 183 (160-400) X10*3/uL BMP 04/23/22 04/24/22 16:37 05:43 Sodium 142 144 Potassium 4.2 3.9 Chloride 107 113 H Carbon Dioxide 28 26 BUN 16 19 H Creatinine 0.74 0.74 Calcium 9.0 8.2 L D Liver Function 04/23/22 Range/Units 16:37 Total Bilirubin 0.3 (0.0-1.0) mg/dL Direct Bilirubin < 0.2 (0.0-0.5) mg/dL AST 14 (5-31) U/L ALT 11 (0-31) U/L Alkaline Phosphatase 65 (39-117) U/L Albumin 3.9 (3.5-5.0) g/dL Urine 04/23/22 Range/Units 16:37 Urine Color Dark Yellow Urine Appearance Clear Urine pH 5.5 (5.0-9.0) Ur Specific [place] 1.025 (1.005-1.025) Urine Protein Trace (Neg-Trace) mg/dL Urine Glucose (UA) Negative (Negative) mg/dL Assessment and Plan (1) Vulvar leukoplakia: Status: Acute Plan BV panel taken. Explained to the patient the finding on physical exam leukoplakia in the left periclitoral and posterior fourchette area, recommended vulvar biopsies to rule out SARAH given her history of cervical dysplasia . Instructed the patient to call the office schedule an appointment after her hospital discharge for a vulvar biopsy. All questions answered, the patient verbalized understanding and agreed with the plan. Time Spent With Patient Time: Total time managing care of this patient today ____ minutes.
[2022-04-24 11:30] VITALS: BP 125/54; PULSE 59; RESP 16; TEMP 36.1; O2SAT 96
[2022-04-24] MEDS: Morphine Sulfate 2 MG/ML CARTRIDGE IVPUSH ×3 (12:01→21:25)
--- NOTE | 2022-04-24 13:08 | HO.PM.IMPN ---
Subjective Subjective Date of Service: 04/24/22 Interval History: seen and examined this morning Follow-up for UTI Patient reporting right upper quadrant abdominal pain radiating to right shoulder as well as dysuria and nausea. No vomiting. Denies fever, chills Review of Systems Review of Systems: Yes all other systems are reviewed and are negative Constitutional Constitutional: Denies chills and Denies fever(s) Cardiovascular Cardiovascular: Denies chest pain, Denies palpitations and Denies dyspnea Respiratory Respiratory: Denies cough and Denies dyspnea Gastrointestinal Gastrointestinal: Reports abdominal pain, Reports nausea and Denies vomiting Endocrine Endocrine: Denies palpitations Physical Exam Vital Signs: Vital Signs: Last Vital Signs Temp 97.0 F 04/24/22 11:30 Pulse 59 04/24/22 11:30 Resp 16 04/24/22 11:30 BP 125/54 L 04/24/22 11:30 Pulse Ox 96 04/24/22 11:30 O2 Del Method 04/24/22 11:30 BMI result Body Mass Index 26.8 Const: General: alert and awake Nutritional Appearance: average body habitus Orientation/consciousness: patient oriented x3 Resp: Effort & Inspection: normal respiratory effort and able to speak in complete sentences Cardio: Rate: regular rate Heart sounds: S1 normal heart sound present and S2 normal heart sound present GI: Other: tender to palpation, RUQ, suprapubic area Inspection: No distended Palpation (GI): Soft to palpation : General: Yes CVA tenderness Back/Spine/Pelvis: Back: CVA tenderness Neuro: General: patient oriented x3 and CN's II-XI intact bilaterally Extrem: Other: able to move all 4 extremities spontaneously General: Yes no pedal edema Objective Data Active Medications Acetaminophen (Acetaminophen 325 Mg Tablet) 650 mg PO Q6H PRN PRN Reason: Pain, Mild (Pain Scale 1-3) Last Admin: 04/24/22 08:48 Dose: 650 mg Documented By: JOSÉ Albuterol Sulfate (Albuterol Sulfate 90 Mcg 8 Gm Inhaler) 2 puff INHALE Q4H PRN PRN Reason: Wheezing Bictegravir/Emtricitabine/Tenofovir (Bictegrav/Emtricit/Tenofov Ala Tablet) 1 tab PO DAILY [facility] Last Admin: 04/24/22 09:20 Dose: 1 tab Documented By: JOSÉ Clonidine HCl (Clonidine Hcl 0.1 Mg Tablet) 0.1 mg PO BEDTIME [facility]; Protocol Last Admin: 04/23/22 21:27 Dose: 0.1 mg Documented By: MELQUIADES Diazepam (Diazepam 5 Mg Tablet) 1 mg PO TID PRN PRN Reason: Anxiety Last Admin: 04/24/22 08:49 Dose: 1 mg Documented By: JOSÉ Enoxaparin Sodium (Enoxaparin Sodium 40 Mg/0.4 Ml Syringe) 40 mg SUBCUT Q24H [facility] Last Admin: 04/23/22 19:30 Dose: 40 mg Documented By: MELQUIADES Fluoxetine HCl (Fluoxetine Hcl 20 Mg Capsule) 40 mg PO DAILY [facility] Last Admin: 04/24/22 08:49 Dose: 40 mg Documented By: JOSÉ Fluticasone Propionate (Fluticasone Propionate Nasal 16 Gm [place]) 2 spray NOSTRIL-B DAILY PRN PRN Reason: Allergic Symptoms Hydroxyzine HCl (Hydroxyzine Hcl 50 Mg Tablet) 50 mg PO BID [facility] Last Admin: 04/24/22 09:19 Dose: 50 mg Documented By: JOSÉ Meropenem 1 gm/ Sodium (Chloride) 100 mls @ 200 mls/hr IV Q8H [facility] Last Infusion: 04/24/22 11:35 Dose: 0 mls/hr Documented By: JOSÉ Ketorolac Tromethamine (Ketorolac Tromethamine 15 Mg/Ml Vial) 15 mg IVPUSH Q6H PRN PRN Reason: Pain, Mild (Pain Scale 1-3) Last Admin: 04/24/22 08:47 Dose: 15 mg Documented By: JOSÉ Mirabegron (Mirabegron 50 Mg Tab.Er.24h) 50 mg PO DAILY [facility] Last Admin: 04/24/22 09:19 Dose: 50 mg Documented By: JOSÉ Morphine Sulfate (Morphine Sulfate 2 Mg/Ml Cartridge) 2 mg IVPUSH Q4H PRN; Protocol PRN Reason: Pain, Severe (Pain Scale 7-10) Last Admin: 04/24/22 12:01 Dose: 2 mg Documented By: JOSÉ Multivitamins/Vitamin C (Multivitamin Tablet) 1 tab PO DAILY [facility] Last Admin: 04/24/22 08:59 Dose: 1 tab Documented By: JOSÉ Non-Formulary Medication (Galcanezumab-Gnlm [Emgality Syringe]) 120 mg SUBCUT Q28D [facility] Non-Formulary Medication (Tiotropium-Olodaterol [Stiolto Respimat]) 1 puff INHALE DAILY [facility] Omeprazole (Omeprazole 20 Mg Capsule.) 20 mg PO DAILY@0630 [facility] Last Admin: 04/24/22 05:54 Dose: 20 mg Documented By: MELQUIADES Ondansetron HCl (Ondansetron Hcl 4 Mg/2 Ml Vial) 4 mg IVPUSH Q8H PRN PRN Reason: Nausea and Vomiting Last Admin: 04/23/22 19:31 Dose: 4 mg Documented By: MELQUIADES Pharmacy Consult (Consult Rx Perform Med Rec) 1 each MISCELLANE ONCE PRN PRN Reason: Consult order Sodium Chloride (0.9 % Sodium Chloride Flush 3 Ml Syringe) 3 ml IVFLUSH QSHIFT [facility] Last Admin: 04/24/22 09:02 Dose: 3 ml Documented By: JOSÉ Trazodone HCl (Trazodone Hcl 100 Mg Tablet) 200 mg PO BEDTIME PRN PRN Reason: Sleep Last Admin: 04/23/22 22:19 Dose: 200 mg Documented By: MELQUIADES Valacyclovir HCl (Valacyclovir Hcl 1,000 Mg Tablet) 1,000 mg PO DAILY [facility] Last Admin: 04/24/22 09:19 Dose: 1,000 mg Documented By: JOSÉ Vitamin E (Vitamin E (Dl,Tocopheryl Acet) 180 Mg (400 Unit) Capsule) 180 mg PO DAILY [facility] Last Admin: 04/24/22 09:20 Dose: 180 mg Documented By: JOSÉ Zolpidem Tartrate (Zolpidem Tartrate 5 Mg Tablet) 5 mg PO BEDTIME PRN PRN Reason: Sleep Last Admin: 04/23/22 21:27 Dose: 5 mg Documented By: MELQUIADES Labs CBC & Chem 7: 04/24/22 05:43 04/24/22 05:43 Labs: Laboratory Results - last 24 hr 04/23/22 04/23/22 04/23/22 16:37 16:37 16:37 MCV 93.4 MCH 31.8 MCHC 34.0 RDW 12.9 Plt Count 208 MPV 9.5 Immature Gran % (Auto) 0.4 Neut % (Auto) 69.2 Lymph % (Auto) 18.8 L [place] % (Auto) 8.3 Eos % (Auto) 2.9 Baso % (Auto) 0.4 Lymph # (Auto) 1.5 [place] # (Auto) 0.7 Eos # (Auto) 0.2 Baso # (Auto) 0.0 Abs Immat Gran (auto) 0.03 Absolute Neuts (auto) 5.5 Absolute Nucleated RBC 0.000 Nucleated RBC % (auto) 0.0 Anion Gap 11 L Estim Creat Clear Calc 75.0 Estimated GFR > 60 Random Glucose 89 Lactic Acid Calcium 9.0 Total Bilirubin 0.3 Direct Bilirubin < 0.2 AST 14 ALT 11 Alkaline Phosphatase 65 Total Protein 6.4 L Albumin 3.9 Lipase 7 L Urine Color Urine Appearance Urine pH Ur Specific Mica Urine Protein Urine Glucose (UA) Urine Ketones Urine Blood Urine Nitrite Ur Leukocyte Esterase Urine RBC Urine WBC Ur Squamous Epith Cells Urine Bacteria Hyaline Casts Influenza Type A (PCR) NEGATIVE Influenza Type B (PCR) NEGATIVE RSV RNA Qual (PCR) NEGATIVE SARS-CoV-2 RNA (RT-PCR) NEGATIVE 04/23/22 04/23/22 04/24/22 16:37 19:08 05:43 MCV 93.9 MCH 31.7 MCHC 33.8 RDW 13.0 Plt Count 183 MPV 9.5 Immature Gran % (Auto) 0.4 Neut % (Auto) 48.3 Lymph % (Auto) 33.5 [place] % (Auto) 10.8 Eos % (Auto) 5.8 H Baso % (Auto) 1.2 Lymph # (Auto) 1.7 [place] # (Auto) 0.6 Eos # (Auto) 0.3 Baso # (Auto) 0.1 Abs Immat Gran (auto) 0.02 Absolute Neuts (auto) 2.5 Absolute Nucleated RBC 0.000 Nucleated RBC % (auto) 0.0 Anion Gap Estim Creat Clear Calc Estimated GFR Random Glucose Lactic Acid 0.7 Calcium Total Bilirubin Direct Bilirubin AST ALT Alkaline Phosphatase Total Protein Albumin Lipase Urine Color Dark Yellow Urine Appearance Clear Urine pH 5.5 Ur Specific Mica 1.025 Urine Protein Trace Urine Glucose (UA) Negative Urine Ketones Trace Urine Blood Trace H Urine Nitrite Negative Ur Leukocyte Esterase Small (1+) H Urine RBC 3-5 H Urine WBC 6-10 H Ur Squamous Epith Cells 3-5 Urine Bacteria None Seen Hyaline Casts 0-2 Influenza Type A (PCR) Influenza Type B (PCR) RSV RNA Qual (PCR) SARS-CoV-2 RNA (RT-PCR) 04/24/22 04/24/22 05:43 05:54 MCV MCH MCHC RDW Plt Count MPV Immature Gran % (Auto) Neut % (Auto) Lymph % (Auto) [place] % (Auto) Eos % (Auto) Baso % (Auto) Lymph # (Auto) [place] # (Auto) Eos # (Auto) Baso # (Auto) Abs Immat Gran (auto) Absolute Neuts (auto) Absolute Nucleated RBC Nucleated RBC % (auto) Anion Gap 9 L Estim Creat Clear Calc 75.0 Estimated GFR > 60 Random Glucose 85 Lactic Acid 0.6 Calcium 8.2 L D Total Bilirubin Direct Bilirubin AST ALT Alkaline Phosphatase Total Protein Albumin Lipase Urine Color Urine Appearance Urine pH Ur Specific Mica Urine Protein Urine Glucose (UA) Urine Ketones Urine Blood Urine Nitrite Ur Leukocyte Esterase Urine RBC Urine WBC Ur Squamous Epith Cells Urine Bacteria Hyaline Casts Influenza Type A (PCR) Influenza Type B (PCR) RSV RNA Qual (PCR) SARS-CoV-2 RNA (RT-PCR) Microbiology Microbiology Results: Microbiology 04/23/22 17:06 Urine Culture - Preliminary Urine clean catch - Urine haider top No growth to date. Assessment and Plan (1) ESBL (extended spectrum beta-lactamase) producing bacteria infection: Status: Acute Plan 57-year-old woman admitted to the ER with ESBL UTI, failed outpatient treatment ESBL UTI, Klebsiella pneumoniae bp low overnight, but does not meet sirs criteria, no sepsis Urine culture from 04/18/2022, repeat culture from 04/23 negative likely due to previous tx with abx Had been on Levaquin at home but continued to have symptoms continue Meropenem ID consult pending blood cultures pending hypotension ?r/t dehydration not sepsis resolved with IVF vulvar pain seen by [employer] - 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 No exacerbation Continue medications Mental health Continue home medications HIV Continue Biktarvy GERD Continue PPI DVT prophylaxis with Lovenox Attending Dr. Wright Full code Patient ongoing inpatient hospitalization for treatment of ESBL UTI requiring IV antibiotics Time Spent With Patient Time: Total time managing care of this patient today ____ minutes. Quality Stroke Does the patient have a stroke diagnosis?: No VTE Prior VTE?: No VTE Risk Level:: Medical - moderate - high VTE Device Contraindication: Treatment Not Indicated VTE Drug Contraindication: N/A - Med Ordered
--- NOTE | 2022-04-24 14:57 | PC.NURSE ---
Report to Yanira Farley.
[2022-04-24 16:00] VITALS: BP 112/59; PULSE 74; RESP 16; TEMP 36.5; O2SAT 98
[2022-04-24 16:15] VITALS: BP 116/63; PULSE 80; RESP 16; TEMP 36.8; O2SAT 97
[2022-04-24 16:38] VITALS: BP 122/61; PULSE 67; RESP 16; TEMP 36.9; O2SAT 95
[2022-04-24] MEDS: Enoxaparin Sodium 40 MG/0.4 ML SYRINGE SUBCUT (17:17)
[2022-04-24] MEDS: ondansetron HCL 4 MG/2 ML VIAL IVPUSH (17:18)
[2022-04-24 19:32] VITALS: BP 121/56; PULSE 64; RESP 17; TEMP 36.6; O2SAT 95
[2022-04-24] MEDS: traZODone HCL 100 MG TABLET 200 MG PO (21:25)
[2022-04-24] MEDS: Zolpidem Tartrate 5 MG TABLET PO (21:25)
[2022-04-24] MEDS: cloNIDine HCL 0.1 MG TABLET PO (21:25)
[2022-04-25] MEDS: Morphine Sulfate 2 MG/ML CARTRIDGE IVPUSH ×5 (02:12→19:57)
[2022-04-25 03:45] VITALS: BP 106/51; PULSE 59; RESP 18; TEMP 36.2; O2SAT 92
[2022-04-25] MEDS: Omeprazole 20 MG CAPSULE.DR PO (06:25)
[2022-04-25 08:00] VITALS: BP 107/66; PULSE 62; RESP 18; TEMP 36.3; O2SAT 91
[2022-04-25] MEDS: valACYclovir HCL 1,000 MG TABLET 1000 MG PO (08:25)
[2022-04-25] MEDS: Vitamin E (Dl,Tocopheryl Acet) 180 MG (400 UNIT) CAPSULE PO (08:25)
[2022-04-25] MEDS: Multivitamin TABLET 1 TAB PO (08:27)
[2022-04-25] MEDS: FLUoxetine HCl 20 MG CAPSULE 40 MG PO (08:27)
[2022-04-25] MEDS: Bictegrav/Emtricit/Tenofov Ala TABLET 1 TAB PO (08:27)
[2022-04-25] MEDS: hydrOXYzine HCL 50 MG TABLET PO ×2 (08:28→19:56)
[2022-04-25] MEDS: Mirabegron 50 MG TAB.ER.24H PO (08:28)
[2022-04-25 12:36] LABS: BV Int Neg Control Negative (Negative); BV Int Pos Control Positive (Positive)
--- NOTE | 2022-04-25 14:40 | W.PM.IDCN ---
History of Present Illness Data of Consult Service Date: 04/25/22 Requesting physician: Kathleen Dye Primary Care Provider: Demetris Cast III, MD HPI Reason for consult: resistant UTI,HIV She presents to hospital with dysuria and bilateral flank pain. She has had dysuria since March. She had bronchitis and dysuria in March and 03/30 Zithromax,Augmentin,cephalosporin and Levaquin from 03/30 to 04/18. She has last used Levaquin before coming in and not improved. She has ESBL Klebsiella found on 04/18 and sensitive to Merem also. She has HIV and has been followed by Dr Verona Valadez [facility] for HIV care. She has most recent labs show 01/10/2022 show CD4 count of 830 and viral load undetectable. She takes Biktarvy and has stopped it over last month she says because didnt feel like taking it. Review of Systems Review of Systems: Yes all other systems are reviewed and are negative PMFSH Past Medical History Medical History (Updated 04/25/22 @ 14:53 by Lissette Page MD) Anxiety Asthma HIV (human immunodeficiency virus infection) Family History Family history: reviewed and not pertinent Social History Social History Household Members: Other Housing: House Do you presently have visiting nurse or other home services: No Patient Tobacco Use Status: Never used Tobacco Second Hand Smoke Exposure: No Advance Directives Date on File: 04/24/22 service: No Current occupational status: disabled Meds Allergies Allergy/AdvReac Type Severity Reaction Status Date / Time tramadol [Tramadol] Allergy Mild HEADACHE Verified 04/23/22 19:26 bee pollen [BEE STINGS] Allergy Unknown UNKNOWN Verified 04/23/22 19:26 tapentadol [TAPENTADOL] Allergy Unknown UNKNOWN Verified 04/23/22 19:26 gabapentin Allergy Hallucinati Verified 04/23/22 19:26 ons adhesive tape [ADHESIVE TAPE] AdvReac Unknown MY SKIN Verified 04/23/22 19:26 RIPS OFF ADHESIVE BANDAGE AdvReac Unknown MY SKIN Uncoded 01/19/20 16:16 RIPS OFF Active Medications: Current Medications Acetaminophen (Acetaminophen 325 Mg Tablet) 650 mg PO Q6H PRN PRN Reason: Pain, Mild (Pain Scale 1-3) Last Admin: 04/24/22 08:48 Dose: 650 mg Albuterol Sulfate (Albuterol Sulfate 90 Mcg 8 Gm Inhaler) 2 puff INHALE Q4H PRN PRN Reason: Wheezing Bictegravir/Emtricitabine/Tenofovir (Bictegrav/Emtricit/Tenofov Ala Tablet) 1 tab PO DAILY [facility] Last Admin: 04/25/22 08:27 Dose: 1 tab Clonidine HCl (Clonidine Hcl 0.1 Mg Tablet) 0.1 mg PO BEDTIME [facility]; Protocol Last Admin: 04/24/22 21:25 Dose: 0.1 mg Diazepam (Diazepam 5 Mg Tablet) 1 mg PO TID PRN PRN Reason: Anxiety Last Admin: 04/24/22 21:24 Dose: 1 mg Enoxaparin Sodium (Enoxaparin Sodium 40 Mg/0.4 Ml Syringe) 40 mg SUBCUT Q24H [facility] Last Admin: 04/24/22 17:17 Dose: 40 mg Fluoxetine HCl (Fluoxetine Hcl 20 Mg Capsule) 40 mg PO DAILY [facility] Last Admin: 04/25/22 08:27 Dose: 40 mg Fluticasone Propionate (Fluticasone Propionate Nasal 16 Gm [place]) 2 spray NOSTRIL-B DAILY PRN PRN Reason: Allergic Symptoms Hydroxyzine HCl (Hydroxyzine Hcl 50 Mg Tablet) 50 mg PO BID [facility] Last Admin: 04/25/22 08:28 Dose: 50 mg Meropenem 1 gm/ Sodium (Chloride) 100 mls @ 200 mls/hr IV Q8H [facility] Last Infusion: 04/25/22 11:33 Dose: Infused Mirabegron (Mirabegron 50 Mg Tab.Er.24h) 50 mg PO DAILY [facility] Last Admin: 04/25/22 08:28 Dose: 50 mg Morphine Sulfate (Morphine Sulfate 2 Mg/Ml Cartridge) 2 mg IVPUSH Q4H PRN; Protocol PRN Reason: Pain, Severe (Pain Scale 7-10) Last Admin: 04/25/22 10:33 Dose: 2 mg Multivitamins/Vitamin C (Multivitamin Tablet) 1 tab PO DAILY [facility] Last Admin: 04/25/22 08:27 Dose: 1 tab Non-Formulary Medication (Galcanezumab-Gnlm [Emgality Syringe]) 120 mg SUBCUT Q28D [facility] Non-Formulary Medication (Tiotropium-Olodaterol [Stiolto Respimat]) 1 puff INHALE DAILY [facility] Omeprazole (Omeprazole 20 Mg Capsule.Dr) 20 mg PO DAILY@0630 [facility] Last Admin: 04/25/22 06:25 Dose: 20 mg Ondansetron HCl (Ondansetron Hcl 4 Mg/2 Ml Vial) 4 mg IVPUSH Q8H PRN PRN Reason: Nausea and Vomiting Last Admin: 04/24/22 17:18 Dose: 4 mg Pharmacy Consult (Consult Rx Perform Med Rec) 1 each MISCELLANE ONCE PRN PRN Reason: Consult order Sodium Chloride (0.9 % Sodium Chloride Flush 3 Ml Syringe) 3 ml IVFLUSH QSHIFT [facility] Last Admin: 04/25/22 07:32 Dose: Not Given Trazodone HCl (Trazodone Hcl 100 Mg Tablet) 200 mg PO BEDTIME PRN PRN Reason: Sleep Last Admin: 04/24/22 21:25 Dose: 200 mg Valacyclovir HCl (Valacyclovir Hcl 1,000 Mg Tablet) 1,000 mg PO DAILY [facility] Last Admin: 04/25/22 08:25 Dose: 1,000 mg Vitamin E (Vitamin E (Dl,Tocopheryl Acet) 180 Mg (400 Unit) Capsule) 180 mg PO DAILY [facility] Last Admin: 04/25/22 08:25 Dose: 180 mg Zolpidem Tartrate (Zolpidem Tartrate 5 Mg Tablet) 5 mg PO BEDTIME PRN PRN Reason: Sleep Last Admin: 04/24/22 21:25 Dose: 5 mg Home Medications Medication Instructions Recorded Confirmed Last Taken Type albuterol sulfate 90 mcg/actuation 2 puff inhalation Q4-6H PRN 04/23/22 04/23/22 Unknown History aerosol inhaler (Ventolin HFA) Wheezing bictegravir 50 mg-emtricitabine 1 tab PO DAILY 04/23/22 04/23/22 04/22/22 History 200 mg-tenofovir alafenam 25 mg tablet (Biktarvy) clonidine HCl 0.1 mg tablet 1 tab PO BEDTIME 04/23/22 04/23/22 04/22/22 History diazepam 5 mg tablet 1 tab PO TID PRN Anxiety 04/23/22 04/23/22 04/22/22 History fluoxetine 20 mg capsule 2 cap PO DAILY 04/23/22 04/23/22 04/22/22 History fluticasone propionate 50 2 spray intranasal DAILY PRN 04/23/22 04/23/22 Unknown History mcg/actuation nasal Allergic Symptoms spray,suspension (Flonase Allergy Relief) galcanezumab-gnlm 120 mg/mL 120 mg subcut Q28D 04/23/22 04/23/22 03/20/22 History subcutaneous syringe (Emgality) hydroxyzine HCl 50 mg tablet 1 tab PO BID 04/23/22 04/23/22 04/22/22 History mirabegron 50 mg tablet,extended 1 tab PO DAILY 04/23/22 04/23/22 04/22/22 History release 24 hr (Myrbetriq) multivitamin 1 tab PO DAILY 04/23/22 04/23/22 04/22/22 History omeprazole 20 mg capsule,delayed 1 cap PO DAILY@0630 04/23/22 04/23/22 04/22/22 History release tiotropium 2.5 mcg-olodaterol 2.5 1 puff inhalation DAILY 04/23/22 04/23/22 04/22/22 History mcg/actuation mist for inhalation (Stiolto Respimat) trazodone 100 mg tablet 2 tab PO BEDTIME PRN Sleep 04/23/22 04/23/22 1 Day Ago History ~04/22/22 2 tab valacyclovir 1 gram tablet 1 tab PO DAILY 04/23/22 04/23/22 04/22/22 History vitamin E 268 mg (400 unit) capsule 268 mg PO DAILY 04/23/22 04/23/22 04/22/22 History zolpidem 5 mg tablet 1 tab PO BEDTIME PRN Sleep 04/23/22 04/23/22 04/22/22 History Physical Exam Vital Signs: Vital Signs: Last Vital Signs Temp 97.4 F 04/25/22 08:00 Pulse 62 04/25/22 08:00 Resp 18 04/25/22 08:00 BP 107/66 04/25/22 08:00 Pulse Ox 91 L 04/25/22 08:00 O2 Del Method 04/25/22 08:00 BMI result Body Mass Index 26.8 Const: General: cooperative HEENT: Head: Yes normal to inspection Face and sinus: Yes normal facial exam Mouth: Normal oral and palatal mucosa present Teeth and gingiva: dentition normal Eyes: General: appearance normal, both eyes and all related structures Pupils: Equal, round and reactive pupils present Resp: Effort & Inspection: normal respiratory effort Cardio: Rate: regular rate Rhythm: regular rhythm GI: Palpation (GI): Soft to palpation and nontender : General: Yes CVA tenderness bilateral and Yes no CVA tenderness Back/Spine/Pelvis: Back: no CVA tenderness and CVA tenderness Skin: General skin exam: no rashes or lesions noted Neuro: General: moves all extremities Cranial nerves: Yes Equal, round and reactive pupils present Extrem: General: Yes normal to inspection Psych: Appearance: grossly normal Results Labs CBC & Chem 7: 04/24/22 05:43 04/24/22 05:43 Microbiology Microbiology Results: Microbiology 04/23/22 17:06 Urine clean catch - Urine haider top Urine Culture - Final No growth. 04/23/22 16:37 Blood - Venous Blood Culture - Preliminary No growth after 24 hours. 04/23/22 16:35 Blood - Venous Blood Culture - Preliminary No growth after 24 hours. Assessment and Plan (1) ESBL (extended spectrum beta-lactamase) producing bacteria infection: Status: Acute She has positive ESBL and possible early pyelonephritis although not show on CT Other antibiotics resistant (2) HIV (human immunodeficiency virus infection): Status: Acute [facility] labs show well controlled virus Patient says she stopped taking medication recently. Plan 10 days IV antibiotic total (will give Ertapenem to finish at home) Continue Biktarvy Would check CD4 count and viralload again outpatient. Time Spent With Patient Time: Total time managing care of this patient today ____ minutes.
--- NOTE | 2022-04-25 15:05 | HO.PM.IMPN ---
Subjective Subjective Date of Service: 04/25/22 Interval History: seen and examined this morning Follow-up for resistant UTI Still complaining of generalized abdominal pain. No nausea, vomiting, diarrhea. Ate 100% of breakfast Review of Systems Review of Systems: Yes all other systems are reviewed and are negative Constitutional Constitutional: Denies chills and Denies fever(s) Cardiovascular Cardiovascular: Denies chest pain, Denies palpitations and Denies dyspnea Respiratory Respiratory: Denies cough and Denies dyspnea Gastrointestinal Gastrointestinal: Reports abdominal pain, Denies diarrhea, Denies nausea and Denies vomiting Endocrine Endocrine: Denies palpitations Physical Exam Vital Signs: Vital Signs: Last Vital Signs Temp 97.4 F 04/25/22 08:00 Pulse 62 04/25/22 08:00 Resp 18 04/25/22 08:00 BP 107/66 04/25/22 08:00 Pulse Ox 91 L 04/25/22 08:00 O2 Del Method 04/25/22 08:00 BMI result Body Mass Index 26.8 Const: General: alert and awake Nutritional Appearance: average body habitus Orientation/consciousness: patient oriented x3 Resp: Effort & Inspection: normal respiratory effort and able to speak in complete sentences Cardio: Rate: regular rate Heart sounds: S1 normal heart sound present and S2 normal heart sound present GI: Other: generalized tenderness to palpation, no guarding, no rebound Inspection: No distended Palpation (GI): Soft to palpation : General: Yes CVA tenderness Back/Spine/Pelvis: Back: CVA tenderness Neuro: General: patient oriented x3 and CN's II-XI intact bilaterally Extrem: Other: able to move all 4 extremities spontaneously General: Yes no pedal edema Objective Data Active Medications Acetaminophen (Acetaminophen 325 Mg Tablet) 650 mg PO Q6H PRN PRN Reason: Pain, Mild (Pain Scale 1-3) Last Admin: 04/24/22 08:48 Dose: 650 mg Documented By: JOSÉ Albuterol Sulfate (Albuterol Sulfate 90 Mcg 8 Gm Inhaler) 2 puff INHALE Q4H PRN PRN Reason: Wheezing Bictegravir/Emtricitabine/Tenofovir (Bictegrav/Emtricit/Tenofov Ala Tablet) 1 tab PO DAILY JODIE Last Admin: 04/25/22 08:27 Dose: 1 tab Documented By: CONNIE-SOFFA Clonidine HCl (Clonidine Hcl 0.1 Mg Tablet) 0.1 mg PO BEDTIME [facility]; Protocol Last Admin: 04/24/22 21:25 Dose: 0.1 mg Documented By: BENJAMIN Diazepam (Diazepam 5 Mg Tablet) 1 mg PO TID PRN PRN Reason: Anxiety Last Admin: 04/24/22 21:24 Dose: 1 mg Documented By: BENJAMIN Enoxaparin Sodium (Enoxaparin Sodium 40 Mg/0.4 Ml Syringe) 40 mg SUBCUT Q24H [facility] Last Admin: 04/24/22 17:17 Dose: 40 mg Documented By: JOSÉ Fluoxetine HCl (Fluoxetine Hcl 20 Mg Capsule) 40 mg PO DAILY [facility] Last Admin: 04/25/22 08:27 Dose: 40 mg Documented By: CONNIE-LUPE Fluticasone Propionate (Fluticasone Propionate Nasal 16 Gm [place]) 2 spray NOSTRIL-B DAILY PRN PRN Reason: Allergic Symptoms Hydroxyzine HCl (Hydroxyzine Hcl 50 Mg Tablet) 50 mg PO BID [facility] Last Admin: 04/25/22 08:28 Dose: 50 mg Documented By: CHINO Meropenem 1 gm/ Sodium (Chloride) 100 mls @ 200 mls/hr IV Q8H [facility] Last Infusion: 04/25/22 11:33 Dose: 0 mls/hr Documented By: CONNIE-LUPE Mirabegron (Mirabegron 50 Mg Tab.Er.24h) 50 mg PO DAILY [facility] Last Admin: 04/25/22 08:28 Dose: 50 mg Documented By: CONNIE-LUPE Morphine Sulfate (Morphine Sulfate 2 Mg/Ml Cartridge) 2 mg IVPUSH Q4H PRN; Protocol PRN Reason: Pain, Severe (Pain Scale 7-10) Last Admin: 04/25/22 14:57 Dose: 2 mg Documented By: CHINO Multivitamins/Vitamin C (Multivitamin Tablet) 1 tab PO DAILY [facility] Last Admin: 04/25/22 08:27 Dose: 1 tab Documented By: CONNIE-LUPE Non-Formulary Medication (Galcanezumab-Gnlm [Emgality Syringe]) 120 mg SUBCUT Q28D [facility] Non-Formulary Medication (Tiotropium-Olodaterol [Stiolto Respimat]) 1 puff INHALE DAILY [facility] Omeprazole (Omeprazole 20 Mg Capsule.) 20 mg PO DAILY@0630 [facility] Last Admin: 04/25/22 06:25 Dose: 20 mg Documented By: BENJAMIN Ondansetron HCl (Ondansetron Hcl 4 Mg/2 Ml Vial) 4 mg IVPUSH Q8H PRN PRN Reason: Nausea and Vomiting Last Admin: 04/24/22 17:18 Dose: 4 mg Documented By: JOSÉ Pharmacy Consult (Consult Rx Perform Med Rec) 1 each MISCELLANE ONCE PRN PRN Reason: Consult order Sodium Chloride (0.9 % Sodium Chloride Flush 3 Ml Syringe) 3 ml IVFLUSH QSHIFT [facility] Last Admin: 04/25/22 07:32 Dose: Not Given Documented By: CONNIE-LUPE Non-Admin Reason: See Note Trazodone HCl (Trazodone Hcl 100 Mg Tablet) 200 mg PO BEDTIME PRN PRN Reason: Sleep Last Admin: 04/24/22 21:25 Dose: 200 mg Documented By: BENJAMIN Valacyclovir HCl (Valacyclovir Hcl 1,000 Mg Tablet) 1,000 mg PO DAILY [facility] Last Admin: 04/25/22 08:25 Dose: 1,000 mg Documented By: CONNIE-LUPE Vitamin E (Vitamin E (Dl,Tocopheryl Acet) 180 Mg (400 Unit) Capsule) 180 mg PO DAILY [facility] Last Admin: 04/25/22 08:25 Dose: 180 mg Documented By: CONNIE-LUPE Zolpidem Tartrate (Zolpidem Tartrate 5 Mg Tablet) 5 mg PO BEDTIME PRN PRN Reason: Sleep Last Admin: 04/24/22 21:25 Dose: 5 mg Documented By: BENJAMIN Labs CBC & Chem 7: 04/24/22 05:43 04/24/22 05:43 Labs: Laboratory Results - last 24 hr 04/24/22 09:00 Althea species DNA Negative Gardnerella DNA Probe Negative Trichomonas DNA Probe Negative Microbiology Microbiology Results: Microbiology 04/23/22 17:06 Urine Culture - Final Urine clean catch - Urine haider top No growth. 04/23/22 16:37 Blood Culture - Preliminary Blood - Venous No growth after 24 hours. 04/23/22 16:35 Blood Culture - Preliminary Blood - Venous No growth after 24 hours. Assessment and Plan (1) HIV (human immunodeficiency virus infection): Status: Acute (2) ESBL (extended spectrum beta-lactamase) producing bacteria infection: Status: Acute Plan 57-year-old woman admitted to the ER with ESBL UTI, failed outpatient treatment ESBL UTI, Klebsiella pneumoniae no sepsis Urine culture from 04/18/2022, repeat culture from 04/23 negative likely due to previous tx with abx Had been on Levaquin at home but continued to have symptoms continue Meropenem, plan for total 10 days of abx, will be d/c with ertapenem 1 gram daily to complete course midline ordered blood cultures negative hypotension ?r/t dehydration not sepsis resolved with IVF BP stable vulvar pain 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 No exacerbation Continue medications Mental health Continue home medications HIV Continue Biktarvy GERD Continue PPI DVT prophylaxis with Lovenox Attending Dr. Wright Full code Patient ongoing inpatient hospitalization for treatment of ESBL UTI requiring IV antibiotics dispo - likely home tomorrow with vna Time Spent With Patient Time: Total time managing care of this patient today ____ minutes. Quality Stroke Does the patient have a stroke diagnosis?: No VTE Prior VTE?: No VTE Risk Level:: Medical - moderate - high VTE Device Contraindication: Treatment Not Indicated VTE Drug Contraindication: N/A - Med Ordered
[2022-04-25 16:00] VITALS: BP 144/74; PULSE 66; RESP 16; TEMP 36.2; O2SAT 92
--- NOTE | 2022-04-25 16:29 | HO.MIDLINE ---
Midline Insertion MIDLINE INSERTION Diagnosis: UTI with resistant strain Indication: regional intermodal truck driver antibiotics Pertinent Labs: reviewed Technique: Using sterile technique including cap and mask, glove and drape, the right arm was prepped and draped in the usual sterile fashion of full barrier technique with CHG. Using ultrasound guidance, right basilic vein access was obtained in a single attempt by this RN after 2 attempts by Jennifer Herring RN. A 20 guage 10 cm midline was positioned. The procedure was performed in S272. Ultrasound was used to document vein patency and for needle entry. A formal ultrasound picture was recorded. Vascular [employer] has released the line for use and it is currently dressed with a StatLock, Tegaderm, and CHG disc. Verification has been performed for blood return and line patency. Arm Circumference: 28.5 cm Equipment: Bard PowerGlide ST Midline Non PASV Catheter Catheter Type: 20 guage 10 cm Non PASV Lot #: [id number]
[2022-04-25] MEDS: Enoxaparin Sodium 40 MG/0.4 ML SYRINGE SUBCUT (17:38)
[2022-04-25] MEDS: 0.9 % Sodium Chloride Flush 3 ML SYRINGE IVFLUSH ×2 (17:38→21:22)
[2022-04-25 19:39] VITALS: BP 144/76; PULSE 78; RESP 16; TEMP 36.3; O2SAT 92
[2022-04-25] MEDS: Heparin Sodium,Porcine Flush 50 UNITS, 0.9 % Sodium Chloride Flush 5 ML IVFLUSH (19:54)
[2022-04-25] MEDS: cloNIDine HCL 0.1 MG TABLET PO (19:56)
[2022-04-25] MEDS: traZODone HCL 100 MG TABLET 200 MG PO (20:06)
[2022-04-25] MEDS: Zolpidem Tartrate 5 MG TABLET PO (20:07)
[2022-04-26] MEDS: Morphine Sulfate 2 MG/ML CARTRIDGE IVPUSH ×3 (01:24→10:53)
[2022-04-26 04:00] VITALS: BP 113/68; PULSE 76; RESP 16; TEMP 36.6; O2SAT 90
[2022-04-26] MEDS: Omeprazole 20 MG CAPSULE.DR PO (05:09)
[2022-04-26] MEDS: Acetaminophen 325 MG TABLET 650 MG PO (05:13)
[2022-04-26 08:00] VITALS: BP 135/72; PULSE 57; RESP 16; TEMP 37; O2SAT 91
[2022-04-26] MEDS: hydrOXYzine HCL 50 MG TABLET PO (09:28)
[2022-04-26] MEDS: Multivitamin TABLET 1 TAB PO (09:28)
[2022-04-26] MEDS: FLUoxetine HCl 20 MG CAPSULE 40 MG PO (09:29)
[2022-04-26] MEDS: Mirabegron 50 MG TAB.ER.24H PO (09:29)
[2022-04-26] MEDS: Vitamin E (Dl,Tocopheryl Acet) 180 MG (400 UNIT) CAPSULE PO (09:29)
[2022-04-26] MEDS: Heparin Sodium,Porcine Flush 50 UNITS, 0.9 % Sodium Chloride Flush 5 ML IVFLUSH (09:30)
[2022-04-26] MEDS: Bictegrav/Emtricit/Tenofov Ala TABLET 1 TAB PO (09:30)
[2022-04-26] MEDS: valACYclovir HCL 1,000 MG TABLET 1000 MG PO (09:30)
[2022-04-26] MEDS: 0.9 % Sodium Chloride Flush 3 ML SYRINGE IVFLUSH (09:31)
--- NOTE | 2022-04-26 10:22 | PM.DS ---
DS: Providers Provider Date of Service: 04/26/22 Date of admission: 04/23/22 17:55 Primary care physician: Demetris Cast III, MD Consults: 04/23/22 16:13 Consult to Infectious Diseases Routine Consulting Provider: Lissette Page Reason for consultation: uti esbl klebsiela 04/23/22 17:55 Consult to Infectious Diseases Routine Consulting Provider: Lissette Page Reason for consultation: ESBL UTI Has provider been notified: No 04/23/22 18:45 Consult to Obstetrics / Gynecology Routine Consulting Provider: Bay Goodman Reason for consultation: clitoral/vulva pain Has provider been notified: No Attending physician on discharge: Francisco Osborn Discharging clinician: Tessa Carl DS: Diagnosis Discharge Diagnosis (1) HIV (human immunodeficiency virus infection): Status: Acute (2) ESBL (extended spectrum beta-lactamase) producing bacteria infection: Status: Acute DS: Summary Hospital Course Hospital Course: 57-year-old woman presenting with continued symptoms of UTI.? She presented to the ER and had a urinalysis and urine culture drawn on 04/18/2022.? She was treated with Levaquin as well as 3 other antibiotics at home and was called and told that she had an ESBL UTI, Klebsiella.? At that time she reported that she was going to return and subsequently she did today.? She denied chest pain, shortness breath, nausea, vomiting, diarrhea.? No fever leukocytosis, stable vitals, labs all within acceptable limits.? In the ER she was given a dose of ertapenem, 1 L of IV fluid.? She will be admitted for further management and treatment of ESBL UTI. 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 No exacerbation Continue medications Mental health Continue home medications HIV Continue Biktarvy GERD Continue PPI Time Spent with Patient Time attestation: Total time managing care of this patient today ____ minutes. Discharge coordination time: Greater than 30 minutes Quality: Safe Use of Opioids Does Pt have an Active Cancer Diagnosis on the Problem List?: No Quality: Stroke Does the patient have a stroke diagnosis?: No Physical Exam Vital Signs: Vital Signs: Last Vital Signs Temp 98.6 F 04/26/22 08:00 Pulse 57 04/26/22 08:00 Resp 16 04/26/22 08:00 BP 135/72 04/26/22 08:00 Pulse Ox 91 L 04/26/22 08:00 O2 Del Method 04/26/22 08:00 BMI result Body Mass Index 26.8 Appearing in no acute distress head is normocephalic atraumatic eyes pupils are PERRLA sclera is anicteric mouth throat mucous membranes are intact and moist neck is supple no lymphadenopathy, no JVD noted lung sounds are clear to auscultation heart regular rate rhythm, clear S1, S2 positive bowel sounds, abdomen is soft, nontender neuro patient is alert x3, no focal deficits DS: Data Data Completed and Pending Labs on day of discharge: Laboratory Results - last 24 hr 04/24/22 09:00 Althea species DNA Negative Gardnerella DNA Probe Negative Trichomonas DNA Probe Negative Preliminary micro results at discharge 04/23/22 16:35 Blood Culture - Preliminary Blood - Venous No growth after 48 hours. 04/23/22 16:37 Blood Culture - Preliminary Blood - Venous No growth after 48 hours. Discharge Plan Discharge Anticipated Discharge Date/Time: 04/26/22 10:05 Patient Disposition: Home Health Service Discharge Diagnosis: ESBL UTI Leukoplakia Vulvar abdominal pain Referrals: [facility] [Other] - 1 Week [facility] [Outside] - 1 Week Demetris Cast III, MD [Primary Care Provider] - 1 Week Bay Goodman MD [Physician] - 1 Week (For outpatient biopsy ) Discharge Medications: New ertapenem 1 gram recon soln 1 g IM DAILY Qty: 10 0RF oxycodone 5 mg tablet 5 mg PO Q8H PRN (Reason: pain) Qty: 9 0RF Rx Instructions: Partial Fill upon patient request. Continued ibuprofen 600 mg tablet 600 mg PO Q6H PRN (Reason: fever) Qty: 14 0RF clonidine HCl 0.1 mg tablet 1 tab PO BEDTIME valacyclovir 1 gram tablet 1 tab PO DAILY hydroxyzine HCl 50 mg tablet 1 tab PO BID trazodone 100 mg tablet 2 tab PO BEDTIME PRN (Reason: Sleep) omeprazole 20 mg capsule,delayed release(DR/EC) 1 cap PO DAILY@0630 zolpidem 5 mg tablet 1 tab PO BEDTIME PRN (Reason: Sleep) albuterol sulfate [Ventolin HFA] 90 mcg/actuation HFA aerosol inhaler 2 puff INHALATION Q4-6H PRN (Reason: Wheezing) fluoxetine 20 mg capsule 2 cap PO DAILY diazepam 5 mg tablet 1 tab PO TID PRN (Reason: Anxiety) Myrbetriq 50 mg tablet extended release 24 hr 1 tab PO DAILY Stiolto Respimat 2.5-2.5 mcg/actuation mist 1 puff inhalation DAILY Biktarvy 50-200-25 mg tablet 1 tab PO DAILY Emgality Syringe 120 mg/mL syringe 120 mg subcut Q28D multivitamin Tablet 1 tab PO DAILY vitamin E 268 mg (400 unit) Capsule 268 mg PO DAILY fluticasone propionate [Flonase Allergy Relief] 50 mcg/actuation spray,suspension 2 spray intranasal DAILY PRN (Reason: Allergic Symptoms) Rx Instructions: administer into each nostril Discharge Orders: Discharge Order (Routine); Ordered 04/26/22 Ordered By: Tessa Carl Diet: Advance to usual diet Activity on Discharge: As tolerated Stand Alone Forms: Patient Portal Discharge page Care Plan Goals: Follow up with OBGYN for vulvar biopsy Health Concerns: ESBL UTI Leukoplakia Vulvar abdominal pain Plan of Treatment: Follow up with primary care provider as needed Received dose of Ertapenem prior to discharge Take all medications as prescribed RN ro remove PICC line adter last dose of ertapenem Assessment: See discharge summary Discharge Date/Time: 04/26/22 14:25
[2022-04-26 10:43] VITALS: PULSE 78; PULSE 88; PULSE 89; O2SAT 90; O2SAT 93
--- NOTE | 2022-04-26 13:45 | MHC.CM.PN ---
IVANNA SPOKE TO E[facility] AT [facility] [phone] SHE INDICATED THEY WOULD BE ABLE TO DELIVER MEDS TODAY IF THEY RECEIVED A NEW ORDER FORM AND THE MIDLINE REPORT DOCUMENTS WERE FAXED TO HER AT [phone] CM CALLED TO CONFIRM RECEIPT OF FAX [facility] REPORTS PT IS ALL SET FOR MED DELIVERY TODAY CM INFORMED COMFORT PLUS OF PLAN TO DC TODAY DC SUMMARY AND F2F SENT VIA [facility] PT WILL ARRANGE TRANSPORT
--- NOTE | 2022-04-26 13:48 | W.MHC.F2F ---
Service Date Service Date: 04/26/22 Encounter Date of encounter: 04/26/22 Reasons for Services Signs and symptoms assessed: Abd gillian, pyleonephritis, ESBL UTI Reason for residential: administration of IV, SQ, or IM injection Homebound: Leaving the home is medically contraindicated at this time without the asist of a device and/or another person due th the listed conditions above and below. Reason homebound: other (abdominal pain ) Certification: Based on the above findings, I certify that this patient is confined to the home and needs intermittent residential care, physical therapy and/or speech therapy, or continues to need occupational therapy. The patient is under my care, and I have initiated the establishment of the plan of care. The patient will be followed by a physician who will periodically review the plan of care. Time Spent With Patient Time: Total time managing care of this patient today ____ minutes.
== END 2022-04-26 14:25 | disposition home health service (06) | DRG 690 ==
LOC: HO.ED 16:39 → HO.EDOVER 18:00 → HO.S3 04-24 11:14
PROVIDERS: Emergency Medicine Emergency Medical Services; Internal Medicine; Obstetrics & Gynecology; Admitting Provider Nurse Practitioner Acute Care; Emergency Provider Emergency Medicine; PCP Internal Medicine; Visit Provider Nurse Practitioner Acute Care
DX: N30.90 Cystitis, unspecified without hematuria (principal); Z16.12 Extended spectrum beta lactamase (ESBL) resistance; N90.4 Leukoplakia of vulva; F41.9 Anxiety disorder, unspecified; J45.909 Unspecified asthma, uncomplicated; I95.9 Hypotension, unspecified; E86.0 Dehydration; B96.1 Klebsiella pneumoniae [K. pneumoniae] as the cause of diseases classified elsewhere; K21.9 Gastro-esophageal reflux disease without esophagitis; Z20.822 Contact with and (suspected) exposure to COVID-19; Z88.5 Allergy status to narcotic agent; Z79.51 Long term (current) use of inhaled steroids; Z79.899 Other long term (current) drug therapy
CPT/HCPCS: 0241U; 36410; 36415; 71045; 74177; 76705; 80048; 80053; 81001; 82248; 83605; 83690; 85025; 87040; 87086; 87480; 87510; 87660; 93005; 99284; 99285; J1335; J1642; J1650; J1885; J2185; J2270; J2405; Q9967

== ENCOUNTER 2022-05-06 14:54 | Outpatient (REF) | payer MEDICARE, MEDICAID, SELFPAY ==
[2022-05-10 17:53] LABS: HPV 16 RNA DETECTED (NOT DETECTED); HPV mRNA E6/E7 rflx Detected (Not Detected)
== END 2022-05-06 14:55 | disposition home or self-care (01) ==
LOC: HO.LNP 14:54
PROVIDERS: PCP Internal Medicine; Visit Provider Obstetrics & Gynecology
DX: Z01.419 Encounter for gynecological examination (general) (routine) without abnormal findings (principal); N90.89 Other specified noninflammatory disorders of vulva and perineum
CPT/HCPCS: 56605; 56606; 87624; 87625; 88142; 88305; 88312; 88342; 88360; 99212

== ENCOUNTER → 2022-05-07 14:29 | Outpatient (BNVA) | payer MEDICARE, MEDICAID, SELFPAY | PROVIDERS: PCP Internal Medicine; Visit Provider Internal Medicine | DX: N12 Tubulo-interstitial nephritis, not specified as acute or chronic (principal); B96.89 Other specified bacterial agents as the cause of diseases classified elsewhere; B20 Human immunodeficiency virus [HIV] disease | CPT/HCPCS: 99212 ==

== ENCOUNTER 2022-05-16 12:44 | Outpatient (REF) | payer MEDICARE, MEDICAID, SELFPAY ==
--- NOTE | ~2022-05-16 | MM_ITS ---
EXAMINATION: MM SCREENING DIGITAL BREAST TOMOSYNTHESIS, BILATERAL CLINICAL INFORMATION: Screening. Asymptomatic. The lifetime risk of breast cancer based on the Tyrer-Cuzick Model is 18%. COMPARISON: Mammography: 11/24/2012 ([place]) TECHNIQUE: Digital mammography is performed in craniocaudal and mediolateral oblique views along with computer-aided detection (CAD). Digital breast tomosynthesis is performed in implant-displaced craniocaudal and implant-displaced mediolateral oblique views along with computer-aided detection (CAD). Synthesized 2D images are generated from the tomosynthesis. FINDINGS: There are scattered areas of fibroglandular density (ACR BI-RADS breast composition Category b). There are bilateral implants. The implant contours are smooth and similar to prior outside exam. There are incidental benign capsular calcifications. Parenchymal pattern is similar to the outside exam and there is no significant mass or architectural abnormality or abnormal calcifications. Skin contours are smooth. No significant changes. MM/MM tomosynthesis screen imp BI IMPRESSION: No mammographic evidence of malignancy. ASSESSMENT: BI-RADS 2: Benign RECOMMENDATION: Routine annual mammography screening. This patient's information was entered into a reminder system with a target due date for their next mammogram.
== END 2022-05-16 12:45 | disposition home or self-care (01) ==
LOC: HO.MAMMO 12:44
PROVIDERS: PCP Internal Medicine; Visit Provider Obstetrics & Gynecology
DX: Z12.31 Encounter for screening mammogram for malignant neoplasm of breast (principal)
CPT/HCPCS: 77063; 77067

== ENCOUNTER 2022-05-16 16:51 | Emergency (ER) | payer MEDICARE, MEDICAID, SELFPAY ==
--- NOTE | ~2022-05-16 | CT_ITS ---
EXAMINATION: CT ABDOMEN AND PELVIS WITHOUT CONTRAST CLINICAL INFORMATION: Lower abdominal pain. UTI symptoms. Question ureteral stone COMPARISON: None TECHNIQUE: Multidetector volumetric imaging was performed from the superior aspect of the liver through the pubic symphysis. Sagittal and coronal reformatted images were obtained on the technologist's workstation. This CT examination was performed using dose optimization techniques as appropriate, variously including the following: *Automated exposure control *Adjustment of mA and/or kV according to patient size (this includes techniques or standardized protocols for targeted exams where dose is matched to indication/reason for exam; i.e. extremities or head) *Use of iterative reconstruction technique DLP: 461 mGy-cm FINDINGS: LUNG BASES: The visualized lung bases are unremarkable. LIVER, GALLBLADDER, AND BILIARY TREE: The liver is prominent in size measuring 18 cm superior inferior., No focal liver lesion. No intrahepatic bile duct dilatation. Status post cholecystectomy. The PANCREAS: Unremarkable. SPLEEN: Small calcified granuloma in the spleen. ADRENAL GLANDS: Unremarkable. KIDNEYS AND URETERS: The kidneys are normal in size, shape, and attenuation. No hydronephrosis, hydroureter, or calculi seen. No perinephric stranding. BLADDER: Unremarkable. GASTROINTESTINAL TRACT: Status post subtotal colectomy. Surgical anastomosis in the pelvis intact. No acute change of bowel. No bowel wall thickening or edema. No bowel obstruction. ABDOMINAL WALL: No significant hernia is appreciated. LYMPH NODES: Normal. VASCULAR: Vascular calcifications of aorta and iliac arteries. There is no aneurysm. PELVIC VISCERA: Status post hysterectomy. OSSEOUS STRUCTURES: There are degenerative vacuum disc changes L5-S1 CT/CT abdomen pelvis wo IV con IMPRESSION: No acute abnormality CT scan abdomen pelvis. Normal kidneys, ureter and bladder. 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 Fleischner guidelines were followed.
--- NOTE | ~2022-05-16 | XR_ITS ---
EXAMINATION: XR CHEST CLINICAL INFORMATION: Weakness and chest pain. COMPARISON: Chest radiograph 04/26/2022. TECHNIQUE: 2 views of the chest were obtained. FINDINGS: No significant abnormality is noted involving the heart, lungs, mediastinum, bony thorax or soft tissues. XR/XR chest 2V IMPRESSION: Unremarkable examination.
[2022-05-16 17:25] VITALS: BP 114/80; PULSE 79; RESP 18; TEMP 36.9; O2SAT 96; BMI 25.6
--- NOTE | 2022-05-16 17:28 | ED.GENADULT ---
HPI - General Adult General Chief complaint: General Medical <Kimberli Tirado NP - Last Filed: 05/16/22 17:30> Stated complaint: UTI, previously here <Kimberli Tirado NP - Last Filed: 05/16/22 17:30> Time Seen by Provider: 05/16/22 19:26 <Kimberli Tirado NP - Last Filed: 05/16/22 17:30> Source: patient <VIRGIL Pinon - Last Filed: 05/16/22 21:34> Mode of arrival: ambulatory <VIRGIL Pinon - Last Filed: 05/16/22 21:34> Limitations: no limitations <VIRGIL Pinon - Last Filed: 05/16/22 21:34> History of Present Illness HPI narrative: 57-year-old female history of HIV, ESBL bacteria, presenting to the emergency depart with intermittent substernal nonradiating stabbing chest, abdominal cramping particularly to the lower abdomen, nausea, vomiting, poor p.o. intake, fatigue, malaise, weakness, urinary frequency and urgency times a few weeks progressively worsening. Tells me she thinks she has another UTI. Reports recent hospital admission at the end of April. NIH stroke scale negative. <VIRGIL Pinon - Last Filed: 05/16/22 21:34> Related Data Home medications: Home Medications Medication Instructions Recorded Confirmed albuterol sulfate 90 mcg/actuation 2 puff inhalation Q4-6H PRN 04/23/22 04/23/22 aerosol inhaler (Ventolin HFA) Wheezing bictegravir 50 mg-emtricitabine 1 tab PO DAILY 04/23/22 04/23/22 200 mg-tenofovir alafenam 25 mg tablet (Biktarvy) clonidine HCl 0.1 mg tablet 1 tab PO BEDTIME 04/23/22 04/23/22 diazepam 5 mg tablet 1 tab PO TID PRN Anxiety 04/23/22 04/23/22 fluoxetine 20 mg capsule 2 cap PO DAILY 04/23/22 04/23/22 fluticasone propionate 50 2 spray intranasal DAILY PRN 04/23/22 04/23/22 mcg/actuation nasal Allergic Symptoms spray,suspension (Flonase Allergy Relief) galcanezumab-gnlm 120 mg/mL 120 mg subcut Q28D 04/23/22 04/23/22 subcutaneous syringe (Emgality) hydroxyzine HCl 50 mg tablet 1 tab PO BID 04/23/22 04/23/22 mirabegron 50 mg tablet,extended 1 tab PO DAILY 04/23/22 04/23/22 release 24 hr (Myrbetriq) multivitamin 1 tab PO DAILY 04/23/22 04/23/22 omeprazole 20 mg capsule,delayed 1 cap PO DAILY@0630 04/23/22 04/23/22 release tiotropium 2.5 mcg-olodaterol 2.5 1 puff inhalation DAILY 04/23/22 04/23/22 mcg/actuation mist for inhalation (Stiolto Respimat) trazodone 100 mg tablet 2 tab PO BEDTIME PRN Sleep 04/23/22 04/23/22 valacyclovir 1 gram tablet 1 tab PO DAILY 04/23/22 04/23/22 vitamin E 268 mg (400 unit) capsule 268 mg PO DAILY 04/23/22 04/23/22 zolpidem 5 mg tablet 1 tab PO BEDTIME PRN Sleep 04/23/22 04/23/22 Previous Rx's Medication Instructions Recorded ibuprofen 600 mg tablet 600 mg PO Q6H PRN fever #14 tabs 01/09/22 methenamine hippurate 1 gram tablet 1 g PO BID 30 days #60 tabs 05/07/22 fosfomycin tromethamine 3 gram 1 packet PO Q OTHER DAY 3 doses #3 05/16/22 oral packet ea <Kimberli Tirado NP - Last Filed: 05/16/22 17:30> Allergies/adverse reactions: Allergies Allergy/AdvReac Type Severity Reaction Status Date / Time tramadol [Tramadol] Allergy Mild HEADACHE Verified 05/06/22 15:10 bee pollen [BEE STINGS] Allergy Unknown UNKNOWN Verified 05/06/22 15:10 tapentadol [TAPENTADOL] Allergy Unknown UNKNOWN Verified 05/06/22 15:10 gabapentin Allergy Hallucinati Verified 05/06/22 15:10 ons adhesive tape [ADHESIVE TAPE] AdvReac Unknown MY SKIN Verified 05/06/22 15:10 RIPS OFF ADHESIVE BANDAGE AdvReac Unknown MY SKIN Uncoded 01/19/20 16:16 RIPS OFF <Kimberli Tirado NP - Last Filed: 05/16/22 17:30> Review of Systems Review of Systems: Constitutional : No Weight loss, No Fever, No Chills, + Fatigue, + Malaise ENT/Mouth : No sore throat, No Rhinorrhea Eyes: No Eye Pain, No Swelling, No Redness Cardiovascular : + Chest Pain, No SOB, No Dyspnea on Exertion, No Orthopnea, No Edema, No Palpitations Respiratory : No Cough, No Sputum, No Wheezing Gastrointestinal : No Nausea, No Vomiting, No Diarrhea, No Constipation, + abdominal Pain, No Hematochezia, No Melena Genitourinary : + Dysuria, + Urinary Frequency, No Hematuria, Musculoskeletal : No joint pain, No Myalgias, No Joint Swelling Skin : No Skin Lesions, No rash Neuro : + Weakness, No Numbness, No Dizziness, No Headache Psych : No Anxiety/Panic, No Depression All other systems reviewed and are negative <VIRGIL Pinon - Last Filed: 05/16/22 21:34> Yes all other systems are reviewed and are negative <VIRGIL Pinon - Last Filed: 05/16/22 21:34> [facility] Past Medical History Attestation statement: The following information was validated with the patient. <VIRGIL Pinon - Last Filed: 05/16/22 21:34> Source: old records reviewed and nursing notes reviewed <VIRGIL Pinon - Last Filed: 05/16/22 21:34> Medical History: Medical History Anxiety Asthma HIV (human immunodeficiency virus infection) <Kimberli Tirado NP - Last Filed: 05/16/22 17:30> Surgical History: Surgical History H/O: hysterectomy <Kimberli Tirado NP - Last Filed: 05/16/22 17:30> Family History Family History: Family History Paternal Grandmother Breast CA <Kimberli Tirado NP - Last Filed: 05/16/22 17:30> Social History Social History: Social History Household Members: Other Housing: House Do you presently have visiting nurse or other home services: No Alcohol intake: current Alcohol intake frequency: holidays/special occasions only Alcohol type: wine Patient Tobacco Use Status: Never used Tobacco Smoked in Last 30 Days: Yes Second Hand Smoke Exposure: No Use of substances other than those prescribed or required for medical reasons: No Advance Directives: Yes Advance Directives on File: Yes Advance Directives Date on File: 04/24/22 service: No Current occupational status: disabled <Kimberli Tirado NP - Last Filed: 05/16/22 17:30> Physical Exam ED Vital Signs: Vital Signs - 24 hr 05/16/22 17:25 05/16/22 19:27 Temperature 98.4 F 98.2 F Pulse Rate 79 72 Respiratory Rate 18 16 Blood Pressure 114/80 147/78 H Pulse Oximetry 96 98 Oxygen Delivery Method Room Air Room Air BMI result Body Mass Index 25.6 <Kimberli Tirado NP - Last Filed: 05/16/22 17:30> Vital Signs - 24 hr 05/16/22 17:25 05/16/22 19:27 Temperature 98.4 F 98.2 F Pulse Rate 79 72 Respiratory Rate 18 16 Blood Pressure 114/80 147/78 H Pulse Oximetry 96 98 Oxygen Delivery Method Room Air Room Air BMI result Body Mass Index 25.6 vss <VIRGIL Pinon - Last Filed: 05/16/22 21:34> Appearance: Alert.? Oriented X3.? No acute distress.? Head: Normocephalic, atraumatic, no step-offs or deformities Eyes: Pupils equal, round and reactive to light.? ENT: Pharynx normal.? Neck: Normal inspection.? Neck supple.? CVS: Normal heart rate and rhythm.? Pulses normal.? Respiratory: No respiratory distress.? Breath sounds normal.? Abdomen: Soft and nontender.? Skin: Skin warm and dry.? Normal skin color.? Normal skin turgor.? Extremities: No lower extremity edema.? No calf ttp. Global weakness Neuro: Oriented X 3.? No motor deficit.? No sensory deficit. CN 2-12 intact <VIRGIL Pinon - Last Filed: 05/16/22 21:34> Course Course Course Narrative: This is a rapid medical exam. Deferred additional HPI, ROS, PE to primary provider. 57-year-old female with history of HIV presents with Weakness, abdominal pain, chest pain, urinary symptoms, nausea/vomiting. Will obtain labs, EKG, chest x-ray, COVID screen, UA. vSS <Kimberli Tirado NP - Last Filed: 05/16/22 17:30> Reevaluation(s) Reevaluation #1: CBC within normal limits. Chemistry with no acute findings. Troponin negative, EKG nonischemic unlikely ACS. History and physical examination not consistent with PE therefore CT not indicated. UA without infection. Pending CT of the abdomen and pelvis, lipase. <VIRGIL Pinon - Last Filed: 05/16/22 21:34> Time: 19:37 <VIRGIL Pinon - Last Filed: 05/16/22 21:34> Reevaluation #2: CT of the abdomen and pelvis with no acute abnormalities. Chest x-ray unremarkable. I did discuss this case, patient hx, labs, imaging with Infectious Disease due to patient's symptoms,& history recommends out patient follow up and to DC patient home on fosfomycin, doesnt see a reason for hospital admission. Based off of chart review it appears as though patient's symptoms have been ongoing for a while. Did offer her services for home however refusing. Educated patient on diagnosis and treatment plan, answered all question, patient verbalizes understanding. At this time patient will be discharged home, advised to return with new or worsening symptoms. Educated on worrisome signs and symptoms and when to return. At this time I feel comfortable discharge home. <VIRGIL Pinon - Last Filed: 05/16/22 21:34> Time: 21:15 <VIRGIL Pinon - Last Filed: 05/16/22 21:34> Medical Decision Making Medical Decision Making [facility] Narrative: 1927 57-year-old female presenting with abdominal cramping, chest pain, urinary frequency, urgency and dysuria times a few days worsening. Upon chart review it appears as though patient was seen here on 04/23/2021 where she presented with urinary frequency, urgency, dysuria and left flank pain as well as abdominal pain for a month. At that time she had gotten a call to come in as they told her she needed IV antibiotics. Patient was then hospitalized from 04/23/2022 to 04/26/2022, diagnosed with complicated UTI ESBL positive, she was treated with meropenem 1 g every 8 hours. PE benign Concerns for UTI versus cystitis, likely noncardiac related chest pain, abdominal pain likely viral in origin. Unlikely ACS, PE, pneumonia, acute abdomen, diverticulitis, cholecystitis, torsion. Will rule out obstructing uropathy. <VIRGIL Pinon - Last Filed: 05/16/22 21:34> Differential Diagnosis Differential Diagnoses: The differential diagnosis associated with the presentation includes <VIRGIL Pinon - Last Filed: 05/16/22 21:34> Concerns for UTI versus cystitis, likely noncardiac related chest pain, abdominal pain likely viral in origin. Unlikely ACS, PE, pneumonia, acute abdomen, diverticulitis, cholecystitis, torsion. Will rule out obstructing uropathy <VIRGIL Pinon - Last Filed: 05/16/22 21:34> Admission/Observation Consideration of admission/observation: Escalation of care including admission/observation considered <VIRGIL Pinon - Last Filed: 05/16/22 21:34> [place] <VIRGIL Pinon - Last Filed: 05/16/22 21:34> Lab Data MDM Lab Attestation statement: I reviewed the patient's lab results. <VIRGIL Pinon - Last Filed: 05/16/22 21:34> Result Diagrams: 05/16/22 17:46 05/16/22 17:46 <Kimberli Tirado NP - Last Filed: 05/16/22 17:30> Labs: Lab Results 05/16/22 05/16/22 05/16/22 Range/Units 17:46 17:46 17:46 WBC 6.3 (4.8-10.8) X10*3/uL RBC 4.35 (4.20-5.50) X10*6/uL Hgb 13.6 (12.0-16.0) g/dl Hct 40.5 (37.0-47.0) % MCV 93.1 (80.0-98.0) fL MCH 31.3 (27.0-33.0) pg MCHC 33.6 (31.0-35.0) g/dl RDW 12.6 (11.0-16.0) % Plt Count 223 (160-400) X10*3/uL MPV 9.4 (9.4-12.3) fL Immature Gran % (Auto) 0.2 (0.0-0.4) % Neut % (Auto) 58.6 (45-73) % Lymph % (Auto) 30.9 (20-40) % Meagher % (Auto) 6.2 (2-11) % Eos % (Auto) 3.2 (0-4) % Baso % (Auto) 0.9 (0-2) % Lymph # (Auto) 2.0 (1.2-4.9) X10*3/uL Meagher # (Auto) 0.4 (0.1-1.2) X10*3/uL Eos # (Auto) 0.2 (0.0-0.4) X10*3/uL Baso # (Auto) 0.1 (0.0-0.2) X10*3/uL Abs Immat Gran (auto) 0.01 (0.00-0.03) X10*3/uL Absolute Neuts (auto) 3.7 (2.0-8.3) x10*3/uL Absolute Nucleated RBC 0.000 (0.0-0.012) X10*3/uL Nucleated RBC % (auto) 0.0 (0.0-0.2) /100WBC Sodium 143 (135-145) mmol/L Potassium 3.7 (3.3-5.1) mmol/L Chloride 106 (96-108) mmol/L Carbon Dioxide 25 (22-29) mmol/L Anion Gap 16 (12-20) BUN 12 (9-16) mg/dL Creatinine 0.72 (0.5-1.4) mg/dL Estim Creat Clear Calc 75.4 Estimated GFR > 60 Random Glucose 86 (60-115) mg/dL Lactic Acid 0.6 (0.5-2.0) mmol/L Calcium 9.3 D (8.4-10.2) mg/dL Magnesium 1.8 (1.6-2.6) mg/dL Total Bilirubin 0.3 (0.0-1.0) mg/dL Direct Bilirubin < 0.2 (0.0-0.5) mg/dL AST 14 (5-31) U/L ALT 10 (0-31) U/L Alkaline Phosphatase 81 (39-117) U/L Troponin I High Sens (<3.5-17.0) ng/L Total Protein 7.3 (6.5-8.0) g/dL Albumin 4.1 (3.5-5.0) g/dL Lipase 12 (8-78) U/L Beta HCG, Quant < 2 mIU/mL Urine Color Urine Appearance Urine pH (5.0-9.0) Ur Specific [place] (1.005-1.025) Urine Protein (Neg-Trace) mg/dL Urine Glucose (UA) (Negative) mg/dL Urine Ketones (Negative) mg/dL Urine Blood (Negative) Urine Nitrite (Negative) Ur Leukocyte Esterase (Negative) Urine RBC (0-2) /HPF Urine WBC (0-5) /HPF Ur Squamous Epith Cells (0-2) /HPF Calcium Oxalate Crystal Urine Bacteria (None Seen) Hyaline Casts (0-2) /LPF COVID-19 (EIRC) (Negative) COVID-19 Clin Com 05/16/22 05/16/22 05/16/22 Range/Units 17:46 17:46 18:47 WBC (4.8-10.8) X10*3/uL RBC (4.20-5.50) X10*6/uL Hgb (12.0-16.0) g/dl Hct (37.0-47.0) % MCV (80.0-98.0) fL MCH (27.0-33.0) pg MCHC (31.0-35.0) g/dl RDW (11.0-16.0) % Plt Count (160-400) X10*3/uL MPV (9.4-12.3) fL Immature Gran % (Auto) (0.0-0.4) % Neut % (Auto) (45-73) % Lymph % (Auto) (20-40) % Meagher % (Auto) (2-11) % Eos % (Auto) (0-4) % Baso % (Auto) (0-2) % Lymph # (Auto) (1.2-4.9) X10*3/uL Meagher # (Auto) (0.1-1.2) X10*3/uL Eos # (Auto) (0.0-0.4) X10*3/uL Baso # (Auto) (0.0-0.2) X10*3/uL Abs Immat Gran (auto) (0.00-0.03) X10*3/uL Absolute Neuts (auto) (2.0-8.3) x10*3/uL Absolute Nucleated RBC (0.0-0.012) X10*3/uL Nucleated RBC % (auto) (0.0-0.2) /100WBC Sodium (135-145) mmol/L Potassium (3.3-5.1) mmol/L Chloride (96-108) mmol/L Carbon Dioxide (22-29) mmol/L Anion Gap (12-20) BUN (9-16) mg/dL Creatinine (0.5-1.4) mg/dL Estim Creat Clear Calc Estimated GFR Random Glucose (60-115) mg/dL Lactic Acid (0.5-2.0) mmol/L Calcium (8.4-10.2) mg/dL Magnesium (1.6-2.6) mg/dL Total Bilirubin (0.0-1.0) mg/dL Direct Bilirubin (0.0-0.5) mg/dL AST (5-31) U/L ALT (0-31) U/L Alkaline Phosphatase (39-117) U/L Troponin I High Sens < 3.5 (<3.5-17.0) ng/L Total Protein (6.5-8.0) g/dL Albumin (3.5-5.0) g/dL Lipase (8-78) U/L Beta HCG, Quant mIU/mL Urine Color Yellow Urine Appearance Clear Urine pH 5.5 (5.0-9.0) Ur Specific [place] 1.025 (1.005-1.025) Urine Protein Trace (Neg-Trace) mg/dL Urine Glucose (UA) Negative (Negative) mg/dL Urine Ketones Negative (Negative) mg/dL Urine Blood Small (1+) H (Negative) Urine Nitrite Negative (Negative) Ur Leukocyte Esterase Negative (Negative) Urine RBC 3-5 H (0-2) /HPF Urine WBC 0-5 (0-5) /HPF Ur Squamous Epith Cells 0-2 (0-2) /HPF Calcium Oxalate Crystal Present Urine Bacteria None Seen (None Seen) Hyaline Casts 0-2 (0-2) /LPF COVID-19 (ERIC) Negative (Negative) COVID-19 Clin Com See Note <Kimberli Tirado NP - Last Filed: 05/16/22 17:30> Lab Results 05/16/22 05/16/22 05/16/22 Range/Units 17:46 17:46 17:46 WBC 6.3 (4.8-10.8) X10*3/uL RBC 4.35 (4.20-5.50) X10*6/uL Hgb 13.6 (12.0-16.0) g/dl Hct 40.5 (37.0-47.0) % MCV 93.1 (80.0-98.0) fL MCH 31.3 (27.0-33.0) pg MCHC 33.6 (31.0-35.0) g/dl RDW 12.6 (11.0-16.0) % Plt Count 223 (160-400) X10*3/uL MPV 9.4 (9.4-12.3) fL Immature Gran % (Auto) 0.2 (0.0-0.4) % Neut % (Auto) 58.6 (45-73) % Lymph % (Auto) 30.9 (20-40) % Meagher % (Auto) 6.2 (2-11) % Eos % (Auto) 3.2 (0-4) % Baso % (Auto) 0.9 (0-2) % Lymph # (Auto) 2.0 (1.2-4.9) X10*3/uL Meagher # (Auto) 0.4 (0.1-1.2) X10*3/uL Eos # (Auto) 0.2 (0.0-0.4) X10*3/uL Baso # (Auto) 0.1 (0.0-0.2) X10*3/uL Abs Immat Gran (auto) 0.01 (0.00-0.03) X10*3/uL Absolute Neuts (auto) 3.7 (2.0-8.3) x10*3/uL Absolute Nucleated RBC 0.000 (0.0-0.012) X10*3/uL Nucleated RBC % (auto) 0.0 (0.0-0.2) /100WBC Sodium 143 (135-145) mmol/L Potassium 3.7 (3.3-5.1) mmol/L Chloride 106 (96-108) mmol/L Carbon Dioxide 25 (22-29) mmol/L Anion Gap 16 (12-20) BUN 12 (9-16) mg/dL Creatinine 0.72 (0.5-1.4) mg/dL Estim Creat Clear Calc 75.4 Estimated GFR > 60 Random Glucose 86 (60-115) mg/dL Lactic Acid 0.6 (0.5-2.0) mmol/L Calcium 9.3 D (8.4-10.2) mg/dL Magnesium 1.8 (1.6-2.6) mg/dL Total Bilirubin 0.3 (0.0-1.0) mg/dL Direct Bilirubin < 0.2 (0.0-0.5) mg/dL AST 14 (5-31) U/L ALT 10 (0-31) U/L Alkaline Phosphatase 81 (39-117) U/L Troponin I High Sens (<3.5-17.0) ng/L Total Protein 7.3 (6.5-8.0) g/dL Albumin 4.1 (3.5-5.0) g/dL Lipase 12 (8-78) U/L Beta HCG, Quant < 2 mIU/mL Urine Color Urine Appearance Urine pH (5.0-9.0) Ur Specific [place] (1.005-1.025) Urine Protein (Neg-Trace) mg/dL Urine Glucose (UA) (Negative) mg/dL Urine Ketones (Negative) mg/dL Urine Blood (Negative) Urine Nitrite (Negative) Ur Leukocyte Esterase (Negative) Urine RBC (0-2) /HPF Urine WBC (0-5) /HPF Ur Squamous Epith Cells (0-2) /HPF Calcium Oxalate Crystal Urine Bacteria (None Seen) Hyaline Casts (0-2) /LPF COVID-19 (ERIC) (Negative) COVID-19 Clin Com 05/16/22 05/16/22 05/16/22 Range/Units 17:46 17:46 18:47 WBC (4.8-10.8) X10*3/uL RBC (4.20-5.50) X10*6/uL Hgb (12.0-16.0) g/dl Hct (37.0-47.0) % MCV (80.0-98.0) fL MCH (27.0-33.0) pg MCHC (31.0-35.0) g/dl RDW (11.0-16.0) % Plt Count (160-400) X10*3/uL MPV (9.4-12.3) fL Immature Gran % (Auto) (0.0-0.4) % Neut % (Auto) (45-73) % Lymph % (Auto) (20-40) % Meagher % (Auto) (2-11) % Eos % (Auto) (0-4) % Baso % (Auto) (0-2) % Lymph # (Auto) (1.2-4.9) X10*3/uL Meagher # (Auto) (0.1-1.2) X10*3/uL Eos # (Auto) (0.0-0.4) X10*3/uL Baso # (Auto) (0.0-0.2) X10*3/uL Abs Immat Gran (auto) (0.00-0.03) X10*3/uL Absolute Neuts (auto) (2.0-8.3) x10*3/uL Absolute Nucleated RBC (0.0-0.012) X10*3/uL Nucleated RBC % (auto) (0.0-0.2) /100WBC Sodium (135-145) mmol/L Potassium (3.3-5.1) mmol/L Chloride (96-108) mmol/L Carbon Dioxide (22-29) mmol/L Anion Gap (12-20) BUN (9-16) mg/dL Creatinine (0.5-1.4) mg/dL Estim Creat Clear Calc Estimated GFR Random Glucose (60-115) mg/dL Lactic Acid (0.5-2.0) mmol/L Calcium (8.4-10.2) mg/dL Magnesium (1.6-2.6) mg/dL Total Bilirubin (0.0-1.0) mg/dL Direct Bilirubin (0.0-0.5) mg/dL AST (5-31) U/L ALT (0-31) U/L Alkaline Phosphatase (39-117) U/L Troponin I High Sens < 3.5 (<3.5-17.0) ng/L Total Protein (6.5-8.0) g/dL Albumin (3.5-5.0) g/dL Lipase (8-78) U/L Beta HCG, Quant mIU/mL Urine Color Yellow Urine Appearance Clear Urine pH 5.5 (5.0-9.0) Ur Specific [place] 1.025 (1.005-1.025) Urine Protein Trace (Neg-Trace) mg/dL Urine Glucose (UA) Negative (Negative) mg/dL Urine Ketones Negative (Negative) mg/dL Urine Blood Small (1+) H (Negative) Urine Nitrite Negative (Negative) Ur Leukocyte Esterase Negative (Negative) Urine RBC 3-5 H (0-2) /HPF Urine WBC 0-5 (0-5) /HPF Ur Squamous Epith Cells 0-2 (0-2) /HPF Calcium Oxalate Crystal Present Urine Bacteria None Seen (None Seen) Hyaline Casts 0-2 (0-2) /LPF COVID-19 (ERIC) Negative (Negative) COVID-19 Clin Com See Note <VIRGIL Pinon - Last Filed: 05/16/22 21:34> Independent Interpretation I performed an independent interpretation of an: CT Scan <VIRGIL Pinon - Last Filed: 05/16/22 21:34> Radiology Impression Discussion of test interpretation with radiology: I have reviewed the radiologist's reading. <VIRGIL Pinon - Last Filed: 05/16/22 21:34> External Record Review External record reviewed: Inpatient record, Office record, Outpatient record, Prior outpatient labs, Prior outpatient radiology, Primary care record and Outside ED record <VIRGIL Pinon - Last Filed: 05/16/22 21:34> Chronic Conditions Patient?s care impacted by: Other (HIV ) <VIRGIL Pinon - Last Filed: 05/16/22 21:34> Core Measures AMI core measures followed: Yes <VIRGIL Pinon - Last Filed: 05/16/22 21:34> Measure exclusions: not indicated <VIRGIL Pinon - Last Filed: 05/16/22 21:34> Critical Care Time Critical Care Time Critical Care Time: Yes <VIRGIL Pinon - Last Filed: 05/16/22 21:34> Total Critical Care Time: 35 <VIRGIL Pinon - Last Filed: 05/16/22 21:34> Attestation: Educated patient on diagnosis and treatment plan, answered all question, patient verbalizes understanding. At this time patient will be discharged home, advised to return with new or worsening symptoms. Educated on worrisome signs and symptoms and when to return. At this time I feel comfortable discharge home. <VIRGIL Pinon - Last Filed: 05/16/22 21:34> Discharge Plan Discharge Clinical Impression: Cystitis, Abdominal pain, Chest discomfort <Kimberli Tirado NP - Last Filed: 05/16/22 17:30> Patient Disposition: Home, Self-Care <Kimberli Tirado NP - Last Filed: 05/16/22 17:30> Instructions: Urinary Tract Infection in Women (ED), Abdominal Pain (ED) <Kimberli Tirado NP - Last Filed: 05/16/22 17:30> Additional Instructions: Take your medications as prescribed. If you were prescribed antibiotics today, it is important that you take your medication to their entirety, do not skip any doses, do not finish them early. Follow-up with your primary care provider this week. Follow-up with Infectious Disease and cardiology within a week Return to the emergency department with new or worsening symptoms. Such as fevers, chills, chest pain, shortness of breath, nausea, vomiting, dizziness, headache, vision changes, lethargy In case of emergency call 911 <Kimberli Tirado NP - Last Filed: 05/16/22 17:30> Prescriptions: New fosfomycin tromethamine 3 gram packet 1 packet PO Q OTHER DAY Qty: 3 0RF No Action ibuprofen 600 mg tablet 600 mg PO Q6H PRN (Reason: fever) Qty: 14 0RF clonidine HCl 0.1 mg tablet 1 tab PO BEDTIME valacyclovir 1 gram tablet 1 tab PO DAILY hydroxyzine HCl 50 mg tablet 1 tab PO BID trazodone 100 mg tablet 2 tab PO BEDTIME PRN (Reason: Sleep) omeprazole 20 mg capsule,delayed release(DR/EC) 1 cap PO DAILY@0630 zolpidem 5 mg tablet 1 tab PO BEDTIME PRN (Reason: Sleep) albuterol sulfate [Ventolin HFA] 90 mcg/actuation HFA aerosol inhaler 2 puff INHALATION Q4-6H PRN (Reason: Wheezing) fluoxetine 20 mg capsule 2 cap PO DAILY diazepam 5 mg tablet 1 tab PO TID PRN (Reason: Anxiety) Myrbetriq 50 mg tablet extended release 24 hr 1 tab PO DAILY Stiolto Respimat 2.5-2.5 mcg/actuation mist 1 puff inhalation DAILY Biktarvy 50-200-25 mg tablet 1 tab PO DAILY Emgality Syringe 120 mg/mL syringe 120 mg subcut Q28D multivitamin Tablet 1 tab PO DAILY vitamin E 268 mg (400 unit) Capsule 268 mg PO DAILY fluticasone propionate [Flonase Allergy Relief] 50 mcg/actuation spray,suspension 2 spray intranasal DAILY PRN (Reason: Allergic Symptoms) Rx Instructions: administer into each nostril methenamine hippurate 1 gram tablet 1 g PO BID 30 Days Qty: 60 0RF <Kimberli Tirado NP - Last Filed: 05/16/22 17:30> [place] [facility] [place] Group] - 1 day Demetris Cast III, MD [Primary Care Provider] - 2 days <Kimberli Tirado NP - Last Filed: 05/16/22 17:30> Stand Alone Forms: Work/School Release <Kimberli Tirado NP - Last Filed: 05/16/22 17:30> Interventions: ED Discharge Assessment Last Done: 05/16/22 21:32 <Kimberli Tirado NP - Last Filed: 05/16/22 17:30> Discharge Date/Time: 05/16/22 21:33 <Kimberli Tirado NP - Last Filed: 05/16/22 17:30>
--- NOTE | 2022-05-16 17:29 | ECG_ITS ---
Test Reason : CHEST PAIN Blood Pressure : / mmHG Vent. Rate : 076 BPM Atrial Rate : 076 BPM P-R Int : 138 ms QRS Dur : 074 ms QT Int : 378 ms P-R-T Axes : 053 046 027 degrees QTc Int : 425 ms Normal sinus rhythm Normal ECG When compared with ECG of 24-APR-2022 11:34, No significant change was found Referred By: Kimberli Tirado Electronically Signed By:Rafa Olivo
[2022-05-16 17:55] LABS: MANUAL DIFF FLAG NO
[2022-05-16 17:57] LABS: Basophils Absolute Auto 0.1 X10*3/uL (0.0-0.2); Basophils Percent Auto 0.9 % (0-2); Eosinophils Absolute Auto 0.2 X10*3/uL (0.0-0.4); Eosinophils Percent Auto 3.2 % (0-4); Hematocrit 40.5 % (37.0-47.0); Hemoglobin 13.6 g/dl (12.0-16.0); Imm Gran Abs Auto 0.01 X10*3/uL (0.00-0.03); Imm Gran Pct Auto 0.2 % (0.0-0.4); Lymphocytes Percent Auto 30.9 % (20-40); Mean Corpuscular HGB Conc 33.6 g/dl (31.0-35.0); Mean Corpuscular Hemoglobin 31.3 pg (27.0-33.0); Mean Corpuscular Volume 93.1 fL (80.0-98.0); Mean Platelet Volume 9.4 fL (9.4-12.3); Monocytes Absolute Auto 0.4 X10*3/uL (0.1-1.2); Monocytes Percent Auto 6.2 % (2-11); Neutrophils Absolute Auto 3.7 x10*3/uL (2.0-8.3); Neutrophils Percent Auto 58.6 % (45-73); Platelet Count 223 X10*3/uL (160-400); Red Blood Count 4.35 X10*6/uL (4.20-5.50); Red Cell Distribution Width 12.6 % (11.0-16.0); White Blood Count 6.3 X10*3/uL (4.8-10.8)
[2022-05-16 18:09] LABS: Lactic Acid 0.6 mmol/L (0.5-2.0)
[2022-05-16 18:13] LABS: Alanine Aminotransferase 10 U/L (0-31); Albumin Level 4.1 g/dL (3.5-5.0); Alkaline Phosphatase 81 U/L (39-117); Anion Gap 16 (12-20); Aspartate Amino Transferase 14 U/L (5-31); Bilirubin Direct < 0.2 mg/dL (0.0-0.5); Bilirubin Total 0.3 mg/dL (0.0-1.0); Blood Urea Nitrogen 12 mg/dL (9-16); Calcium 9.3 mg/dL (8.4-10.2); Carbon Dioxide 25 mmol/L (22-29); Chloride 106 mmol/L (96-108); Creatinine Clr Calc Pharmacy 75.4; Estimated Glomerular Filt Rate > 60; Glucose Random 86 mg/dL (60-115); Magnesium 1.8 mg/dL (1.6-2.6); Potassium 3.7 mmol/L (3.3-5.1); Sodium 143 mmol/L (135-145); Total Protein 7.3 g/dL (6.5-8.0)
[2022-05-16 18:15] LABS: COVID-19 Test Negative (Negative); IDNOW Serial# 6674DD1D
[2022-05-16 18:28] LABS: Troponin-I High Sensitivity < 3.5 ng/L (<3.5-17.0)
[2022-05-16 18:54] LABS: Appearance Urine Clear; Color Urine Yellow; Glucose Urine UA Negative (Negative); Leukocyte Esterase Urine Negative (Negative); Nitrite Urine Negative (Negative); PH 5.5 (5.0-9.0); Specific Gravity - Urine 1.025 (1.005-1.025); UMIC TRIGGER UACC YES; Urine Blood Small (1+) (Negative); Urine Ketones Negative (Negative); Urine Protein Trace mg/dL (Neg-Trace)
[2022-05-16 19:10] LABS: Bacteria Urine None Seen (None Seen); Calcium Oxalate Crystals Urine Present; Hyaline Casts Urine 0-2 /LPF (0-2); Squamous Epithelial Cell Urine 0-2 /HPF (0-2); WBC Urine 0-5 /HPF (0-5)
[2022-05-16 19:27] VITALS: BP 147/78; PULSE 72; RESP 16; TEMP 36.8; O2SAT 98
[2022-05-16 19:56] LABS: Lipase 12 U/L (8-78)
[2022-05-16 19:59] LABS: HCG Quantitative < 2 mIU/mL
== END 2022-05-16 21:33 | disposition home or self-care (01) ==
PROVIDERS: Nurse Practitioner Family; Physician Assistant; Emergency Provider Emergency Medicine; PCP Internal Medicine
DX: N39.0 Urinary tract infection, site not specified (principal); R07.89 Other chest pain; Z20.822 Contact with and (suspected) exposure to COVID-19; Z20.828 Contact with and (suspected) exposure to other viral communicable diseases; Z79.899 Other long term (current) drug therapy
CPT/HCPCS: 71046; 74176; 80048; 80076; 81001; 81003; 83605; 83690; 83735; 84484; 84702; 85025; 87040; 87635; 93005; 99284

== ENCOUNTER 2022-05-27 12:14 | Outpatient (REF) | payer MEDICARE, MEDICAID, SELFPAY | END 2022-05-27 12:15 | disposition home or self-care (01) | LOC: HO.LNP 12:14 | PROVIDERS: PCP Internal Medicine; Visit Provider Obstetrics & Gynecology | DX: D07.1 Carcinoma in situ of vulva (principal); N89.0 Mild vaginal dysplasia | CPT/HCPCS: 57421; 88305; 88312; 88342; 88360; 99212 ==

== ENCOUNTER 2022-05-29 15:40 | Inpatient (IN) | payer MEDICARE, MEDICAID, SELFPAY ==
--- NOTE | ~2022-05-29 | US_ITS ---
EXAMINATION: US ABDOMEN LIMITED CLINICAL INFORMATION: Right upper quadrant pain. Elevated LFTs. COMPARISON: CT abdomen pelvis 05/29/2022 TECHNIQUE: Real-time imaging of the right upper quadrant abdominal viscera. Color Doppler exam used. FINDINGS: PANCREAS: Normal. LIVER: There is slight prominence of the intrahepatic bile ducts left lobe. The liver is normal in size. The liver contour is normal. Parenchymal echogenicity is normal. No focal hepatic lesion. GALLBLADDER: Status post cholecystectomy COMMON BILE DUCT: Normal in caliber measuring 0.6 cm in diameter. RIGHT KIDNEY: Normal. No hydronephrosis. No renal calculi or focal parenchymal lesions. The kidney measures 10.3 cm in maximum dimension. FREE FLUID: None. US/US abdomen limited IMPRESSION: 1. No acute abnormality. Status post cholecystectomy.
--- NOTE | ~2022-05-29 | CT_ITS ---
EXAMINATION: CT ABDOMEN AND PELVIS WITH CONTRAST CLINICAL INFORMATION: Abdominal pain, prior surgery. Rule out obstruction. COMPARISON: CT abdomen pelvis 05/16/2022 TECHNIQUE: Multidetector volumetric images were obtained from the superior aspect of the liver through the pubic symphysis following administration 85 mL of Omnipaque 350 intravenous contrast. Sagittal and coronal reformatted images were obtained on the technologist's workstation. Oral contrast: No This CT examination was performed using dose optimization techniques as appropriate, variously including the following: *Automated exposure control *Adjustment of mA and/or kV according to patient size (this includes techniques or standardized protocols for targeted exams where dose is matched to indication/reason for exam; i.e. extremities or head) *Use of iterative reconstruction technique DLP: 432 mGy-cm FINDINGS: LUNG BASES: Trace bibasilar pleural fluid and mild dependent atelectasis. Bilateral breast implants noted. LIVER, GALLBLADDER, AND BILIARY TREE: The liver is mildly enlarged measuring 17.3 cm in craniocaudal dimension. No liver lesion. Normal hepatic attenuation. No focal hepatic lesion or biliary ductal dilatation is present. Gallbladder is absent. PANCREAS: Unremarkable. SPLEEN: Normal size. Small calcified splenic granuloma. ADRENAL GLANDS: Unremarkable. KIDNEYS AND URETERS: The kidneys are normal in size, shape, and attenuation. No hydronephrosis, hydroureter, or calculi seen. No perinephric stranding. BLADDER: Unremarkable. GASTROINTESTINAL TRACT: Probable small hiatal hernia. Status post subtotal colectomy with ileorectal anastomosis. A mildly patulous/distended air-filled loop of small bowel in the right lower quadrant series 3 image 45, nonspecific. No other dilated bowel loops to suggest obstruction. No bowel wall thickening. No free air or ascites. ABDOMINAL WALL: No hernia identified. Small bubbles of soft tissue gas in the ventral left lower abdominal wall consistent with injection site. Correlate clinically. LYMPH NODES: No lymphadenopathy. VASCULAR: Normal caliber abdominal aorta. Mild vascular calcifications. PELVIC VISCERA: Status post hysterectomy. OSSEOUS STRUCTURES: No fracture or suspicious osseous lesion. Mild disc degenerative change at L5-S1. CT/CT abdomen pelvis w IV con IMPRESSION: 1. Status post subtotal colectomy with ileorectal anastomosis. No evidence of bowel obstruction or other acute intra-abdominal process. 2. Mild hepatomegaly. 3. Trace bibasilar pleural fluid and mild bibasilar atelectasis.
--- NOTE | ~2022-05-29 | XR_ITS ---
EXAMINATION: XR chest 2V CLINICAL INFORMATION: Reason for Exam Cough COMPARISON: Chest radiograph 05/16/2019 TECHNIQUE: 2 views of the chest FINDINGS: Mild bronchial wall thickening. Trace bilateral pleural effusions. No pneumothorax. Normal cardiomediastinal silhouette. XR/XR chest 2V IMPRESSION: Bronchial wall thickening can be seen with a small airways process such as asthma or atypical/viral infection. Trace bilateral pleural effusions.
--- NOTE | ~2022-05-29 | CT_ITS ---
EXAMINATION: CT ABDOMEN AND PELVIS WITH CONTRAST CLINICAL INFORMATION: Abdominal pain. COMPARISON: None TECHNIQUE: Multidetector volumetric images were obtained from the superior aspect of the liver through the pubic symphysis following administration 85 mL of Omnipaque 350 intravenous contrast. Sagittal and coronal reformatted images were obtained on the technologist's workstation. Oral contrast: No This CT examination was performed using dose optimization techniques as appropriate, variously including the following: *Automated exposure control *Adjustment of mA and/or kV according to patient size (this includes techniques or standardized protocols for targeted exams where dose is matched to indication/reason for exam; i.e. extremities or head) *Use of iterative reconstruction technique DLP: 4.5 mGy-cm FINDINGS: LUNG BASES: There is mild to moderate bibasilar dependent atelectasis. LIVER, GALLBLADDER, AND BILIARY TREE: The liver is normal in size, shape, and attenuation. No focal hepatic lesion or biliary ductal dilatation is present. The gallbladder is surgically absent. PANCREAS: Unremarkable. SPLEEN: No splenomegaly. A small benign, calcified granuloma is incidentally noted. ADRENAL GLANDS: Unremarkable. KIDNEYS AND URETERS: The kidneys are normal in size, shape, and attenuation. No hydronephrosis, hydroureter, or calculi seen. No perinephric stranding. BLADDER: Unremarkable. GASTROINTESTINAL TRACT: There has been a prior subtotal colectomy, with patent ileorectal anastomosis. The post anastomotic rectal segment is somewhat patulous. No obstruction, free intraperitoneal air or abscess is seen. There is no focal bowel wall thickening. ABDOMINAL WALL: No significant hernia is appreciated. LYMPH NODES: Normal. VASCULAR: There is mild aortoiliac atherosclerotic calcification. No abdominal aortic aneurysm or dissection is seen. PELVIC VISCERA: Surgically absent. No pelvic mass, free fluid or lymphadenopathy is seen. OSSEOUS STRUCTURES: There is moderately severe degenerative disc disease at L5-S1, with vacuum disc phenomenon. No acute or aggressive osseous abnormality is seen. CT/CT abdomen pelvis w IV con IMPRESSION: 1. There are postoperative changes consistent with a prior subtotal colectomy. The ileorectal anastomosis is patent and somewhat patulous. No obstruction, free intraperitoneal air or abscess is seen. 2. No urinary calculus or obstructive uropathy is seen. 3. There is no abdominopelvic mass, free fluid or lymphadenopathy. 4. There is moderately severe degenerative disease at L5-S1. Fleischner guidelines were followed.
[2022-05-29 15:51] VITALS: BP 112/67; BP 126/72; PULSE 70; RESP 16; TEMP 37.4; O2SAT 96; O2SAT 97; BMI 28.1
--- NOTE | 2022-05-29 16:33 | ED.GENADULT ---
HPI - General Adult General Chief complaint: General Medical <VIRGIL Pederson - Last Filed: 05/29/22 19:21> Stated complaint: Tingling/Weakness for two weeks <VIRGIL Pederson - Last Filed: 05/29/22 19:21> Time Seen by Provider: 05/29/22 16:22 <VIRGIL Pederson - Last Filed: 05/29/22 19:21> History of Present Illness HPI narrative: Patient complains of abdominal and back pain starting today, pain is mostly in the right lower abdomen, no vomiting no diarrhea She also complains of of tingling in all extremities <VIRGIL Pederson - Last Filed: 05/29/22 19:21> Related Data Home medications: Home Medications Medication Instructions Recorded Confirmed albuterol sulfate 90 mcg/actuation 2 puff inhalation Q4-6H PRN 04/23/22 04/23/22 aerosol inhaler (Ventolin HFA) Wheezing bictegravir 50 mg-emtricitabine 1 tab PO DAILY 04/23/22 04/23/22 200 mg-tenofovir alafenam 25 mg tablet (Biktarvy) clonidine HCl 0.1 mg tablet 1 tab PO BEDTIME 04/23/22 04/23/22 diazepam 5 mg tablet 1 tab PO TID PRN Anxiety 04/23/22 04/23/22 fluoxetine 20 mg capsule 2 cap PO DAILY 04/23/22 04/23/22 fluticasone propionate 50 2 spray intranasal DAILY PRN 04/23/22 04/23/22 mcg/actuation nasal Allergic Symptoms spray,suspension (Flonase Allergy Relief) galcanezumab-gnlm 120 mg/mL 120 mg subcut Q28D 04/23/22 04/23/22 subcutaneous syringe (Emgality) hydroxyzine HCl 50 mg tablet 1 tab PO BID 04/23/22 04/23/22 mirabegron 50 mg tablet,extended 1 tab PO DAILY 04/23/22 04/23/22 release 24 hr (Myrbetriq) multivitamin 1 tab PO DAILY 04/23/22 04/23/22 omeprazole 20 mg capsule,delayed 1 cap PO DAILY@0630 04/23/22 04/23/22 release tiotropium 2.5 mcg-olodaterol 2.5 1 puff inhalation DAILY 04/23/22 04/23/22 mcg/actuation mist for inhalation (Stiolto Respimat) trazodone 100 mg tablet 2 tab PO BEDTIME PRN Sleep 04/23/22 04/23/22 valacyclovir 1 gram tablet 1 tab PO DAILY 04/23/22 04/23/22 vitamin E 268 mg (400 unit) capsule 268 mg PO DAILY 04/23/22 04/23/22 zolpidem 5 mg tablet 1 tab PO BEDTIME PRN Sleep 04/23/22 04/23/22 Previous Rx's Medication Instructions Recorded ibuprofen 600 mg tablet 600 mg PO Q6H PRN fever #14 tabs 01/09/22 methenamine hippurate 1 gram tablet 1 g PO BID 30 days #60 tabs 05/07/22 fosfomycin tromethamine 3 gram 1 packet PO Q OTHER DAY 3 doses #3 05/16/22 oral packet ea <VIRGIL Pederson - Last Filed: 05/29/22 19:21> Allergies/adverse reactions: Allergies Allergy/AdvReac Type Severity Reaction Status Date / Time tramadol [Tramadol] Allergy Mild HEADACHE Verified 05/27/22 12:28 bee pollen [BEE STINGS] Allergy Unknown UNKNOWN Verified 05/27/22 12:28 tapentadol [TAPENTADOL] Allergy Unknown UNKNOWN Verified 05/27/22 12:28 gabapentin Allergy Hallucinati Verified 05/27/22 12:28 ons adhesive tape [ADHESIVE TAPE] AdvReac Unknown MY SKIN Verified 05/27/22 12:28 RIPS OFF ADHESIVE BANDAGE AdvReac Unknown MY SKIN Uncoded 05/27/22 12:28 RIPS OFF <VIRGIL Pederson - Last Filed: 05/29/22 19:21> Review of Systems Review of Systems: Positive for abdominal pain back pain and tingling in extremities, as well as a new cough for 3 days Negatives no fever or chills, no headache no stiff neck no difficulty breathing or swallowing no chest pain no shortness of breath, no vomiting no diarrhea no dysuria no changes to bowel or bladder no skin rash no leg swelling no muscle weakness no loss of sensation <VIRGIL Pederson - Last Filed: 05/29/22 19:21> Yes all other systems are reviewed and are negative <VIRGIL Pederson - Last Filed: 05/29/22 19:21> PMFSH Past Medical History Source: nursing notes reviewed <VIRGIL Pederson - Last Filed: 05/29/22 19:21> Medical History: Medical History Anxiety Asthma HIV (human immunodeficiency virus infection) <VIRGIL Pederson - Last Filed: 05/29/22 19:21> Surgical History: Surgical History H/O: hysterectomy <VIRGIL Pederson - Last Filed: 05/29/22 19:21> Family History Family History: Family History Paternal Grandmother Breast CA <VIRGIL Pederson - Last Filed: 05/29/22 19:21> Social History Social History: Social History Household Members: Other Housing: House Do you presently have visiting nurse or other home services: No Alcohol intake: never Patient Tobacco Use Status: Never used Tobacco Smoked in Last 30 Days: No Second Hand Smoke Exposure: No Use of substances other than those prescribed or required for medical reasons: No Advance Directives: Yes Advance Directives on File: Yes Advance Directives Date on File: 04/24/22 Patient : No service: No Current occupational status: disabled <VIRGIL Pederson - Last Filed: 05/29/22 19:21> Physical Exam ED Vital Signs: Vital Signs - 24 hr 05/29/22 15:51 05/29/22 17:50 05/29/22 18:47 Temperature 99.4 F Pulse Rate 70 78 70 Respiratory Rate 16 18 13 Blood Pressure 126/72 117/81 125/76 Pulse Oximetry 97 96 94 Oxygen Delivery Method Room Air Room Air Room Air 05/29/22 19:11 Temperature 98.7 F Pulse Rate 70 Respiratory Rate 15 Blood Pressure 107/37 L Pulse Oximetry 92 Oxygen Delivery Method Room Air BMI result Body Mass Index 28.1 <VIRGIL Pederson - Last Filed: 05/29/22 19:21> Vital Signs - 24 hr 05/29/22 15:51 05/29/22 17:50 05/29/22 18:47 Temperature 99.4 F Pulse Rate 70 78 70 Respiratory Rate 16 18 13 Blood Pressure 126/72 117/81 125/76 Pulse Oximetry 97 96 94 Oxygen Delivery Method Room Air Room Air Room Air 05/29/22 19:11 Temperature 98.7 F Pulse Rate 70 Respiratory Rate 15 Blood Pressure 107/37 L Pulse Oximetry 92 Oxygen Delivery Method Room Air BMI result Body Mass Index 28.1 <VIRGIL Pinon - Last Filed: 05/29/22 21:54> General appearance is no acute distress The eyes anicteric no pallor The pharynx there is no redness swelling or exudate, mucous membranes are moist Neck is supple Chest clear to auscultation bilateral with full symmetric equal breath sounds Heart no murmur The abdomen did have diffuse mild tenderness, and worse tenderness was in the right lower abdomen, no rebound no guarding Extremities is full range of motion x4 Motor is 5/5 x4, sensation is intact and symmetrical in extremities, cranial nerves 2-12 intact as tested, no facial asymmetry no drooling, interaction comprehension and expression are normal, cerebellar exam is normal <VIRGIL Pederson - Last Filed: 05/29/22 19:21> Course Course Course Narrative: Platelets are 133, white count was 3.5, no other significant abnormality on CBC On chemistries AST was 1 await ALT was 132 ALP was 152, troponin was less than 3.5, normal EKG was a normal sinus rhythm with a rate of 71, there were inverted T-waves in V2 and V3, which are similar to prior previous 2 EKGs which did show flattening of T-waves in these leads Intervals were normal, no acute ST changes, no acute ischemic changes Chest x-ray showed bronchial wall thickening possible in viral infection and trace bilateral pleural effusions Patient was positive on serology for COVID, and her symptoms did start coincidence with the back pain and the abdominal pains Initially the patient was feeling lots of tingling in fingertips and was very anxious and experiencing moderate to severe pain in her abdomen and back After administration of morphine 4 mg her pain was relieved her tingling was relieved and her anxiety was relieved when she was given a mg of Ativan When I spoke to the patient again she made it clear she has no chest pain never had chest pain, she did have a new cough over past few days, no difficulty breathing and she was better able to localize the pain into the right side of her lower abdomen when I repeated an abdominal exam which showed tenderness only in the lower right to mid abdomen Her tingling seems to resolve with the Ativan, and may have been from anxiety when she was in pain, she had no associated neurologic deficit CT was pending when I left at 19:00 and case was signed out to physician medical office assistant instructor clem, to follow CT, to check urinalysis results and re-evaluate and dispo the patient <VIRGIL Pederson - Last Filed: 05/29/22 19:21> Reevaluation(s) Reevaluation #1: UA without infection. Chest x-ray with bronchial wall thickening however patient without upper respiratory complaints. CT of the abdomen and pelvis status post subtotal colectomy with ileorectal anastomosis. Trace bibasilar pleural fluid in mild bibasilar atelectasis. Patient without respiratory complaints. Patient ambulatory without difficulty normal coordination, no saddle paresthesias unlikely cauda equina. This abdominal pain appears to be chronic in nature patient has been seen multiple times for the same thing, last seen on 05/16/2022 complaining of lower abdominal cramping with nausea, vomiting, poor p.o. intake. Patient will be discharged home with Zofran. US pending. <VIRGIL Pinon - Last Filed: 05/29/22 21:54> Time: 21: <VIRGIL Pinon - Last Filed: 05/29/22 21:54> Reevaluation #2: Ultrasound of right upper quadrant unremarkable. I did speak to patient explained to her that her workup did not show any acute findings. Patient very anxious, nervous, tells me she does not think she can go home. She tells me she is in pain and she cannot take care herself she tells me that she cant even shower at home due to weakness. On my exam there is global weakness but no focal neuro deficits. <VIRGIL Pinon - Last Filed: 05/29/22 21:54> Time: 21:53 <VIRGIL Pinon - Last Filed: 05/29/22 21:54> Medications Administered Discontinued Medications Generic Name Dose Route Start Last Admin Trade Name Freq PRN Reason Stop Dose Admin Iohexol 100 ml 05/29/22 19:51 05/29/22 19:51 Iohexol 350 Mg/Ml 100 Ml Infus..Btl IV 05/29/22 19:52 85 ml ONCE ONE Administration Lorazepam 1 mg 05/29/22 17:34 05/29/22 17:43 Lorazepam 2 Mg/Ml Vial IVPUSH 05/29/22 17:35 1 mg ONCE ONE Administration Morphine Sulfate 4 mg 05/29/22 17:34 05/29/22 17:45 Morphine Sulfate 4 Mg/Ml Cartridge IVPUSH 05/29/22 17:35 4 mg ONCE ONE Administration Protocol Morphine Sulfate 2 mg 05/29/22 20:31 05/29/22 20:54 Morphine Sulfate 2 Mg/Ml Cartridge IVPUSH 05/29/22 20:32 2 mg ONCE ONE Administration Protocol <VIRGIL Pederson - Last Filed: 05/29/22 19:21> Medications Administered Discontinued Medications Generic Name Dose Route Start Last Admin Trade Name Freq PRN Reason Stop Dose Admin Iohexol 100 ml 05/29/22 19:51 05/29/22 19:51 Iohexol 350 Mg/Ml 100 Ml Infus..Btl IV 05/29/22 19:52 85 ml ONCE ONE Administration Lorazepam 1 mg 05/29/22 17:34 05/29/22 17:43 Lorazepam 2 Mg/Ml Vial IVPUSH 05/29/22 17:35 1 mg ONCE ONE Administration Morphine Sulfate 4 mg 05/29/22 17:34 05/29/22 17:45 Morphine Sulfate 4 Mg/Ml Cartridge IVPUSH 05/29/22 17:35 4 mg ONCE ONE Administration Protocol Morphine Sulfate 2 mg 05/29/22 20:31 05/29/22 20:54 Morphine Sulfate 2 Mg/Ml Cartridge IVPUSH 05/29/22 20:32 2 mg ONCE ONE Administration Protocol <VIRGIL Pinon - Last Filed: 05/29/22 21:54> Medical Decision Making Lab Data Result Diagrams: 05/29/22 17:06 05/29/22 17:06 <VIRGIL Pederson - Last Filed: 05/29/22 19:21> Labs: Lab Results 05/29/22 05/29/22 05/29/22 Range/Units 17:06 17:06 17:06 WBC 3.5 L (4.8-10.8) X10*3/uL RBC 4.25 (4.20-5.50) X10*6/uL Hgb 13.2 (12.0-16.0) g/dl Hct 38.2 (37.0-47.0) % MCV 89.9 (80.0-98.0) fL MCH 31.1 (27.0-33.0) pg MCHC 34.6 (31.0-35.0) g/dl RDW 12.7 (11.0-16.0) % Plt Count 133 L D (160-400) X10*3/uL MPV 9.7 (9.4-12.3) fL Immature Gran % (Auto) 0.3 (0.0-0.4) % Neut % (Auto) 54.5 (45-73) % Lymph % (Auto) 33.8 (20-40) % [place] % (Auto) 10.8 (2-11) % Eos % (Auto) 0.0 (0-4) % Baso % (Auto) 0.6 (0-2) % Lymph # (Auto) 1.2 (1.2-4.9) X10*3/uL [place] # (Auto) 0.4 (0.1-1.2) X10*3/uL Eos # (Auto) 0.0 (0.0-0.4) X10*3/uL Baso # (Auto) 0.0 (0.0-0.2) X10*3/uL Abs Immat Gran (auto) 0.01 (0.00-0.03) X10*3/uL Absolute Neuts (auto) 1.9 L (2.0-8.3) x10*3/uL Absolute Nucleated RBC 0.000 (0.0-0.012) X10*3/uL Nucleated RBC % (auto) 0.0 (0.0-0.2) /100WBC Sodium 138 (135-145) mmol/L Potassium 3.4 (3.3-5.1) mmol/L Chloride 104 (96-108) mmol/L Carbon Dioxide 24 (22-29) mmol/L Anion Gap 13 (12-20) BUN 9 (9-16) mg/dL Creatinine 0.73 (0.5-1.4) mg/dL Estim Creat Clear Calc 77.8 Estimated GFR > 60 Random Glucose 69 (60-115) mg/dL Calcium 8.3 L D (8.4-10.2) mg/dL Total Bilirubin 0.2 (0.0-1.0) mg/dL Direct Bilirubin < 0.2 (0.0-0.5) mg/dL AST 108 H (5-31) U/L ALT 132 H (0-31) U/L Alkaline Phosphatase 152 H (39-117) U/L Troponin I High Sens < 3.5 (<3.5-17.0) ng/L Total Protein 6.3 L (6.5-8.0) g/dL Albumin 3.7 (3.5-5.0) g/dL Lipase 12 (8-78) U/L Urine Color Urine Appearance Urine pH (5.0-9.0) Ur Specific [place] (1.005-1.025) Urine Protein (Neg-Trace) mg/dL Urine Glucose (UA) (Negative) mg/dL Urine Ketones (Negative) mg/dL Urine Blood (Negative) Urine Nitrite (Negative) Ur Leukocyte Esterase (Negative) Urine RBC (0-2) /HPF Urine WBC (0-5) /HPF Ur Squamous Epith Cells (0-2) /HPF Urine Bacteria (None Seen) Hyaline Casts (0-2) /LPF Urine Test (NEGATIVE) Influenza Type A (PCR) (Negative) Influenza Type B (PCR) (Negative) RSV RNA Qual (PCR) (Negative) SARS-CoV-2 RNA (RT-PCR) (Negative) 05/29/22 05/29/22 05/29/22 Range/Units 17:08 19:59 19:59 WBC (4.8-10.8) X10*3/uL RBC (4.20-5.50) X10*6/uL Hgb (12.0-16.0) g/dl Hct (37.0-47.0) % MCV (80.0-98.0) fL MCH (27.0-33.0) pg MCHC (31.0-35.0) g/dl RDW (11.0-16.0) % Plt Count (160-400) X10*3/uL MPV (9.4-12.3) fL Immature Gran % (Auto) (0.0-0.4) % Neut % (Auto) (45-73) % Lymph % (Auto) (20-40) % [place] % (Auto) (2-11) % Eos % (Auto) (0-4) % Baso % (Auto) (0-2) % Lymph # (Auto) (1.2-4.9) X10*3/uL [place] # (Auto) (0.1-1.2) X10*3/uL Eos # (Auto) (0.0-0.4) X10*3/uL Baso # (Auto) (0.0-0.2) X10*3/uL Abs Immat Gran (auto) (0.00-0.03) X10*3/uL Absolute Neuts (auto) (2.0-8.3) x10*3/uL Absolute Nucleated RBC (0.0-0.012) X10*3/uL Nucleated RBC % (auto) (0.0-0.2) /100WBC Sodium (135-145) mmol/L Potassium (3.3-5.1) mmol/L Chloride (96-108) mmol/L Carbon Dioxide (22-29) mmol/L Anion Gap (12-20) BUN (9-16) mg/dL Creatinine (0.5-1.4) mg/dL Estim Creat Clear Calc Estimated GFR Random Glucose (60-115) mg/dL Calcium (8.4-10.2) mg/dL Total Bilirubin (0.0-1.0) mg/dL Direct Bilirubin (0.0-0.5) mg/dL AST (5-31) U/L ALT (0-31) U/L Alkaline Phosphatase (39-117) U/L Troponin I High Sens (<3.5-17.0) ng/L Total Protein (6.5-8.0) g/dL Albumin (3.5-5.0) g/dL Lipase (8-78) U/L Urine Color Yellow Urine Appearance Clear Urine pH 6.0 (5.0-9.0) Ur Specific [place] 1.020 (1.005-1.025) Urine Protein 30 (1+) H (Neg-Trace) mg/dL Urine Glucose (UA) Negative (Negative) mg/dL Urine Ketones >=160 (Negative) mg/dL Urine Blood Small (1+) H (Negative) Urine Nitrite Negative (Negative) Ur Leukocyte Esterase Small (1+) H (Negative) Urine RBC 6-10 H (0-2) /HPF Urine WBC 21-50 H (0-5) /HPF Ur Squamous Epith Cells 3-5 (0-2) /HPF Urine Bacteria None Seen (None Seen) Hyaline Casts 0-2 (0-2) /LPF Urine Test NEGATIVE (NEGATIVE) Influenza Type A (PCR) NEGATIVE (Negative) Influenza Type B (PCR) NEGATIVE (Negative) RSV RNA Qual (PCR) NEGATIVE (Negative) SARS-CoV-2 RNA (RT-PCR) POSITIVE A (Negative) <VIRGIL Pederson - Last Filed: 05/29/22 19:21> Lab Results 05/29/22 05/29/22 05/29/22 Range/Units 17:06 17:06 17:06 WBC 3.5 L (4.8-10.8) X10*3/uL RBC 4.25 (4.20-5.50) X10*6/uL Hgb 13.2 (12.0-16.0) g/dl Hct 38.2 (37.0-47.0) % MCV 89.9 (80.0-98.0) fL MCH 31.1 (27.0-33.0) pg MCHC 34.6 (31.0-35.0) g/dl RDW 12.7 (11.0-16.0) % Plt Count 133 L D (160-400) X10*3/uL MPV 9.7 (9.4-12.3) fL Immature Gran % (Auto) 0.3 (0.0-0.4) % Neut % (Auto) 54.5 (45-73) % Lymph % (Auto) 33.8 (20-40) % [place] % (Auto) 10.8 (2-11) % Eos % (Auto) 0.0 (0-4) % Baso % (Auto) 0.6 (0-2) % Lymph # (Auto) 1.2 (1.2-4.9) X10*3/uL [place] # (Auto) 0.4 (0.1-1.2) X10*3/uL Eos # (Auto) 0.0 (0.0-0.4) X10*3/uL Baso # (Auto) 0.0 (0.0-0.2) X10*3/uL Abs Immat Gran (auto) 0.01 (0.00-0.03) X10*3/uL Absolute Neuts (auto) 1.9 L (2.0-8.3) x10*3/uL Absolute Nucleated RBC 0.000 (0.0-0.012) X10*3/uL Nucleated RBC % (auto) 0.0 (0.0-0.2) /100WBC Sodium 138 (135-145) mmol/L Potassium 3.4 (3.3-5.1) mmol/L Chloride 104 (96-108) mmol/L Carbon Dioxide 24 (22-29) mmol/L Anion Gap 13 (12-20) BUN 9 (9-16) mg/dL Creatinine 0.73 (0.5-1.4) mg/dL Estim Creat Clear Calc 77.8 Estimated GFR > 60 Random Glucose 69 (60-115) mg/dL Calcium 8.3 L D (8.4-10.2) mg/dL Total Bilirubin 0.2 (0.0-1.0) mg/dL Direct Bilirubin < 0.2 (0.0-0.5) mg/dL AST 108 H (5-31) U/L ALT 132 H (0-31) U/L Alkaline Phosphatase 152 H (39-117) U/L Troponin I High Sens < 3.5 (<3.5-17.0) ng/L Total Protein 6.3 L (6.5-8.0) g/dL Albumin 3.7 (3.5-5.0) g/dL Lipase 12 (8-78) U/L Urine Color Urine Appearance Urine pH (5.0-9.0) Ur Specific [place] (1.005-1.025) Urine Protein (Neg-Trace) mg/dL Urine Glucose (UA) (Negative) mg/dL Urine Ketones (Negative) mg/dL Urine Blood (Negative) Urine Nitrite (Negative) Ur Leukocyte Esterase (Negative) Urine RBC (0-2) /HPF Urine WBC (0-5) /HPF Ur Squamous Epith Cells (0-2) /HPF Urine Bacteria (None Seen) Hyaline Casts (0-2) /LPF Urine Test (NEGATIVE) Influenza Type A (PCR) (Negative) Influenza Type B (PCR) (Negative) RSV RNA Qual (PCR) (Negative) SARS-CoV-2 RNA (RT-PCR) (Negative) 05/29/22 05/29/22 05/29/22 Range/Units 17:08 19:59 19:59 WBC (4.8-10.8) X10*3/uL RBC (4.20-5.50) X10*6/uL Hgb (12.0-16.0) g/dl Hct (37.0-47.0) % MCV (80.0-98.0) fL MCH (27.0-33.0) pg MCHC (31.0-35.0) g/dl RDW (11.0-16.0) % Plt Count (160-400) X10*3/uL MPV (9.4-12.3) fL Immature Gran % (Auto) (0.0-0.4) % Neut % (Auto) (45-73) % Lymph % (Auto) (20-40) % [place] % (Auto) (2-11) % Eos % (Auto) (0-4) % Baso % (Auto) (0-2) % Lymph # (Auto) (1.2-4.9) X10*3/uL [place] # (Auto) (0.1-1.2) X10*3/uL Eos # (Auto) (0.0-0.4) X10*3/uL Baso # (Auto) (0.0-0.2) X10*3/uL Abs Immat Gran (auto) (0.00-0.03) X10*3/uL Absolute Neuts (auto) (2.0-8.3) x10*3/uL Absolute Nucleated RBC (0.0-0.012) X10*3/uL Nucleated RBC % (auto) (0.0-0.2) /100WBC Sodium (135-145) mmol/L Potassium (3.3-5.1) mmol/L Chloride (96-108) mmol/L Carbon Dioxide (22-29) mmol/L Anion Gap (12-20) BUN (9-16) mg/dL Creatinine (0.5-1.4) mg/dL Estim Creat Clear Calc Estimated GFR Random Glucose (60-115) mg/dL Calcium (8.4-10.2) mg/dL Total Bilirubin (0.0-1.0) mg/dL Direct Bilirubin (0.0-0.5) mg/dL AST (5-31) U/L ALT (0-31) U/L Alkaline Phosphatase (39-117) U/L Troponin I High Sens (<3.5-17.0) ng/L Total Protein (6.5-8.0) g/dL Albumin (3.5-5.0) g/dL Lipase (8-78) U/L Urine Color Yellow Urine Appearance Clear Urine pH 6.0 (5.0-9.0) Ur Specific [place] 1.020 (1.005-1.025) Urine Protein 30 (1+) H (Neg-Trace) mg/dL Urine Glucose (UA) Negative (Negative) mg/dL Urine Ketones >=160 (Negative) mg/dL Urine Blood Small (1+) H (Negative) Urine Nitrite Negative (Negative) Ur Leukocyte Esterase Small (1+) H (Negative) Urine RBC 6-10 H (0-2) /HPF Urine WBC 21-50 H (0-5) /HPF Ur Squamous Epith Cells 3-5 (0-2) /HPF Urine Bacteria None Seen (None Seen) Hyaline Casts 0-2 (0-2) /LPF Urine Test NEGATIVE (NEGATIVE) Influenza Type A (PCR) NEGATIVE (Negative) Influenza Type B (PCR) NEGATIVE (Negative) RSV RNA Qual (PCR) NEGATIVE (Negative) SARS-CoV-2 RNA (RT-PCR) POSITIVE A (Negative) <VIRGIL Pinon - Last Filed: 05/29/22 21:54> Critical Care Time Critical Care Time Critical Care Time: Yes <VIRGIL Pinon - Last Filed: 05/29/22 21:54> Total Critical Care Time: 35 <VIRGIL Pinon - Last Filed: 05/29/22 21:54> Attestation: I attest to this time spent taking care of the patient, obtaining history, physical, reviewing labs, imaging, speaking to my attending, speaking to specialist. <VIRGIL Pinon - Last Filed: 05/29/22 21:54> Discharge Plan Discharge Clinical Impression: Abdominal pain, COVID <VIRGIL Pederson - Last Filed: 05/29/22 19:21> Patient Disposition: Home, Self-Care <VIRGIL Pederson Last Filed: 05/29/22 19:21> Instructions: Abdominal Pain (ED) <VIRGIL Pederson Last Filed: 05/29/22 19:21> Additional Instructions: Take your medications as prescribed. If you were prescribed antibiotics today, it is important that you take your medication to their entirety, do not skip any doses, do not finish them early. Follow-up with your primary care provider this week. Return to the emergency department with new or worsening symptoms. Such as fevers, chills, chest pain, shortness of breath, nausea, vomiting, dizziness, headache, vision changes, lethargy In case of emergency call 911 <VIRGIL Pederson - Last Filed: 05/29/22 19:21> Prescriptions: No Action ibuprofen 600 mg tablet 600 mg PO Q6H PRN (Reason: fever) Qty: 14 0RF clonidine HCl 0.1 mg tablet 1 tab PO BEDTIME valacyclovir 1 gram tablet 1 tab PO DAILY hydroxyzine HCl 50 mg tablet 1 tab PO BID trazodone 100 mg tablet 2 tab PO BEDTIME PRN (Reason: Sleep) omeprazole 20 mg capsule,delayed release(DR/EC) 1 cap PO DAILY@0630 zolpidem 5 mg tablet 1 tab PO BEDTIME PRN (Reason: Sleep) albuterol sulfate [Ventolin HFA] 90 mcg/actuation HFA aerosol inhaler 2 puff INHALATION Q4-6H PRN (Reason: Wheezing) fluoxetine 20 mg capsule 2 cap PO DAILY diazepam 5 mg tablet 1 tab PO TID PRN (Reason: Anxiety) Myrbetriq 50 mg tablet extended release 24 hr 1 tab PO DAILY Stiolto Respimat 2.5-2.5 mcg/actuation mist 1 puff inhalation DAILY Biktarvy 50-200-25 mg tablet 1 tab PO DAILY Emgality Syringe 120 mg/mL syringe 120 mg subcut Q28D multivitamin Tablet 1 tab PO DAILY vitamin E 268 mg (400 unit) Capsule 268 mg PO DAILY fluticasone propionate [Flonase Allergy Relief] 50 mcg/actuation spray,suspension 2 spray intranasal DAILY PRN (Reason: Allergic Symptoms) Rx Instructions: administer into each nostril fosfomycin tromethamine 3 gram packet 1 packet PO Q OTHER DAY Qty: 3 0RF methenamine hippurate 1 gram tablet 1 g PO BID 30 Days Qty: 60 0RF <VIRGIL Pederson - Last Filed: 05/29/22 19:21> Referrals: Demetris Cast III, MD [Primary Care Provider] - 2 days <VIRGIL Pederson - Last Filed: 05/29/22 19:21>
--- NOTE | 2022-05-29 16:38 | ECG_ITS ---
Test Reason : WEAKNESS Blood Pressure : / mmHG Vent. Rate : 071 BPM Atrial Rate : 071 BPM P-R Int : 134 ms QRS Dur : 082 ms QT Int : 430 ms P-R-T Axes : 054 063 058 degrees QTc Int : 467 ms Normal sinus rhythm T wave abnormality, consider anterior ischemia Prolonged QT Abnormal ECG When compared with ECG of 16-MAY-2022 17:33, No significant change was found Referred By: Paco Chawla Electronically Signed By:ZAYNAB PRABHAKAR
[2022-05-29 17:15] LABS: MANUAL DIFF FLAG NO
[2022-05-29 17:17] LABS: Basophils Percent Auto 0.6 % (0-2); Hematocrit 38.2 % (37.0-47.0); Hemoglobin 13.2 g/dl (12.0-16.0); Imm Gran Abs Auto 0.01 X10*3/uL (0.00-0.03); Imm Gran Pct Auto 0.3 % (0.0-0.4); Lymphocytes Absolute Auto 1.2 X10*3/uL (1.2-4.9); Lymphocytes Percent Auto 33.8 % (20-40); Mean Corpuscular HGB Conc 34.6 g/dl (31.0-35.0); Mean Corpuscular Hemoglobin 31.1 pg (27.0-33.0); Mean Corpuscular Volume 89.9 fL (80.0-98.0); Mean Platelet Volume 9.7 fL (9.4-12.3); Monocytes Absolute Auto 0.4 X10*3/uL (0.1-1.2); Monocytes Percent Auto 10.8 % (2-11); Neutrophils Absolute Auto 1.9 x10*3/uL (2.0-8.3); Neutrophils Percent Auto 54.5 % (45-73); Platelet Count 133 X10*3/uL (160-400); Red Blood Count 4.25 X10*6/uL (4.20-5.50); Red Cell Distribution Width 12.7 % (11.0-16.0); White Blood Count 3.5 X10*3/uL (4.8-10.8)
[2022-05-29 17:33] LABS: Alanine Aminotransferase 132 U/L (0-31); Albumin Level 3.7 g/dL (3.5-5.0); Alkaline Phosphatase 152 U/L (39-117); Anion Gap 13 (12-20); Aspartate Amino Transferase 108 U/L (5-31); Bilirubin Direct < 0.2 mg/dL (0.0-0.5); Bilirubin Total 0.2 mg/dL (0.0-1.0); Blood Urea Nitrogen 9 mg/dL (9-16); Calcium 8.3 mg/dL (8.4-10.2); Carbon Dioxide 24 mmol/L (22-29); Chloride 104 mmol/L (96-108); Creatinine Clr Calc Pharmacy 77.8; Estimated Glomerular Filt Rate > 60; Glucose Random 69 mg/dL (60-115); Potassium 3.4 mmol/L (3.3-5.1); Sodium 138 mmol/L (135-145); Total Protein 6.3 g/dL (6.5-8.0)
[2022-05-29 17:40] LABS: Troponin-I High Sensitivity < 3.5 ng/L (<3.5-17.0)
[2022-05-29] MEDS: LORazepam 2 MG/ML VIAL 1 MG IVPUSH (17:43)
[2022-05-29] MEDS: Morphine Sulfate 4 MG/ML CARTRIDGE IVPUSH (17:45)
[2022-05-29 17:50] VITALS: BP 117/81; PULSE 78; RESP 18; O2SAT 96
[2022-05-29 17:52] LABS: Influenza A PCR NEGATIVE (Negative); Influenza B PCR NEGATIVE (Negative); Resp Syncy Virus RNA Qual PCR NEGATIVE (Negative); SARS COV2 PCR INHOUSE POSITIVE (Negative)
[2022-05-29 17:52] LABS: Lipase 12 U/L (8-78)
[2022-05-29 18:47] VITALS: BP 125/76; PULSE 70; RESP 13; O2SAT 94
[2022-05-29 19:11] VITALS: BP 107/37; PULSE 70; RESP 15; TEMP 37.1; O2SAT 92
[2022-05-29] MEDS: iohexoL 350 MG/ML 100 ML INFUS..BTL IV (19:51)
[2022-05-29 20:12] LABS: Appearance Urine Clear; Color Urine Yellow; Glucose Urine UA Negative (Negative); Leukocyte Esterase Urine Small (1+) (Negative); Nitrite Urine Negative (Negative); UMIC TRIGGER UACC YES; Urine Blood Small (1+) (Negative); Urine Ketones >=160 mg/dL (Negative); Urine Protein 30 (1+) mg/dL (Neg-Trace)
[2022-05-29 20:17] LABS: UPreg QC Valid YES; Urine Pregnancy NEGATIVE (NEGATIVE)
[2022-05-29 20:20] LABS: Bacteria Urine None Seen (None Seen); Hyaline Casts Urine 0-2 /LPF (0-2); UACC Culture Trigger YES; WBC Urine 21-50 /HPF (0-5)
[2022-05-29] MEDS: Morphine Sulfate 2 MG/ML CARTRIDGE IVPUSH (20:54)
[2022-05-29 22:35] VITALS: BP 128/61; PULSE 75; RESP 22; TEMP 36.8; O2SAT 93
--- NOTE | 2022-05-29 22:52 | MHC.CM.ED ---
CM received consult for this patient with weakness, body pain, back and stomach pain. States she cannot care for herself. Lives with S.O./HCP #2 Baljeet Valenzuela. HCP #1 Tha Chawla (father) [phone]. HCP on file. HIV + since 02/21. Covid + today. Unvaccinated. Ambulating to BR while in ED. Recent vulvar biopsy. ? SARAH III. States awaiting [employer] F/U. May need oncology. [facility] in April. Had 10 day home IV course for ESBL UTI Klebsiella -treatment completed. Plan for PT evaluation in the morning. Pt is agreeable to STR. Pt is aware that many facilities will not accept you until you are covid recovered day 11 ( 06/09/22). Agreeable to local referrals. CM will follow for d/c planning.
[2022-05-30] MEDS: Morphine Sulfate Immed Release 15 MG TABLET PO (01:33)
--- NOTE | 2022-05-30 01:42 | PC.NURSE ---
Assumed care of pt. at 1230. Pt. reporting pain at that time. Pt. also requesting nighttime medications. [facility] completed and obtained order for morphine for pt. Provided pt. with icepacks and heatpacks, which she reports is helping with the pain.
--- NOTE | 2022-05-30 02:57 | PC.NURSE ---
Pt. sleeping, respirations even and unlabored. No distress noted. Will continue to monitor.
[2022-05-30 05:33] VITALS: BP 132/74; PULSE 68; RESP 17; O2SAT 91
[2022-05-30] MEDS: Omeprazole 20 MG CAPSULE.DR PO ×2 (05:50→16:39)
[2022-05-30] MEDS: diazePAM 5 MG TABLET PO ×3 (05:50→22:01)
--- NOTE | 2022-05-30 06:08 | PC.NURSE ---
Pt. awake and needing to urinate. Assisted pt. to ambulate to the bathroom. Pt. is a heavy assist as the pain is hindering ambulation. Pt. back in room and into bed. Pt. reporting increasing amounts of anxiety and reports usually taking diazepam at bedtime, but didn't take any last night. Pt. medicated with PRN diazepam and with omeprazole per MAR. Pt. provided with additional ice packs and heat packs for non-pharmacological pain relief. Pt. reported some pain relief with the PO morphine as she was able to get some sleep.
[2022-05-30 09:08] VITALS: O2SAT 91
[2022-05-30] MEDS: Mirabegron 50 MG TAB.ER.24H PO (09:35)
[2022-05-30] MEDS: Vitamin E (Dl,Tocopheryl Acet) 180 MG (400 UNIT) CAPSULE PO (09:35)
[2022-05-30] MEDS: Bictegrav/Emtricit/Tenofov Ala TABLET 1 TAB PO (09:35)
[2022-05-30] MEDS: valACYclovir HCL 1,000 MG TABLET 1000 MG PO (09:36)
[2022-05-30] MEDS: FLUoxetine HCl 20 MG CAPSULE 40 MG PO (09:36)
[2022-05-30] MEDS: hydrOXYzine HCL 50 MG TABLET PO ×2 (09:36→22:01)
[2022-05-30] MEDS: Multivitamin TABLET 1 TAB PO (09:37)
--- NOTE | 2022-05-30 10:05 | PC.NURSE ---
per MD, oxygen dropped down to 1LNC.
--- NOTE | 2022-05-30 11:23 | PM.IMHP ---
History of Present Illness Date of Service: 05/30/22 <VIRGIL Powers - Last Filed: 05/30/22 13:15> Attending physician on admission: Francisco Osborn <VIRGIL Powers - Last Filed: 05/30/22 13:15> Chief Complaint: Abdominal pain <VIRGIL Powers - Last Filed: 05/30/22 13:15> Pt is a 57-year-old female with a PMH significant for COPD, HIV, GERD, anxiety, and hx of ESBL+ UTI who presents to the ED with?severe abdominal and lower back pain. Pt states she has been experiencing symptoms since Thursday. Pt complains of diffuse, constant abdominal pain that radiates to her lower back. Pt sates she feels like there's a large cinder block slowly crushing her lower back. During this time pt claims she has only eaten a couple of wings on Thursday and a very small salad on Thursday. Has had some nausea, but no vomiting or diarrhea. Subjective fever and chills. Pt has also noticed numbness and tingling in fingers, nose, and tongue which began sometime this week, though exact day unclear. Pt also noted 2-3 days ago worsening cough and SOB. No lightheadedness or dizziness. In the ED was noted be satting at 86% on ambulation without O2, 91% without O2 at rest. Patient not on O2 at home. Labs were significant for mild leukopenia of 3.5, transaminitis of AST of 108 and ALT of 132 and alk-phos of 152. UA negative for UTI. Patient tested positive for COVID. CXR showed trace bilateral pleural effusions and bronchial wall thickening with small airway process suggestive of asthma or atypical or viral infection. CT?of the abdomen and pelvis showed no bowel obstruction or other acute intra-abdominal process with mild hepatomegaly with trace bibasilar pleural fluid and mild bibasilar atelectasis. Abdominal ultrasound found no acute abnormality. EKG demonstrated normal sinus rhythm with non-specific T-wave abnormalities. Pt was treated with morphine and acetaminophen for pain, diazepam for anxiety, and IVF. Pt will be admitted to the hospital for treatment of?acute hypoxic respiratory failure in the setting of COIVD infection with IV steroids <VIRGIL Powers - Last Filed: 05/30/22 13:15> Review of Systems Review of Systems: Intractable abdominal Nausea, no vomiting Subjective fever, chills Severe lower back pain Numbness and tingling in fingers, Nose, tongue SOB Cough Weakness <VIRGIL Powers - Last Filed: 05/30/22 13:15> Yes all other systems are reviewed and are negative <VIRGIL Powers - Last Filed: 05/30/22 13:15> [facility] Medical History: Medical History Anxiety Asthma HIV (human immunodeficiency virus infection) <VIRGIL Powers - Last Filed: 05/30/22 13:15> Family History: Family History Paternal Grandmother Breast CA <VIRGIL Powers - Last Filed: 05/30/22 13:15> Surgical History: Surgical History H/O: hysterectomy <VIRGIL Powers - Last Filed: 05/30/22 13:15> Social History: Social History Household Members: Other Housing: House Do you presently have visiting nurse or other home services: No Alcohol intake: never Patient Tobacco Use Status: Never used Tobacco Smoked in Last 30 Days: No Second Hand Smoke Exposure: No Use of substances other than those prescribed or required for medical reasons: No Advance Directives: Yes Advance Directives on File: Yes Advance Directives Date on File: 04/24/22 Patient : No service: No Current occupational status: disabled <VIRGIL Powers - Last Filed: 05/30/22 13:15> Meds Allergies/Adverse reactions: Allergies Allergy/AdvReac Type Severity Reaction Status Date / Time tramadol [Tramadol] Allergy Mild HEADACHE Verified 05/27/22 12:28 bee pollen [BEE STINGS] Allergy Unknown UNKNOWN Verified 05/27/22 12:28 tapentadol [TAPENTADOL] Allergy Unknown UNKNOWN Verified 05/27/22 12:28 gabapentin Allergy Hallucinati Verified 05/27/22 12:28 ons adhesive tape [ADHESIVE TAPE] AdvReac Unknown MY SKIN Verified 05/27/22 12:28 RIPS OFF ADHESIVE BANDAGE AdvReac Unknown MY SKIN Uncoded 05/27/22 12:28 RIPS OFF <VIRGIL Powers - Last Filed: 05/30/22 13:15> Active Medications: Current Medications Bictegravir/Emtricitabine/Tenofovir (Bictegrav/Emtricit/Tenofov Ala Tablet) 1 tab PO DAILY [facility] Last Admin: 05/30/22 09:35 Dose: 1 tab Clonidine HCl (Clonidine Hcl 0.1 Mg Tablet) 0.1 mg PO BEDTIME JODIE; Protocol Diazepam (Diazepam 5 Mg Tablet) 5 mg PO TID PRN PRN Reason: Anxiety Last Admin: 05/30/22 10:03 Dose: 5 mg Fluoxetine HCl (Fluoxetine Hcl 20 Mg Capsule) 40 mg PO DAILY [facility] Last Admin: 05/30/22 09:36 Dose: 40 mg Fluticasone Propionate (Fluticasone Propionate Nasal 16 Gm [place]) 2 spray NOSTRIL-B DAILY PRN PRN Reason: Allergic Symptoms Hydroxyzine HCl (Hydroxyzine Hcl 50 Mg Tablet) 50 mg PO BID [facility] Last Admin: 05/30/22 09:36 Dose: 50 mg Ibuprofen (Ibuprofen 600 Mg Tablet) 600 mg PO Q6H PRN PRN Reason: fever Mirabegron (Mirabegron 50 Mg Tab.Er.24h) 50 mg PO DAILY [facility] Last Admin: 05/30/22 09:35 Dose: 50 mg Multivitamins/Vitamin C (Multivitamin Tablet) 1 tab PO DAILY [facility] Last Admin: 05/30/22 09:37 Dose: 1 tab Non-Formulary Medication (Galcanezumab-Gnlm [Emgality Syringe]) 120 mg SUBCUT Q28D [facility] Non-Formulary Medication (Methenamine Hippurate) 1 gm PO BID [facility] Non-Formulary Medication (Tiotropium-Olodaterol [Stiolto Respimat]) 1 puff INHALE DAILY [facility] Omeprazole (Omeprazole 20 Mg Capsule.Dr) 20 mg PO DAILY@0630 [facility] Last Admin: 05/30/22 05:50 Dose: 20 mg Trazodone HCl (Trazodone Hcl 100 Mg Tablet) 200 mg PO BEDTIME PRN PRN Reason: Sleep Valacyclovir HCl (Valacyclovir Hcl 1,000 Mg Tablet) 1,000 mg PO DAILY [facility] Last Admin: 05/30/22 09:36 Dose: 1,000 mg Vitamin E (Vitamin E (Dl,Tocopheryl Acet) 180 Mg (400 Unit) Capsule) 180 mg PO DAILY JODIE Last Admin: 05/30/22 09:35 Dose: 180 mg Zolpidem Tartrate (Zolpidem Tartrate 5 Mg Tablet) 5 mg PO BEDTIME PRN PRN Reason: Sleep <VIRGIL Powers - Last Filed: 05/30/22 13:15> Home medications: Home Medications Medication Instructions Recorded Confirmed Last Taken Type albuterol sulfate 90 mcg/actuation 2 puff inhalation Q4-6H PRN 04/23/22 05/29/22 Unknown History aerosol inhaler (Ventolin HFA) Wheezing bictegravir 50 mg-emtricitabine 1 tab PO DAILY 04/23/22 05/29/22 04/22/22 History 200 mg-tenofovir alafenam 25 mg tablet (Biktarvy) clonidine HCl 0.1 mg tablet 1 tab PO BEDTIME 04/23/22 05/29/22 04/22/22 History diazepam 5 mg tablet 1 tab PO TID PRN Anxiety 04/23/22 05/29/22 04/22/22 History fluoxetine 20 mg capsule 2 cap PO DAILY 04/23/22 05/29/22 04/22/22 History fluticasone propionate 50 2 spray intranasal DAILY PRN 04/23/22 05/29/22 Unknown History mcg/actuation nasal Allergic Symptoms spray,suspension (Flonase Allergy Relief) galcanezumab-gnlm 120 mg/mL 120 mg subcut Q28D 04/23/22 05/29/22 03/20/22 History subcutaneous syringe (Emgality) hydroxyzine HCl 50 mg tablet 1 tab PO BID 04/23/22 05/29/22 04/22/22 History mirabegron 50 mg tablet,extended 1 tab PO DAILY 04/23/22 05/29/22 04/22/22 History release 24 hr (Myrbetriq) multivitamin 1 tab PO DAILY 04/23/22 05/29/22 04/22/22 History omeprazole 20 mg capsule,delayed 1 cap PO DAILY@0630 04/23/22 05/29/22 04/22/22 History release tiotropium 2.5 mcg-olodaterol 2.5 1 puff inhalation DAILY 04/23/22 05/29/22 04/22/22 History mcg/actuation mist for inhalation (Stiolto Respimat) trazodone 100 mg tablet 2 tab PO BEDTIME PRN Sleep 04/23/22 05/29/22 1 Day Ago History ~04/22/22 2 tab valacyclovir 1 gram tablet 1 tab PO DAILY 04/23/22 05/29/22 04/22/22 History vitamin E 268 mg (400 unit) capsule 268 mg PO DAILY 04/23/22 05/29/22 04/22/22 History zolpidem 5 mg tablet 1 tab PO BEDTIME PRN Sleep 04/23/22 05/29/22 04/22/22 History <VIRGIL Powers - Last Filed: 05/30/22 13:15> Physical Exam Vital Signs and Narrative: Vital Signs: Last Vital Signs Temp 98.3 F 05/29/22 22:35 Pulse 68 05/30/22 05:33 Resp 17 05/30/22 05:33 BP 132/74 05/30/22 05:33 Pulse Ox 91 L 05/30/22 09:08 O2 Del Method 05/30/22 09:08 BMI result Body Mass Index 28.1 <VIRGIL Powers - Last Filed: 05/30/22 13:15> Constitutional: Alert, appears uncomfortable. In no acute distress. Mental Status: Oriented to person, place and time. Eyes: Pupils are equal, round, and reactive to light. Ear, Nose, and Throat: Oropharynx clear, mucous membranes dry. Ears and nose without deformities. Trachea midline. Respiratory: Diffuse rhonchi bilaterally. Cardiovascular: S1, S2 regular. No murmurs, rubs, or gallops. Gastrointestinal: Abdomen soft, diffusely tender, especially on right and left side. Hyperactive bowel sounds. Neurologic: Cranial nerves II-XII are grossly intact. No focal neurological deficits. Moves all extremities spontaneously. Skin: No rashes or lesions noted. Musculoskeletal: No cyanosis or clubbing. Extremities: No edema. Psychiatric: Normal mood and affect. <VIRGIL Powers - Last Filed: 05/30/22 13:15> Results Labs CBC and Chem 7: 05/29/22 17:06 05/29/22 17:06 <VIRGIL Powers - Last Filed: 05/30/22 13:15> Labs: Laboratory Results - last 24 hr 05/29/22 05/29/22 05/29/22 17:06 17:06 17:06 MCV 89.9 MCH 31.1 MCHC 34.6 RDW 12.7 Plt Count 133 L D MPV 9.7 Immature Gran % (Auto) 0.3 Neut % (Auto) 54.5 Lymph % (Auto) 33.8 [place] % (Auto) 10.8 Eos % (Auto) 0.0 Baso % (Auto) 0.6 Lymph # (Auto) 1.2 [place] # (Auto) 0.4 Eos # (Auto) 0.0 Baso # (Auto) 0.0 Abs Immat Gran (auto) 0.01 Absolute Neuts (auto) 1.9 L Absolute Nucleated RBC 0.000 Nucleated RBC % (auto) 0.0 Anion Gap 13 Estim Creat Clear Calc 77.8 Estimated GFR > 60 Random Glucose 69 Calcium 8.3 L D Total Bilirubin 0.2 Direct Bilirubin < 0.2 AST 108 H ALT 132 H Alkaline Phosphatase 152 H Troponin I High Sens < 3.5 Total Protein 6.3 L Albumin 3.7 Lipase 12 Urine Color Urine Appearance Urine pH Ur Specific [place] Urine Protein Urine Glucose (UA) Urine Ketones Urine Blood Urine Nitrite Ur Leukocyte Esterase Urine RBC Urine WBC Ur Squamous Epith Cells Urine Bacteria Hyaline Casts Urine Test Influenza Type A (PCR) Influenza Type B (PCR) RSV RNA Qual (PCR) SARS-CoV-2 RNA (RT-PCR) 05/29/22 05/29/22 05/29/22 17:08 19:59 19:59 MCV MCH MCHC RDW Plt Count MPV Immature Gran % (Auto) Neut % (Auto) Lymph % (Auto) [place] % (Auto) Eos % (Auto) Baso % (Auto) Lymph # (Auto) [place] # (Auto) Eos # (Auto) Baso # (Auto) Abs Immat Gran (auto) Absolute Neuts (auto) Absolute Nucleated RBC Nucleated RBC % (auto) Anion Gap Estim Creat Clear Calc Estimated GFR Random Glucose Calcium Total Bilirubin Direct Bilirubin AST ALT Alkaline Phosphatase Troponin I High Sens Total Protein Albumin Lipase Urine Color Yellow Urine Appearance Clear Urine pH 6.0 Ur Specific [place] 1.020 Urine Protein 30 (1+) H Urine Glucose (UA) Negative Urine Ketones >=160 Urine Blood Small (1+) H Urine Nitrite Negative Ur Leukocyte Esterase Small (1+) H Urine RBC 6-10 H Urine WBC 21-50 H Ur Squamous Epith Cells 3-5 Urine Bacteria None Seen Hyaline Casts 0-2 Urine Test NEGATIVE Influenza Type A (PCR) NEGATIVE Influenza Type B (PCR) NEGATIVE RSV RNA Qual (PCR) NEGATIVE SARS-CoV-2 RNA (RT-PCR) POSITIVE A <VIRGIL Powers - Last Filed: 05/30/22 13:15> Imaging Radiologist's Impressions: Impressions Chest X-Ray 05/29/22 16:56 IMPRESSION: Bronchial wall thickening can be seen with a small airways process such as asthma or atypical/viral infection. Trace bilateral pleural effusions. Abdomen/Pelvis CT 05/29/22 19:53 IMPRESSION: 1. Status post subtotal colectomy with ileorectal anastomosis. No evidence of bowel obstruction or other acute intra-abdominal process. 2. Mild hepatomegaly. 3. Trace bibasilar pleural fluid and mild bibasilar atelectasis. Abdomen Ultrasound 05/29/22 21:13 IMPRESSION: 1. No acute abnormality. Status post cholecystectomy. <VIRGIL Powers - Last Filed: 05/30/22 13:15> Assessment and Plan (1) COVID: Status: Acute <VIRGIL Powers - Last Filed: 05/30/22 13:15> (2) Hypoxia: Status: Acute <VIRGIL Powers - Last Filed: 05/30/22 13:15> (3) Abdominal pain: Status: Inactive <VIRGIL Powers - Last Filed: 05/30/22 13:15> Pt is a 57-year-old female with a PMH significant for COPD, HIV, GERD, anxiety, and hx of ESBL+ UTI who presents to the ED with?severe abdominal and lower back pain. Pt states she has been experiencing symptoms since Thursday. Pt will be admitted to the hospital for treatment of?acute hypoxic respiratory failure in the setting of COIVD infection with IV steroids. Acute hypoxic respiratory failure in the setting of COVID infection and COPD Pt desatting to 86% on RA with ambulation Solu-Medrol 40mg q8h DuoNeb 3mg q4h while awake Nasal cannula, titrate O2>90, wean as tolerated IVF Pt does not meet sepsis criteria Monitor respiratory status ID consult given pt HIV+ Abdominal and back pain Unclear etiology, CT of abd/pelvis and U/S of abdomen negative for acute intra-abdominal processes Possibly secondary to COVID infection Pain management, reevaluate tomorrow Numbness and tingling in fingers, nose, and tongue Unclear etiology, possibly secondary to dehydration and COVID infection Pt given IVF and morphine in ED with some improvement Treat as above, monitor Transaminitis Possibly secondary to COVID infection Monitor labs Leukopenia Possibly secondary to COVID infection Monitor labs HIV Continue home meds ID consult Anxiety Continue home meds DNR/DNI Attending:?Dr. Osborn DVT Prophylaxis: Lovenox Pt will require a hospitalization of at least two nights for treatment of?acute hypoxic respiratory failure in the setting of COIVD infection with IV steroids. <VIRGIL Powers - Last Filed: 05/30/22 13:15> Pt is a 57-year-old female with a PMH significant for COPD, HIV, GERD, anxiety, and hx of ESBL+ UTI who presents to the ED with?severe abdominal and lower back pain. Pt states she has been experiencing symptoms since Thursday. Pt will be admitted to the hospital for treatment of?acute hypoxic respiratory failure in the setting of COIVD infection with IV steroids. Acute hypoxic respiratory failure in the setting of COVID infection and COPD Pt desatting to 86% on RA with ambulation Solu-Medrol 40mg q8h DuoNeb 3mg q4h while awake Nasal cannula, titrate O2>90, wean as tolerated IVF Pt does not meet sepsis criteria Monitor respiratory status ID consult given pt HIV+ Abdominal and back pain Unclear etiology, CT of abd/pelvis and U/S of abdomen negative for acute intra-abdominal processes Possibly secondary to COVID infection Pain management, reevaluate tomorrow Numbness and tingling in fingers, nose, and tongue Unclear etiology, possibly secondary to dehydration and COVID infection Pt given IVF and morphine in ED with some improvement Treat as above, monitor Transaminitis Possibly secondary to COVID infection Monitor labs Leukopenia Possibly secondary to COVID infection Monitor labs HIV Continue home meds ID consult Anxiety Continue home meds DNR/DNI Attending:?Dr. Osborn DVT Prophylaxis: Lovenox Pt will require a hospitalization of at least two nights for treatment of?acute hypoxic respiratory failure in the setting of COIVD infection with IV steroids <Francisco Osborn MD - Last Filed: 05/30/22 13:56> Time Spent With Patient Time: Total time managing care of this patient today ____ minutes. <VIRGIL Powers - Last Filed: 05/30/22 13:15> Quality Stroke Does the patient have a stroke diagnosis?: No <VIRGIL Powers - Last Filed: 05/30/22 13:15> VTE Prior VTE?: No <VIRGIL Powers - Last Filed: 05/30/22 13:15> VTE Risk Level:: Medical - moderate - high <VIRGIL Powers - Last Filed: 05/30/22 13:15> VTE Device Contraindication: Treatment Not Indicated <VIRGIL Powers - Last Filed: 05/30/22 13:15> VTE Drug Contraindication: N/A - Med Ordered <VIRGIL Powers - Last Filed: 05/30/22 13:15>
[2022-05-30] MEDS: Acetaminophen 325 MG TABLET 975 MG PO (11:35)
--- NOTE | 2022-05-30 12:20 | PHA.MEDREC ---
Pharmacy Consult ? Medication Reconciliation Pharmacy has reviewed the medication reconciliation compelted by Claudia. Maxine Mcdonald, ValentinD
[2022-05-30] MEDS: Lactated Ringers 1,000 ML 100 ML IVCONT ×2 (13:00→22:10)
[2022-05-30] MEDS: Enoxaparin Sodium 40 MG/0.4 ML SYRINGE SUBCUT (14:18)
[2022-05-30] MEDS: Morphine Sulfate 2 MG/ML CARTRIDGE IVPUSH ×3 (14:19→22:02)
--- NOTE | 2022-05-30 16:38 | W.PM.IDCN ---
History of Present Illness Data of Consult Service Date: 05/30/22 Requesting physician: Kev Wheatley Primary Care Provider: Demetris Cast III, MD HPI Reason for consult: HIV,COVID She reports shortness of breath and COVID diagnosis over last week. She has 86% saturation on room air. She sees Dr Valadez for HIV care and is admittedly nonadherent to Biktarvy. She reports not getting COVID vaccine. Review of Systems Review of Systems: Yes all other systems are reviewed and are negative PMFSH Past Medical History Medical History Anxiety Asthma HIV (human immunodeficiency virus infection) Family History Family History Paternal Grandmother Breast CA Family history: reviewed and not pertinent Surgical History Surgical History H/O: hysterectomy Social History Social History Household Members: Other Housing: House Do you presently have visiting nurse or other home services: No Alcohol intake: never Patient Tobacco Use Status: Never used Tobacco Smoked in Last 30 Days: No Second Hand Smoke Exposure: No Use of substances other than those prescribed or required for medical reasons: No Advance Directives: Yes Advance Directives on File: Yes Advance Directives Date on File: 04/24/22 Patient : No service: No Current occupational status: disabled Meds Allergies Allergy/AdvReac Type Severity Reaction Status Date / Time tramadol [Tramadol] Allergy Mild HEADACHE Verified 05/27/22 12:28 bee pollen [BEE STINGS] Allergy Unknown UNKNOWN Verified 05/27/22 12:28 tapentadol [TAPENTADOL] Allergy Unknown UNKNOWN Verified 05/27/22 12:28 gabapentin Allergy Hallucinati Verified 05/27/22 12:28 ons adhesive tape [ADHESIVE TAPE] AdvReac Unknown MY SKIN Verified 05/27/22 12:28 RIPS OFF ADHESIVE BANDAGE AdvReac Unknown MY SKIN Uncoded 05/27/22 12:28 RIPS OFF Active Medications: Current Medications Acetaminophen (Acetaminophen 325 Mg Tablet) 650 mg PO Q6H PRN PRN Reason: Pain, Mild (Pain Scale 1-3) Albuterol/Ipratropium (Albuterol/Iprat 2.5/0.5mg 3 Ml Ampul.Neb) 3 ml INHALE RQ4H WHILE AWAKE [facility] Last Admin: 05/30/22 14:55 Dose: Not Given Bictegravir/Emtricitabine/Tenofovir (Bictegrav/Emtricit/Tenofov Ala Tablet) 1 tab PO DAILY [facility] Last Admin: 05/30/22 09:35 Dose: 1 tab Clonidine HCl (Clonidine Hcl 0.1 Mg Tablet) 0.1 mg PO BEDTIME [facility]; Protocol Diazepam (Diazepam 5 Mg Tablet) 5 mg PO TID PRN PRN Reason: Anxiety Last Admin: 05/30/22 10:03 Dose: 5 mg Enoxaparin Sodium (Enoxaparin Sodium 40 Mg/0.4 Ml Syringe) 40 mg SUBCUT Q24H [facility] Last Admin: 05/30/22 14:18 Dose: 40 mg Fluoxetine HCl (Fluoxetine Hcl 20 Mg Capsule) 40 mg PO DAILY [facility] Last Admin: 05/30/22 09:36 Dose: 40 mg Fluticasone Propionate (Fluticasone Propionate Nasal 16 Gm [place]) 2 spray NOSTRIL-B DAILY PRN PRN Reason: Allergic Symptoms Hydroxyzine HCl (Hydroxyzine Hcl 50 Mg Tablet) 50 mg PO BID [facility] Last Admin: 05/30/22 09:36 Dose: 50 mg Lactated Ringer's (Lr) 1,000 mls @ 100 mls/hr IVCONT .Q10H [facility] Last Admin: 05/30/22 13:00 Dose: 100 mls/hr Ibuprofen (Ibuprofen 600 Mg Tablet) 600 mg PO Q6H PRN PRN Reason: fever Methylprednisolone Sodium Succinate (Methylprednisolone Sod Succ 40 Mg/Ml Vial) 40 mg IVPUSH Q8H [facility] Stop: 05/30/22 21:05 Last Admin: 05/30/22 14:08 Dose: Not Given Methylprednisolone Sodium Succinate (Methylprednisolone Sod Succ 40 Mg/Ml Vial) 40 mg IVPUSH Q12H [facility] Mirabegron (Mirabegron 50 Mg Tab.Er.24h) 50 mg PO DAILY [facility] Last Admin: 05/30/22 09:35 Dose: 50 mg Morphine Sulfate (Morphine Sulfate 2 Mg/Ml Cartridge) 2 mg IVPUSH Q4H PRN; Protocol PRN Reason: Pain, Severe (Pain Scale 7-10) Last Admin: 05/30/22 14:19 Dose: 2 mg Multivitamins/Vitamin C (Multivitamin Tablet) 1 tab PO DAILY [facility] Last Admin: 05/30/22 09:37 Dose: 1 tab Non-Formulary Medication (Galcanezumab-Gnlm [Emgality Syringe]) 120 mg SUBCUT Q28D [facility] Non-Formulary Medication (Methenamine Hippurate) 1 gm PO BID [facility] Non-Formulary Medication (Tiotropium-Olodaterol [Stiolto Respimat]) 1 puff INHALE DAILY [facility] Omeprazole (Omeprazole 20 Mg Capsule.Dr) 20 mg PO BID@0630,1630 [facility] Sodium Chloride (0.9 % Sodium Chloride Flush 3 Ml Syringe) 3 ml IVFLUSH QSHIFT [facility] Last Admin: 05/30/22 14:19 Dose: Not Given Trazodone HCl (Trazodone Hcl 100 Mg Tablet) 200 mg PO BEDTIME PRN PRN Reason: Sleep Valacyclovir HCl (Valacyclovir Hcl 1,000 Mg Tablet) 1,000 mg PO DAILY [facility] Last Admin: 05/30/22 09:36 Dose: 1,000 mg Vitamin E (Vitamin E (Dl,Tocopheryl Acet) 180 Mg (400 Unit) Capsule) 180 mg PO DAILY [facility] Last Admin: 05/30/22 09:35 Dose: 180 mg Zolpidem Tartrate (Zolpidem Tartrate 5 Mg Tablet) 5 mg PO BEDTIME PRN PRN Reason: Sleep Home Medications Medication Instructions Recorded Confirmed Last Taken Type albuterol sulfate 90 mcg/actuation 2 puff inhalation Q4-6H PRN 04/23/22 05/29/22 Unknown History aerosol inhaler (Ventolin HFA) Wheezing bictegravir 50 mg-emtricitabine 1 tab PO DAILY 04/23/22 05/29/22 04/22/22 History 200 mg-tenofovir alafenam 25 mg tablet (Biktarvy) clonidine HCl 0.1 mg tablet 1 tab PO BEDTIME 04/23/22 05/29/22 04/22/22 History diazepam 5 mg tablet 1 tab PO TID PRN Anxiety 04/23/22 05/29/22 04/22/22 History fluoxetine 20 mg capsule 2 cap PO DAILY 04/23/22 05/29/22 04/22/22 History fluticasone propionate 50 2 spray intranasal DAILY PRN 04/23/22 05/29/22 Unknown History mcg/actuation nasal Allergic Symptoms spray,suspension (Flonase Allergy Relief) galcanezumab-gnlm 120 mg/mL 120 mg subcut Q28D 04/23/22 05/29/22 03/20/22 History subcutaneous syringe (Emgality) hydroxyzine HCl 50 mg tablet 1 tab PO BID 04/23/22 05/29/22 04/22/22 History mirabegron 50 mg tablet,extended 1 tab PO DAILY 04/23/22 05/29/22 04/22/22 History release 24 hr (Myrbetriq) multivitamin 1 tab PO DAILY 04/23/22 05/29/22 04/22/22 History omeprazole 20 mg capsule,delayed 1 cap PO DAILY@0630 04/23/22 05/29/22 04/22/22 History release tiotropium 2.5 mcg-olodaterol 2.5 1 puff inhalation DAILY 04/23/22 05/29/22 04/22/22 History mcg/actuation mist for inhalation (Stiolto Respimat) trazodone 100 mg tablet 2 tab PO BEDTIME PRN Sleep 04/23/22 05/29/22 1 Day Ago History ~04/22/22 2 tab valacyclovir 1 gram tablet 1 tab PO DAILY 04/23/22 05/29/22 04/22/22 History vitamin E 268 mg (400 unit) capsule 268 mg PO DAILY 04/23/22 05/29/22 04/22/22 History zolpidem 5 mg tablet 1 tab PO BEDTIME PRN Sleep 04/23/22 05/29/22 04/22/22 History Physical Exam Vital Signs: Vital Signs: Last Vital Signs Temp 98.3 F 05/29/22 22:35 Pulse 68 05/30/22 05:33 Resp 17 05/30/22 05:33 BP 132/74 05/30/22 05:33 Pulse Ox 91 L 05/30/22 09:08 O2 Del Method 05/30/22 09:08 BMI result Body Mass Index 28.1 Const: General: cooperative HEENT: Head: Yes normal to inspection Face and sinus: Yes normal facial exam Mouth: Normal oral and palatal mucosa present Teeth and gingiva: dentition normal Eyes: General: appearance normal, both eyes and all related structures Pupils: Equal, round and reactive pupils present Resp: Effort & Inspection: normal respiratory effort Cardio: Rate: regular rate Rhythm: regular rhythm GI: Palpation (GI): Soft to palpation and nontender : General: Yes no CVA tenderness Back/Spine/Pelvis: Back: no CVA tenderness Skin: General skin exam: no rashes or lesions noted Neuro: General: moves all extremities Cranial nerves: Yes Equal, round and reactive pupils present Extrem: General: Yes normal to inspection Psych: Appearance: grossly normal Results Labs 05/29/22 17:06 05/29/22 17:06 Labs: Short CBC 05/29/22 Range/Units 17:06 WBC 3.5 L (4.8-10.8) X10*3/uL Hgb 13.2 (12.0-16.0) g/dl Hct 38.2 (37.0-47.0) % Plt Count 133 L D (160-400) X10*3/uL BMP 05/29/22 17:06 Sodium 138 Potassium 3.4 Chloride 104 Carbon Dioxide 24 BUN 9 Creatinine 0.73 Calcium 8.3 L D Liver Function 05/29/22 Range/Units 17:06 Total Bilirubin 0.2 (0.0-1.0) mg/dL Direct Bilirubin < 0.2 (0.0-0.5) mg/dL AST 108 H (5-31) U/L ALT 132 H (0-31) U/L Alkaline Phosphatase 152 H (39-117) U/L Albumin 3.7 (3.5-5.0) g/dL Urine 05/29/22 Range/Units 19:59 Urine Color Yellow Urine Appearance Clear Urine pH 6.0 (5.0-9.0) Ur Specific [place] 1.020 (1.005-1.025) Urine Protein 30 (1+) H (Neg-Trace) mg/dL Urine Glucose (UA) Negative (Negative) mg/dL Microbiology Microbiology Results: Microbiology 05/29/22 20:30 Urine clean catch - Urine haider top Urine Culture - Preliminary Culture too young to evaluate. Assessment and Plan (1) HIV (human immunodeficiency virus infection): Status: Acute (2) COVID: Status: Acute She has COVID of unknown duration She has hypoxia. 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 Remdesivir is most useful first 7 days so appears out of window. Make sure evaluate PE and VTE prophylaxis. Check CD4 count and Bactrim if under 200. Time Spent With Patient Time: Total time managing care of this patient today ____ minutes.
[2022-05-30 16:51] VITALS: BMI 28.0
[2022-05-30 16:57] VITALS: BP 146/81; PULSE 68; RESP 19; TEMP 36.7; O2SAT 93
[2022-05-30] MEDS: Acetaminophen 325 MG TABLET 650 MG PO (18:03)
[2022-05-30 19:18] VITALS: BP 148/73; PULSE 69; RESP 19; TEMP 36.2; O2SAT 90
[2022-05-30] MEDS: cloNIDine HCL 0.1 MG TABLET PO (22:01)
[2022-05-30] MEDS: methylPREDNISolone Sod Succ 40 MG/ML VIAL IVPUSH (22:02)
[2022-05-30] MEDS: traZODone HCL 100 MG TABLET 200 MG PO (22:02)
[2022-05-30] MEDS: Zolpidem Tartrate 5 MG TABLET PO (22:02)
[2022-05-30] MEDS: 0.9 % Sodium Chloride Flush 3 ML SYRINGE IVFLUSH (22:02)
[2022-05-30 23:24] VITALS: BP 105/60; PULSE 65; RESP 18; TEMP 37; O2SAT 93
[2022-05-31 03:11] VITALS: BP 125/68; PULSE 60; RESP 20; TEMP 37.1; O2SAT 92
[2022-05-31] MEDS: Morphine Sulfate 2 MG/ML CARTRIDGE IVPUSH ×4 (05:57→20:48)
[2022-05-31] MEDS: Omeprazole 20 MG CAPSULE.DR PO ×2 (05:58→16:24)
[2022-05-31 07:22] LABS: Alanine Aminotransferase 87 U/L (0-31); Albumin Level 3.4 g/dL (3.5-5.0); Alkaline Phosphatase 226 U/L (39-117); Anion Gap 16 (12-20); Aspartate Amino Transferase 60 U/L (5-31); Bilirubin Total 0.3 mg/dL (0.0-1.0); Blood Urea Nitrogen 7 mg/dL (9-16); Calcium 8.4 mg/dL (8.4-10.2); Carbon Dioxide 22 mmol/L (22-29); Chloride 105 mmol/L (96-108); Creatinine Clr Calc Pharmacy 92.9; Estimated Glomerular Filt Rate > 60; Glucose Random 131 mg/dL (60-115); Potassium 4.2 mmol/L (3.3-5.1); Sodium 139 mmol/L (135-145); Total Protein 6.1 g/dL (6.5-8.0)
[2022-05-31 07:30] LABS: Hematocrit 38.2 % (37.0-47.0); Hemoglobin 13.2 g/dl (12.0-16.0); Mean Corpuscular HGB Conc 34.6 g/dl (31.0-35.0); Mean Corpuscular Hemoglobin 30.7 pg (27.0-33.0); Mean Corpuscular Volume 88.8 fL (80.0-98.0); Mean Platelet Volume 10.3 fL (9.4-12.3); Platelet Count 131 X10*3/uL (160-400); Red Cell Distribution Width 12.3 % (11.0-16.0)
[2022-05-31 07:33] LABS: White Blood Count 1.8 X10*3/uL (4.8-10.8)
[2022-05-31 07:58] VITALS: BP 116/65; PULSE 69; RESP 20; TEMP 36.3; O2SAT 93
[2022-05-31] MEDS: 0.9 % Sodium Chloride Flush 3 ML SYRINGE IVFLUSH ×2 (09:37→16:27)
[2022-05-31] MEDS: valACYclovir HCL 1,000 MG TABLET 1000 MG PO (09:38)
[2022-05-31] MEDS: Vitamin E (Dl,Tocopheryl Acet) 180 MG (400 UNIT) CAPSULE PO (09:38)
[2022-05-31] MEDS: FLUoxetine HCl 20 MG CAPSULE 40 MG PO (09:38)
[2022-05-31] MEDS: Mirabegron 50 MG TAB.ER.24H PO (09:38)
[2022-05-31] MEDS: hydrOXYzine HCL 50 MG TABLET PO ×2 (09:38→20:48)
[2022-05-31] MEDS: Bictegrav/Emtricit/Tenofov Ala TABLET 1 TAB PO (09:38)
[2022-05-31] MEDS: Multivitamin TABLET 1 TAB PO (09:38)
[2022-05-31] MEDS: dexAMETHasone 6 MG TABLET PO (09:38)
[2022-05-31] MEDS: diazePAM 5 MG TABLET PO ×2 (09:52→16:25)
[2022-05-31 11:48] VITALS: BP 116/80; PULSE 76; RESP 20; TEMP 36.6; O2SAT 90
[2022-05-31] MEDS: Benzonatate 100 MG CAPSULE PO ×2 (12:08→20:48)
[2022-05-31] MEDS: Ibuprofen 200 MG TABLET PO (13:16)
[2022-05-31] MEDS: Enoxaparin Sodium 40 MG/0.4 ML SYRINGE SUBCUT (13:16)
--- NOTE | 2022-05-31 13:44 | HO.PM.IMPN ---
Subjective Subjective Date of Service: 05/31/22 Interval History: Seen and evaluated this morning Reports feeling little bit better but still complaining of abdominal pain on and off Still requiring oxygen supplement No reported other overnight events Review of Systems Review of Systems: Yes all other systems are reviewed and are negative Physical Exam Vital Signs: Vital Signs: Last Vital Signs Temp 97.9 F 05/31/22 11:48 Pulse 76 05/31/22 11:48 Resp 20 05/31/22 11:48 BP 116/80 05/31/22 11:48 Pulse Ox 90 L 05/31/22 11:48 O2 Del Method 05/31/22 11:48 O2 Flow Rate 1 05/31/22 11:48 BMI result Body Mass Index 28.0 Const: Other: Constitutional : Awake, interactive, not in distress Neck : Normal inspection, Supple Cardiovascular : RRR, no JVP, no lower extremity edema Respiratory : Decreased bilateral air entry, no crackles, expiratory rhonchi, on oxygen supplement Gastrointestinal: soft, lax, Normal bowel sounds, generalized tenderness with mild palpation, no surgical signs or rebound Skin : Warm, Dry Neurological : Alert & oriented x3, No focal deficit Objective Data Active Medications Acetaminophen (Acetaminophen 325 Mg Tablet) 650 mg PO Q6H PRN PRN Reason: Pain, Mild (Pain Scale 1-3) Last Admin: 05/30/22 18:03 Dose: 650 mg Documented By: MEGAN Albuterol/Ipratropium (Albuterol/Iprat 2.5/0.5mg 3 Ml Ampul.Neb) 3 ml INHALE RQ4H WHILE AWAKE [facility] Last Admin: 05/31/22 11:38 Dose: Not Given Documented By: JON Non-Admin Reason: Patient Refused Benzonatate (Benzonatate 100 Mg Capsule) 100 mg PO TID [facility] Last Admin: 05/31/22 12:08 Dose: 100 mg Documented By: NAIN Bictegravir/Emtricitabine/Tenofovir (Bictegrav/Emtricit/Tenofov Ala Tablet) 1 tab PO DAILY [facility] Last Admin: 05/31/22 09:38 Dose: 1 tab Documented By: NAIN Clonidine HCl (Clonidine Hcl 0.1 Mg Tablet) 0.1 mg PO BEDTIME [facility]; Protocol Last Admin: 05/30/22 22:01 Dose: 0.1 mg Documented By: GLENN Dexamethasone (Dexamethasone 6 Mg Tablet) 6 mg PO DAILY [facility] Last Admin: 05/31/22 09:38 Dose: 6 mg Documented By: NAIN Diazepam (Diazepam 5 Mg Tablet) 5 mg PO TID PRN PRN Reason: Anxiety Last Admin: 05/31/22 09:52 Dose: 5 mg Documented By: NAIN Enoxaparin Sodium (Enoxaparin Sodium 40 Mg/0.4 Ml Syringe) 40 mg SUBCUT Q24H [facility] Last Admin: 05/31/22 13:16 Dose: 40 mg Documented By: DIOR Fluoxetine HCl (Fluoxetine Hcl 20 Mg Capsule) 40 mg PO DAILY [facility] Last Admin: 05/31/22 09:38 Dose: 40 mg Documented By: NAIN Fluticasone Propionate (Fluticasone Propionate Nasal 16 Gm [place]) 2 spray NOSTRIL-B DAILY PRN PRN Reason: Allergic Symptoms Hydroxyzine HCl (Hydroxyzine Hcl 50 Mg Tablet) 50 mg PO BID [facility] Last Admin: 05/31/22 09:38 Dose: 50 mg Documented By: NAIN Ibuprofen (Ibuprofen 200 Mg Tablet) 200 mg PO TIDWM [facility] Last Admin: 05/31/22 13:16 Dose: 200 mg Documented By: DIOR Mirabegron (Mirabegron 50 Mg Tab.Er.24h) 50 mg PO DAILY [facility] Last Admin: 05/31/22 09:38 Dose: 50 mg Documented By: NAIN Morphine Sulfate (Morphine Sulfate 2 Mg/Ml Cartridge) 2 mg IVPUSH Q4H PRN; Protocol PRN Reason: Pain, Severe (Pain Scale 7-10) Last Admin: 05/31/22 09:57 Dose: 2 mg Documented By: NAIN Multivitamins/Vitamin C (Multivitamin Tablet) 1 tab PO DAILY [facility] Last Admin: 05/31/22 09:38 Dose: 1 tab Documented By: NAIN Non-Formulary Medication (Galcanezumab-Gnlm [Emgality Syringe]) 120 mg SUBCUT Q28D [facility] Non-Formulary Medication (Methenamine Hippurate) 1 gm PO BID [facility] Non-Formulary Medication (Tiotropium-Olodaterol [Stiolto Respimat]) 1 puff INHALE DAILY [facility] Omeprazole (Omeprazole 20 Mg Capsule.) 20 mg PO BID@0630,1630 [facility] Last Admin: 05/31/22 05:58 Dose: 20 mg Documented By: GLENN Sodium Chloride (0.9 % Sodium Chloride Flush 3 Ml Syringe) 3 ml IVFLUSH QSHIFT [facility] Last Admin: 05/31/22 09:37 Dose: 3 ml Documented By: NAIN Trazodone HCl (Trazodone Hcl 100 Mg Tablet) 200 mg PO BEDTIME PRN PRN Reason: Sleep Last Admin: 05/30/22 22:02 Dose: 200 mg Documented By: ANTREYNALDO Valacyclovir HCl (Valacyclovir Hcl 1,000 Mg Tablet) 1,000 mg PO DAILY [facility] Last Admin: 05/31/22 09:38 Dose: 1,000 mg Documented By: NAIN Vitamin E (Vitamin E (Dl,Tocopheryl Acet) 180 Mg (400 Unit) Capsule) 180 mg PO DAILY [facility] Last Admin: 05/31/22 09:38 Dose: 180 mg Documented By: NAIN Zolpidem Tartrate (Zolpidem Tartrate 5 Mg Tablet) 5 mg PO BEDTIME PRN PRN Reason: Sleep Last Admin: 05/30/22 22:02 Dose: 5 mg Documented By: GLENN Labs 05/31/22 06:29 05/31/22 06:29 Labs: Laboratory Results - last 24 hr 05/31/22 05/31/22 06:29 06:29 MCV 88.8 MCH 30.7 MCHC 34.6 RDW 12.3 Plt Count 131 L MPV 10.3 Absolute Nucleated RBC 0.000 Nucleated RBC % (auto) 0.0 Anion Gap 16 Estim Creat Clear Calc 92.9 Estimated GFR > 60 Random Glucose 131 H Calcium 8.4 Total Bilirubin 0.3 AST 60 H ALT 87 H Alkaline Phosphatase 226 H Total Protein 6.1 L Albumin 3.4 L Microbiology Microbiology Results: Microbiology 05/29/22 20:30 Urine Culture - Final Urine clean catch - Urine haider top Assessment and Plan (1) COVID: Status: Acute (2) HIV (human immunodeficiency virus infection): Status: Acute (3) Acute respiratory failure with hypoxia: Status: Acute Plan Pt is a 57-year-old female with a PMH significant for COPD, HIV, GERD, anxiety, and hx of ESBL+ UTI who presents to the ED with?severe abdominal and lower back pain. Pt states she has been experiencing symptoms since Thursday. Pt will be admitted to the hospital for treatment of?acute hypoxic respiratory failure in the setting of COIVD infection with IV steroids. Acute hypoxic respiratory failure in the setting of COVID infection and COPD exacerbation Pt desatting to 86% on RA with ambulation Change steroids to Dexa 6 mg Po daily 2/10 DuoNeb 3mg q4h while awake Nasal cannula, titrate O2>90, wean as tolerated DC IVF Pt does not meet sepsis criteria Monitor respiratory status ID input appreciated, check CD4, Bactrim if <200 Abdominal and back pain Unclear etiology, CT of abd/pelvis and U/S of abdomen negative for acute intra-abdominal processes Toleratind diet, no nausea, no change in bowel habit Pain management add Bentyl Tingling sensation Unclear etiology, possibly secondary to dehydration and COVID infection Treat as above, monitor Transaminitis Possibly secondary to COVID infection Monitor labs Leukopenia Possibly secondary to COVID infection pending CD4 count Monitor labs HIV Continue home meds Anxiety Continue home meds DNR/DNI DVT Prophylaxis: Lovenox Pt will require a hospitalization of overnight for treatment of?acute hypoxic respiratory failure in the setting of COIVD infection with IV steroids Time Spent With Patient Time: Total time managing care of this patient today ____ minutes. Quality Stroke Does the patient have a stroke diagnosis?: No VTE Prior VTE?: No VTE Risk Level:: Medical - moderate - high VTE Device Contraindication: Treatment Not Indicated VTE Drug Contraindication: N/A - Med Ordered
[2022-05-31] MEDS: Dicyclomine HCl 10 MG CAPSULE PO (14:02)
--- NOTE | 2022-05-31 14:51 | PC.NURSE ---
Addendum entered by Tish Bassett RN 05/31/22 14:53: report given to Dee Dee DUMONT at 1450. 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 pt c/o 02/10 pain with little to no effect from PRN medications, MD notified. Pt states after morphine 2mg that it feels like I didn't even get anything . Call samuel within reach, bed alarm on, safety precautions in place.
[2022-05-31 15:10] VITALS: BP 116/67; PULSE 71; RESP 20; TEMP 36.3; O2SAT 92
[2022-05-31] MEDS: Acetaminophen 325 MG TABLET 650 MG PO (16:25)
--- NOTE | 2022-05-31 17:14 | PC.NURSE ---
Patient reported pain #9 to her lower abdomen and lower back, pt reported no relief fro the meds she is getting for pain. Pt is anxious. Medicated with Tylenol 650 mg po for pain , medicated with Valium for anxiety . DR Lindo was notified
[2022-05-31 19:13] VITALS: BP 100/52; PULSE 72; RESP 20; TEMP 36.6; O2SAT 95
[2022-05-31] MEDS: traZODone HCL 100 MG TABLET 200 MG PO (20:48)
[2022-05-31] MEDS: cloNIDine HCL 0.1 MG TABLET PO (20:48)
[2022-05-31] MEDS: Zolpidem Tartrate 5 MG TABLET PO (20:48)
[2022-05-31 23:29] VITALS: BP 95/60; PULSE 54; RESP 16; TEMP 36.3; O2SAT 92
[2022-06-01] VITALS (7 sets, daily range): BP systolic 106–124; BP diastolic 51–69; PULSE 53–87; RESP 16–20; TEMP 36.2–37; O2SAT 92–98
[2022-06-01] MEDS: 0.9 % Sodium Chloride Flush 3 ML SYRINGE IVFLUSH ×3 (00:04→16:34)
[2022-06-01 06:05] LABS: Hematocrit 36.6 % (37.0-47.0); Hemoglobin 12.8 g/dl (12.0-16.0); Mean Corpuscular Hemoglobin 30.9 pg (27.0-33.0); Mean Corpuscular Volume 88.4 fL (80.0-98.0); Mean Platelet Volume 9.6 fL (9.4-12.3); Platelet Count 146 X10*3/uL (160-400); Red Blood Count 4.14 X10*6/uL (4.20-5.50); Red Cell Distribution Width 12.2 % (11.0-16.0); White Blood Count 3.6 X10*3/uL (4.8-10.8)
[2022-06-01] MEDS: Omeprazole 20 MG CAPSULE.DR PO ×2 (06:25→16:32)
[2022-06-01 06:49] LABS: Anion Gap 13 (12-20); Blood Urea Nitrogen 10 mg/dL (9-16); C Reactive Protein 0.49 mg/dL (< or = 0.50); Calcium 8.4 mg/dL (8.4-10.2); Carbon Dioxide 26 mmol/L (22-29); Chloride 104 mmol/L (96-108); Creatinine Clr Calc Pharmacy 91.4; Estimated Glomerular Filt Rate > 60; Glucose Random 87 mg/dL (60-115); Lactate Dehydrogenase 153 U/L (122-220); Potassium 3.8 mmol/L (3.3-5.1); Sodium 139 mmol/L (135-145)
[2022-06-01] MEDS: FLUoxetine HCl 20 MG CAPSULE 40 MG PO (07:52)
[2022-06-01] MEDS: Bictegrav/Emtricit/Tenofov Ala TABLET 1 TAB PO (07:52)
[2022-06-01] MEDS: hydrOXYzine HCL 50 MG TABLET PO ×2 (07:52→20:36)
[2022-06-01] MEDS: Mirabegron 50 MG TAB.ER.24H PO (07:52)
[2022-06-01] MEDS: Dicyclomine HCl 10 MG CAPSULE PO ×2 (07:53→12:51)
[2022-06-01] MEDS: Ibuprofen 200 MG TABLET PO ×3 (07:53→16:32)
[2022-06-01] MEDS: valACYclovir HCL 1,000 MG TABLET 1000 MG PO (07:53)
[2022-06-01] MEDS: Morphine Sulfate 2 MG/ML CARTRIDGE IVPUSH ×3 (07:53→20:37)
[2022-06-01] MEDS: dexAMETHasone 6 MG TABLET PO (07:53)
[2022-06-01] MEDS: Benzonatate 100 MG CAPSULE PO ×3 (07:53→20:35)
[2022-06-01] MEDS: Vitamin E (Dl,Tocopheryl Acet) 180 MG (400 UNIT) CAPSULE PO (07:53)
[2022-06-01] MEDS: Multivitamin TABLET 1 TAB PO (07:54)
[2022-06-01] MEDS: diazePAM 5 MG TABLET PO ×2 (07:55→20:37)
--- NOTE | 2022-06-01 10:16 | P.CONGS_ITS ---
History of Present Illness Consult details Consult date: 06/01/22 Requesting physician: Rigoberto Figueredo Narrative: 57-year-old female patient presenting with complaints of diffuse abdominal pain which began initially after developing a urinary tract infection. Over the past several weeks is increased in severity in felt diffusely throughout the abdomen, increasing with motion and decreasing with lying still. She has a past history of COPD, HIV, GERD, colon cancer status post total abdominal colectomy with ileal rectal anastomosis, and adrenal insufficiency. She was recently diagnosed with COVID with acute hypoxic respiratory failure. She reports some nausea without vomiting, fever and chills. She presented to the emergency department because the abdominal pain was found to have WBC of 3.5 and mildly elevated transaminases. Ultrasound the abdomen was normal; patient previously underwent laparoscopic cholecystectomy. CT abdomen and pelvis revealed previous colectomy with a pelvic anastomosis. The anastomosis was widely patent with no evidence of obstruction. There is normal small-bowel with no intra-abdominal fluid collections or evidence of inflammation. Surgical consultation was requested for the persistent abdominal pain. Review of Systems Review of Systems: Yes all other systems are reviewed and are negative Constitutional: Constitutional: Reports chills, Reports fever(s), Denies headache(s), Reports poor appetite and Denies weakness ENT: Denies headache(s) Cardiovascular: Cardiovascular: Denies chest pain, Denies irregular heart rhythm, Denies palpitations and Reports dyspnea Respiratory: Respiratory: Reports cough, Denies excessive phlegm production and Reports dyspnea Gastrointestinal: Gastrointestinal: Reports abdominal pain, Reports bloating, Denies change in bowel habits, Denies constipation, Denies heartburn, Denies diarrhea, Reports nausea and Denies vomiting Genitourinary: Genitourinary: Denies urinary frequency Musculoskeletal: Musculoskeletal: Denies back pain, Denies muscle weakness and Denies numbness Integumentary/Breasts: Skin/Breast: Denies changing lesions and Denies unusual bruising Neurologic: Denies headache(s), Denies numbness, Denies paresthesias and Denies weakness Psychiatric: Psychiatric: Denies anxiety and Denies depression Endocrine: Endocrine: Denies palpitations Hematologic/Lymphatic: Hematologic/Lymphatic: Denies lymphadenopathy PMFSH Past Medical History Medical History Anxiety Asthma Colon cancer HIV (human immunodeficiency virus infection) Family History Family History Paternal Grandmother Breast CA Family history: reviewed and not pertinent Surgical History Surgical History H/O colectomy H/O: hysterectomy Social History Social History Household Members: Significant Other Housing: House Do you presently have visiting nurse or other home services: No Alcohol intake: never Patient Tobacco Use Status: Former Tobacco user Quit Date: 2 year ago Second Hand Smoke Exposure: No Advance Directives Date on File: 04/24/22 service: No Current occupational status: disabled Meds Allergies Allergy/AdvReac Type Severity Reaction Status Date / Time tramadol [Tramadol] Allergy Mild HEADACHE Verified 05/27/22 12:28 bee pollen [BEE STINGS] Allergy Unknown UNKNOWN Verified 05/27/22 12:28 tapentadol [TAPENTADOL] Allergy Unknown UNKNOWN Verified 05/27/22 12:28 gabapentin Allergy Hallucinati Verified 05/27/22 12:28 ons adhesive tape [ADHESIVE TAPE] AdvReac Unknown MY SKIN Verified 05/27/22 12:28 RIPS OFF ADHESIVE BANDAGE AdvReac Unknown MY SKIN Uncoded 05/27/22 12:28 RIPS OFF Active Medications: Current Medications Acetaminophen (Acetaminophen 325 Mg Tablet) 650 mg PO Q6H PRN PRN Reason: Pain, Mild (Pain Scale 1-3) Last Admin: 05/31/22 16:25 Dose: 650 mg Albuterol/Ipratropium (Albuterol/Iprat 2.5/0.5mg 3 Ml Ampul.Neb) 3 ml INHALE RQ4H WHILE AWAKE JODIE Last Admin: 06/01/22 07:40 Dose: Not Given Benzonatate (Benzonatate 100 Mg Capsule) 100 mg PO TID JODIE Last Admin: 06/01/22 07:53 Dose: 100 mg Bictegravir/Emtricitabine/Tenofovir (Bictegrav/Emtricit/Tenofov Ala Tablet) 1 tab PO DAILY JODIE Last Admin: 06/01/22 07:52 Dose: 1 tab Clonidine HCl (Clonidine Hcl 0.1 Mg Tablet) 0.1 mg PO BEDTIME JODIE; Protocol Last Admin: 05/31/22 20:48 Dose: 0.1 mg Dexamethasone (Dexamethasone 6 Mg Tablet) 6 mg PO DAILY [facility] Last Admin: 06/01/22 07:53 Dose: 6 mg Diazepam (Diazepam 5 Mg Tablet) 5 mg PO TID PRN PRN Reason: Anxiety Last Admin: 06/01/22 07:55 Dose: 5 mg Dicyclomine HCl (Dicyclomine Hcl 10 Mg Capsule) 10 mg PO TIDAC [facility] Last Admin: 06/01/22 07:53 Dose: 10 mg Enoxaparin Sodium (Enoxaparin Sodium 40 Mg/0.4 Ml Syringe) 40 mg SUBCUT Q24H [facility] Last Admin: 05/31/22 13:16 Dose: 40 mg Fluoxetine HCl (Fluoxetine Hcl 20 Mg Capsule) 40 mg PO DAILY [facility] Last Admin: 06/01/22 07:52 Dose: 40 mg Fluticasone Propionate (Fluticasone Propionate Nasal 16 Gm [place]) 2 spray NOSTRIL-B DAILY PRN PRN Reason: Allergic Symptoms Hydroxyzine HCl (Hydroxyzine Hcl 50 Mg Tablet) 50 mg PO BID [facility] Last Admin: 06/01/22 07:52 Dose: 50 mg Ibuprofen (Ibuprofen 200 Mg Tablet) 200 mg PO TIDWM [facility] Last Admin: 06/01/22 07:53 Dose: 200 mg Mirabegron (Mirabegron 50 Mg Tab.Er.24h) 50 mg PO DAILY [facility] Last Admin: 06/01/22 07:52 Dose: 50 mg Morphine Sulfate (Morphine Sulfate 2 Mg/Ml Cartridge) 2 mg IVPUSH Q4H PRN; Protocol PRN Reason: Pain, Severe (Pain Scale 7-10) Last Admin: 06/01/22 07:53 Dose: 2 mg Multivitamins/Vitamin C (Multivitamin Tablet) 1 tab PO DAILY [facility] Last Admin: 06/01/22 07:54 Dose: 1 tab Non-Formulary Medication (Galcanezumab-Gnlm [Emgality Syringe]) 120 mg SUBCUT Q28D [facility] Non-Formulary Medication (Methenamine Hippurate) 1 gm PO BID [facility] Non-Formulary Medication (Tiotropium-Olodaterol [Stiolto Respimat]) 1 puff INHALE DAILY [facility] Omeprazole (Omeprazole 20 Mg Capsule.Dr) 20 mg PO BID@0630,1630 [facility] Last Admin: 01/29/23 06:25 Dose: 20 mg Sodium Chloride (0.9 % Sodium Chloride Flush 3 Ml Syringe) 3 ml IVFLUSH QSHIFT [facility] Last Admin: 06/01/22 07:54 Dose: 3 ml Trazodone HCl (Trazodone Hcl 100 Mg Tablet) 200 mg PO BEDTIME PRN PRN Reason: Sleep Last Admin: 05/31/22 20:48 Dose: 200 mg Valacyclovir HCl (Valacyclovir Hcl 1,000 Mg Tablet) 1,000 mg PO DAILY [facility] Last Admin: 06/01/22 07:53 Dose: 1,000 mg Vitamin E (Vitamin E (Dl,Tocopheryl Acet) 180 Mg (400 Unit) Capsule) 180 mg PO DAILY [facility] Last Admin: 06/01/22 07:53 Dose: 180 mg Zolpidem Tartrate (Zolpidem Tartrate 5 Mg Tablet) 5 mg PO BEDTIME PRN PRN Reason: Sleep Last Admin: 05/31/22 20:48 Dose: 5 mg Home Medications Medication Instructions Recorded Confirmed Last Taken Type albuterol sulfate 90 mcg/actuation 2 puff inhalation Q4-6H PRN 04/23/22 05/29/22 Unknown History aerosol inhaler (Ventolin HFA) Wheezing bictegravir 50 mg-emtricitabine 1 tab PO DAILY 04/23/22 05/29/22 04/22/22 History 200 mg-tenofovir alafenam 25 mg tablet (Biktarvy) clonidine HCl 0.1 mg tablet 1 tab PO BEDTIME 04/23/22 05/29/22 04/22/22 History diazepam 5 mg tablet 1 tab PO TID PRN Anxiety 04/23/22 05/29/22 04/22/22 History fluoxetine 20 mg capsule 2 cap PO DAILY 04/23/22 05/29/22 04/22/22 History fluticasone propionate 50 2 spray intranasal DAILY PRN 04/23/22 05/29/22 Unknown History mcg/actuation nasal Allergic Symptoms spray,suspension (Flonase Allergy Relief) galcanezumab-gnlm 120 mg/mL 120 mg subcut Q28D 04/23/22 05/29/22 03/20/22 History subcutaneous syringe (Emgality) hydroxyzine HCl 50 mg tablet 1 tab PO BID 04/23/22 05/29/22 04/22/22 History mirabegron 50 mg tablet,extended 1 tab PO DAILY 04/23/22 05/29/22 04/22/22 History release 24 hr (Myrbetriq) multivitamin 1 tab PO DAILY 04/23/22 05/29/22 04/22/22 History omeprazole 20 mg capsule,delayed 1 cap PO DAILY@0630 04/23/22 05/29/22 04/22/22 History release tiotropium 2.5 mcg-olodaterol 2.5 1 puff inhalation DAILY 04/23/22 05/29/22 04/22/22 History mcg/actuation mist for inhalation (Stiolto Respimat) trazodone 100 mg tablet 2 tab PO BEDTIME PRN Sleep 04/23/22 05/29/22 1 Day Ago History ~04/22/22 2 tab valacyclovir 1 gram tablet 1 tab PO DAILY 04/23/22 05/29/22 04/22/22 History vitamin E 268 mg (400 unit) capsule 268 mg PO DAILY 04/23/22 05/29/22 04/22/22 History zolpidem 5 mg tablet 1 tab PO BEDTIME PRN Sleep 04/23/22 05/29/22 04/22/22 History Physical Exam Vital Signs: Vital Signs: Last Vital Signs Temp 97.7 F 06/01/22 08:00 Pulse 53 06/01/22 08:00 Resp 20 06/01/22 08:00 BP 124/66 06/01/22 08:00 Pulse Ox 95 06/01/22 08:00 O2 Del Method 06/01/22 08:00 O2 Flow Rate 2 06/01/22 08:00 BMI result Body Mass Index 28.0 Const: General: cooperative and no acute distress Nutritional Appearance: well nourished Orientation/consciousness: patient oriented x3 Limitations: no limitations HEENT: Head: Yes normocephalic and Yes atraumatic Ears: hearing grossly normal bilaterally Resp: Effort & Inspection: normal respiratory effort, no audible wheezes, no cough and no respiratory distress Cardio: Jugular venous distension: no JVD GI: Other: Soft but tender diffusely to light pressure, normal bowel sounds, no tympany to percussion, tender with percussion, no palpable mass or hepatosplenomegaly. No abdominal hernias palpable. Well-healed for laparoscopic. Incisions Inspection: Yes normal to inspection Skin: Other: Warm, dry, no rash Neuro: General: patient oriented x3 Extrem: General: Yes no clubbing, cyanosis or edema Results Labs 06/01/22 05:29 06/01/22 05:29 Labs: Abnormal lab results 06/01/22 Range/Units 05:29 WBC 3.6 L (4.8-10.8) X10*3/uL RBC 4.14 L (4.20-5.50) X10*6/uL Hct 36.6 L (37.0-47.0) % Plt Count 146 L (160-400) X10*3/uL Short CBC 06/01/22 Range/Units 05:29 WBC 3.6 L (4.8-10.8) X10*3/uL Hgb 12.8 (12.0-16.0) g/dl Hct 36.6 L (37.0-47.0) % Plt Count 146 L (160-400) X10*3/uL BMP 06/01/22 05:29 Sodium 139 Potassium 3.8 Chloride 104 Carbon Dioxide 26 BUN 10 Creatinine 0.62 Calcium 8.4 Urine 05/29/22 05/29/22 Range/Units 19:59 19:59 Urine Color Yellow Urine Appearance Clear Urine pH 6.0 (5.0-9.0) Ur Specific [place] 1.020 (1.005-1.025) Urine Protein 30 (1+) H (Neg-Trace) mg/dL Urine Glucose (UA) Negative (Negative) mg/dL Urine Test NEGATIVE (NEGATIVE) All other labs normal. Imaging Abdomen CT scan report/results: image reviewed CT scan - pelvis: image reviewed Abdominal ultrasound report/results: image reviewed Assessment and Plan (1) Abdominal pain in female: Status: Acute (2) Acute respiratory failure with hypoxia: Status: Acute (3) HIV (human immunodeficiency virus infection): Status: Acute Plan 57-year-old female patient with a recent history of COVID were respiratory failure and a previous history of colon cancer status post total abdominal colectomy with ileorectal anastomosis and hysterectomy presenting with diffuse abdominal pain of unknown etiology. Laboratories revealed a leukopenia, CT and ultrasound were negative for any intra-abdominal source of the abdominal pain. Examination does reveal diffuse tenderness with apparent peritoneal signs. There is no evidence of intra-abdominal infection or free air. Symptoms may be related to COVID associated abdominal pain especially with the mildly elevated transaminases. Would not recommend surgical intervention at this time. I will continue to monitor. Time Spent With Patient Time: Total time managing care of this patient today ____ minutes. Procedures Date of Service Date of Service: 06/01/22
[2022-06-01] MEDS: Simethicone 80 MG TAB.CHEW PO ×3 (12:50→20:37)
[2022-06-01] MEDS: Enoxaparin Sodium 40 MG/0.4 ML SYRINGE SUBCUT (12:50)
--- NOTE | 2022-06-01 14:55 | HO.PM.IMPN ---
Subjective Subjective Date of Service: 06/01/22 Interval History: Seen and evaluated this morning breathing improve, less dyspnea still complaining of abdominal pain on and off Still requiring oxygen supplement No reported other overnight events Review of Systems Review of Systems: Yes all other systems are reviewed and are negative Physical Exam Vital Signs: Vital Signs: Last Vital Signs Temp 97.5 F 06/01/22 11:29 Pulse 55 06/01/22 11:29 Resp 20 06/01/22 11:29 BP 122/65 06/01/22 11:29 Pulse Ox 94 06/01/22 11:29 O2 Del Method 06/01/22 11:29 O2 Flow Rate 2 06/01/22 11:29 BMI result Body Mass Index 28.0 Const: Other: Constitutional : Awake, interactive, not in distress Neck : Normal inspection, Supple Cardiovascular : RRR, no JVP, no lower extremity edema Respiratory : Decreased bilateral air entry, no crackles, expiratory rhonchi, on oxygen supplement Gastrointestinal: soft, lax, Normal bowel sounds, generalized tenderness with mild palpation, no surgical signs or rebound Skin : Warm, Dry Neurological : Alert & oriented x3, No focal deficit Objective Data Active Medications Acetaminophen (Acetaminophen 325 Mg Tablet) 650 mg PO Q6H PRN PRN Reason: Pain, Mild (Pain Scale 1-3) Last Admin: 05/31/22 16:25 Dose: 650 mg Documented By: TONY Albuterol/Ipratropium (Albuterol/Iprat 2.5/0.5mg 3 Ml Ampul.Neb) 3 ml INHALE RQ4H WHILE AWAKE [facility] Last Admin: 06/01/22 11:20 Dose: Not Given Documented By: JON Non-Admin Reason: Patient Refused Benzonatate (Benzonatate 100 Mg Capsule) 100 mg PO TID [facility] Last Admin: 06/01/22 07:53 Dose: 100 mg Documented By: SRINIVAS Bictegravir/Emtricitabine/Tenofovir (Bictegrav/Emtricit/Tenofov Ala Tablet) 1 tab PO DAILY [facility] Last Admin: 06/01/22 07:52 Dose: 1 tab Documented By: SRINIVAS Clonidine HCl (Clonidine Hcl 0.1 Mg Tablet) 0.1 mg PO BEDTIME [facility]; Protocol Last Admin: 05/31/22 20:48 Dose: 0.1 mg Documented By: TONY Dexamethasone (Dexamethasone 6 Mg Tablet) 6 mg PO DAILY [facility] Last Admin: 06/01/22 07:53 Dose: 6 mg Documented By: SRINIVAS Diazepam (Diazepam 5 Mg Tablet) 5 mg PO TID PRN PRN Reason: Anxiety Last Admin: 06/01/22 07:55 Dose: 5 mg Documented By: SRINIVAS Dicyclomine HCl (Dicyclomine Hcl 10 Mg Capsule) 10 mg PO TIDAC [facility] Last Admin: 06/01/22 12:51 Dose: 10 mg Documented By: SRINIVAS Enoxaparin Sodium (Enoxaparin Sodium 40 Mg/0.4 Ml Syringe) 40 mg SUBCUT Q24H [facility] Last Admin: 06/01/22 12:50 Dose: 40 mg Documented By: SRINIVAS Fluoxetine HCl (Fluoxetine Hcl 20 Mg Capsule) 40 mg PO DAILY [facility] Last Admin: 06/01/22 07:52 Dose: 40 mg Documented By: SRINIVAS Fluticasone Propionate (Fluticasone Propionate Nasal 16 Gm [place]) 2 spray NOSTRIL-B DAILY PRN PRN Reason: Allergic Symptoms Hydroxyzine HCl (Hydroxyzine Hcl 50 Mg Tablet) 50 mg PO BID [facility] Last Admin: 06/01/22 07:52 Dose: 50 mg Documented By: SRINIVAS Ibuprofen (Ibuprofen 200 Mg Tablet) 200 mg PO TIDWM [facility] Last Admin: 06/01/22 12:51 Dose: 200 mg Documented By: SRINIVAS Mirabegron (Mirabegron 50 Mg Tab.Er.24h) 50 mg PO DAILY [facility] Last Admin: 06/01/22 07:52 Dose: 50 mg Documented By: SRINIVAS Morphine Sulfate (Morphine Sulfate 2 Mg/Ml Cartridge) 2 mg IVPUSH Q4H PRN; Protocol PRN Reason: Pain, Severe (Pain Scale 7-10) Last Admin: 06/01/22 07:53 Dose: 2 mg Documented By: SRINIVAS Multivitamins/Vitamin C (Multivitamin Tablet) 1 tab PO DAILY [facility] Last Admin: 06/01/22 07:54 Dose: 1 tab Documented By: SRINIVAS Non-Formulary Medication (Galcanezumab-Gnlm [Emgality Syringe]) 120 mg SUBCUT Q28D [facility] Non-Formulary Medication (Methenamine Hippurate) 1 gm PO BID [facility] Non-Formulary Medication (Tiotropium-Olodaterol [Stiolto Respimat]) 1 puff INHALE DAILY [facility] Omeprazole (Omeprazole 20 Mg Capsule.Dr) 20 mg PO BID@0630,1630 [facility] Last Admin: 06/01/22 06:25 Dose: 20 mg Documented By: SHARLA Simethicone (Simethicone 80 Mg Tab.Chew) 80 mg PO QIDWMHS [facility] Last Admin: 06/01/22 12:50 Dose: 80 mg Documented By: SRINIVAS Sodium Chloride (0.9 % Sodium Chloride Flush 3 Ml Syringe) 3 ml IVFLUSH QSHIFT [facility] Last Admin: 06/01/22 07:54 Dose: 3 ml Documented By: SRINIVAS Trazodone HCl (Trazodone Hcl 100 Mg Tablet) 200 mg PO BEDTIME PRN PRN Reason: Sleep Last Admin: 05/31/22 20:48 Dose: 200 mg Documented By: TONY Valacyclovir HCl (Valacyclovir Hcl 1,000 Mg Tablet) 1,000 mg PO DAILY [facility] Last Admin: 06/01/22 07:53 Dose: 1,000 mg Documented By: SRINIVAS Vitamin E (Vitamin E (Dl,Tocopheryl Acet) 180 Mg (400 Unit) Capsule) 180 mg PO DAILY [facility] Last Admin: 06/01/22 07:53 Dose: 180 mg Documented By: SRINIVAS Zolpidem Tartrate (Zolpidem Tartrate 5 Mg Tablet) 5 mg PO BEDTIME PRN PRN Reason: Sleep Last Admin: 05/31/22 20:48 Dose: 5 mg Documented By: TONY Labs 06/01/22 05:29 06/01/22 05:29 Labs: Laboratory Results - last 24 hr 06/01/22 06/01/22 06/01/22 05:29 05:29 05:29 MCV 88.4 MCH 30.9 MCHC 35.0 RDW 12.2 Plt Count 146 L MPV 9.6 Absolute Nucleated RBC 0.000 Nucleated RBC % (auto) 0.0 Anion Gap 13 Estim Creat Clear Calc 91.4 Estimated GFR > 60 Random Glucose 87 Calcium 8.4 Lactate Dehydrogenase 153 C-Reactive Protein 0.49 Microbiology Microbiology Results: Microbiology 05/29/22 20:30 Urine Culture - Final Urine clean catch - Urine haider top Assessment and Plan (1) Abdominal pain in female: Status: Acute (2) Acute respiratory failure with hypoxia: Status: Acute (3) COVID: Status: Acute Plan Pt is a 57-year-old female with a PMH significant for COPD, HIV, GERD, anxiety, and hx of ESBL+ UTI who presents to the ED with?severe abdominal and lower back pain. Pt states she has been experiencing symptoms since Thursday. Pt will be admitted to the hospital for treatment of?acute hypoxic respiratory failure in the setting of COIVD infection with IV steroids. Acute hypoxic respiratory failure in the setting of COVID infection and COPD exacerbation Pt desatting to 86% on RA with ambulation 3 DuoNeb 3mg q4h while awake Nasal cannula, titrate O2>90, wean as tolerated DC IVF Monitor respiratory status ID input appreciated, check CD4, Bactrim if <200 Abdominal and back pain Unclear etiology, CT of abd/pelvis and U/S of abdomen negative for acute intra-abdominal processes Toleratind diet, no nausea, no change in bowel habit Pain management add Bentyl and Simethicone surgery input appreciated, no intervention needed, to monitor Tingling sensation Unclear etiology, possibly secondary to dehydration and COVID infection Treat as above, monitor Transaminitis Possibly secondary to COVID infection Monitor labs Leukopenia Possibly secondary to COVID infection pending CD4 count Monitor labs HIV Continue home meds Anxiety Continue home meds DNR/DNI DVT Prophylaxis: Lovenox Pt will require a hospitalization of overnight for treatment of?acute hypoxic respiratory failure in the setting of COIVD infection and hypoxia requiring O2 supplement Time Spent With Patient Time: Total time managing care of this patient today ____ minutes. Quality Stroke Does the patient have a stroke diagnosis?: No VTE Prior VTE?: No VTE Risk Level:: Medical - moderate - high VTE Device Contraindication: Treatment Not Indicated VTE Drug Contraindication: N/A - Med Ordered
[2022-06-01] MEDS: Albuterol/Iprat 2.5/0.5MG 3 ML AMPUL.NEB INHALE (19:47)
[2022-06-01] MEDS: Zolpidem Tartrate 5 MG TABLET PO (20:35)
[2022-06-01] MEDS: traZODone HCL 100 MG TABLET 200 MG PO (20:36)
[2022-06-01] MEDS: cloNIDine HCL 0.1 MG TABLET PO (20:36)
[2022-06-02 04:00] VITALS: BP 110/60; PULSE 56; RESP 18; TEMP 36.2; O2SAT 92
[2022-06-02] MEDS: Omeprazole 20 MG CAPSULE.DR PO ×2 (05:07→16:37)
[2022-06-02] MEDS: Morphine Sulfate 2 MG/ML CARTRIDGE IVPUSH ×2 (05:09→09:44)
[2022-06-02 07:48] LABS: Hematocrit 37.1 % (37.0-47.0); Hemoglobin 12.9 g/dl (12.0-16.0); Mean Corpuscular HGB Conc 34.8 g/dl (31.0-35.0); Mean Corpuscular Hemoglobin 31.2 pg (27.0-33.0); Mean Corpuscular Volume 89.6 fL (80.0-98.0); Mean Platelet Volume 10.5 fL (9.4-12.3); Platelet Count 138 X10*3/uL (160-400); Red Blood Count 4.14 X10*6/uL (4.20-5.50); Red Cell Distribution Width 12.2 % (11.0-16.0); White Blood Count 4.7 X10*3/uL (4.8-10.8)
[2022-06-02 08:00] VITALS: BP 116/63; PULSE 66; RESP 20; TEMP 37.4; O2SAT 93
[2022-06-02] MEDS: Bictegrav/Emtricit/Tenofov Ala TABLET 1 TAB PO (09:34)
[2022-06-02] MEDS: dexAMETHasone 6 MG TABLET PO (09:34)
[2022-06-02] MEDS: Dicyclomine HCl 10 MG CAPSULE PO (09:34)
[2022-06-02] MEDS: Multivitamin TABLET 1 TAB PO (09:34)
[2022-06-02] MEDS: Benzonatate 100 MG CAPSULE PO ×3 (09:35→21:28)
[2022-06-02] MEDS: FLUoxetine HCl 20 MG CAPSULE 40 MG PO (09:35)
[2022-06-02] MEDS: valACYclovir HCL 1,000 MG TABLET 1000 MG PO (09:36)
[2022-06-02] MEDS: Ibuprofen 200 MG TABLET PO ×3 (09:36→16:37)
[2022-06-02] MEDS: Mirabegron 50 MG TAB.ER.24H PO (09:36)
[2022-06-02] MEDS: Vitamin E (Dl,Tocopheryl Acet) 180 MG (400 UNIT) CAPSULE PO (09:37)
[2022-06-02] MEDS: hydrOXYzine HCL 50 MG TABLET PO ×2 (09:37→21:29)
[2022-06-02] MEDS: diazePAM 5 MG TABLET PO ×2 (09:44→21:28)
[2022-06-02 11:44] VITALS: BP 120/65; PULSE 68; RESP 20; TEMP 37.3; O2SAT 92
[2022-06-02] MEDS: guaiFENesin LA 600 MG TAB.ER.12H PO ×2 (12:14→21:28)
[2022-06-02] MEDS: oxyCODONE HCl Immed Release 5 MG TABLET PO (12:14)
--- NOTE | 2022-06-02 14:14 | P.PNIM_ITS ---
Subjective Subjective Date of Service: 06/02/22 Interval History: Seen and evaluated this morning Had 1 episode of hemoptysis of small amount Dyspnea has improved weaning down oxygen still complaining of abdominal pain No reported other overnight events Review of Systems Review of Systems: Yes all other systems are reviewed and are negative Physical Exam Vital Signs: Vital Signs: Last Vital Signs Temp 99.1 F 06/02/22 11:44 Pulse 68 06/02/22 11:44 Resp 20 06/02/22 11:44 BP 120/65 06/02/22 11:44 Pulse Ox 92 06/02/22 11:44 O2 Del Method 06/02/22 11:44 O2 Flow Rate 2 06/01/22 15:20 BMI result Body Mass Index 28.0 Const: Other: Constitutional : Awake, interactive, not in distress Neck : Normal inspection, Supple Cardiovascular : RRR, no JVP, no lower extremity edema Respiratory : Decreased bilateral air entry, no crackles, expiratory rhonchi, on RA Gastrointestinal: soft, lax, Normal bowel sounds, generalized tenderness with mild palpation, no surgical signs or rebound Skin : Warm, Dry Neurological : Alert & oriented x3, No focal deficit Objective Data Active Medications Albuterol/Ipratropium (Albuterol/Iprat 2.5/0.5mg 3 Ml Ampul.Neb) 3 ml INHALE RQ4H WHILE AWAKE [facility] Last Admin: 06/02/22 12:31 Dose: Not Given Documented By: RON Non-Admin Reason: Patient Refused Benzonatate (Benzonatate 100 Mg Capsule) 100 mg PO TID [facility] Last Admin: 06/02/22 09:35 Dose: 100 mg Documented By: EDDIE Bictegravir/Emtricitabine/Tenofovir (Bictegrav/Emtricit/Tenofov Ala Tablet) 1 tab PO DAILY [facility] Last Admin: 06/02/22 09:34 Dose: 1 tab Documented By: EDDIE Clonidine HCl (Clonidine Hcl 0.1 Mg Tablet) 0.1 mg PO BEDTIME [facility]; Protocol Last Admin: 06/01/22 20:36 Dose: 0.1 mg Documented By: MARLEE Dexamethasone (Dexamethasone 6 Mg Tablet) 6 mg PO DAILY [facility] Last Admin: 06/02/22 09:34 Dose: 6 mg Documented By: EDDIE Diazepam (Diazepam 5 Mg Tablet) 5 mg PO TID PRN PRN Reason: Anxiety Last Admin: 06/02/22 09:44 Dose: 5 mg Documented By: EDDIE Dicyclomine HCl (Dicyclomine Hcl 10 Mg Capsule) 10 mg PO TIDAC [facility] Last Admin: 06/02/22 12:19 Dose: Not Given Documented By: MIGUEL ANGEL Non-Admin Reason: Patient Refused Fluoxetine HCl (Fluoxetine Hcl 20 Mg Capsule) 40 mg PO DAILY [facility] Last Admin: 06/02/22 09:35 Dose: 40 mg Documented By: EDDIE Fluticasone Propionate (Fluticasone Propionate Nasal 16 Gm [place]) 2 spray NOSTRIL-B DAILY PRN PRN Reason: Allergic Symptoms Guaifenesin (Guaifenesin La 600 Mg Tab.Er.12h) 600 mg PO BID [facility] Last Admin: 06/02/22 12:14 Dose: 600 mg Documented By: MIGUEL ANGEL Hydroxyzine HCl (Hydroxyzine Hcl 50 Mg Tablet) 50 mg PO BID [facility] Last Admin: 06/02/22 09:37 Dose: 50 mg Documented By: EDDIE Ibuprofen (Ibuprofen 200 Mg Tablet) 200 mg PO TIDWM [facility] Last Admin: 06/02/22 12:14 Dose: 200 mg Documented By: MIGUEL ANGEL Mirabegron (Mirabegron 50 Mg Tab.Er.24h) 50 mg PO DAILY [facility] Last Admin: 06/02/22 09:36 Dose: 50 mg Documented By: EDDIE Multivitamins/Vitamin C (Multivitamin Tablet) 1 tab PO DAILY [facility] Last Admin: 06/02/22 09:34 Dose: 1 tab Documented By: EDDIE Non-Formulary Medication (Galcanezumab-Gnlm [Emgality Syringe]) 120 mg SUBCUT Q28D [facility] Non-Formulary Medication (Methenamine Hippurate) 1 gm PO BID [facility] Non-Formulary Medication (Tiotropium-Olodaterol [Stiolto Respimat]) 1 puff INHALE DAILY [facility] Omeprazole (Omeprazole 20 Mg Capsule.) 20 mg PO BID@0630,1630 [facility] Last Admin: 06/02/22 05:07 Dose: 20 mg Documented By: MARLEE Oxycodone HCl (Oxycodone Hcl Immed Release 5 Mg Tablet) 5 mg PO Q6H PRN PRN Reason: Pain, Severe (Pain Scale 7-10) Last Admin: 06/02/22 12:14 Dose: 5 mg Documented By: MIGUEL ANGEL Simethicone (Simethicone 80 Mg Tab.Chew) 80 mg PO QIDWMHS [facility] Last Admin: 06/02/22 12:19 Dose: Not Given Documented By: MIGUEL ANGEL Non-Admin Reason: Patient Refused Sodium Chloride (0.9 % Sodium Chloride Flush 3 Ml Syringe) 3 ml IVFLUSH QSHIFT [facility] Last Admin: 06/02/22 10:07 Dose: Not Given Documented By: EDDIE Non-Admin Reason: Previously Administered Trazodone HCl (Trazodone Hcl 100 Mg Tablet) 200 mg PO BEDTIME PRN PRN Reason: Sleep Last Admin: 06/01/22 20:36 Dose: 200 mg Documented By: MARLEE Valacyclovir HCl (Valacyclovir Hcl 1,000 Mg Tablet) 1,000 mg PO DAILY [facility] Last Admin: 06/02/22 09:36 Dose: 1,000 mg Documented By: EDDIE Vitamin E (Vitamin E (Dl,Tocopheryl Acet) 180 Mg (400 Unit) Capsule) 180 mg PO DAILY [facility] Last Admin: 06/02/22 09:37 Dose: 180 mg Documented By: EDDIE Zolpidem Tartrate (Zolpidem Tartrate 5 Mg Tablet) 5 mg PO BEDTIME PRN PRN Reason: Sleep Last Admin: 06/01/22 20:35 Dose: 5 mg Documented By: MARLEE Labs 06/02/22 07:04 06/01/22 05:29 Labs: Laboratory Results - last 24 hr 05/31/22 06/02/22 06:29 07:04 MCV 89.6 MCH 31.2 MCHC 34.8 RDW 12.2 Plt Count 138 L MPV 10.5 Absolute Nucleated RBC 0.000 Nucleated RBC % (auto) 0.0 Smear Path Review Assessment and Plan (1) Abdominal pain in female: Status: Acute (2) Acute respiratory failure with hypoxia: Status: Acute (3) COVID: Status: Acute (4) HIV (human immunodeficiency virus infection): Status: Acute Plan Pt is a 57-year-old female with a PMH significant for COPD, HIV, GERD, anxiety, and hx of ESBL+ UTI who presents to the ED with?severe abdominal and lower back pain. Pt states she has been experiencing symptoms since Thursday. Pt will be admitted to the hospital for treatment of?acute hypoxic respiratory failure in the setting of COIVD infection with IV steroids. Acute hypoxic respiratory failure in the setting of COVID infection and COPD exacerbation Weaned off the oxygen Day 4 of steroids DuoNeb 3mg q4h while awake Weaned down to room DC IVF Monitor respiratory status ID input appreciated, pending CD4, Bactrim if <200 Abdominal and back pain Unclear etiology, CT of abd/pelvis and U/S of abdomen negative for acute intra- abdominal processes on admission Toleratind diet, no nausea, no change in bowel habit Pain management Check CT abdomen pelvis Bentyl and Simethicone surgery input appreciated, repeat CT with contrast, monitor Tingling sensation Unclear etiology, possibly secondary to dehydration and COVID infection Treat as above, monitor Transaminitis Possibly secondary to COVID infection Monitor labs Leukopenia Possibly secondary to COVID infection Improving, pending CD4 count Monitor labs HIV Continue home meds Anxiety Continue home meds Physical deconditioning Evaluated by PT, will need SNF placement DNR/DNI DVT Prophylaxis: Lovenox Pt will require a hospitalization of overnight for treatment of?acute hypoxic respiratory failure in the setting of COIVD infection and abdominal pain requiring further evaluation pending safe discharge plan Time Spent With Patient Time: Total time managing care of this patient today ____ minutes. Quality Stroke Does the patient have a stroke diagnosis?: No VTE Prior VTE?: No VTE Risk Level:: Medical - moderate - high VTE Device Contraindication: Treatment Not Indicated VTE Drug Contraindication: N/A - Med Ordered
[2022-06-02] MEDS: Acetaminophen 325 MG TABLET 975 MG PO ×2 (14:34→23:07)
[2022-06-02] MEDS: HYDROmorphone HCl 0.5 MG/0.5 ML SYRINGE IVPUSH ×3 (14:35→23:08)
[2022-06-02 14:45] VITALS: BP 114/61; PULSE 63; RESP 16; TEMP 36.6; O2SAT 94
[2022-06-02 15:13] LABS: Absolute CD3 Count 288 cells/uL (840-3060); Absolute CD4 Count 111 cells/uL (490-1740); Absolute CD8 Count 181 cells/uL (180-1170); Absolute Lymphocytes 383 cells/uL (850-3900); CD4 CD8 Ratio 0.61 (0.86-5.00); Percent CD3 Cells 75 % (57-85); Percent CD4 Cells 29 % (30-61); Percent CD8 Cells 47 % (12-42)
[2022-06-02] MEDS: 0.9 % Sodium Chloride Flush 3 ML SYRINGE IVFLUSH ×2 (16:37→21:31)
[2022-06-02] MEDS: iohexoL 350 MG/ML 100 ML INFUS..BTL IV (17:16)
[2022-06-02 19:50] VITALS: BP 108/60; PULSE 61; RESP 17; TEMP 36.1; O2SAT 90
[2022-06-02] MEDS: cloNIDine HCL 0.1 MG TABLET PO (21:29)
[2022-06-02] MEDS: Zolpidem Tartrate 5 MG TABLET PO (21:30)
[2022-06-02] MEDS: traZODone HCL 100 MG TABLET 200 MG PO (21:30)
[2022-06-02 23:39] VITALS: BP 117/69; PULSE 52; RESP 18; TEMP 37; O2SAT 93
[2022-06-03] MEDS: HYDROmorphone HCl 0.5 MG/0.5 ML SYRINGE IVPUSH ×2 (03:11→08:07)
[2022-06-03 03:14] VITALS: BP 134/68; PULSE 58; RESP 20; TEMP 37.2; O2SAT 92
[2022-06-03] MEDS: Omeprazole 20 MG CAPSULE.DR PO (06:12)
[2022-06-03 07:48] VITALS: BP 151/79; PULSE 58; RESP 14; TEMP 36.4; O2SAT 92
--- NOTE | 2022-06-03 07:57 | PM.PNGS ---
Subjective Subjective Date of Service: 06/03/22 Patient reports: no new complaints, still having pain and bowel movement Physical Exam Vital Signs: Vital Signs: Last Vital Signs Temp 97.6 F 06/03/22 07:48 Pulse 58 06/03/22 07:48 Resp 14 06/03/22 07:48 BP 151/79 H 06/03/22 07:48 Pulse Ox 92 06/03/22 07:48 O2 Del Method 06/03/22 07:48 O2 Flow Rate 2 06/01/22 15:20 BMI result Body Mass Index 28.0 Const: General: no acute distress Nutritional Appearance: well nourished Objective Data Active Medications Acetaminophen (Acetaminophen 325 Mg Tablet) 975 mg PO TID [facility] Last Admin: 06/02/22 23:07 Dose: 975 mg Documented By: GISELLE Albuterol/Ipratropium (Albuterol/Iprat 2.5/0.5mg 3 Ml Ampul.Neb) 3 ml INHALE RQ4H WHILE AWAKE [facility] Last Admin: 06/03/22 07:31 Dose: Not Given Documented By: RON Non-Admin Reason: Patient Refused Benzonatate (Benzonatate 100 Mg Capsule) 100 mg PO TID [facility] Last Admin: 06/02/22 21:28 Dose: 100 mg Documented By: GISELLE Bictegravir/Emtricitabine/Tenofovir (Bictegrav/Emtricit/Tenofov Ala Tablet) 1 tab PO DAILY [facility] Last Admin: 06/02/22 09:34 Dose: 1 tab Documented By: EDDIE Clonidine HCl (Clonidine Hcl 0.1 Mg Tablet) 0.1 mg PO BEDTIME [facility]; Protocol Last Admin: 06/02/22 21:29 Dose: 0.1 mg Documented By: GISELLE Dexamethasone (Dexamethasone 6 Mg Tablet) 6 mg PO DAILY [facility] Last Admin: 06/02/22 09:34 Dose: 6 mg Documented By: EDDIE Diazepam (Diazepam 5 Mg Tablet) 5 mg PO TID PRN PRN Reason: Anxiety Last Admin: 06/02/22 21:28 Dose: 5 mg Documented By: GISELLE Dicyclomine HCl (Dicyclomine Hcl 10 Mg Capsule) 10 mg PO TIDAC [facility] Last Admin: 06/02/22 16:38 Dose: Not Given Documented By: EDDIE Non-Admin Reason: Patient Refused Fluoxetine HCl (Fluoxetine Hcl 20 Mg Capsule) 40 mg PO DAILY [facility] Last Admin: 06/02/22 09:35 Dose: 40 mg Documented By: EDDIE Fluticasone Propionate (Fluticasone Propionate Nasal 16 Gm [place]) 2 spray NOSTRIL-B DAILY PRN PRN Reason: Allergic Symptoms Guaifenesin (Guaifenesin La 600 Mg Tab.Er.12h) 600 mg PO BID [facility] Last Admin: 06/02/22 21:28 Dose: 600 mg Documented By: GISELLE Hydromorphone HCl (Hydromorphone Hcl 0.5 Mg/0.5 Ml Syringe) 0.5 mg IVPUSH Q4H PRN; Protocol PRN Reason: Pain, Severe (Pain Scale 7-10) Last Admin: 06/03/22 03:11 Dose: 0.5 mg Documented By: GISELLE Hydroxyzine HCl (Hydroxyzine Hcl 50 Mg Tablet) 50 mg PO BID [facility] Last Admin: 06/02/22 21:29 Dose: 50 mg Documented By: GISELLE Ibuprofen (Ibuprofen 200 Mg Tablet) 200 mg PO TIDWM [facility] Last Admin: 06/02/22 16:37 Dose: 200 mg Documented By: EDDIE Mirabegron (Mirabegron 50 Mg Tab.Er.24h) 50 mg PO DAILY [facility] Last Admin: 06/02/22 09:36 Dose: 50 mg Documented By: EDDIE Multivitamins/Vitamin C (Multivitamin Tablet) 1 tab PO DAILY [facility] Last Admin: 06/02/22 09:34 Dose: 1 tab Documented By: EDDIE Non-Formulary Medication (Galcanezumab-Gnlm [Emgality Syringe]) 120 mg SUBCUT Q28D [facility] Non-Formulary Medication (Methenamine Hippurate) 1 gm PO BID [facility] Non-Formulary Medication (Tiotropium-Olodaterol [Stiolto Respimat]) 1 puff INHALE DAILY [facility] Omeprazole (Omeprazole 20 Mg Capsule.Dr) 20 mg PO BID@0630,1630 [facility] Last Admin: 06/03/22 06:12 Dose: 20 mg Documented By: GISELLE Simethicone (Simethicone 80 Mg Tab.Chew) 80 mg PO QIDWMHS [facility] Last Admin: 06/02/22 21:34 Dose: Not Given Documented By: GISELLE Non-Admin Reason: Patient Refused Sodium Chloride (0.9 % Sodium Chloride Flush 3 Ml Syringe) 3 ml IVFLUSH QSHIFT [facility] Last Admin: 06/02/22 21:31 Dose: 3 ml Documented By: GISELLE Trazodone HCl (Trazodone Hcl 100 Mg Tablet) 200 mg PO BEDTIME PRN PRN Reason: Sleep Last Admin: 06/02/22 21:30 Dose: 200 mg Documented By: GISELLE Valacyclovir HCl (Valacyclovir Hcl 1,000 Mg Tablet) 1,000 mg PO DAILY [facility] Last Admin: 06/02/22 09:36 Dose: 1,000 mg Documented By: EDDIE Vitamin E (Vitamin E (Dl,Tocopheryl Acet) 180 Mg (400 Unit) Capsule) 180 mg PO DAILY [facility] Last Admin: 06/02/22 09:37 Dose: 180 mg Documented By: EDDIE Zolpidem Tartrate (Zolpidem Tartrate 5 Mg Tablet) 5 mg PO BEDTIME PRN PRN Reason: Sleep Last Admin: 06/02/22 21:30 Dose: 5 mg Documented By: GISELLE Labs 06/02/22 07:04 06/01/22 05:29 Labs: Laboratory Results - last 24 hr 05/30/22 05/31/22 18:13 06:29 Smear Path Review Total Lymphocytes 383 L % CD3 Cells 75 Absolute CD3 Count 288 L % CD4 Cells 29 L Absolute CD4 Count 111 L CD4/CD8 Ratio 0.61 L % CD8 Cells 47 H Absolute CD8 Count [address] scan - abdomen: Radiologist's impression: Impressions Abdomen/Pelvis CT 06/02/22 17:10 IMPRESSION: 1. There are postoperative changes consistent with a prior subtotal colectomy. The ileorectal anastomosis is patent and somewhat patulous. No obstruction, free intraperitoneal air or abscess is seen. 2. No urinary calculus or obstructive uropathy is seen. 3. There is no abdominopelvic mass, free fluid or lymphadenopathy. 4. There is moderately severe degenerative disease at L5-S1. Fleischner guidelines were followed. CT reviewed: no inflammatory changes, free air, fluid collections, obstruction or other intraabdominal pathology noted. Procedures Date of Service Date of Service: 06/03/22 Progress Note: A&P Assessment and plan (1) Abdominal pain in female: Status: Acute Plan 57 year old female with persistent abdominal pain, COVID, underwent repeat CT abd/pelvis yesterday with contrast. Exam reviewed and no findings of free air, abscess, fluid collections, obstruction or inflammatory changes noted. Nothing to indicate site/source of symptoms. No surgical intervention recommended. Time Spent With Patient Time: Total time managing care of this patient today ____ minutes. Quality Stroke Does the patient have a stroke diagnosis?: No VTE Prior VTE?: No VTE Risk Level:: Medical - moderate - high VTE Device Contraindication: Treatment Not Indicated VTE Drug Contraindication: N/A - Med Ordered
[2022-06-03] MEDS: 0.9 % Sodium Chloride Flush 3 ML SYRINGE IVFLUSH ×3 (08:02→21:45)
[2022-06-03] MEDS: valACYclovir HCL 1,000 MG TABLET 1000 MG PO (08:03)
[2022-06-03] MEDS: Mirabegron 50 MG TAB.ER.24H PO (08:03)
[2022-06-03] MEDS: Acetaminophen 325 MG TABLET 975 MG PO ×3 (08:03→21:42)
[2022-06-03] MEDS: Benzonatate 100 MG CAPSULE PO ×3 (08:03→21:43)
[2022-06-03] MEDS: Bictegrav/Emtricit/Tenofov Ala TABLET 1 TAB PO (08:03)
[2022-06-03] MEDS: Ibuprofen 200 MG TABLET PO (08:03)
[2022-06-03] MEDS: FLUoxetine HCl 20 MG CAPSULE 40 MG PO (08:03)
[2022-06-03] MEDS: Vitamin E (Dl,Tocopheryl Acet) 180 MG (400 UNIT) CAPSULE PO (08:04)
[2022-06-03] MEDS: guaiFENesin LA 600 MG TAB.ER.12H PO ×2 (08:04→21:42)
[2022-06-03] MEDS: hydrOXYzine HCL 50 MG TABLET PO ×2 (08:04→21:44)
[2022-06-03] MEDS: Multivitamin TABLET 1 TAB PO (08:04)
[2022-06-03 10:35] LABS: Anion Gap 12 (12-20); Blood Urea Nitrogen 14 mg/dL (9-16); Calcium 8.4 mg/dL (8.4-10.2); Carbon Dioxide 26 mmol/L (22-29); Chloride 106 mmol/L (96-108); Creatinine Clr Calc Pharmacy 83.3; Estimated Glomerular Filt Rate > 60; Glucose Random 93 mg/dL (60-115); Potassium 3.5 mmol/L (3.3-5.1); Sodium 140 mmol/L (135-145)
[2022-06-03 11:34] VITALS: BP 114/67; PULSE 60; RESP 14; TEMP 36.8; O2SAT 92
[2022-06-03] MEDS: Sulfamethox/Trimeth 800/160 TABLET 1 TAB PO (12:22)
[2022-06-03] MEDS: Ketorolac Tromethamine 15 MG/ML VIAL IVPUSH (12:22)
[2022-06-03] MEDS: diazePAM 5 MG TABLET PO ×2 (12:22→21:43)
--- NOTE | 2022-06-03 13:29 | HO.PM.IMPN ---
Subjective Subjective Date of Service: 06/03/22 Interval History: Seen and evaluated this morning No further episodes of hemoptysis last 24 hours Dyspnea has improved, weaned down to room still complaining of abdominal pain No reported other overnight events Review of Systems Review of Systems: Yes all other systems are reviewed and are negative Physical Exam Vital Signs: Vital Signs: Last Vital Signs Temp 98.3 F 06/03/22 11:34 Pulse 60 06/03/22 11:34 Resp 14 06/03/22 11:34 BP 114/67 06/03/22 11:34 Pulse Ox 92 06/03/22 11:34 O2 Del Method 06/03/22 11:34 O2 Flow Rate 2 06/01/22 15:20 BMI result Body Mass Index 28.0 Const: Other: Constitutional : Awake, interactive, not in distress Neck : Normal inspection, Supple Cardiovascular : RRR, no JVP, no lower extremity edema Respiratory : Decreased bilateral air entry, no crackles, expiratory rhonchi, on RA Gastrointestinal: soft, lax, Normal bowel sounds, generalized tenderness with mild palpation, no surgical signs or rebound Skin : Warm, Dry Neurological : Alert & oriented x3, No focal deficit Objective Data Active Medications Acetaminophen (Acetaminophen 325 Mg Tablet) 975 mg PO TID [facility] Last Admin: 06/03/22 08:03 Dose: 975 mg Documented By: REED Albuterol/Ipratropium (Albuterol/Iprat 2.5/0.5mg 3 Ml Ampul.Neb) 3 ml INHALE RQ4H WHILE AWAKE [facility] Last Admin: 06/03/22 11:18 Dose: Not Given Documented By: RON Non-Admin Reason: Patient Refused Benzonatate (Benzonatate 100 Mg Capsule) 100 mg PO TID [facility] Last Admin: 06/03/22 08:03 Dose: 100 mg Documented By: REED Bictegravir/Emtricitabine/Tenofovir (Bictegrav/Emtricit/Tenofov Ala Tablet) 1 tab PO DAILY [facility] Last Admin: 06/03/22 08:03 Dose: 1 tab Documented By: REED Clonidine HCl (Clonidine Hcl 0.1 Mg Tablet) 0.1 mg PO BEDTIME [facility]; Protocol Last Admin: 06/02/22 21:29 Dose: 0.1 mg Documented By: GISELLE Dexamethasone (Dexamethasone 6 Mg Tablet) 6 mg PO DAILY [facility] Last Admin: 06/03/22 09:08 Dose: Not Given Documented By: REED Non-Admin Reason: Patient Refused Diazepam (Diazepam 5 Mg Tablet) 5 mg PO TID PRN PRN Reason: Anxiety Last Admin: 06/03/22 12:22 Dose: 5 mg Documented By: REED Fluoxetine HCl (Fluoxetine Hcl 20 Mg Capsule) 40 mg PO DAILY [facility] Last Admin: 06/03/22 08:03 Dose: 40 mg Documented By: REED Fluticasone Propionate (Fluticasone Propionate Nasal 16 Gm [place]) 2 spray NOSTRIL-B DAILY PRN PRN Reason: Allergic Symptoms Guaifenesin (Guaifenesin La 600 Mg Tab.Er.12h) 600 mg PO BID [facility] Last Admin: 06/03/22 08:04 Dose: 600 mg Documented By: REED Hydroxyzine HCl (Hydroxyzine Hcl 50 Mg Tablet) 50 mg PO BID [facility] Last Admin: 06/03/22 08:04 Dose: 50 mg Documented By: REED Hydroxyzine HCl (Hydroxyzine Hcl 25 Mg Tablet) 25 mg PO Q6H PRN PRN Reason: anxiety/restlessness Ketorolac Tromethamine (Ketorolac Tromethamine 15 Mg/Ml Vial) 15 mg IVPUSH Q6H PRN PRN Reason: Pain, Severe (Pain Scale 7-10) Last Admin: 06/03/22 12:22 Dose: 15 mg Documented By: REED Mirabegron (Mirabegron 50 Mg Tab.Er.24h) 50 mg PO DAILY [facility] Last Admin: 06/03/22 08:03 Dose: 50 mg Documented By: REED Multivitamins/Vitamin C (Multivitamin Tablet) 1 tab PO DAILY [facility] Last Admin: 06/03/22 08:04 Dose: 1 tab Documented By: REED Non-Formulary Medication (Galcanezumab-Gnlm [Emgality Syringe]) 120 mg SUBCUT Q28D [facility] Non-Formulary Medication (Methenamine Hippurate) 1 gm PO BID [facility] Non-Formulary Medication (Tiotropium-Olodaterol [Stiolto Respimat]) 1 puff INHALE DAILY [facility] Omeprazole (Omeprazole 20 Mg Capsule.Dr) 20 mg PO BID@0630,1630 [facility] Last Admin: 06/03/22 06:12 Dose: 20 mg Documented By: GISELLE Simethicone (Simethicone 80 Mg Tab.Chew) 80 mg PO QIDWMHS [facility] Last Admin: 06/03/22 12:26 Dose: Not Given Documented By: ERED Non-Admin Reason: Patient Refused Sodium Chloride (0.9 % Sodium Chloride Flush 3 Ml Syringe) 3 ml IVFLUSH QSHIFT [facility] Last Admin: 06/03/22 08:02 Dose: 3 ml Documented By: REED Trazodone HCl (Trazodone Hcl 100 Mg Tablet) 200 mg PO BEDTIME PRN PRN Reason: Sleep Last Admin: 06/02/22 21:30 Dose: 200 mg Documented By: GISELLE Trimethoprim/Sulfamethoxazole (Sulfamethox/Trimeth 800/160 Tablet) 1 tab PO DAILY [facility] Last Admin: 06/03/22 12:22 Dose: 1 tab Documented By: REED Valacyclovir HCl (Valacyclovir Hcl 1,000 Mg Tablet) 1,000 mg PO DAILY [facility] Last Admin: 06/03/22 08:03 Dose: 1,000 mg Documented By: REED Vitamin E (Vitamin E (Dl,Tocopheryl Acet) 180 Mg (400 Unit) Capsule) 180 mg PO DAILY [facility] Last Admin: 06/03/22 08:04 Dose: 180 mg Documented By: REED Zolpidem Tartrate (Zolpidem Tartrate 5 Mg Tablet) 5 mg PO BEDTIME PRN PRN Reason: Sleep Last Admin: 06/02/22 21:30 Dose: 5 mg Documented By: GISELLE Labs 06/02/22 07:04 06/03/22 09:46 Labs: Laboratory Results - last 24 hr 05/30/22 06/03/22 18:13 09:46 Anion Gap 12 Estim Creat Clear Calc 83.3 Estimated GFR > 60 Random Glucose 93 Calcium 8.4 Total Lymphocytes 383 L % CD3 Cells 75 Absolute CD3 Count 288 L % CD4 Cells 29 L Absolute CD4 Count 111 L CD4/CD8 Ratio 0.61 L % CD8 Cells 47 H Absolute CD8 Count 181 Assessment and Plan (1) Abdominal pain in female: Status: Acute (2) Acute respiratory failure with hypoxia: Status: Acute (3) COVID: Status: Acute (4) HIV (human immunodeficiency virus infection): Status: Acute Plan Pt is a 57-year-old female with a PMH significant for COPD, HIV, GERD, anxiety, and hx of ESBL+ UTI who presents to the ED with?severe abdominal and lower back pain. Pt states she has been experiencing symptoms since Thursday. Pt will be admitted to the hospital for treatment of?acute hypoxic respiratory failure in the setting of COIVD infection with IV steroids. Acute hypoxic respiratory failure in the setting of COVID infection and COPD exacerbation Weaned off the oxygen Day 5 of steroids DuoNeb 3mg q4h while awake Weaned down to room Monitor respiratory status ID input appreciated, Bactrim if CD4 <200 HIV infection Continue antiviral medication Start Bactrim 800 daily for CD4 of 61 Abdominal and back pain Unclear etiology, CT of abd/pelvis and U/S of abdomen negative for acute intra-abdominal processes on admission Toleratind diet, no nausea, no change in bowel habit Pain management, change to Toradol Repeated CT abdomen pelvis with contrast with no acute intra-abdominal findings Continue Simethicone surgery input appreciated, no surgical intervention needed To do outpatient colonoscopy, patient said she has a follow-up Tingling sensation Unclear etiology, possibly secondary to dehydration and COVID infection Treat as above, monitor Transaminitis Possibly secondary to COVID infection Monitor labs Leukopenia Possibly secondary to COVID infection Improving, pending CD4 count Monitor labs Anxiety Continue home meds Physical deconditioning Evaluated by PT, will need SNF placement DNR/DNI DVT Prophylaxis: Lovenox Pt will require a hospitalization of overnight pending safe discharge plan Time Spent With Patient Time: Total time managing care of this patient today ____ minutes. Quality Stroke Does the patient have a stroke diagnosis?: No VTE Prior VTE?: No VTE Risk Level:: Medical - moderate - high VTE Device Contraindication: Treatment Not Indicated VTE Drug Contraindication: N/A - Med Ordered
[2022-06-03 15:05] VITALS: BP 143/63; PULSE 63; RESP 18; TEMP 36.2; O2SAT 90
[2022-06-03] MEDS: oxyCODONE HCl Immed Release 5 MG TABLET PO ×2 (15:20→21:42)
[2022-06-03 19:17] VITALS: BP 139/69; PULSE 58; RESP 18; TEMP 36.6; O2SAT 92
[2022-06-03] MEDS: Zolpidem Tartrate 5 MG TABLET PO (21:43)
[2022-06-03] MEDS: cloNIDine HCL 0.1 MG TABLET PO (21:43)
[2022-06-03] MEDS: traZODone HCL 100 MG TABLET 200 MG PO (21:43)
[2022-06-03 23:24] VITALS: BP 111/55; PULSE 53; RESP 18; TEMP 36.4; O2SAT 98
[2022-06-04] MEDS: oxyCODONE HCl Immed Release 5 MG TABLET PO ×4 (03:22→23:13)
[2022-06-04 03:23] VITALS: BP 114/59; PULSE 56; RESP 20; TEMP 37; O2SAT 92
[2022-06-04] MEDS: Omeprazole 20 MG CAPSULE.DR PO ×2 (06:17→16:32)
[2022-06-04 07:29] VITALS: BP 117/64; PULSE 54; RESP 14; TEMP 36.4; O2SAT 92
[2022-06-04] MEDS: FLUoxetine HCl 20 MG CAPSULE 40 MG PO (09:53)
[2022-06-04] MEDS: Simethicone 80 MG TAB.CHEW PO (09:54)
[2022-06-04] MEDS: hydrOXYzine HCL 50 MG TABLET PO ×2 (09:54→23:12)
[2022-06-04] MEDS: valACYclovir HCL 1,000 MG TABLET 1000 MG PO (09:54)
[2022-06-04] MEDS: Benzonatate 100 MG CAPSULE PO ×3 (09:54→23:12)
[2022-06-04] MEDS: guaiFENesin LA 600 MG TAB.ER.12H PO ×2 (09:54→23:12)
[2022-06-04] MEDS: dexAMETHasone 6 MG TABLET PO (09:54)
[2022-06-04] MEDS: Multivitamin TABLET 1 TAB PO (09:54)
[2022-06-04] MEDS: Acetaminophen 325 MG TABLET 975 MG PO ×3 (09:54→23:12)
[2022-06-04] MEDS: Mirabegron 50 MG TAB.ER.24H PO (09:54)
[2022-06-04] MEDS: Bictegrav/Emtricit/Tenofov Ala TABLET 1 TAB PO (09:55)
[2022-06-04] MEDS: 0.9 % Sodium Chloride Flush 3 ML SYRINGE IVFLUSH ×3 (09:55→23:33)
[2022-06-04] MEDS: Vitamin E (Dl,Tocopheryl Acet) 180 MG (400 UNIT) CAPSULE PO (09:55)
[2022-06-04] MEDS: Sulfamethox/Trimeth 800/160 TABLET 1 TAB PO (09:55)
[2022-06-04] MEDS: Enoxaparin Sodium 40 MG/0.4 ML SYRINGE SUBCUT (10:48)
[2022-06-04 11:12] VITALS: BP 124/70; PULSE 84; RESP 14; TEMP 36.8; O2SAT 92
[2022-06-04 13:27] LABS: COVID-19 Test Positive (Negative); IDNOW Serial# 16C4AD1C
--- NOTE | 2022-06-04 14:09 | HO.PM.IMPN ---
Subjective Subjective Date of Service: 06/04/22 Interval History: cc: abd pain interval history:improving Physical Exam Vital Signs: Vital Signs: Last Vital Signs Temp 98.3 F 06/04/22 11:12 Pulse 84 06/04/22 11:12 Resp 14 06/04/22 11:12 BP 124/70 06/04/22 11:12 Pulse Ox 92 06/04/22 11:12 O2 Del Method 06/04/22 11:12 O2 Flow Rate 2 06/01/22 15:20 BMI result Body Mass Index 28.0 Const: Other: Constitutional : Awake, interactive, not in distress Neck : Normal inspection, Supple Cardiovascular : RRR, no JVP, no lower extremity edema Respiratory : Decreased bilateral air entry, no crackles, expiratory rhonchi, on RA Gastrointestinal: soft, lax, Normal bowel sounds, generalized tenderness with mild palpation, no surgical signs or rebound Skin : Warm, Dry Neurological : Alert & oriented x3, No focal deficit Objective Data Active Medications Acetaminophen (Acetaminophen 325 Mg Tablet) 975 mg PO TID [facility] Last Admin: 06/04/22 09:54 Dose: 975 mg Documented By: REED Albuterol/Ipratropium (Albuterol/Iprat 2.5/0.5mg 3 Ml Ampul.Neb) 3 ml INHALE RQ4H WHILE AWAKE [facility] Last Admin: 06/04/22 11:16 Dose: Not Given Documented By: JON Non-Admin Reason: Patient Asleep Benzonatate (Benzonatate 100 Mg Capsule) 100 mg PO TID [facility] Last Admin: 06/04/22 09:54 Dose: 100 mg Documented By: REED Bictegravir/Emtricitabine/Tenofovir (Bictegrav/Emtricit/Tenofov Ala Tablet) 1 tab PO DAILY [facility] Last Admin: 06/04/22 09:55 Dose: 1 tab Documented By: REED Clonidine HCl (Clonidine Hcl 0.1 Mg Tablet) 0.1 mg PO BEDTIME [facility]; Protocol Last Admin: 06/03/22 21:43 Dose: 0.1 mg Documented By: NABIL Dexamethasone (Dexamethasone 6 Mg Tablet) 6 mg PO DAILY [facility] Last Admin: 06/04/22 09:54 Dose: 6 mg Documented By: REED Diazepam (Diazepam 5 Mg Tablet) 5 mg PO TID PRN PRN Reason: Anxiety Last Admin: 06/03/22 21:43 Dose: 5 mg Documented By: NABIL Enoxaparin Sodium (Enoxaparin Sodium 40 Mg/0.4 Ml Syringe) 40 mg SUBCUT Q24H [facility] Last Admin: 06/04/22 10:48 Dose: 40 mg Documented By: REED Fluoxetine HCl (Fluoxetine Hcl 20 Mg Capsule) 40 mg PO DAILY [facility] Last Admin: 06/04/22 09:53 Dose: 40 mg Documented By: REED Fluticasone Propionate (Fluticasone Propionate Nasal 16 Gm [place]) 2 spray NOSTRIL-B DAILY PRN PRN Reason: Allergic Symptoms Guaifenesin (Guaifenesin La 600 Mg Tab.Er.12h) 600 mg PO BID [facility] Last Admin: 06/04/22 09:54 Dose: 600 mg Documented By: REED Hydroxyzine HCl (Hydroxyzine Hcl 50 Mg Tablet) 50 mg PO BID [facility] Last Admin: 06/04/22 09:54 Dose: 50 mg Documented By: REED Hydroxyzine HCl (Hydroxyzine Hcl 25 Mg Tablet) 25 mg PO Q6H PRN PRN Reason: anxiety/restlessness Mirabegron (Mirabegron 50 Mg Tab.Er.24h) 50 mg PO DAILY [facility] Last Admin: 06/04/22 09:54 Dose: 50 mg Documented By: REED Multivitamins/Vitamin C (Multivitamin Tablet) 1 tab PO DAILY [facility] Last Admin: 06/04/22 09:54 Dose: 1 tab Documented By: REED Non-Formulary Medication (Galcanezumab-Gnlm [Emgality Syringe]) 120 mg SUBCUT Q28D [facility] Non-Formulary Medication (Methenamine Hippurate) 1 gm PO BID [facility] Non-Formulary Medication (Tiotropium-Olodaterol [Stiolto Respimat]) 1 puff INHALE DAILY [facility] Omeprazole (Omeprazole 20 Mg Capsule.Dr) 20 mg PO BID@0630,1630 [facility] Last Admin: 06/04/22 06:17 Dose: 20 mg Documented By: NABIL Oxycodone HCl (Oxycodone Hcl Immed Release 5 Mg Tablet) 5 mg PO Q6H PRN PRN Reason: Pain, Severe (Pain Scale 7-10) Last Admin: 06/04/22 10:03 Dose: 5 mg Documented By: REED Simethicone (Simethicone 80 Mg Tab.Chew) 80 mg PO QIDWMHS [facility] Last Admin: 06/04/22 12:57 Dose: Not Given Documented By: REED Non-Admin Reason: Patient Refused Sodium Chloride (0.9 % Sodium Chloride Flush 3 Ml Syringe) 3 ml IVFLUSH QSHIFT [facility] Last Admin: 06/04/22 09:55 Dose: 3 ml Documented By: REED Trazodone HCl (Trazodone Hcl 100 Mg Tablet) 200 mg PO BEDTIME PRN PRN Reason: Sleep Last Admin: 06/03/22 21:43 Dose: 200 mg Documented By: NABIL Trimethoprim/Sulfamethoxazole (Sulfamethox/Trimeth 800/160 Tablet) 1 tab PO DAILY [facility] Last Admin: 06/04/22 09:55 Dose: 1 tab Documented By: REED Valacyclovir HCl (Valacyclovir Hcl 1,000 Mg Tablet) 1,000 mg PO DAILY [facility] Last Admin: 06/04/22 09:54 Dose: 1,000 mg Documented By: REED Vitamin E (Vitamin E (Dl,Tocopheryl Acet) 180 Mg (400 Unit) Capsule) 180 mg PO DAILY [facility] Last Admin: 06/04/22 09:55 Dose: 180 mg Documented By: REED Labs 06/02/22 07:04 06/03/22 09:46 Labs: Laboratory Results - last 24 hr 05/30/22 06/04/22 18:13 13:00 Lymphocyte Subset Cmmnt TNP COVID-19 ([facility]) Positive A COVID-19 Clin Com See Note Assessment and Plan (1) Abdominal pain in female: Status: Acute (2) Acute respiratory failure with hypoxia: Status: Acute (3) COVID: Status: Acute (4) HIV (human immunodeficiency virus infection): Status: Acute Plan Pt is a 57-year-old female with a PMH significant for COPD, HIV, GERD, anxiety, and hx of ESBL+ UTI who presented to the ED with?severe abdominal and lower back pain. Acute hypoxic respiratory failure in the setting of COVID infection and COPD exacerbation Weaned off the oxygen Day 6 of steroids DuoNeb prn Monitor respiratory status HIV infection Continue antiviral medication Bactrim 800 daily for CD4 <200 Abdominal and back pain Unclear etiology, CT of abd/pelvis and U/S of abdomen negative for acute intra-abdominal processes on admission Toleratind diet, no nausea, no change in bowel habit Pain management, change to Toradol Repeated CT abdomen pelvis with contrast with no acute intra-abdominal findings Continue Simethicone surgery input appreciated, no surgical intervention needed To do outpatient colonoscopy, patient said she has a follow-up Transaminitis Possibly secondary to COVID infection Monitor labs Anxiety Continue home meds Physical deconditioning Evaluated by PT, will need SNF placement DNR/DNI DVT Prophylaxis: Lovenox reason for continued hospitalization:awaiting snf Time Spent With Patient Time: Total time managing care of this patient today ____ minutes. Quality Stroke Does the patient have a stroke diagnosis?: No VTE Prior VTE?: No VTE Risk Level:: Medical - moderate - high VTE Device Contraindication: Treatment Not Indicated VTE Drug Contraindication: N/A - Med Ordered
--- NOTE | 2022-06-04 14:32 | MHC.CM.PN ---
Female 57 DX Covid A repeat covid test was ordered Day 6. The patient continues to test+Covid. She has [facility] following for Covid recovery. DP STR via BLS
[2022-06-04 15:20] VITALS: BP 112/56; PULSE 66; RESP 20; TEMP 36.1; O2SAT 92
[2022-06-04 19:18] VITALS: BP 108/62; PULSE 63; RESP 20; TEMP 36.7; O2SAT 92
[2022-06-04] MEDS: traZODone HCL 100 MG TABLET 200 MG PO (23:12)
[2022-06-04] MEDS: Zolpidem Tartrate 5 MG TABLET PO (23:13)
[2022-06-04] MEDS: cloNIDine HCL 0.1 MG TABLET PO (23:13)
[2022-06-04] MEDS: diazePAM 5 MG TABLET PO (23:13)
[2022-06-04 23:30] VITALS: BP 116/74; PULSE 63; RESP 18; TEMP 37.2; O2SAT 94
[2022-06-05 04:00] VITALS: BP 158/82; PULSE 52; RESP 20; TEMP 36.6; O2SAT 94
[2022-06-05] MEDS: Omeprazole 20 MG CAPSULE.DR PO ×2 (06:12→17:03)
[2022-06-05 07:39] VITALS: BP 140/67; PULSE 55; RESP 20; TEMP 36.1; O2SAT 94
[2022-06-05 07:39] LABS: Hematocrit 39.7 % (37.0-47.0); Hemoglobin 13.5 g/dl (12.0-16.0); Mean Corpuscular Hemoglobin 30.3 pg (27.0-33.0); Mean Corpuscular Volume 89.2 fL (80.0-98.0); Mean Platelet Volume 9.5 fL (9.4-12.3); Platelet Count 234 X10*3/uL (160-400); Red Blood Count 4.45 X10*6/uL (4.20-5.50); Red Cell Distribution Width 12.3 % (11.0-16.0); White Blood Count 4.6 X10*3/uL (4.8-10.8)
[2022-06-05 07:51] LABS: Anion Gap 13 (12-20); Blood Urea Nitrogen 14 mg/dL (9-16); Calcium 8.7 mg/dL (8.4-10.2); Carbon Dioxide 24 mmol/L (22-29); Chloride 106 mmol/L (96-108); Creatinine Clr Calc Pharmacy 89.9; Estimated Glomerular Filt Rate > 60; Glucose Fasting 96 mg/dL (60-99); Potassium 3.8 mmol/L (3.3-5.1); Sodium 139 mmol/L (135-145)
[2022-06-05] MEDS: 0.9 % Sodium Chloride Flush 3 ML SYRINGE IVFLUSH ×2 (08:53→14:25)
[2022-06-05] MEDS: Enoxaparin Sodium 40 MG/0.4 ML SYRINGE SUBCUT (08:53)
[2022-06-05] MEDS: Vitamin E (Dl,Tocopheryl Acet) 180 MG (400 UNIT) CAPSULE PO (08:54)
[2022-06-05] MEDS: Bictegrav/Emtricit/Tenofov Ala TABLET 1 TAB PO (08:54)
[2022-06-05] MEDS: diazePAM 5 MG TABLET PO ×2 (08:54→19:36)
[2022-06-05] MEDS: Acetaminophen 325 MG TABLET 975 MG PO ×3 (08:54→23:23)
[2022-06-05] MEDS: Benzonatate 100 MG CAPSULE PO ×3 (08:55→19:36)
[2022-06-05] MEDS: Mirabegron 50 MG TAB.ER.24H PO (08:55)
[2022-06-05] MEDS: Sulfamethox/Trimeth 800/160 TABLET 1 TAB PO (08:55)
[2022-06-05] MEDS: Multivitamin TABLET 1 TAB PO (08:55)
[2022-06-05] MEDS: valACYclovir HCL 1,000 MG TABLET 1000 MG PO (08:55)
[2022-06-05] MEDS: FLUoxetine HCl 20 MG CAPSULE 40 MG PO (08:55)
[2022-06-05] MEDS: guaiFENesin LA 600 MG TAB.ER.12H PO ×2 (08:56→19:38)
[2022-06-05] MEDS: dexAMETHasone 6 MG TABLET PO (08:56)
[2022-06-05] MEDS: oxyCODONE HCl Immed Release 5 MG TABLET PO ×3 (10:29→23:24)
[2022-06-05] MEDS: hydrOXYzine HCL 50 MG TABLET PO (10:29)
--- NOTE | 2022-06-05 10:53 | P.PNIM_ITS ---
Subjective Subjective Date of Service: 06/05/22 Interval History: cc: abd pain interval history:improving Physical Exam Vital Signs: Vital Signs: Last Vital Signs Temp 97.0 F 06/05/22 07:39 Pulse 55 06/05/22 07:39 Resp 20 06/05/22 07:39 BP 140/67 H 06/05/22 07:39 Pulse Ox 94 06/05/22 07:39 O2 Del Method 06/05/22 07:39 O2 Flow Rate 2 06/01/22 15:20 BMI result Body Mass Index 28.0 Const: Other: Constitutional : Awake, interactive, not in distress Neck : Normal inspection, Supple Cardiovascular : RRR, no JVP, no lower extremity edema Respiratory : Decreased bilateral air entry, no crackles, expiratory rhonchi, on RA Gastrointestinal: soft, lax, Normal bowel sounds, generalized tenderness with mild palpation, no surgical signs or rebound Skin : Warm, Dry Neurological : Alert & oriented x3, No focal deficit Objective Data Active Medications Acetaminophen (Acetaminophen 325 Mg Tablet) 975 mg PO TID [facility] Last Admin: 06/05/22 08:54 Dose: 975 mg Documented By: SRINIVAS Albuterol/Ipratropium (Albuterol/Iprat 2.5/0.5mg 3 Ml Ampul.Neb) 3 ml INHALE RQ4H WHILE AWAKE [facility] Last Admin: 06/05/22 07:42 Dose: Not Given Documented By: JON Non-Admin Reason: Patient Asleep Benzonatate (Benzonatate 100 Mg Capsule) 100 mg PO TID [facility] Last Admin: 06/05/22 08:55 Dose: 100 mg Documented By: SRINIVAS Bictegravir/Emtricitabine/Tenofovir (Bictegrav/Emtricit/Tenofov Ala Tablet) 1 tab PO DAILY [facility] Last Admin: 06/05/22 08:54 Dose: 1 tab Documented By: SRINIVAS Clonidine HCl (Clonidine Hcl 0.1 Mg Tablet) 0.1 mg PO BEDTIME [facility]; Protocol Last Admin: 06/04/22 23:13 Dose: 0.1 mg Documented By: NABIL Dexamethasone (Dexamethasone 6 Mg Tablet) 6 mg PO DAILY [facility] Last Admin: 06/05/22 08:56 Dose: 6 mg Documented By: SRINIVAS Diazepam (Diazepam 5 Mg Tablet) 5 mg PO TID PRN PRN Reason: Anxiety Last Admin: 06/05/22 08:54 Dose: 5 mg Documented By: SRINIVAS Enoxaparin Sodium (Enoxaparin Sodium 40 Mg/0.4 Ml Syringe) 40 mg SUBCUT Q24H [facility] Last Admin: 06/05/22 08:53 Dose: 40 mg Documented By: SRINIVAS Fluoxetine HCl (Fluoxetine Hcl 20 Mg Capsule) 40 mg PO DAILY [facility] Last Admin: 06/05/22 08:55 Dose: 40 mg Documented By: SRINIVAS Fluticasone Propionate (Fluticasone Propionate Nasal 16 Gm [place]) 2 spray NOSTRIL-B DAILY PRN PRN Reason: Allergic Symptoms Guaifenesin (Guaifenesin La 600 Mg Tab.Er.12h) 600 mg PO BID [facility] Last Admin: 06/05/22 08:56 Dose: 600 mg Documented By: SRINIVAS Hydroxyzine HCl (Hydroxyzine Hcl 50 Mg Tablet) 50 mg PO BID [facility] Last Admin: 06/05/22 10:29 Dose: 50 mg Documented By: SRINIVAS Hydroxyzine HCl (Hydroxyzine Hcl 25 Mg Tablet) 25 mg PO Q6H PRN PRN Reason: anxiety/restlessness Mirabegron (Mirabegron 50 Mg Tab.Er.24h) 50 mg PO DAILY [facility] Last Admin: 06/05/22 08:55 Dose: 50 mg Documented By: SRINIVAS Multivitamins/Vitamin C (Multivitamin Tablet) 1 tab PO DAILY [facility] Last Admin: 06/05/22 08:55 Dose: 1 tab Documented By: SRINIVAS Non-Formulary Medication (Galcanezumab-Gnlm [Emgality Syringe]) 120 mg SUBCUT Q28D [facility] Non-Formulary Medication (Methenamine Hippurate) 1 gm PO BID [facility] Non-Formulary Medication (Tiotropium-Olodaterol [Stiolto Respimat]) 1 puff INHALE DAILY [facility] Omeprazole (Omeprazole 20 Mg Capsule.Dr) 20 mg PO BID@0630,1630 [facility] Last Admin: 06/05/22 06:12 Dose: 20 mg Documented By: NABIL Oxycodone HCl (Oxycodone Hcl Immed Release 5 Mg Tablet) 5 mg PO Q6H PRN PRN Reason: Pain, Severe (Pain Scale 7-10) Last Admin: 06/05/22 10:29 Dose: 5 mg Documented By: SRINIVAS Simethicone (Simethicone 80 Mg Tab.Chew) 80 mg PO QIDWMHS [facility] Last Admin: 06/05/22 08:56 Dose: Not Given Documented By: SRINIVAS Non-Admin Reason: Patient Refused Sodium Chloride (0.9 % Sodium Chloride Flush 3 Ml Syringe) 3 ml IVFLUSH QSHIFT [facility] Last Admin: 06/05/22 08:53 Dose: 3 ml Documented By: SRINIVAS Trazodone HCl (Trazodone Hcl 100 Mg Tablet) 200 mg PO BEDTIME PRN PRN Reason: Sleep Last Admin: 06/04/22 23:12 Dose: 200 mg Documented By: NABIL Trimethoprim/Sulfamethoxazole (Sulfamethox/Trimeth 800/160 Tablet) 1 tab PO DAILY [facility] Last Admin: 06/05/22 08:55 Dose: 1 tab Documented By: SRINIVAS Valacyclovir HCl (Valacyclovir Hcl 1,000 Mg Tablet) 1,000 mg PO DAILY [facility] Last Admin: 06/05/22 08:55 Dose: 1,000 mg Documented By: SRINIVAS Vitamin E (Vitamin E (Dl,Tocopheryl Acet) 180 Mg (400 Unit) Capsule) 180 mg PO DAILY [facility] Last Admin: 06/05/22 08:54 Dose: 180 mg Documented By: SRINIVAS Zolpidem Tartrate (Zolpidem Tartrate 5 Mg Tablet) 5 mg PO BEDTIME PRN PRN Reason: Insomnia Last Admin: 06/04/22 23:13 Dose: 5 mg Documented By: NABIL Labs 06/05/22 07:27 06/05/22 07:27 Labs: Laboratory Results - last 24 hr 06/04/22 06/05/22 06/05/22 13:00 07:27 07:27 MCV 89.2 MCH 30.3 MCHC 34.0 RDW 12.3 Plt Count 234 D MPV 9.5 Absolute Nucleated RBC 0.000 Nucleated RBC % (auto) 0.0 Anion Gap 13 Estim Creat Clear Calc 89.9 Estimated GFR > 60 Fasting Glucose 96 Calcium 8.7 COVID-19 ([facility]) Positive A COVID-19 Clin Com See Note Assessment and Plan (1) Abdominal pain in female: Status: Acute (2) Acute respiratory failure with hypoxia: Status: Acute (3) COVID: Status: Acute (4) HIV (human immunodeficiency virus infection): Status: Acute Plan Pt is a 57-year-old female with a PMH significant for COPD, HIV, GERD, anxiety, and hx of ESBL+ UTI who presented to the ED with?severe abdominal and lower back pain. Acute hypoxic respiratory failure in the setting of COVID infection and COPD exacerbation Weaned off the oxygen Day 7 of steroids DuoNeb prn Monitor respiratory status HIV infection Continue antiviral medication Bactrim 800 daily for CD4 <200 Abdominal and back pain Unclear etiology, CT of abd/pelvis and U/S of abdomen negative for acute intra- abdominal processes on admission Toleratind diet, no nausea, no change in bowel habit Pain management, change to Toradol Repeated CT abdomen pelvis with contrast with no acute intra-abdominal findings Continue Simethicone surgery input appreciated, no surgical intervention needed To do outpatient colonoscopy, patient said she has a follow-up Transaminitis Possibly secondary to COVID infection Monitor labs Anxiety Continue home meds Physical deconditioning Evaluated by PT, will need SNF placement DNR/DNI DVT Prophylaxis: Lovenox reason for continued hospitalization:awaiting snf Time Spent With Patient Time: Total time managing care of this patient today ____ minutes. Quality Stroke Does the patient have a stroke diagnosis?: No VTE Prior VTE?: No VTE Risk Level:: Medical - moderate - high VTE Device Contraindication: Treatment Not Indicated VTE Drug Contraindication: N/A - Med Ordered
[2022-06-05 11:10] VITALS: BP 107/57; PULSE 68; RESP 20; TEMP 37; O2SAT 93
[2022-06-05 15:08] VITALS: BP 122/55; PULSE 78; RESP 20; TEMP 36.7; O2SAT 98
[2022-06-05 19:12] VITALS: BP 128/63; PULSE 62; RESP 20; TEMP 36.4; O2SAT 95
[2022-06-05] MEDS: cloNIDine HCL 0.1 MG TABLET PO (19:36)
[2022-06-05] MEDS: traZODone HCL 100 MG TABLET 200 MG PO (19:45)
[2022-06-06] VITALS (7 sets, daily range): BP systolic 99–126; BP diastolic 55–73; PULSE 56–72; RESP 18–20; TEMP 36.2–36.7; O2SAT 91–98
[2022-06-06] MEDS: 0.9 % Sodium Chloride Flush 3 ML SYRINGE IVFLUSH ×3 (00:06→15:16)
[2022-06-06] MEDS: Zolpidem Tartrate 5 MG TABLET PO (00:06)
[2022-06-06] MEDS: oxyCODONE HCl Immed Release 5 MG TABLET PO ×2 (05:53→12:45)
[2022-06-06] MEDS: Omeprazole 20 MG CAPSULE.DR PO ×2 (05:53→15:15)
[2022-06-06] MEDS: Albuterol/Iprat 2.5/0.5MG 3 ML AMPUL.NEB INHALE ×2 (07:48→11:39)
[2022-06-06] MEDS: Vitamin E (Dl,Tocopheryl Acet) 180 MG (400 UNIT) CAPSULE PO (09:48)
[2022-06-06] MEDS: Sulfamethox/Trimeth 800/160 TABLET 1 TAB PO (09:48)
[2022-06-06] MEDS: Enoxaparin Sodium 40 MG/0.4 ML SYRINGE SUBCUT (09:48)
[2022-06-06] MEDS: Mirabegron 50 MG TAB.ER.24H PO (09:48)
[2022-06-06] MEDS: valACYclovir HCL 1,000 MG TABLET 1000 MG PO (09:48)
[2022-06-06] MEDS: Benzonatate 100 MG CAPSULE PO ×2 (09:48→15:14)
[2022-06-06] MEDS: Acetaminophen 325 MG TABLET 975 MG PO ×2 (09:48→15:14)
[2022-06-06] MEDS: guaiFENesin LA 600 MG TAB.ER.12H PO (09:49)
[2022-06-06] MEDS: FLUoxetine HCl 20 MG CAPSULE 40 MG PO (09:49)
[2022-06-06] MEDS: hydrOXYzine HCL 50 MG TABLET PO (09:49)
[2022-06-06] MEDS: Multivitamin TABLET 1 TAB PO (09:49)
[2022-06-06] MEDS: Bictegrav/Emtricit/Tenofov Ala TABLET 1 TAB PO (09:49)
[2022-06-06] MEDS: dexAMETHasone 6 MG TABLET PO (09:49)
--- NOTE | 2022-06-06 12:27 | HO.PM.IMPN ---
Subjective Subjective Date of Service: 06/06/22 Interval History: cc: abd pain interval history:improving Physical Exam Vital Signs: Vital Signs: Last Vital Signs Temp 97.5 F 06/06/22 11:33 Pulse 72 06/06/22 11:39 Resp 18 06/06/22 11:39 BP 99/58 L 06/06/22 11:33 Pulse Ox 95 06/06/22 11:33 O2 Del Method 06/06/22 11:33 O2 Flow Rate 2 06/01/22 15:20 BMI result Body Mass Index 28.0 Const: Other: Constitutional : Awake, interactive, not in distress Neck : Normal inspection, Supple Cardiovascular : RRR, no JVP, no lower extremity edema Respiratory : Decreased bilateral air entry, no crackles, expiratory rhonchi, on RA Gastrointestinal: soft, lax, Normal bowel sounds, generalized tenderness with mild palpation, no surgical signs or rebound Skin : Warm, Dry Neurological : Alert & oriented x3, No focal deficit Objective Data Active Medications Acetaminophen (Acetaminophen 325 Mg Tablet) 975 mg PO TID COUNTS INCLUDE 234 BEDS AT [facility] Last Admin: 06/06/22 09:48 Dose: 975 mg Documented By: SRINIVAS Albuterol/Ipratropium (Albuterol/Iprat 2.5/0.5mg 3 Ml Ampul.Neb) 3 ml INHALE RQ4H WHILE AWAKE COUNTS INCLUDE 234 BEDS AT [facility] Last Admin: 06/06/22 11:39 Dose: 3 ml Documented By: VINCENT Benzonatate (Benzonatate 100 Mg Capsule) 100 mg PO TID COUNTS INCLUDE 234 BEDS AT [facility] Last Admin: 06/06/22 09:48 Dose: 100 mg Documented By: SRINIVAS Bictegravir/Emtricitabine/Tenofovir (Bictegrav/Emtricit/Tenofov Ala Tablet) 1 tab PO DAILY [facility]S [facility]CLUDE 234 BEDS AT [facility] Last Admin: 06/06/22 09:49 Dose: 1 tab Documented By: SRINIVAS Clonidine HCl (Clonidine Hcl 0.1 Mg Tablet) 0.1 mg PO BEDTIME COUNTS INCLUDE 234 BEDS AT [facility]; Protocol Last Admin: 06/05/22 19:36 Dose: 0.1 mg Documented By: FLOYD Dexamethasone (Dexamethasone 6 Mg Tablet) 6 mg PO DAILY COUNTS INCLUDE 234 BEDS AT [facility] Last Admin: 06/06/22 09:49 Dose: 6 mg Documented By: SRINIVAS Diazepam (Diazepam 5 Mg Tablet) 5 mg PO TID PRN PRN Reason: Anxiety Last Admin: 06/05/22 19:36 Dose: 5 mg Documented By: FLOYD Enoxaparin Sodium (Enoxaparin Sodium 40 Mg/0.4 Ml Syringe) 40 mg SUBCUT Q24H COUNTS INCLUDE 234 BEDS AT [facility] Last Admin: 06/06/22 09:48 Dose: 40 mg Documented By: SRINIVAS Fluoxetine HCl (Fluoxetine Hcl 20 Mg Capsule) 40 mg PO DAILY COUNTS INCLUDE 234 BEDS AT [facility] Last Admin: 06/06/22 09:49 Dose: 40 mg Documented By: SRINIVAS Fluticasone Propionate (Fluticasone Propionate Nasal 16 Gm [place]) 2 spray NOSTRIL-B DAILY PRN PRN Reason: Allergic Symptoms Guaifenesin (Guaifenesin La 600 Mg Tab.Er.12h) 600 mg PO BID COUNTS INCLUDE 234 BEDS AT [facility] Last Admin: 06/06/22 09:49 Dose: 600 mg Documented By: SRINIVAS Hydroxyzine HCl (Hydroxyzine Hcl 50 Mg Tablet) 50 mg PO BID COUNTS INCLUDE 234 BEDS AT [facility] Last Admin: 06/06/22 09:49 Dose: 50 mg Documented By: SRINIVAS Hydroxyzine HCl (Hydroxyzine Hcl 25 Mg Tablet) 25 mg PO Q6H PRN PRN Reason: anxiety/restlessness Mirabegron (Mirabegron 50 Mg Tab.Er.24h) 50 mg PO DAILY COUNTS INCLUDE 234 BEDS AT [facility] Last Admin: 06/06/22 09:48 Dose: 50 mg Documented By: SRINIVAS Multivitamins/Vitamin C (Multivitamin Tablet) 1 tab PO DAILY COUNTS INCLUDE 234 BEDS AT [facility] Last Admin: 06/06/22 09:49 Dose: 1 tab Documented By: SRINIVAS Non-Formulary Medication (Galcanezumab-Gnlm [Emgality Syringe]) 120 mg SUBCUT Q28D COUNTS INCLUDE 234 BEDS AT [facility] Non-Formulary Medication (Methenamine Hippurate) 1 gm PO BID COUNTS INCLUDE 234 BEDS AT [facility] Non-Formulary Medication (Tiotropium-Olodaterol [Stiolto Respimat]) 1 puff INHALE DAILY COUNTS INCLUDE 234 BEDS AT [facility] Omeprazole (Omeprazole 20 Mg Capsule.Dr) 20 mg PO BID@0630,1630 COUNTS INCLUDE 234 BEDS AT [facility] Last Admin: 06/06/22 05:53 Dose: 20 mg Documented By: DAVE Oxycodone HCl (Oxycodone Hcl Immed Release 5 Mg Tablet) 5 mg PO Q6H PRN PRN Reason: Pain, Severe (Pain Scale 7-10) Last Admin: 06/06/22 05:53 Dose: 5 mg Documented By: DAVE Simethicone (Simethicone 80 Mg Tab.Chew) 80 mg PO QIDWMHS COUNTS INCLUDE 234 BEDS AT [facility] Last Admin: 06/06/22 09:49 Dose: Not Given Documented By: SRINIVAS Non-Admin Reason: Patient Refused Sodium Chloride (0.9 % Sodium Chloride Flush 3 Ml Syringe) 3 ml IVFLUSH QSHIFT COUNTS INCLUDE 234 BEDS AT [facility] Last Admin: 06/06/22 09:49 Dose: 3 ml Documented By: SRINIVAS Trazodone HCl (Trazodone Hcl 100 Mg Tablet) 200 mg PO BEDTIME PRN PRN Reason: Sleep Last Admin: 06/05/22 19:45 Dose: 200 mg Documented By: FLOYD Trimethoprim/Sulfamethoxazole (Sulfamethox/Trimeth 800/160 Tablet) 1 tab PO DAILY COUNTS INCLUDE 234 BEDS AT [facility] Last Admin: 06/06/22 09:48 Dose: 1 tab Documented By: SRINIVAS Valacyclovir HCl (Valacyclovir Hcl 1,000 Mg Tablet) 1,000 mg PO DAILY COUNTS INCLUDE 234 BEDS AT [facility] Last Admin: 06/06/22 09:48 Dose: 1,000 mg Documented By: SRINIVAS Vitamin E (Vitamin E (Dl,Tocopheryl Acet) 180 Mg (400 Unit) Capsule) 180 mg PO DAILY COUNTS INCLUDE 234 BEDS AT [facility] Last Admin: 06/06/22 09:48 Dose: 180 mg Documented By: SRINIVAS Zolpidem Tartrate (Zolpidem Tartrate 5 Mg Tablet) 5 mg PO BEDTIME PRN PRN Reason: Insomnia Last Admin: 06/06/22 00:06 Dose: 5 mg Documented By: DAVE Labs 06/05/22 07:27 06/05/22 07:27 Assessment and Plan (1) Abdominal pain in female: Status: Acute (2) Acute respiratory failure with hypoxia: Status: Acute (3) COVID: Status: Acute (4) HIV (human immunodeficiency virus infection): Status: Acute Plan Pt is a 57-year-old female with a PMH significant for COPD, HIV, GERD, anxiety, and hx of ESBL+ UTI who presented to the ED with?severe abdominal and lower back pain. Acute hypoxic respiratory failure in the setting of COVID infection and COPD exacerbation Weaned off the oxygen Day 8 of steroids DuoNeb prn Monitor respiratory status HIV infection Continue antiviral medication Bactrim 800 daily for CD4 <200 Abdominal and back pain Unclear etiology, CT of abd/pelvis and U/S of abdomen negative for acute intra-abdominal processes on admission Toleratind diet, no nausea, no change in bowel habit Pain management, change to Toradol Repeated CT abdomen pelvis with contrast with no acute intra-abdominal findings Continue Simethicone surgery input appreciated, no surgical intervention needed To do outpatient colonoscopy, patient said she has a follow-up Transaminitis Possibly secondary to COVID infection Monitor labs Anxiety Continue home meds Physical deconditioning Evaluated by PT, will need SNF placement DNR/DNI DVT Prophylaxis: Lovenox reason for continued hospitalization:awaiting snf Time Spent With Patient Time: Total time managing care of this patient today ____ minutes. Quality Stroke Does the patient have a stroke diagnosis?: No VTE Prior VTE?: No VTE Risk Level:: Medical - moderate - high VTE Device Contraindication: Treatment Not Indicated VTE Drug Contraindication: N/A - Med Ordered
--- NOTE | 2022-06-06 15:40 | MHC.CM.PN ---
DP STR pending Covid recovery 06/09/22. Patient will transport via BLS. She has a few facilities following for covid recovery.
--- NOTE | 2022-06-06 15:53 | PM.DS ---
DS: Providers Provider Date of Service: 06/06/22 Date of admission: 05/30/22 12:15 Primary care physician: Demetris Cast III, MD Consults: 05/30/22 12:13 Consult to Infectious Diseases Routine Consulting Provider: Lissette Page Reason for consultation: COVID and HIV+ Has provider been notified: No 06/01/22 08:49 Consult to General Surgery Routine Consulting Provider: Davis Lozada Reason for consultation: persistent Lower abd pain for your kind eval and rec DS: Diagnosis Discharge Diagnosis (1) Abdominal pain in female: Status: Acute (2) Acute respiratory failure with hypoxia: Status: Acute (3) COVID: Status: Acute (4) HIV (human immunodeficiency virus infection): Status: Acute DS: Summary Hospital Course Hospital Course: from initial hpi: Pt is a 57-year-old female with a PMH significant for COPD, HIV, GERD, anxiety, and hx of ESBL+ UTI who presents to the ED with?severe abdominal and lower back pain. Pt states she has been experiencing symptoms since Thursday. Pt complains of diffuse, constant abdominal pain that radiates to her lower back. Pt sates she feels like there's a large cinder block slowly crushing her lower back. During this time pt claims she has only eaten a couple of wings on Thursday and a very small salad on Thursday. Has had some nausea, but no vomiting or diarrhea. Subjective fever and chills. Pt has also noticed numbness and tingling in fingers, nose, and tongue which began sometime this week, though exact day unclear. Pt also noted 2-3 days ago worsening cough and SOB. No lightheadedness or dizziness.? In the ED was noted be satting at 86% on ambulation without O2, 91% without O2 at rest.? Patient not on O2 at home. Labs were significant for mild leukopenia of 3.5, transaminitis of AST of 108 and ALT of 132 and alk-phos of 152.? UA negative for UTI.? Patient tested positive for COVID. CXR showed trace bilateral pleural effusions and bronchial wall thickening with small airway process suggestive of asthma or atypical or viral infection. CT?of the abdomen and pelvis showed no bowel obstruction or other acute intra-abdominal process with mild hepatomegaly with trace bibasilar pleural fluid and mild bibasilar atelectasis.? Abdominal ultrasound found no acute abnormality. EKG demonstrated normal sinus rhythm with non-specific T-wave abnormalities. Pt was treated with morphine and acetaminophen for pain, diazepam for anxiety, and IVF. Pt will be admitted to the hospital for treatment of?acute hypoxic respiratory failure in the setting of COIVD infection with IV steroids hospital course: Patient was admitted for acute hypoxic respiratory failure in the setting of COVID infection and COPD with acute decompensation.. She was able to be weaned off oxygen. She was given steroids for 8 days. For HIV her CD4 was noted to be less than 200 so she was started on Bactrim 800 daily for prophylaxis, she should continue HAART. For abdominal back pain CT abdomen pelvis were negative. Pain improved. For anxiety she was continue home meds. patient is feeling better only discharged home. Time Spent with Patient Time attestation: Total time managing care of this patient today ____ minutes. Discharge coordination time: Greater than 30 minutes Quality: Safe Use of Opioids Does Pt have an Active Cancer Diagnosis on the Problem List?: No Quality: Stroke Does the patient have a stroke diagnosis?: No Physical Exam Vital Signs: Vital Signs: Last Vital Signs Temp 98.0 F 06/06/22 15:28 Pulse 60 06/06/22 15:28 Resp 20 06/06/22 15:28 BP 118/56 L 06/06/22 15:28 Pulse Ox 95 06/06/22 15:28 O2 Del Method 06/06/22 15:28 O2 Flow Rate 2 06/01/22 15:20 BMI result Body Mass Index 28.0 Const: Other: Constitutional : Awake, interactive, not in distress DS: Data Data Completed and Pending Completed studies during hospitalization [Text1]: Procedures Insertion of Infusion Device into Right Basilic Vein, Percutaneous Approach (04/23/22) Discharge Plan Discharge Anticipated Discharge Date/Time: 06/06/22 15:50 Patient Disposition: Home, Self-Care Discharge Diagnosis: covid Referrals: Demetris Cast III, MD [Primary Care Provider] - 2 days Discharge Medications: New sulfamethoxazole-trimethoprim 800-160 mg Tablet 1 tab PO DAILY Qty: 30 0RF Continued ibuprofen 600 mg tablet 600 mg PO Q6H PRN (Reason: fever) Qty: 14 0RF clonidine HCl 0.1 mg tablet 1 tab PO BEDTIME valacyclovir 1 gram tablet 1 tab PO DAILY hydroxyzine HCl 50 mg tablet 1 tab PO BID trazodone 100 mg tablet 2 tab PO BEDTIME PRN (Reason: Sleep) omeprazole 20 mg capsule,delayed release(DR/EC) 1 cap PO DAILY@0630 zolpidem 5 mg tablet 1 tab PO BEDTIME PRN (Reason: Sleep) albuterol sulfate [Ventolin HFA] 90 mcg/actuation HFA aerosol inhaler 2 puff INHALATION Q4-6H PRN (Reason: Wheezing) fluoxetine 20 mg capsule 2 cap PO DAILY diazepam 5 mg tablet 1 tab PO TID PRN (Reason: Anxiety) Myrbetriq 50 mg tablet extended release 24 hr 1 tab PO DAILY Stiolto Respimat 2.5-2.5 mcg/actuation mist 1 puff inhalation DAILY Biktarvy 50-200-25 mg tablet 1 tab PO DAILY Emgality Syringe 120 mg/mL syringe 120 mg subcut Q28D multivitamin Tablet 1 tab PO DAILY vitamin E 268 mg (400 unit) Capsule 268 mg PO DAILY fluticasone propionate [Flonase Allergy Relief] 50 mcg/actuation spray,suspension 2 spray intranasal DAILY PRN (Reason: Allergic Symptoms) Rx Instructions: administer into each nostril methenamine hippurate 1 gram tablet 1 g PO BID 30 Days Qty: 60 0RF Discharge Orders: Discharge Order (Routine); Ordered 06/06/22 Ordered By: Duke Sampson Diet: Advance to usual diet Activity on Discharge: As tolerated Stand Alone Forms: Patient Portal Discharge page Care Plan Goals: recovery Health Concerns: covid, hiv Plan of Treatment: starting bactrim, continue haart Assessment: see above Patient Instructions: Abdominal Pain (ED)
--- NOTE | 2022-06-06 16:06 | MHC.CM.PN ---
IMM 06/06/22 Female DX Robinson is discharged to home today selfcare. She has arranged for transportation home.
== END 2022-06-06 16:50 | disposition home or self-care (01) | DRG 974 ==
LOC: HO.ED 05-30 09:36 → HO.EDOVER 05-30 12:41 → HO.IMC 05-30 16:14
PROVIDERS: Physician Assistant Medical; Student in an Organized Health Care Education/Training Program; Admitting Provider Student in an Organized Health Care Education/Training Program; Emergency Provider Emergency Medicine; PCP Internal Medicine; Visit Provider Internal Medicine
DX: U07.1 COVID-19 (principal); J96.01 Acute respiratory failure with hypoxia; B20 Human immunodeficiency virus [HIV] disease; J44.1 Chronic obstructive pulmonary disease with (acute) exacerbation; F41.9 Anxiety disorder, unspecified; Z66 Do not resuscitate; E86.0 Dehydration; N90.1 Moderate vulvar dysplasia; Z87.891 Personal history of nicotine dependence; Z85.038 Personal history of other malignant neoplasm of large intestine; Z88.8 Allergy status to other drugs, medicaments and biological substances; Z79.51 Long term (current) use of inhaled steroids; Z79.899 Other long term (current) drug therapy
CPT/HCPCS: 0241U; 36415; 71046; 74177; 76705; 80048; 80053; 80076; 81001; 81025; 83615; 83690; 84484; 85025; 85027; 86140; 86359; 86360; 87086; 87635; 88305; 88312; 88342; 88360; 93005; 94640; 97110; 97116; 97162; 99285; J1170; J1650; J1885; J2060; J2270; J2920; J8540; Q9967

== ENCOUNTER → 2022-06-03 15:33 | Outpatient (BNVA) | payer MEDICARE, MEDICAID, SELFPAY | PROVIDERS: PCP Internal Medicine; Visit Provider Obstetrics & Gynecology | DX: D07.1 Carcinoma in situ of vulva (principal); Z21 Asymptomatic human immunodeficiency virus [HIV] infection status; Z98.890 Other specified postprocedural states | CPT/HCPCS: Q3014 ==